=== PATIENT | female | born 1955 | race Caucasian/White ===

== ENCOUNTER 2020-07-04 10:06 | Day surgery (SDC) | payer MEDICARE, MEDICAID, SELFPAY ==
[2020-06-27 15:42] VITALS: BMI 30.5
--- NOTE | 2020-07-02 15:03 | HO.ANESPROP2 ---
Documented by User: Anabel Finley 07/03/20 12:19 HPI - Anesthesia Eval Consult details Narrative: 64yo F for Colonoscopy PMFSH Past Medical History Medical History (Updated 07/02/20 @ 15:05 by Anabel Finley) Anxiety and depression Bipolar disorder COPD (chronic obstructive pulmonary disease) Fibromyalgia Hip fracture, right Hx of allergic rhinitis Hx of gastritis Hypercholesterolemia Hypertension Migraines Obesity (BMI 30-39.9) Osteoporosis Pulmonary nodule Right humeral fracture Thyroid cyst Tobacco abuse Tubular adenoma of colon Type 2 diabetes mellitus with hyperglycemia Vitamin D deficiency Family History Family History (Updated 06/12/20 @ 13:29 by Tone Villanueva MD) Father Hypertension Cancer Mother Hypertension Maternal Aunt Stomach cancer Son Substance abuse Surgical History Surgical History H/O right knee surgery Herniated nucleus pulposus History of esophagogastroduodenoscopy (EGD) Hx of cholecystectomy Hx of colonoscopy S/P PAMELA-BSO Social History Social History Alcohol intake: current Smoking Status: Current every day smoker Packs Per Day: 0.5 Cigarettes Per Day: 10.0 Patient Given Instructions on How to Stop Smoking: Yes Date Education Initiated: 06/27/20 Use of substances other than those prescribed or required for medical reasons: No Advance Directives: No Advance Directives Information Provided: Yes Advance Directives on File: No Meds Allergies Allergy/AdvReac Type Severity Reaction Status Date / Time azithromycin Allergy Unknown unknown Verified 06/12/20 13:27 denosumab [Prolia] Allergy Unknown vomiting Verified 06/12/20 13:27 lamotrigine Allergy Unknown rash Verified 06/12/20 13:27 lisinopril Allergy Unknown nausea and Verified 06/12/20 13:27 vomiting naproxen [Aleve] Allergy Unknown dizziness Verified 06/12/20 13:27 Home Medications Medication Instructions Recorded Confirmed Type amlodipine 2.5 mg tablet 2.5 mg PO DAILY 06/12/20 07/04/20 History cetirizine 10 mg tablet 10 mg PO DAILY 06/12/20 06/27/20 History clonazepam 1 mg tablet 1 mg PO TID 06/12/20 07/04/20 History fluoxetine 20 mg capsule 20 mg PO BID 06/12/20 07/04/20 History furosemide 20 mg tablet 20 mg PO DAILY 06/12/20 06/27/20 History polyethylene glycol 3350 17 gram 17 g PO DAILY 06/12/20 06/27/20 History oral powder packet propranolol 80 mg capsule,24 80 mg PO DAILY 06/12/20 06/27/20 History hr,extended release ziprasidone HCl 40 mg capsule 40 mg PO BID 06/12/20 07/04/20 History Exam Exam Date and Time: July 02, 2020 1503 Height,Weight and Vital Signs: Height 5 ft 11 in Weight 99.337 kg Pertinent Lab Results Pertinent Lab Results: Laboratory Tests 02/23/20 02/23/20 06:26 06:26 WBC 7.0 Hgb 15.0 Hct 46.0 Plt Count 266 Sodium 140 Potassium 4.5 Chloride 104 BUN 14 Creatinine 0.89 Assessment and Plan Assessment Anesthesia Assessment: Chart Reviewed Documented by User: Cathy Anti 07/04/20 10:55 PMFSH Past Medical History Medical History (Updated 07/02/20 @ 15:05 by Anabel Finley) Anxiety and depression Bipolar disorder COPD (chronic obstructive pulmonary disease) Fibromyalgia Hip fracture, right Hx of allergic rhinitis Hx of gastritis Hypercholesterolemia Hypertension Migraines Obesity (BMI 30-39.9) Osteoporosis Pulmonary nodule Right humeral fracture Thyroid cyst Tobacco abuse Tubular adenoma of colon Type 2 diabetes mellitus with hyperglycemia Vitamin D deficiency Family History Family History (Updated 06/12/20 @ 13:29 by Tone Villanueva MD) Father Hypertension Cancer Mother Hypertension Maternal Aunt Stomach cancer Son Substance abuse Surgical History Surgical History H/O right knee surgery Herniated nucleus pulposus History of esophagogastroduodenoscopy (EGD) Hx of cholecystectomy Hx of colonoscopy S/P PAMELA-BSO Social History Social History Alcohol intake: current Smoking Status: Current every day smoker Packs Per Day: 0.5 Cigarettes Per Day: 10.0 Patient Given Instructions on How to Stop Smoking: Yes Date Education Initiated: 06/27/20 Use of substances other than those prescribed or required for medical reasons: No Advance Directives: No Advance Directives Information Provided: Yes Advance Directives on File: No Meds Allergies Allergy/AdvReac Type Severity Reaction Status Date / Time azithromycin Allergy Unknown unknown Verified 06/12/20 13:27 denosumab [Prolia] Allergy Unknown vomiting Verified 06/12/20 13:27 lamotrigine Allergy Unknown rash Verified 06/12/20 13:27 lisinopril Allergy Unknown nausea and Verified 06/12/20 13:27 vomiting naproxen [Aleve] Allergy Unknown dizziness Verified 06/12/20 13:27 Home Medications Medication Instructions Recorded Confirmed Type amlodipine 2.5 mg tablet 2.5 mg PO DAILY 06/12/20 07/04/20 History cetirizine 10 mg tablet 10 mg PO DAILY 06/12/20 06/27/20 History clonazepam 1 mg tablet 1 mg PO TID 06/12/20 07/04/20 History fluoxetine 20 mg capsule 20 mg PO BID 06/12/20 07/04/20 History furosemide 20 mg tablet 20 mg PO DAILY 06/12/20 06/27/20 History polyethylene glycol 3350 17 gram 17 g PO DAILY 06/12/20 06/27/20 History oral powder packet propranolol 80 mg capsule,24 80 mg PO DAILY 06/12/20 06/27/20 History hr,extended release ziprasidone HCl 40 mg capsule 40 mg PO BID 06/12/20 07/04/20 History Exam Airway Mallampati Class: II TM Dist: >3cm Neck ROM: Full Loose/Missing/Broken Teeth: No Heart: RRR Lungs: CTA Assessment and Plan Assessment Anesthesia Assessment: Anesthesia Plan Discussed and Chart Reviewed Final Anesthetic Review NPO: Yes ASA Class: III Final Preanesthetic Review: Meds/Allgs Chart Reviewed, Consent Obtained/Reviewed and Anes Risks/Benef Reviewed Patient Risk: Intermediate Procedure Risk: Low Anesthetic Plan Anesthetic Plan: MAC: Disposition: Standard PACU
--- NOTE | 2020-07-04 10:21 | MHC.SHP ---
Pre-Procedural Eval Section B Chief Complaint: SCREENING Details of Present Illness: Colon cancer screening; Hx tubular adenoma Present Medications: see Short Stay Collaborative assessment Medical History: Significant History (Hypertension, Bipolar Disorder, Gerd) History of Previous Operations: Relevant previous surgery/procedure and date(s) ([facility]: 2009;2014 both exams with polyps.) Allergies: Allergies Allergy/AdvReac Type Severity Reaction Status Date / Time azithromycin Allergy Unknown unknown Verified 06/12/20 13:27 denosumab [Prolia] Allergy Unknown vomiting Verified 06/12/20 13:27 lamotrigine Allergy Unknown rash Verified 06/12/20 13:27 lisinopril Allergy Unknown nausea and Verified 06/12/20 13:27 vomiting naproxen [Aleve] Allergy Unknown dizziness Verified 06/12/20 13:27 Review of Systems Sugical H&P ROS: Negative: Cardiovascular and Gastrointestinal and Yes, Specify: Constitution (Obesity), Respiratory (COPD; current smoker) and Endocrine (Diabetic) Exam Surgical H&P Exam: Normal: HEENT, Normal: Heart, Normal: Lungs and Normal: Extremities and Significant Findings: Abdomen (Central obesity) Plan Diagnosis/Plan: Unchanged Patient has been examined and remains a candidate for the planned procedure--yes
[2020-07-04 10:23] VITALS: BMI 30.5
[2020-07-04 10:29] VITALS: BP 139/81; PULSE 71; RESP 16; TEMP 35.8; O2SAT 94
--- NOTE | 2020-07-04 10:37 | PM.PROC ---
Brief Operative Note Date of procedure: 07/04/20 Pre-op diagnosis: Colon cancer screening, Hx of Tubular adenomas Anesthesia: MAC (CORY Langston) Surgeon: Michelle Dickey Disposition: PACU
[2020-07-04 10:43] LABS: Glucose, Whole Blood 133 mg/dL (60-115)
[2020-07-04 11:29] VITALS: BP 115/76; PULSE 76; RESP 16; TEMP 36.8; O2SAT 97
--- NOTE | 2020-07-04 11:32 | PM.PROC ---
Brief Operative Note Date of procedure: 07/04/20 Pre-op diagnosis: Hx of tubular adenomas, Screening Post-op diagnosis: other (Colon polyps) Procedure: Colonoscopy with excisional polypectomiesx2--Resolution clipping x1 Anesthesia: MAC (CORY Goldberg/MD Rogerio) Surgeon: Michelle Dickey Estimated blood loss (mL): 10 Pathology: other (Descending colon, transverse colon polyps) Condition: stable Disposition: PACU
[2020-07-04 11:43] VITALS: BP 140/89; PULSE 77; RESP 16; TEMP 36.6; O2SAT 99
--- NOTE | 2020-07-04 11:51 | PC.NURSE ---
iv removed. rito po contrast. dressing self in chair. ride called.
--- NOTE | 2020-07-04 12:04 | HO.POSTANES ---
Post Anesthesia Evaluation Post Anesthesia Evaluation Vital Signs: Vital Signs Temp Pulse Resp BP Pulse Ox 07/04/20 11:43 98 F 77 16 140/89 H 99 07/04/20 11:29 98.3 F 76 16 115/76 97 07/04/20 10:29 96.5 F L 71 16 139/81 94 Anesthesia: Monitored Mental Status: Awake Pain Control: Satisfactory Nausea/Vomiting: None Hydration: Adequate Anesthesia-Related Issues: No Anes. Related Issues
--- NOTE | 2020-07-06 20:10 | OP_ITS ---
SURGEON: Michelle Dickey MD PREOPERATIVE DIAGNOSIS: History of tubular adenomas. POSTOPERATIVE DIAGNOSIS: Colonic polyps. PROCEDURE PERFORMED: Colonoscopy with excisional polypectomy x2, resolution clipping x1. ESTIMATED BLOOD LOSS: Less than 10 mL. COMPLICATIONS: No complications. ANESTHESIA: Type of anesthesia, monitored. ASSISTANTS: No unit assistant. SPECIMENS: Removed, descending colon 60 cm polyp, distal transverse colon polyp. [employer]: Dr. Dickey. CONDITION: Postop, stable. FINDINGS: Digital rectal exam revealed no specific lesion. Video colonoscope was introduced without difficulty. It was navigated into the rectosigmoid, sigmoid. In this area, there was a suggestion on withdrawal of the scope of the rectosigmoid prolapse. Prep was excellent. Good mucosal detail was seen and anorectal verge was clear. PLAN AND CURRENT RECOMMENDATIONS: Repeat asymptomatic screening in this patient continues to be 5 years. GRAFT OR IMPLANTS: No grafts or implants, but there was 1 resolution clip placed. Michelle Dickey MD MEN/MODL / [id number] MTDFredis
== END 2020-07-04 12:11 | disposition home or self-care (01) ==
PROVIDERS: PCP Internal Medicine; Visit Provider Internal Medicine Gastroenterology
PROC: 0DJD8ZZ Inspection of Lower Intestinal Tract, Via Natural or Artificial Opening Endoscopic (ICD-10-PCS; CPT 45378; principal; 2020-07-04 11:30)
DX: Z12.11 Encounter for screening for malignant neoplasm of colon (principal); Z86.010 Personal history of colon polyps; D12.3 Benign neoplasm of transverse colon; D12.4 Benign neoplasm of descending colon; J44.9 Chronic obstructive pulmonary disease, unspecified; I10 Essential (primary) hypertension; E11.65 Type 2 diabetes mellitus with hyperglycemia; F32.9 Major depressive disorder, single episode, unspecified; Z90.49 Acquired absence of other specified parts of digestive tract; Z79.899 Other long term (current) drug therapy; Z88.1 Allergy status to other antibiotic agents; Z88.8 Allergy status to other drugs, medicaments and biological substances; F17.210 Nicotine dependence, cigarettes, uncomplicated
CPT/HCPCS: 45380; 82947; 88305

== ENCOUNTER → 2020-08-08 10:32 | Outpatient (BNVA) | payer MEDICARE, SELFPAY | PROVIDERS: PCP Internal Medicine; Visit Provider Physician Assistant | DX: Z13.89 Encounter for screening for other disorder (principal) | CPT/HCPCS: Q3014 ==

== ENCOUNTER 2020-12-03 06:39 | Outpatient (REF) | payer MEDICARE, MEDICAID, SELFPAY ==
[2020-12-03 07:27] LABS: Estimated Average Glucose 169 mg/dL; Hemoglobin A1c % 7.5 %
[2020-12-03 07:44] LABS: Alanine Aminotransferase 48 U/L (0-31); Albumin Level 4.5 g/dL (3.5-5.0); Alkaline Phosphatase 114 U/L (39-117); Anion Gap 14 (12-20); Aspartate Amino Transferase 30 U/L (5-31); Bilirubin Total 0.7 mg/dL (0.0-1.0); Blood Urea Nitrogen 17 mg/dL (9-16); Calcium 9.5 mg/dL (8.4-10.2); Carbon Dioxide 27 mmol/L (22-29); Chloride 104 mmol/L (96-108); Cholesterol 287 mg/dL; Estimated Glomerular Filt Rate 53; Glucose Random 193 mg/dL (60-115); HDL Cholesterol 29 mg/dL; LDL Cholesterol Calculated 187 mg/dl; Potassium 4.2 mmol/L (3.3-5.1); Sodium 141 mmol/L (135-145); Total Protein 6.9 g/dL (6.5-8.0); Triglycerides 357 mg/dL
== END 2020-12-03 06:40 | disposition home or self-care (01) ==
LOC: HO.LAB 06:39
PROVIDERS: PCP Internal Medicine; Visit Provider Internal Medicine
DX: E78.00 Pure hypercholesterolemia, unspecified (principal); E11.65 Type 2 diabetes mellitus with hyperglycemia
CPT/HCPCS: 36415; 80053; 80061; 83036

== ENCOUNTER 2021-01-06 11:22 | Outpatient (REF) | payer MEDICARE, MEDICAID, SELFPAY ==
--- NOTE | ~2021-01-06 | XR_ITS ---
EXAMINATION: XR ABDOMEN KUB CLINICAL INDICATION: K59.00 - Constipation, unspecified. COMPARISON: Radiographs abdomen 07/24/2014. TECHNIQUE: AP x2 views of the abdomen. FINDINGS: There is scattered gas in the bowel of normal caliber. There is scant stool in the rectosigmoid region. There is no excessive stool. No pneumatosis or abnormal collections of gas. Lung bases are clear. Surgical clips again noted right upper quadrant. There are degenerative changes lumbosacral spine. Orthopedic hardware is seen overlying right hip. XR/XR abdomen 1V IMPRESSION: 1. Scattered gas in bowel of normal caliber. 2. Scant stool in rectosigmoid. No excessive stool.
== END 2021-01-06 11:23 | disposition home or self-care (01) ==
LOC: HO.XRAY 11:22
PROVIDERS: PCP Internal Medicine; Visit Provider Internal Medicine
DX: K59.00 Constipation, unspecified (principal)
CPT/HCPCS: 74018

== ENCOUNTER 2021-04-07 12:52 | Outpatient (REF) | payer MEDICARE, MEDICAID, SELFPAY ==
--- NOTE | ~2021-04-07 | MM_ITS ---
EXAMINATION: MM SCREENING DIGITAL BREAST TOMOSYNTHESIS, BILATERAL CLINICAL INFORMATION: Screening. Asymptomatic. The lifetime risk of breast cancer based on the Tyrer-Cuzick Model is 3%. COMPARISON: Mammography: 04/10/2020, 04/01/2020, 03/27/2019, 03/15/2018, 06/07/2007 TECHNIQUE: Digital breast tomosynthesis is performed in both the craniocaudal and mediolateral oblique views along with computer-aided detection (CAD). Synthesized 2D images are generated from the tomosynthesis. Additional left CC view is provided. FINDINGS: There are scattered areas of fibroglandular density (ACR BI-RADS breast composition Category b). Breast tissue composition borders on heterogeneously dense. There is fine fibronodular parenchymal pattern similar to prior studies. No developing density or interval mass or architectural abnormality. No abnormal calcifications. The axilla and skin contours are unremarkable. MM/MM tomosynthesis screening BI IMPRESSION: No mammographic evidence of malignancy. ASSESSMENT: BI-RADS 1: Negative RECOMMENDATION: Routine annual mammography screening. This patient's information was entered into a reminder system with a target due date for their next mammogram.
== END 2021-04-07 12:53 | disposition home or self-care (01) ==
LOC: HO.MAMMO 12:52
PROVIDERS: PCP Internal Medicine; Visit Provider Internal Medicine
DX: Z12.31 Encounter for screening mammogram for malignant neoplasm of breast (principal)
CPT/HCPCS: 77063; 77067

== ENCOUNTER 2021-08-18 07:00 | Outpatient (REF) | payer MEDICARE, MEDICAID, SELFPAY ==
[2021-08-18 11:35] LABS: MANUAL DIFF FLAG NO
[2021-08-18 11:39] LABS: Basophils Percent Auto 0.6 % (0-2); Eosinophils Absolute Auto 0.2 X10*3/uL (0.0-0.4); Hematocrit 47.1 % (37.0-47.0); Hemoglobin 14.9 g/dl (12.0-16.0); Imm Gran Abs Auto 0.02 X10*3/uL (0.00-0.03); Imm Gran Pct Auto 0.3 % (0.0-0.4); Lymphocytes Absolute Auto 2.4 X10*3/uL (1.2-4.9); Lymphocytes Percent Auto 37.7 % (20-40); Mean Corpuscular HGB Conc 31.6 g/dl (31.0-35.0); Mean Corpuscular Hemoglobin 28.6 pg (27.0-33.0); Mean Corpuscular Volume 90.4 fL (80.0-98.0); Mean Platelet Volume 11.5 fL (9.4-12.3); Monocytes Absolute Auto 0.4 X10*3/uL (0.1-1.2); Monocytes Percent Auto 6.5 % (2-11); Neutrophils Absolute Auto 3.3 x10*3/uL (2.0-8.3); Neutrophils Percent Auto 51.9 % (45-73); Platelet Count 273 X10*3/uL (160-400); Red Blood Count 5.21 X10*6/uL (4.20-5.50); Red Cell Distribution Width 12.6 % (11.0-16.0); White Blood Count 6.3 X10*3/uL (4.8-10.8)
[2021-08-18 11:52] LABS: Alanine Aminotransferase 38 U/L (0-31); Albumin Level 4.3 g/dL (3.5-5.0); Alkaline Phosphatase 88 U/L (39-117); Anion Gap 11 (12-20); Aspartate Amino Transferase 22 U/L (5-31); Bilirubin Total 0.4 mg/dL (0.0-1.0); Blood Urea Nitrogen 14 mg/dL (9-16); Calcium 9.7 mg/dL (8.4-10.2); Carbon Dioxide 29 mmol/L (22-29); Chloride 105 mmol/L (96-108); Estimated Glomerular Filt Rate 59; Glucose Random 192 mg/dL (60-115); Iron 100 mcg/dL (30-160); Percent Iron Saturation 23 % (15-50); Potassium 4.6 mmol/L (3.3-5.1); Sodium 140 mmol/L (135-145); Total Iron Binding Capacity 432 mcg/dL (228-428); Total Protein 7.1 g/dL (6.5-8.0); Unsaturated Iron Binding 332 ug/dL
[2021-08-18 12:13] LABS: Free T4 (Free Thyroxine) 1.06 ng/dL (0.71-1.85); Thyroid Stimulating Hormone 0.66 uIU/mL (0.32-4.0)
[2021-08-18 12:34] LABS: Folate 8.1 ng/mL (> or = 4.0); Vitamin B12 532 pg/mL (200-900)
== END 2021-08-18 07:01 | disposition home or self-care (01) ==
LOC: HO.HMGCLDS 07:00
PROVIDERS: PCP Internal Medicine; Visit Provider Internal Medicine
DX: E11.65 Type 2 diabetes mellitus with hyperglycemia (principal)
CPT/HCPCS: 36415; 80053; 82306; 82607; 82746; 83540; 84439; 84443; 85025

== ENCOUNTER 2024-07-25 15:21 | Outpatient (AMB) | payer MEDICARE, MEDICAID, SELFPAY ==
[2024-07-25 15:26] VITALS: BP 130/78; PULSE 76; O2SAT 96; BMI 29.3
--- NOTE | 2024-07-25 15:26 | A.OFFPC_ITS ---
Vital Signs 07/25/24 15:26 Height 5 ft 11 in Weight 210 lb BMI 29.3 BP 130/78 Blood Pressure Location Lt brachial Position Sitting Pulse 76 Pulse Source Pulse Oximeter Pulse Oximetry (%) 96 Oxygen Delivery Method Room Air Intake Visit Reasons: f/u meds Allergies azithromycin Allergy (Unknown, Verified 07/25/24 15:26) unknown denosumab [Prolia] Allergy (Unknown, Verified 07/25/24 15:26) vomiting lamotrigine Allergy (Unknown, Verified 07/25/24 15:26) rash lisinopril Allergy (Unknown, Verified 07/25/24 15:26) nausea and vomiting naproxen [Aleve] Allergy (Unknown, Verified 07/25/24 15:26) dizziness Medication List - Last Reconciled 07/25/24 by Tone Villanueva MD albuterol sulfate 90 mcg/actuation (ProAir HFA) 2 puffs inhalation Q4-6H PRN amlodipine 2.5 mg PO DAILY atorvastatin 40 mg PO BEDTIME cetirizine (Zyrtec) 10 mg PO DAILY cholecalciferol (vitamin D3) 25 mcg PO DAILY clonazepam (Klonopin) 1 mg PO TID fenofibrate 160 mg PO DAILY 90 days fluoxetine 20 mg PO BID fluoxetine 10 mg PO DAILY fluticasone propion-salmeterol 250-50 mcg/dose (Advair Diskus) 1 inh inhalation BID furosemide 20 mg PO DAILY gabapentin 300 mg PO BID gabapentin 600 mg PO BEDTIME glipizide 5 mg PO DAILY propranolol ER 80 mg PO DAILY ziprasidone HCl 40 mg PO BID ziprasidone HCl 20 mg PO BID Tobacco use date assessed: 07/25/24 Fall risk assessment: No Falls in past year Last assessed Fall Risk: 07/25/24 Dental Screening Dental Screen Date: 07/25/24 Did you have a dental visit in the last 12 months?: Yes Did you have a dental problem in the last 6 months where you did not have access to dental care?: No Was dental information given to patient?: Patient has dentist HPI f/u meds HPI Details 68-year-old overweight female smoker wit h a history of osteoporosis bipolar disorder with hypertension hypercholesterolemia COPD diabetes mellitus coming in for follow-up. Last seen in 2020. Patient's colonoscopy is up-to-date 2019 mammogram is due bone density is due. Went on [facility] -. mom . changed [facility] Medical History Anxiety and depression Bilateral lower extremity pain Bipolar disorder COPD (chronic obstructive pulmonary disease) Fibromyalgia Hip fracture, right Hx of allergic rhinitis Hx of gastritis Hypercholesterolemia Hypertension Migraines Obesity (BMI 30-39.9) Osteoporosis Overweight (BMI 25.0-29.9) Pulmonary nodule Right humeral fracture Thyroid cyst Tobacco abuse Tubular adenoma of colon Type 2 diabetes mellitus with hyperglycemia Vitamin D deficiency Surgical History Deficient knowledge of leg surgery History of shoulder surgery History of hip surgery Hx of colonoscopy History of esophagogastroduodenoscopy (EGD) S/P PAMELA-BSO Hx of cholecystectomy H/O right knee surgery Herniated nucleus pulposus Family History (Updated 07/08/21 @ 14:17 by Tone Villanueva MD) Father Hypertension Cancer Lung cancer Mother Hypertension Maternal Aunt Stomach cancer Son Substance abuse Social History (Updated 07/08/21 @ 14:18 by Tone Villanueva MD) Housing: House Alcohol intake: former Patient Tobacco Use Status: Current everyday Tobacco user Tobacco use type: Cigarette Cigarettes Per Day: 10 e-Cigarette/Vaping Use: Never Used Second Hand Smoke Exposure: Yes Current occupational status: employed Cognitive needs: No Hearing needs: No Vision needs: Yes Questionnaire PHQ-9 Over the last 2 weeks, how often have you been bothered by any of the following problems? 1. Little interest or pleasure in doing things: not at all 2. Feeling down, depressed, or hopeless: not at all 3. Trouble falling or staying asleep, or sleeping too much: not at all 4. Feeling tired or having little energy: not at all 5. Poor appetite or overeating: not at all 6. Feeling bad about yourself - or that you are a failure or have let yourself or your family down: not at all 7. Trouble concentrating on things, such as reading the newspaper or watching television: not at all 8. Moving or speaking so slowly that other people could have noticed. Or the opposite - being so fidgety or restless that you have been moving around a lot more than usual: not at all 9. Thoughts that you would be better off or of hurting yourself in some way: not at all Total score: 0 Source: Developed by Drs. Tan Galan, Kizzy Colmenares, Kwadwo Lim and colleagues, with an educational ravindra from [employer]. Thrive Questionnaire Date Thrive assessed: 07/25/24 I am a: Patient What is your living situation today?: I have a steady place to live Within the past 12 months, did the food you bought not last and you didn't have the money to get more?: Never true Within the past 12 months, did you worry whether your food would run out before you got money to buy more?: Never true Do you have trouble paying for medicines?: No Do you have trouble getting transportation to medical appointments?: No Do you have trouble paying your heating and electricity bill?: No Do you have trouble taking care of your child, family member or friend?: No Do you have trouble with day-to-day activities such as bathing, preparing meals, shopping, managing finances, etc.?: No Are you currently unemployed and looking for a job?: No Are you interested in more education?: No Currently or been in a relationship where the following occur: No concerns reported THRIVE Score: 0 AUDIT C Alcohol Use Questionnaire (AUDIT-C) 1. How often do you have a drink containing alcohol?: Never 3. How often do you have six or more drinks on one occasion?: Never Total Score: 0 DINORAH-7 AMB Questionnaire DINORAH-7 Date DINORAH - 7 assessed: 07/25/24 Feeling nervous, anxious, or on edge: 1 = Several days Not being able to stop or control worryin = Not at all Worrying too much about different things: 1 = Several days Trouble relaxin = Not at all Being so restless that it is hard to sit still: 0 = Not at all Becoming easily annoyed or irritable: 0 = Not at all Feeling afraid as if something awful might happen: 0 = Not at all Total DINORAH-7 score (0-4 normal; 5-9 mild; 10-14 moderate; 15-21 severe): 2 Source: Developed by Kizzy Welch Kurt Kroenke and colleagues, with an educational ravindra from [employer]. Physical exam (Primary Care) Vital Signs: Last Vital Signs Pulse 76 07/25/24 15:26 BP 130/78 07/25/24 15:26 Pulse Ox 96 07/25/24 15:26 Oxygen Delivery Method Room Air 07/25/24 15:26 BMI result Body Mass Index 29.3 Tobacco/Smoking Status: Tobacco use Status Tobacco use date assessed 07/25/24 07/25/24 15:27 Patient Tobacco Use Status Current everyday Tobacco 07/25/24 15:27 Tobacco use type Cigarette 07/25/24 15:27 e-Cigarette/Vaping Use Never Used 07/25/24 15:27 PHQ-9: PHQ-9 Score PHQ-9: Total score 0 07/25/24 15:41 Thrive Assessment: Date of Thrive Assessment Date Thrive assessed 07/25/24 07/25/24 15:27 Currently or been in a relationship where the following occur: No concerns reported Const General: alert; No acute distress Eyes Conjunctivae: conjunctivae normal Resp Auscultation: clear to auscultation bilaterally Cardio Rate: regular rate Rhythm: regular rhythm GI Inspection: Yes normal to inspection Extrem General: Yes normal to inspection and No edema Results AMB Hemoglobin A1c AMB Hemoglobin A1c 6.5 % Last Edit by Katelynn Ospina CMA on 07/25/24 15 :58 Coding Level of Care Code Est Pt Level 4 (11880) Complex EM visit Add On G2211 Diagnoses Type 2 diabetes mellitus with hyperglycemia, without long-term current use of insulin E11.65 Diabetes mellitus [facility]p insulin use: without epic ambulatory specialists use Essential hypertension I10 Hypertension type: essential hypertension Hypercholesterolemia E78.00 Tobacco abuse Z72.0 Age-related osteoporosis without current pathological fracture M81.0 Osteoporosis type: age-related Presence of current pathological fracture: without current pathological fracture Breast cancer screening by mammogram Z12.31 Overweight (BMI 25.0-29.9) E66.3 Bipolar affective disorder, currently manic, moderate F31.12 Active/Remission status: currently active Current bipolar episode type: manic Current episode severity: moderate Assessment & Plan Assessment & Plan (1) Type 2 diabetes mellitus with hyperglycemia: Comment: Dr. Garcia Code(s): E11.65 - Type 2 diabetes mellitus with hyperglycemia Category: Medical Qualifiers: Diabetes mellitus mcfp insulin use: without mcfp use Qualified Code(s): E11.65 - Type 2 diabetes mellitus with hyperglycemia Plan: Decrease the amount of carbohydrate intake, pasta, bread, rice and potatoes are all sugar and that is aside from all the sweet stuff, remember that fruits are good but they are Sweet also. Hemoglobin A1c goal of less than 7.0 patient on glipizide 5 mg once a day (2) Hypertension: Code(s): I10 - Essential (primary) hypertension Category: Medical Qualifiers: Hypertension type: essential hypertension Qualified Code(s): I10 - Essential (primary) hypertension Plan: Continue with blood pressure medication. Decrease salt intake and exercise on propranolol 80 mg once a day and amlodipine 2.5 mg once a day. Patient had nausea and vomiting from lisinopril. (3) Hypercholesterolemia: Code(s): E78.00 - Pure hypercholesterolemia, unspecified Category: Medical Plan: Avoid fried foods, chicken skin, eggs, butter margarine, pastries and meat. Be it pork or beef they have a lot of cholesterol LDL goal of less than 100 and triglyceride of less than 150 on atorvastatin 40 mg once a day patient needs blood work and fenofibrate (4) Tobacco abuse: Comment: stopped 10/2020 still smoking 3/4 of pack since 13 years old - last CT chest 03/2024 Code(s): Z72.0 - Tobacco use Category: Medical Plan: Discussion regarding lung cancer screening program. patient is having CT scan (5) Osteoporosis: Comment: 05/2017, March 2020 Code(s): M81.0 - Age-related osteoporosis without current pathological fracture Category: Medical Qualifiers: Osteoporosis type: age-related Presence of current pathological fracture: without current pathological fracture Qualified Code(s): M81.0 - Age- related osteoporosis without current pathological fracture Plan: Reminded about bone density (6) Breast cancer screening by mammogram: Code(s): Z12.31 - Encounter for screening mammogram for malignant neoplasm of breast Category: Medical Plan: Reminded about mammogram (7) Overweight (BMI 25.0-29.9): Code(s): E66.3 - Overweight Category: Medical Plan: Diet and exercise (8) Bipolar disorder: Comment: Santi [place] Code(s): F31.9 - Bipolar disorder, unspecified Category: Medical Qualifiers: Active/Remission status: currently active Current bipolar episode type: manic Current episode severity: moderate Qualified Code(s): F31.12 - Bipolar disorder, current episode manic without psychotic features, moderate Plan: Continue with counseling and therapy. Orders: Orders AMB Hemoglobin A1c Today Z13.9 - Encounter for screening, unspecified Vitamin D 25-OH Total Today E11.65 - Type 2 diabetes mellitus with hyperglycemia MM tomosynthesis screening BI Today Z12.31 - Encounter for screening mammogram for malignant neoplasm of breast XR DEXA axial skeleton Today M81.0 - Age-related osteoporosis without current pathological fracture Complete Blood Count Auto Diff Today E11.65 - Type 2 diabetes mellitus with hyperglycemia Comprehensive Met. Panel Today E11.65 - Type 2 diabetes mellitus with hyperglycemia Free T4 (Free Thyroxine) Today E11.65 - Type 2 diabetes mellitus with hyperglycemia Thyroid Stimulating Hormone Today E11.65 - Type 2 diabetes mellitus with hyperglycemia Lipid Panel Today E11.65 - Type 2 diabetes mellitus with hyperglycemia, E78.00 - Pure hypercholesterolemia, unspecified Microalbumin, Random (w Creat) Today E11.65 - Type 2 diabetes mellitus with hyperglycemia Creatinine Urine Today E11.65 - Type 2 diabetes mellitus with hyperglycemia Vitamin B12 and Folate Today E11.65 - Type 2 diabetes mellitus with hyperglycemia Referrals Lung Cancer Screening Referral Z72.0 - Tobacco use Podiatry Referral E11.65 - Type 2 diabetes mellitus with hyperglycemia Medications: New gabapentin 300 mg PO BID 60 caps 3RF Z72.0 - Tobacco use cholecalciferol (vitamin D3) 25 mcg PO DAILY 90 caps 3RF Z72.0 - Tobacco use fluticasone propion-salmeterol 250-50 mcg/dose (Advair Diskus) 1 inh inhalation BID 60 ea 12RF Z72.0 - Tobacco use glipizide 5 mg PO DAILY 90 tabs 1RF E11.65 - Type 2 diabetes mellitus with hyperglycemia gabapentin 600 mg PO BEDTIME 30 tabs 3RF Z72.0 - Tobacco use furosemide 20 mg PO DAILY 30 tabs 1RF Z72.0 - Tobacco use Changed From atorvastatin 40 mg PO BEDTIME E78.00 - Pure hypercholesterolemia, unspecified To atorvastatin 10 mg PO BEDTIME 90 tabs 1RF E78.00 - Pure hypercholesterolemia, unspecified From albuterol sulfate 90 mcg/actuation (ProAir HFA) 2 puffs inhalation Q4-6H PRN 8.5 grams 0RF shortness of breath or wheezing J43.9 - Emphysema, unspecified To albuterol sulfate 90 mcg/actuation 2 puffs inhalation Q4-6H PRN 8.5 grams 0RF shortness of breath or wheezing J43.9 - Emphysema, unspecified Refilled propranolol ER 80 mg PO DAILY 90 caps 2RF Z72.0 - Tobacco use amlodipine 2.5 mg PO DAILY 90 tabs 3RF Z72.0 - Tobacco use fenofibrate 160 mg PO DAILY 90 days 90 tabs 2RF E78.00 - Pure hypercholesterolemia, unspecified
--- OUTSIDE RECORDS SUMMARY | 2024-08-01 15:11 | XMS_ITS | Continuity of Care Document ---
Author Organization [facility] Address [address] [address] Phone Care Team Providers Care Technology Program Manager Name Role Phone Samra Brock MD Unavailable Unavailable Allergies, Adverse Reactions, Alerts Substance Reaction Status Criticality NAPROXEN SODIUM Dizziness Active No Informati on lisinopril Active No Information lamotrigine Active No Information denosumab Active No Information azithromycin Active No Information Medications Medication Instructions Dosage Effective Dates (start - stop) Status Comments Senna Lax 8.6 mg tablet TAKE 2 TABLETS BY MOUTH EVERY DAY - Active furosemide 20 mg tablet TAKE 1 TABLET BY ORAL ROUTE EVERY DAY - Active amlodipine 2.5 mg tablet TAKE 1 TABLET BY ORAL ROUTE EVERY DAY - Active Aveeno Moisturizing 1 % topical cream apply to affected areas as needed. - Active Aveeno eczema therapy with hydrocolloidal oatmeal Flonase Allergy Relief 50 mcg/actuation nasal spray,suspension spray 1 - 2 spray by intranasal route every day in each nostril as needed 50-100 MCG - Active glipizide 5 mg tablet TAKE 1 TABLET BY ORAL ROUTE EVERY DAY BEFORE A MEAL - Active albuterol sulfate HFA 90 mcg/actuation aerosol inhaler INHALE 2 PUFF BY INHALATION ROUTE EVERY 4 - 6 HOURS NEEDED - Active propranolol ER 80 mg capsule,24 hr,extended release TAKE 1 CAPSULE BY ORAL ROUTE EVERY DAY - Active ATORVASTATIN 80MG TAKE 1 TABLET BY ORAL ROUTE EVERY DAY - Active gabapentin 600 mg tablet TAKE 1 TABLET BY ORAL ROUTE AT BEDTIME - Active gabapentin 300 mg capsule TAKE 1 CAPSULE BY ORAL ROUTE AT 8AM AND 1PM - Active Tylenol Extra Strength 500 mg tablet take 2 tablet by oral route every 8 hours - Active hydrocortisone 2.5 % lotion apply by topical route twice a day as a thin layer to the affected area(s) - Active ADVAIR DISKU AER 250/50 INHALE 1 PUFF BY MOUTH 2 TIMES EVERY DAY APPROXIMATELY 12 HOURS APART AT THE SAME TIMES EACH DAY - Active Pepto-Bismol 262 mg/15 mL oral suspension take 30ml by oral route every hour as needed do not exceed 8 doses in 24 hours - Active Heartburn Relief (famotidine) 10 mg tablet TAKE 1 TABLET BY ORAL ROUTE EVERY DAY NEEDED - Active CETIRIZINE 10MG TAKE 1 TABLET BY ORAL ROUTE EVERY DAY - Active fluoxetine 10 mg capsule TAKE 1 CAPSULE BY ORAL ROUTE EVERY DAY IN THE PM - Active VITAMIN D3 1000UNIT TAKE 1 TABLET BY MOUTH EVERY DAY - Active FENOFIBRATE 160MG TAKE 1 TABLET BY ORAL ROUTE EVERY NIGHT - Active Saline Mist 0.65 % nasal spray aerosol 1-2 sprays each nostril PRN dry sinuses - Active ziprasidone 20 mg capsule TAKE 1 CAPSULE DAILY IN THE MORNING AND 2 CAPSULES IN THE EVENING- RX BY PSYCH - Active FLUOXETINE 20MG TAKE 1 CAPSULE BY ORAL ROUTE EVERY DAY IN THE MORNING - Active clonazepam 1 mg tablet take 1 tablet by oral route 3 times every day 1 MG - Active Mass pat checked 03/08/23. Artificial Tears (polyvinyl alcohol) 1.4 % eye drops administer 1-2 drops to affected eyes every 3 hours as needed - Active SENNA 8.6MG TAKE 2 TABLETS BY MOUTH EVERY DAY - No Longer Active Procedures Procedure Date OFFICE/OUTPATIENT VISIT EST OFFICE/OUTPATIENT VISIT EST OFFICE/OUTPATIENT VISIT EST Guy-12-2024 OFFICE/OUTPATIENT VISIT EST OT EVAL LOW COMPLEX 30 MIN PER PM REEVAL EST PAT 65+ YR OFFICE/OUTPATIENT VISIT EST OFFICE/OUTPATIENT VISIT EST OFFICE/OUTPATIENT VISIT EST PT EVAL LOW COMPLEX 20 MIN OT EVAL LOW COMPLEX 30 MIN MED NUTRITION INDIV SUBSEQ PER PM REEVAL EST PAT 65+ YR OFFICE/OUTPATIENT VISIT EST MED NUTRITION INDIV SUBSEQ OFFICE/OUTPATIENT VISIT EST MEDICAL NUTRITION INDIV IN OFFICE/OUTPATIENT VISIT NEW PT EVAL LOW COMPLEX 20 MIN OT EVAL LOW COMPLEX 30 MIN Advance Directives Directive Yes / No Effective Date File Name No Information Encounters Encounter Description Practice Location Reason(s) For Visit Diagnoses Date Provider Providers Copied on Encounter [facility] [address] [facility] [address] [facility], [place], [place], [id number], tel:[phone] [place] No Information 4 Vinod Aqib. [address] [place], [id number], [place]. tel:[phone] [facility], [address] [facility] [facility], [place], [place], [id number], [place] tel:[phone] [place] No Information 4 Vinod Aqib. [address] [place], [id number], [place]. tel:[phone] [facility], [address], [place], [place], [id number], [place] tel:[phone] [place] No Information 4 Vinod Aqib. [address] [place], [id number], [place]. tel:[phone] [facility], [address], [place], [place], [id number], [place] tel:[phone] [place] No Information 4 Vinod Aqib. [address] [place], [place], [id number], [place]. tel:[phone] [facility], [address] [facility], [place], [place], [id number], [place] tel:[phone] [place] No Information 4 Vinod Aqib. [address] [place], [place], [id number], [place]. tel:[phone] [facility], [facility], [place], [place], [id number], [place] tel:[phone] [place] No Information 4 Omar Esthela. [address] [place], [place], [id number], [place]. tel:[phone] [facility], [address] [facility], [place], [place], [id number], [place] tel:[phone] [place] No Information 4 Omar Rushecca. [address] [place], [place], [id number], [place]. tel:[phone] OFFICE/OUTPA TIENT VISIT EST [facility], [address] [facility], [place], [place], [id number], [place] tel:[phone] [place] Semi-Annual (chief complaint) Schizophrenia , unspecified typeBipolar affective disorder, currently depressed, moderateGener alized anxiety disorderPTSD (post-traumat ic stress disorder)Hype rcholesterola emiaLong term (current) use of oral hypoglycemic drugsType 2 diabetes mellitus with stage 2 chronic kidney disease, without long-term current use of insulinChroni c kidney disease, stage 2 (mild)Diabeti c peripheral vascular diseaseAge-re lated osteoporosis without current pathological fractureClass 1 obesity due to excess calories with serious comorbidity and body mass index (BMI) of 30.0 to 30.9 in adultBody mass index [BMI] 30.0-30.9, adultVitamin D deficiencyAge -related cataract of both eyes, unspecified age-related cataract typeGastroeso phageal reflux disease without esophagitisHy pertensive renal disease, stage 1 through stage 4 or unspecified chronic kidney diseasePrimar y osteoarthriti s involving multiple jointsFibromy algiaChronic obstructive pulmonary disease, unspecified COPD typePulmonary nodulePsorias is 4 Omar Proctor. [address] [facility] [place], [id number], [place]. tel:[phone] [facility], [address], [place], [place], [id number], [place] tel:[phone] [place] No Information 4 Os Dawna. [address] [place], [id number], [place]. tel:[phone] [facility], [address], [place], [place], [id number], [place] tel:[phone] [place] No Information 4 Omar Proctor. [address] [place], [id number], [place]. tel:[phone] [facility], [address], [place], [place], [id number], [place] tel:[phone] [place] Psoriasis 4 Omar Proctor. [address] [place], [id number], [place]. tel:[phone] OFFICE/OUTPA TIENT VISIT EST [facility], [address] [facility] [address], [place], [place], [id number], [place] tel:[phone] [place] Acute Visit (chief complaint) Psoriasis 4 Omar Proctor. [address] [place], [id number], [place]. tel:[phone] [facility], [address], [place], [place], [id number], [place] tel:[phone] [place] No Information 0 4 Os Dawna. [address] [place], [place], [id number], [place]. tel:[phone] [facility], [address], [place], [place], [id number], [place] tel:[phone] [place] No Information 0 9 4 Pitsiladis . [address] [place], [place], [id number], [place]. tel:[phone] [facility], [address], [place], [place], [id number], [place] tel:[phone] [place] No Information 0 4 Os Dawna. [address] [place], [place], [id number], [place]. tel:[phone] [facility], [address] [facility] [facility], [place], [place], [id number], [place] tel:[phone] [place] No Information 2 4 Os Dawna. [address] [place], [place], [id number], [place]. tel:[phone] OFFICE/OUTPA TIENT VISIT EST [facility], [address], [place], [place], [id number], [place] tel:[phone] [place] Acute Visit (chief complaint) Psoriasis 2 4 Os Dawna. [address] [place], [place], [id number], [place]. tel:[phone] OFFICE/OUTPA TIENT VISIT EST [facility], [address], [place], [place], [id number], [place] tel:[phone] [place] Acute Visit (chief complaint) Fungal dermatitis 0 4 Omar Esthela. [address] [place], [place], [id number], [place]. tel:[phone] [facility], [address], [place], [place], [id number], [place] tel:[phone] [place] FibromyalgiaA ge-related osteoporosis without current pathological fractureUnspe cified osteoarthriti s, unspecified site May-3 0-202 4 Os Dawna. [address] [place], [id number], [place]. tel:[phone] [facility], [address] [facility] [address], [place], [place], [id number], [place] tel:[phone] [place] No Information 8 4 Omar Proctor. [address] [facility] [place], [id number], [place]. tel:[phone] [facility], [address], [place], [place], [id number], [place] tel:[phone] [place] No Information 6 4 Os Dawna. [address], [place], [place], [id number], [place]. tel:[phone] [facility], [address] [facility] [facility], [place], [place], [id number], [place] tel:[phone] [place] Age-related osteoporosis without current pathological fracture 4 Os Dawna. [address] [place], [place], [id number], [place]. tel:[phone] [facility], [address], [place], [place], [id number], [place] tel:[phone] [place] No Information 3 4 Os Dawna. [address] [place], [place], [id number], [place]. tel:[phone] [facility], [address], [place], [place], [id number], [place] tel:[phone] [place] No Information 3 0-202 4 Os Dawna. [address], [place], [place], [id number], [place]. tel:[phone] [facility], [address] [facility] [facility], [place], [place], [id number], [place] tel:[phone] [place] No Information 4 Os Dawna. [address] [place], [place], [id number], [place]. tel:[phone] [facility], [address] [facility] [address] [facility], [place], [place], [id number], [place] tel:[phone] [place] No Information 4 Os Dawna. [address] [place], [place], [id number], [place]. tel:[phone] [facility], [address] [facility], [place], [place], [id number], [place] tel:[phone] [place] No Information 4 Os Dawna. [address] [place], [place], [id number], [place]. tel:[phone] [facility], [address] [facility], [place], [place], [id number], [place] tel:[phone] [place] No Information 2 4 Os Dawna. [address] [place], [place], [id number], [place]. tel:[phone] [facility], [address] [facility] [facility], [place], [place], [id number], [place] tel:[phone] [place] Encounter for rehabilitatio n evaluationHem iplegia and hemiparesis following unspecified cerebrovascul ar disease affecting left dominant sidePrimary generalized (osteo)arthri tis b-0 4 Torres Madison. [address] [place], [place], [id number], [place]. tel:[phone] [facility], [address] [facility] [address] [facility], [place], [place], [address], [place] tel:[phone] [place] Encounter for rehabilitatio n evaluation 4 Gopi Campos. [address], [place], [place], [id number], [place]. tel:[phone] PER PM REEVAL EST PAT 65+ YR [facility], [address] [facility] [address], [place], [place], [id number], [place] tel:[phone] [place] Semi-Annual (chief complaint) Encounter for general adult medical examination without abnormal findingsSchiz ophrenia, unspecified typeBipolar affective disorder, remission status unspecifiedGe neralized anxiety disorderPTSD (post-traumat ic stress disorder)Hype rcholesterola emiaLong term (current) use of oral hypoglycemic drugsType 2 diabetes mellitus with diabetic chronic kidney disease, unspecified CKD stage, unspecified whether terminal superintendent insulin useOsteoporos is, unspecified osteoporosis type, unspecified pathological fracture presenceGastr oesophageal reflux disease without esophagitisSt age 2 chronic kidney diseaseHypert ensive renal disease, stage 1 through stage 4 or unspecified chronic kidney diseaseChroni c obstructive pulmonary disease, unspecified COPD typePulmonary noduleTobacco useObstructiv e sleep apneaType 2 diabetes mellitus with peripheral vascular disease 4 Os Dawna. [address], [place], [place], [id number], [place]. tel:[phone] [facility], [address] [facility], [place], [place], [id number], [place] tel:[phone] [place] Medication management 3 Omar Proctor. [address], [place], [place], [id number], [place]. tel:[phone] OFFICE/OUTPA TIENT VISIT EST [facility], [address] [address], [place], [place], [id number], [place] tel:[phone] [place] Follow-up (chief complaint) Pulmonary nodule 3 Omar Proctor. [address], [place], [place], [id number], [place]. tel:[phone] [facility], [facility], [place], [place], [id number], [place] tel:[phone] [place] No Information 3 Omar Proctor. [address] [place], [id number], [place]. tel:[phone] [facility], [address] [facility], [place], [place], [id number], [place] tel:[phone] [place] No Information 3 Os Dawna. [address] [place], [place], [id number], [place]. tel:[phone] OFFICE/OUTPA TIENT VISIT EST [facility], [address] [address], [place], [place], [id number], [place] tel:[phone] [place] OV (chief complaint) Pulmonary nodule 3 Omar Proctor. [address] [place], [id number], [place]. tel:[phone] [facility], [facility], [place], [place], [id number], [place] tel:[phone] [place] No Information 3 Omar Proctor. [address], [place], [place], [id number], [place]. tel:[phone] OFFICE/OUTPA TIENT VISIT EST [facility], [facility], [place], [place], [id number], [place] tel:[phone] [place] Semi-Annual (chief complaint) Schizophrenia , unspecified typeBipolar disorder in partial remission, most recent episode unspecified typeGeneraliz ed anxiety disorderPTSD (post-traumat ic stress disorder)Toba principal accounts clerk useObstructiv e sleep apneaChronic obstructive pulmonary disease, unspecified COPD typePulmonary noduleOsteopo rosis, unspecified osteoporosis type, unspecified pathological fracture presenceGastr oesophageal reflux disease without esophagitisHy percholestero laemiaLong term (current) use of oral hypoglycemic drugsType 2 diabetes mellitus with stage 2 chronic kidney disease, with long-term current use of insulinChroni c kidney disease, stage 2 (mild)terminal operations supervisor (current) use of insulinHypert ensive renal disease, stage 1 through stage 4 or unspecified chronic kidney disease 3 Os Dawna. [address] [place], [place], [id number], [place]. tel:[phone] [facility], [address], [place], [place], [id number], [place] tel:[phone] [facility] 3 Os Dawna. [address] [place], [place], [id number], [place]. tel:[phone] [facility], [address] [facility], [place], [place], [id number], [place] tel:[phone] [facility] 3 Os Dawna. [address] [place], [place], [id number], [place]. tel:[phone] [facility], [address] [facility] [address], [place], [place], [id number], [place] tel:[phone] [place] Encounter for rehabilitatio n evaluation 3 Isa Urias. [address], [place], [id number]. tel:[phone] [facility], [address] [facility], [place], [place], [id number], [place] tel:[phone] [place] Encounter for rehabilitatio n evaluationOth er chronic painAlteratio n in performance of activities of daily living 3 Marco A Delcid. [address] [place], [place], [id number]. tel:[phone] [facility], [address], [place], [place], [id number], [place] tel:[phone] [place] Osteoarthriti s, unspecified osteoarthriti s type, unspecified site 3 Os Dawna. [address], [id number], [place]. tel:[phone] [facility], [address] [address], [place], [place], [id number], [place] tel:[phone] [place] Encounter for nutritional assessmentDia denise gomez, encounter forClass 1 obesity with serious comorbidity and body mass index (BMI) of 32.0 to 32.9 in adult, unspecified obesity typeBody mass index [BMI] 32.0-32.9, adult 3 Normile Jaclyn. [address] [facility] [place], [id number], [place]. tel:[phone] PER PM REEVAL EST PAT 65+ YR [facility], [address] [address], [place], [place], [id number], [place] tel:[phone] [place] HUSSEIN (chief complaint) Schizophrenia , unspecified typeBipolar affective disorder, remission status unspecifiedGe neralized anxiety disorderPTSDH ypercholester olaemiaType 2 diabetes mellitus with diabetic chronic kidney disease, unspecified CKD stage, unspecified whether longterm insulin useOsteoporos is, unspecified osteoporosis type, unspecified pathological fracture presenceChron ic kidney disease, stage 2 (mild)Hyperte nsive chronic kidney disease with stage 1 through stage 4 chronic kidney disease, or unspecified chronic kidney diseaseCOPDPu lmonary noduleTobacco useFibromyalg iaGastroesoph ageal reflux disease without esophagitis 3 Os Dawna. [address] [facility] [place], [id number], [place]. tel:[phone] [facility], [address] [address], [place], [place], [id number], [place] tel:[phone] [place] History of fracture 2 Os Dawna. [address] [place], [place], [id number], [place]. tel:[phone] [facility], [address] [address], [place], [place], [id number], [place] tel:[phone] [place] Papular eczema 2 Os Dawna. [address] [place], [place], [id number], [place]. tel:[phone] [facility], [address] [address], [place], [place], [address], [place] tel:[phone] [place] No Information 2 Os Dawna. [address] [place], [place], [id number], [place]. tel:[phone] [facility], [address] [address], [place], [place], [id number], [place] tel:[phone] [place] Obstructive sleep apnea Apr- 2 Os Dawna. [address] [place], [place], [id number], [place]. tel:[phone] [facility], [address] [address], [place], [place], [id number], [place] tel:[phone] [place] No Information 2 Os Dawna. [address] [place], [place], [id number], [place]. tel:[phone] OFFICE/OUTPA TIENT VISIT EST [facility], [address] [address], [place], [place], [id number], [place] tel:[phone] [place] Semiannual (chief complaint) Hypertension, unspecified typeHyperchol esterolaemiaC hronic kidney disease due to diabetes mellitusSchiz ophrenia, unspecified typeBipolar affective disorder, remission status unspecifiedGe neralized anxiety disorderPTSDO steoporosis, unspecified osteoporosis type, unspecified pathological fracture presenceCOPDP ulmonary nodulePapular eczemaHealthc are maintenanceTo bacco useChronic kidney disease, stage 3a 2 Os Dawna. [address] [place], [place], [id number], [place]. tel:[phone] [facility], [address] [address], [place], [place], [id number], [place] tel:[phone] [place] Encounter for nutritional assessmentDia denise education, encounter forOther obesity Feb- 2 Normile Jaclyn. [address], [place], [place], [id number], [place]. tel:[phone] OFFICE/OUTPA TIENT VISIT [facility], [address], [place], [place], [id number], [place] tel:[phone] [place] OV (chief complaint) Type 2 diabetesGener alized anxiety disorderIntra ctable headache, unspecified chronicity pattern, unspecified headache typeNausea 2 Os Dawna. [address] [place], [place], [id number], [place]. tel:[phone] [facility], [address] [facility] [address] [facility], [place], [place], [id number], [place] tel:[phone] [place] Pulmonary nodule 2 Os Dawna. [address], [place], [place], [id number], [place]. tel:[phone] [facility], [facility], [place], [place], [id number], [place] tel:[phone] [place] No Information Oct- 2 Os Dawna. [address] [place], [place], [id number], [place]. tel:[phone] [facility], [facility], [place], [place], [id number], [place] tel:[phone] [place] Encounter for nutritional assessment 2 Normile Jaclyn. [address] [place], [place], [id number], [place]. tel:[phone] OFFICE/OUTPA TIENT VISIT NEW [facility], [address], [place], [place], [id number], [place] tel:[phone] [place] PEE (chief complaint) Hypertension, unspecified typeHyperchol esterolaemiaC ataract of both eyes, unspecified cataract typeBipolar affective disorder, remission status unspecifiedGe neralized anxiety disorderTAKOMA REG[facility]ITAL istory of fractureOsteo porosis, unspecified osteoporosis type, unspecified pathological fracture presenceCOPDP ulmonary [facility] are maintenance 2 Os Dawna. [address] [facility] [place], [id number], [place]. tel:[phone] [facility], [address], [id number], [place] tel:[phone] [place] Muscle weakness (generalized) Encounter for rehabilitatio n evaluation 2 Isa Urias. [address] [place], [address]. tel:[phone] [facility], [address] [address], [place], [place], [address], [place] tel:[phone] [place] Encounter for rehabilitatio n evaluationAlt eration in performance of activities of daily livingOther chronic pain 2 Marco A Santiago Beth Delcid. 101 [facility] [place], [place], [id number]. tel:[phone] [facility], [address] [address], [place], [place], [id number], [place] tel:[phone] [place] No Information 2 Juan Ramon Leyva. [address] [place], [place], [id number], [place]. tel:[phone] [facility], [address] [address], [place], [place], [id number], [place] tel:[phone] [place] Intake (chief complaint) No Information 2 Steph Martinez. [address] [place], [place], [id number], [place]. tel:[phone] Family History Family Member Type Diagnosis Age At Onset No Information Immunizations Vaccine Date Status Comments Prevnar refused Note: pneumo va ccine refused ; Source: New Immunization Record Prevnar refused Note: patient r efused all pneumo vaccines ; Source: New Immunization Record Prevnar refused Source: New Imm unization Record Fluzone High-Dose refused Source: New Immunization Record Prevnar 13 refused Source: New Imm unization Record Fluzone Quad refused Note: Refused during T[facility] 10/08/21 ; Source: New Immunization Record COVID-19 (Moderna) administered Source: O ther Provider COVID-19 (Moderna) administered Source: O ther Provider Tdap administered Source: Other R egistry Payers Payer name Insurance type Covered republican ID Robbie harden(s) [employer] 16 [id number] [employer] 16 [id number] [place] 16 [id number] [employer] 16 [id number] [employer] 16 [id number] [employer] 16 [id number] [employer] 16 [id number] Social History Type Description Quantity Date Captured Comments Sex Female Smoking Status No Information Chief Complaint And Reason For Visit No Information Reason For Referral Reason For Referral No Information Plan Of Treatment Date Type Action Status Referral Ordered: Referrals: Fsr. Evaluate and treat Appointment date/timeframe: 02/07/2024 ordered Referral Ordered: Referrals: Orthopedic Surgery. Evaluate and treat ordered Referral Ordered: Ophthalmology (related to Encounter for general adult medical examination without abnormal findings) ordered Referral Ordered: Referrals: Dentistry. Evaluate and treat ordered Referral Ordered: Referrals: Ophthalmology. Evaluate and treat ordered Referral Ordered: Referrals: Rheumatology. Evaluate and treat ordered Referral Ordered: Referrals: [facility]- Dental Location: [facility]. Evaluate and treat ordered Referral Ordered: Referrals: Obstetrics. Location: [facility]. Evaluate and treat ordered Referral Ordered: Referrals: Pain Medicine. Evaluate and treat Appointment date/timeframe: 09/21/2022 ordered Referral Ordered: Referrals: Orthopedic Surgery Appointment date/timeframe: 09/03/2022 ordered Referral Ordered: Referrals: Dermatology Appointment date/timeframe: 03/08/2023 ordered Referral Ordered: Referrals: Sleep Study Appointment date/timeframe: 03/29/2023 ordered Referral Ordered: CT CHEST W/O DYE Appointment date/timeframe: 12/03/2021 ordered Referral Ordered: Referrals: Ophthalmology Appointment date/timeframe: 01/14/2023 ordered Referral Ordered: BONE SCAN MULTIPLE AREAS Appointment date/timeframe: 01/26/2022 ordered Referral Ordered: Referrals: Psychiatry Appointment date/timeframe: 10/23/2021 ordered Referral Ordered: Referrals: Dentistry Appointment date/timeframe: 11/04/2022 ordered Referral Ordered: CT CHEST W/O & W/DYE Appointment date/timeframe: 12/03/2021 ordered Future Order: Radiology Order Ma mmogram (Diagnostic); Bilateral, incl computer-aided detection when performed (11510), Ordered on: Ordered History Of Present Illness Encounter Date Complaint History Of Prese nt Illness Semi-Annual Patient is a 68 year old female who has been enrolled since 09/2021 and is being seen today for her semiannual exam. She lives in the community and comes to [facility] for routine visits. She is very well known to me. There have been no hospitalizations, SNF admission and/or ER visits in the last six months.-Mental Health: Mother recently , she is very tearful in clinic today as they have been going through her apartment. Diagnoses Reviewed.-Falls: noneConsults:-Dental: 12/2022, needs follow up-Vision: 12/2022, needs follow up-Psychiatrist: Trying to get into [facility]-Therapist: Krzysztof at monthly-Ortho: 12/2023- closed fracture of neck of right femur in 2017, routine healing, worsening pain. Referred to spine/pain. - Physiatry 02/2024 - L3-4, L 4-5, L5-S1,facet arthropathy. (+) spondylosis with Radiculopathy. Is going to trial medial branch blocks, possible neurofrequency ablation in the future. Screenings: Continuing to screen-Mammogram: 09/30/22- yearly, no mammographic evidence of malignancy.-Colonoscopy: every 5 years, last done in 2020 (due 2025)-Bone dentisty: 01/2022- The patient has osteoporosis as determined by WHO criteria. -Pulmonary nodule: 11/2021- 4mm pulm nodule (no previous studies to compare) will f/u w/ repeat CT in 1 year (order in place)4 Ms:Mentation: Able to communicate needs. Asking appropriate questions. Understood most of her healthcare comorbidities. -Orientation: A&Ox4-MOCA: 09/2023- , likely her depression affects this score.Medications:-Medications reviewed.Mobility:-Ambulates: Independent-Falls: none reported in the last 6 monthsWMM:-Advance Directives reviewed: Full code, MOLST 09/2021-HCP: Not invoked- Debbizoraida (sister) and Tesfaye (ex-boyfriend)(+) ROS: depression r/t grief, plaquing of hands, SOB intermittent, smokerEXAM: well developed female, NAD. RRR. LCTA. Psoriasis plaquing to hands bilaterally. Tearful due to recent grief. Plan: Labs today. As Makayla is very well known to me, we only had a brief visit as she was clearly overwhelmed with grief and moving her mother's things this afternoon. We will obtain labs and see her for a follow up visit in a couple of weeks to go into more detail. Her plan of care has not changed, she is still quite young and doing well medically. Acute Visit PPT seen today f or ongoing skin concerns. She presented a couple of months ago with red erythematous rash to feet bilaterally and hands. At the time it appeared to have been fungal in nature. She has been intermittently using 1% hydrocortisone cream with good effect.(+) ROS: rash to BL hands, feetEXAM: AAOX4. NAD. circumscribed round dry/scaling cracking skin to left hand, fingers, various places on feetPLAN: findings consistent with psoriasis. Recommending colloidal oatmeal lotions and will order this. She reports it doesn't really bother her, but can send to dermatology for further suggestions. We discussed this at length, she is going to trial lotion for now. She wants a pill but unfortunately this is not a treatment we can offer at this time. Acute Visit Comments: Jet rees is a 68 year old female being seen for a follow up on shanna hands and left foot rash.She reports this has lasted for over a month now. Was evaluated by provider last week where they had believed it was fungal. Ppt was prescribed nystatin cream to areas and reassess this week. No improvement. She reports continued pruritus. Today:-Red scaly plaques- 3 on left hand, 1 on right hand, 2 on left foot-Appears to be psoriasis today.Plan:-Starting hydrocortisone cream 2% BID to hands and feetPpt agreeable to this plan Acute Visit PPT seen today f or new onset skin rash. She noticed a small rash on the plantar surface of her great toe and began applying an exfoliating cream she obtained from her boyfriend. Since then the rash has spread to both hands, palms, and forearms. She endorses picking/peeling these sites and concerned as they continue to spread.(+) ROS: new onset rash, scabs, open areas/sores to handsEXAM: athlete's foot/fungal infection to left great toe, now spread to bilateral hands/arms. plan: 2% topical antifungal cream for one week and follow up with PCP. May need oral fluconazole. Advised to avoid self medicating as this seems to have spread the fungal infection. Semi-Annual Comments: Angelina mckay is a 67 year old female who has been enrolled since 09/2021 and is being seen today for her semiannual exam. Patient had been seen in clinic.There have been no hospitalizations, SNF admission and/or ER visits in the last six months.Diagnoses Reviewed.Consults:-Dental: last seen 10/14/21; canceled last [facility] appt; dental appt ordered-Vision: 12/25/22- no changes; optho appt scheduled in 02/2024-Psychiatrist: Santi Monitel-Therapist: no longer seeing therapist- does not want to see anyone-Ortho: 09/03/22- recommended following up with [facility] about medications and increase gabapentin (which had been done); no f/u at this timeScreenings: Continuing to screen-Mammogram: 09/30/22- yearly, no mammographic evidence of malignancy; order in place.-Colonoscopy: every 5 years, last done in 2020 (due 2025)-Bone dentisty: 01/2022- The patient has osteoporosis as determined by WHO criteria. -Pulmonary nodule: 11/2021- 4mm pulm nodule (no previous studies to compare) will f/u w/ repeat CT that was completed 04/2023 showing unchanged LLL nodule and new cavitary nodule in right lung apex and multiple unchanged nodules. No f/u if low risk, if high risk can do f/u CT in 1 year. 4 Ms:Mentation: Able to communicate needs. Asking appropriate questions. Understood most of her healthcare comorbidities. -Orientation: A&Ox4-MOCA: 09/2023- Medications:-Medications reviewed.Mobility:-Ambulates: Independent-Falls: none reported in the last yearWMM:-Advance Directives reviewed: Full code-HCP: Not invoked- Nilam (sister) and Tesfaye (ex-boyfriend)-What matters most to you?/ What makes you feel most alive and happy? Staying healthy-Who matters most to you? my mom, Otto (son), Nilam-What is your goal for care? (Increase in independence, reducing medications, being comfortable, having extensive workups, more mental health support, ect.) to be healthy -What is your biggest worry/fear? no fears-Where do you see yourself in the next 1-2 years? where I am Follow-up PPT seen today f or follow up CT scan. PMH COPD with lung nodules being followed with routine imaging. Last done 03/2023 with new nodules. Repeat 05/19/23 with no acute findings. CT CHEST 04/2023 IMPRESSION: Unchanged appearance of the left lower lobe index 0.3 cm nodule, comparing to November 2021 study. There is a new cavitary 0.3 cm nodule within the right lung apex, and multiple unchanged sub-4 mm nodules similar to immediate prior March 2023 study, however new since 2021. Further follow-up as per Fleischner Society guidelines. If low risk for malignancy, no routine follow-up. If high risk, optional CT at 12 months. If unchanged, no further follow-up needed per Guidelines for Management of Incidental Pulmonary Nodules Detected on CT Images: From the Fleischner Society 2017.Discussed findings with ppt and she is agreeable to repeat imaging in six months. order placed in March.(+) ROS lung nodules, COPD, hypotensionEXAM: NAD. mildly hypotensive, [id number]: repeat CT scan, encouraged fluids (she only drank coffee this am). OV PPT seen today t o discuss findings of CT chest scan from 04/08/23.CT findings 03/2023Stable 4 mm nodule in LLL, approx. 7 new pulmonary nodules. Please consider follow up on CT in one year. We discussed these findings at length. PPT continues to smoke and has no interest in quitting at this time. We did agree that we should repeat the scan in six months instead of waiting 12 months to be pro active. PPT appeared pleased with results and has no new questions or complaints at this time. ROS (+): COPD, smoker, lung nodules on examEXAM: NAD. AAOX4. Pleasant demeanor. Plan: CT chest in six months, ordered Semi-Annual Comments: Angelina mckay is a 67 year old female who has been enrolled since 09/2021 and is being seen today for her semiannual exam. Patient had been seen in clinic.There have been no hospitalizations, SNF admission and/or ER visits in the last six months.CC:-Diffuse pain: especially at night and when waking up hips, legs, and feet. During the day not bad. Gabapentin had been helping.-Anxiety: high lately d/t mom being in and out of hospital and rehab but seeing Krzysztof (therpist) has been helping. Working on getting into [facility] (psychiatrist). Diagnoses Reviewed.Consults:-Dental: last seen in September- had cap; 05/05/23 [facility] appt-Vision: 12/25/22-Psychiatrist: Trying to get into [facility]-Therapist: Krzysztof at monthly-Pain management: 09/21/22- did not feel a visit was appropriate -Ortho: 09/03/22- recommended following up with [facility] about medications and increase gabapentin (which had been done)Screenings: Continuing to screen-Mammogram: 09/30/22- yearly, no mammographic evidence of malignancy.-Colonoscopy: every 5 years, last done in 2020 (due 2025)-Bone dentisty: 01/2022- The patient has osteoporosis as determined by WHO criteria. -Pulmonary nodule: 11/2021- 4mm pulm nodule (no previous studies to compare) will f/u w/ repeat CT in 1 year (order in place)4 Ms:Mentation: Able to communicate needs. Asking appropriate questions. Understood most of her healthcare comorbidities. -Orientation: A&Ox4-MOCA: 09/2022- Medications:-Medications reviewed.Mobility:-Ambulates: Independent-Falls: none reported in the last 6 monthsWMM:-Advance Directives reviewed: Full code-HCP: Not invoked- Idris (sister) and Tesfaye (ex-boyfriend)-What matters most to you?/ What makes you feel most alive and happy? Staying healthy-Who matters most to you? my mom, Otto (son), Nilam-What is your goal for care? (Increase in independence, reducing medications, being comfortable, having extensive workups, more mental health support, ect.) to be healthy -What is your biggest worry/fear? no fears-Where do you see yourself in the next 1-2 years? where I am HUSSEIN Patient is a 66 year old female who has been enrolled since 09/2021 and is being seen today for her semiannual exam. . Patient had been seen in clinic.There have been no hospitalizations, SNF admission and/or ER visits in the last six months.CC:-Diffuse pain all over my body described as sharp and then achy ; pain has been present forever but worse since COVID; some + relief w/ tylenol; occurs throughout the day but most noticeable in the morning (prior to taking tylneol; ppt discussed she was told she had fibromyaligia in the past; had discussed ppt is not getting out often and stays home isolating- may be worse w/ lack of exercise-Anxiety: therapist and psychiatrist recently left in July. Ppts anxiety has been poor lately. She is scheduled to be seen tomorrow. All medications are prescribed by psychiatrist. Diagnoses Reviewed.Consults:-Dental: last seen in September- had cap-Psychiatrist: Tena for psych medications every 2 months-Vision: referral in place; next December unless ppt can be seen by optho in clinic soonerScreenings: Continuing to screen-Mammogram: yearly, last done in March (due 03/2022)-order in place-Colonoscopy: every 5 years, last done in 2020 (due 2025)-Bone dentisty: 01/2022- The patient has osteoporosis as determined by WHO criteria. -Pulmonary nodule: 11/2021- 4mm pulm nodule (no previous studies to compare) will f/u w/ repeat CT in 1 year (order in place)4 Ms:Mentation: Able to communicate needs. Asking appropriate questions. Understood most of her healthcare comorbidities. -Orientation: A&Ox4-MOCA: 09/2021- Medications:-Medications reviewed.-Changes: NoMobility:-Ambulates: Independent-Falls: none reported in the last 6 monthsWMM:-Advance Directives reviewed: Full code-HCP: Not invoked- Debbizoraida (sister) and Tesfaye (boyfriend)-What matters most to you?/ What makes you feel most alive and happy? Staying healthy-Who matters most to you? my mom, Otto (son), Tesfaye Barbara-What is your goal for care? (Increase in independence, reducing medications, being comfortable, having extensive workups, more mental health support, ect.) to be healthy -What is your biggest worry/fear? no fears-Where do you see yourself in the next 1-2 years? where I am Semiannual Comments: Angelina mckay is a 65 year old female who has been enrolled since 09/2021 and is being seen today for her semiannual exam. . Patient had been seen in clinic.There have been no hospitalizations, SNF admission and/or ER visits in the last six months.CC: no complaints at this time. Reports chronic right hip pain when ambulating. Does not take anything for relief. Does not want it worked up at this time. Diagnoses Reviewed.Consults:-Dental: last seen in September- had cap-Psychiatrist: Tena for psych medications every 2 months-Vision: referral in place; next December unless ppt can be seen by optho in clinic soonerScreenings: Continuing to screen-Mammogram: yearly, last done in March (due 03/2022)-order in place-Colonoscopy: every 5 years, last done in 2020 (due 2025)-Bone dentisty: 01/2022-"The patient has osteoporosis as determined by WHO criteria. -Pulmonary nodule: 11/2021- 4mm pulm nodule (no previous studies to compare) will f/u w/ repeat CT in 1 year (order in place)4 Ms:Mentation: Able to communicate needs. Asking appropriate questions. Understood most of her healthcare comorbidities. -Orientation: A&Ox4-MOCA: 09/2021- Medications:-Medications reviewed.-Changes: Yes; adding cerave cream to shanna LEMobility:-Ambulates: Independent-Falls: none reported in the last 6 monthsWMM:-Advance Directives reviewed: Full code-HCP: Not invoked- Idris (sister) and Tesfaye (boyfriend)-What matters most to you?/ What makes you feel most alive and happy? Staying healthy-Who matters most to you? my mom, Otto (son), Barbara Carlin-What is your goal for care? (Increase in independence, reducing medications, being comfortable, having extensive workups, more mental health support, ect.) to be healthy -What is your biggest worry/fear? no fears-Where do you see yourself in the next 1-2 years? where I am OV Comments: Jet rees is a 66 year old female who is being seen today as a RTBS.Nausea/dry heaving: over the past couple months. Pt had recently started metformin on 10/22/21. This is likely the cause of her symptoms. Discussed d/c'ing metformin and starting glipizide 2.5mg daily which she was open to. Had also reported having reflux symptoms (long-standing hx of reflux on no current medications) pt was open to starting pepcid bid PRN.Headaches: for the past couple of months. Headaches are described as in the back of her head where they wake her. This is intermittent. May be r/t metformin. Sleep study in the past was negative per pt. Will continue to monitor as she is being transitioned off metformin and these symptoms started around when her nausea/dry heaving first occurred. Tremors: for about an hour occasionally 2x/month getting better (recent increase of ziprasidone) will continue to monitor, may recommend having psychiatrist decrease ziprasidone if no improvement or worsening tremors. Pt reports this may also be r/t nerves which is also likely. Plan: -D/c metformin-Start glipizide 2.5mg daily (may increase)-Check A1C in 1 month-Start pepcid bid PRN Comments: Angelina mckay is a 65 year old female who is being seen today for her post-enrollment exam. Patient had been seen in clinic.There have been no hospitalizations, SNF admission and/or ER visits in the last six months.Diagnoses Reviewed.Consults:-Dental: referral in place-Vision: referral in place-Pysch: referral in placeScreenings: Continuing to screen-Mammogram: yearly, last done in March (due 03/2022)-Colonoscopy: every 5 years, last done in 2020 (due 2025)-Bone dentisty: a long time ago ; order in place-Pulmonary nodule: per pt had found [address] 2 years ago; order in place4 Ms:Mentation: Able to communicate needs. Asking appropriate questions. Understood most of her healthcare comorbidities. -Orientation: A&Ox4-MOCA: Medications:-Medications reviewed.-Changes: NoMobility:-Ambulates: Independent-Falls: none reported in the last 6 monthsWMM:-Advance Directives reviewed: -HCP: Not invoked- Debbies (sister) and Tesfaye (boyfriend)-What matters most to you?/ What makes you feel most alive and happy? Security, when I feel safe-Who matters most to you? my mom, Otto (son), Tesfaye-What is your goal for care? (Increase in independence, reducing medications, being comfortable, having extensive workups, more mental health support, ect.) to be healthy -What is your biggest worry/fear?going crazy, I worry about my health-Where do you see yourself in the next 1-2 years? where I am, I am on medication which is what I have to do. I do worry about my finances. PEE Intake Makayla is seen today in the office for an intake visit she is accompanied by her significant other Tesfaye. Tesfaye is her primary caregiver and manages all of her care from medications to laundry, cooking and assistance with bathing. She has a history of falls and had a significant fall in 2017 when she fractured her left hip, arm and states she has also shattered her kneecap in a fall. She states she has not had any falls since that time. She currently lives in an apartment with Tesfaye. He has worked out of the home and works in construction. He tells us that he can leave and miss work as needed to care for her and that his job is flexible.She tells us that her main concerns are with her moods and stuff and that she is managed with medications and they keep her leveled off . She is seeing a prescriber Tena Reyna APRN in [place] and has followed with her for years. She has a long history of being on medications but denies any psych admits/hospitalizations.She drives a car still but reports that she does not drive that much or that far.She smokes stating around 1/2ppd but could smoke more at times of stress.She drinks about 3 cups of coffee a day. She rarely drinks alcohol.reports her weight is stable.No concerns with ambulation and denies assistive devicesPrevious PCP Dr Wayne PoDentist: she has an appointment on Wednesday and is having a cap placed. She has not routinely followed with the dentist but reports caps in the front due to falls. States she is supposed to use a partial but couldn't as it causes her problems with equilibrium.Hearing: no concernsVision: : reports that she has cataracts and at her last eye appointment 4 months ago she was told she would wait a year for surgeryColonoscopy: she has had polyps in the past and gets a colonoscopy every 5 years. Last on was last 2020Mammogram: up to date from last 2020 and states she gets them yearlyPharmacy: reports that she uses [facility] for mail order [facility]: she states the clonazepam comes from [facility]. She is considering changing to [facility] once she enrolls. Functional Status Date Functional Assessmen t No Information Instructions Date Instruction Additional Infor vanda Chest CT 4RUL n odule resolved likely infectious/inflammatoryFew scattered pulmonary nodules meauring up to 3mm in LLL are unchangedAnnual imaging Related to Pulmonary nodule colloidal oatmeal lotion PRN Rel ated to Psoriasis Pt is a smoker sin e I was 13 years old I have been smoking 1ppd . She smokes marijuana 1-2x/day .Never used oxygen.Continue proair as neededRecently added advair w/ + effect. No dyspnea noted. LSCTA, no dyspnea nor cough Related to Chronic obstructive pulmonary disease, unspecified COPD type No concerns of this today. Following with physiatry/pain management. Related to Fibromyalgia BPs have been stable -Continue amlodipine and propanololbaseline GFR 60s-Avoid nephrotoxic medications Related to Hypertensive renal disease, stage 1 through stage 4 or unspecified chronic kidney disease requests referral to pain managementrecently saw physiatry Related to Primary osteoarthritis involving multiple joints cont supplementslabs today Relat ed to Vitamin D deficiency History of cataracts in shanna eyes r/t ageHad been referred to one of our contracted ophthalmologists for maintenance. Had been seen by optho 12/25/22 who stated she can make an appt for surgery if she would like to proceed. Ppt has not reported wanting having surgical interventions done at this time. Related to Age-related cataract of both eyes, unspecified age-related cataract type Has had history of r eflux over the past several months. ppt reports it has improved and occasionally takes pepcid w/ + effect. Pepto prn. Related to Gastroesophageal reflux disease without esophagitis 01/2022 Dexa: Impress ion: The patient has osteoporosis as determined by WHO criteria.cont supplements as neededchecking vit d routinely Related to Age-related osteoporosis without current pathological fracture BMI 30RD consultingd iabetic, encourage improved nutrition Related to Class 1 obesity due to excess calories with serious comorbidity and body mass index (BMI) of 30.0 to 30.9 in adult BMI 30RD consultingd monisha, encourage improved nutrition Related to Body mass index [BMI] 30.0-30.9, adult Labs todaycont glipi zidebaseline GFR 60savoid nephrotoxins, encourage BS control Related to Type 2 diabetes mellitus with stage 2 chronic kidney disease, without long-term current use of insulin Labs todaycont glipi zidebaseline GFR 60savoid nephrotoxins, encourage BS control Related to Chronic kidney disease, stage 2 (mild) R/t hx of diabetes, tobacco use, and sedentary lifestyleBil LE shiny, dry, hairlessDecreased pedal pulses upon exam-Continue to monitor Related to Diabetic peripheral vascular disease Continues A1C elevat edrepeat labs todaycont glipizide Related to [facility] (current) use of oral hypoglycemic drugs Lipid panel orderedc ont statin, fenofibrate Related to Hypercholesterolaemia Identifies good supp ort system including friends and family. Had reported in the past many things in her life had been traumatic, she referenced her son who is a heroin addict as the primary traumatic event. Reports hx of panic attacks and anxiety.Has been seeing Santi Montiel for psychiatry. Currently- PCP is prescribing and sending medications. -Continue psych medications prescribed by psychiatrist: clonazepam, fluoxetine, and propranolol Related to PTSD (post-traumatic stress disorder) Follows Santi valdivia for psychiatry. Not currently on antipsychotics. Monitor as she has recent episode of severe grief.Currently on SSRI, does have some depression right now. Feels she is handling this and sees CBT. Related to Bipolar affective disorder, currently depressed, moderate Does identify good s upport system.Started seeing Santi Montiel for psychiatry. Currently- PCP is prescribing and sending medications. -Continue current med regimen- Related to Generalized anxiety disorder Follows Santi valdivia for psychiatry. Not currently on antipsychotics. Monitor as she has recent episode of severe grief. Related to Schizophrenia, unspecified type colloidal oatmeal lotion PRN Rel ated to Psoriasis Treated previously b y PCP with hydrocortisone cream 2% BID to hands and feet with improvement.Recs to continue this and colloidal oatmeal lotion. If no improvement or becomes bothersome recommend derm referral. Related to Psoriasis Follow up on shanna landrum ds and left foot rash.She reports this has lasted for over a month now. Was evaluated by provider last week where they had believed it was fungal. Ppt was prescribed nystatin cream to areas and reassess this week. No improvement. She reports continued pruritus. Today:-Red scaly plaques- 3 on left hand, 1 on right hand, 2 on left foot-Appears to be psoriasis today.Plan:-Starting hydrocortisone cream 2% BID to hands and feetPpt agreeable to this plan Related to Psoriasis 2% antifungal cream BIDfollow up with PCP Related to Fungal dermatitis Occasional headaches in the AMHx of COPDNo longer wants to do a sleep study Related to Obstructive sleep apnea CT 03/2023: stable 4m m nodule in LLL. Approximately 7 new pulm nodules. Consider f/u CT in 1 year.Order [address] in place Related to Pulmonary nodule Pt is a smoker sinc e I was 13 years old I have been smoking 1ppd . She smokes marijuana 1-2x/day. Related to Tobacco use Pt is a smoker sinc e I was 13 years old I have been smoking 1ppd . She smokes marijuana 1-2x/day .Never used oxygen.Continue proair as neededRecently added advair w/ + effect. No dyspnea noted. LSCTA, no dyspnea nor cough Related to Chronic obstructive pulmonary disease, unspecified COPD type 04/2023 GFR 62-Avoid nephrotoxic medications Related to Stage 2 chronic kidney disease BPs have been stable -Continue amlodipine and propanolol04/2023 GFR 62-Avoid nephrotoxic medications Related to Hypertensive renal disease, stage 1 through stage 4 or unspecified chronic kidney disease Has had history of r eflux over the past several months. ppt reports it has improved and occasionally takes pepcid w/ + effect. Related to Gastroesophageal reflux disease without esophagitis 03/2023: A1C- 7Increa sed glipizidePt had recently started metformin on 10/22/21 though developed N/V. D/c'd metformin and started glipizide. Pt reports no GI symptoms and has been tolerating med change well.Normal monofiliment exam. 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 Related to Osteoporosis, unspecified osteoporosis type, unspecified pathological fracture presence 03/2023: A1C- 7-Curre ntly on glipizide 2.5mg- increasing to 5mg daily Related to [facility] (current) use of oral hypoglycemic drugs 03/2023Lipid ratio- 6 TC 185; TG 229Ordered lipid panel for semiContinue lipitor (80mg) fenofibrate Related to Hypercholesterolaemia Does identify good s [facility] system.No longer seeing therapist. Does not feel she needs one right now. Has occasional anxiety about health. Started seeing Santi Montiel for psychiatry. Currently- PCP is prescribing and sending medications. -Continue current med regimen- follow up w/ new psychiatrist may need medication adjustment Related to Generalized anxiety disorder No longer seeing May[facility] ro[facility] (therapist) [facility]- no longer wanting to see therapist. Started seeing Santi Montiel for psychiatry. Currently- PCP is prescribing and sending medications. Denies any depression; feels anxious-Continue current med regimen Related to Bipolar affective disorder, remission status unspecified Pt reports she had n ever been diagnosed though she reported I was told when I got out of the hospital a long time ago I had that I don't know why, nobody had ever told me that I had that . Pt did report some delusions in the past. No current delusions. No longer seeing Krzysztof (therapist) [facility]. Started seeing Santi Montiel for psychiatry. -Continue psych medications prescribed Related to Schizophrenia, unspecified type R/t hx of diabetes, tobacco use, and sedentary lifestyleBil LE shiny, dry, hairlessDecreased pedal pulses upon exam-Continue to monitor Related to Type 2 diabetes mellitus with peripheral vascular disease Continues to smoke 1 ppd and smokes marijuana 1-2x/day. 04/2023 IMPRESSION: Unchanged appearance of the left lower lobe index 0.3 cm nodule, comparing to November 2021 study. There is a new cavitary 0.3 cm nodule within the right lung apex, and multiple unchanged sub-4 mm nodules similar to immediate prior March 2023 study, however new since 2021. Further follow-up as per Fleischner Society guidelines. If low risk for malignancy, no routine follow-up. If high risk, optional CT at 12 months. If unchanged, no further follow-up needed per Guidelines for Management of Incidental Pulmonary Nodules Detected on CT Images: From the Fleischner Society 2017.CT findings 03/2023Stable 4 mm nodule in LLL, approx. 7 new pulmonary nodules. Please consider follow up on CT in one year. CT 11/2021: Nonspecific 4 mm left lower lobe lung nodule. If low risk for malignancy, no routine follow-up. If high risk, optional CT at 12 months. If unchanged, no further follow-up needed.Will obtain a f/u CT (order in place) Related to Pulmonary nodule Continues to smoke 1 ppd and smokes marijuana 1-2x/day. CT findings 03/2023Stable 4 mm nodule in LLL, approx. 7 new pulmonary nodules. Please consider follow up on CT in one year. CT 11/2021: Nonspecific 4 mm left lower lobe lung nodule. If low risk for malignancy, no routine follow-up. If high risk, optional CT at 12 months. If unchanged, no further follow-up needed.Will obtain a f/u CT (order in place) Related to Pulmonary nodule 08/2022Lipid ratio- 7 .3TC 211; TG 319Ordered lipid panel for semiIncreased lipitor to 40mgContinue fenofibrate Related to Hypercholesterolaemia Has had history of r eflux over the past several months. ppt reports it has improved and occasionally takes pepcid w/ + effect. Related to Gastroesophageal reflux disease without esophagitis Continues to smoke 1 ppd and smokes marijuana 1-2x/day. CT 11/2021: Nonspecific 4 mm left lower lobe lung nodule. If low risk for malignancy, no routine follow-up. If high risk, optional CT at 12 months. If unchanged, no further follow-up needed.Will obtain a f/u CT (order in place) Related to Pulmonary nodule 01/2022 Dexa: Impress ion: The patient has osteoporosis as determined by WHO criteria. Related to Osteoporosis, unspecified osteoporosis type, unspecified pathological fracture presence Pt is a smoker sinc e I was 13 years old I have been smoking 1ppd . She smokes marijuana 1-2x/day .Never used oxygen.Continue proair as neededRecently added advair w/ + effect. No dyspnea noted. LSCTA, no dyspnea nor cough Related to Chronic obstructive pulmonary disease, unspecified COPD type Pt is a smoker sinc e I was 13 years old I have been smoking 1ppd . She smokes marijuana 1-2x/day. Related to Tobacco use Headaches in the [facility] x of COPDNo longer wants to do a sleep study Related to Obstructive sleep apnea Identifies good supp ort system including friends and family. Had reported in the past many things in her life had been traumatic, she referenced her son who is a heroin addict as the primary traumatic event. Reports hx of panic attacks and anxiety.-Continue psych medications prescribed by psychiatrist: clonazepam, fluoxetine, and propranolol Related to PTSD (post-traumatic stress disorder) Ppt reports anxiety has been worse today that is triggered by her mother going in and out of hospital/rehab. Does identify good support system.Pt reports seeing Krzyszto[facility] (therapist) [facility]. She is working on getting into [facility] for a psychiatrist. Currently- PCP is prescribing and sending medications. -Continue current med regimen- follow up w/ new psychiatrist may need medication adjustment Related to Generalized anxiety disorder Pt reports seeing Reinier livingstonf (therapist) at [facility] monthly. She is working on getting into [facility] for a psychiatrist. Currently- PCP is prescribing and sending medications. Denies any depression; feels anxious-Continue current med regimen Related to Bipolar disorder in partial remission, most recent episode unspecified type Pt reports she had n ever been diagnosed though she reported I was told when I got out of the hospital a long time ago I had that I don't know why, nobody had ever told me that I had that . Pt did report some delusions in the past. No current delusions. Pt reports seeing Krzysztof (therapist) at monthly. She is working on getting into [facility] for a psychiatrist. Currently- PCP is prescribing and sending medications. -Continue psych medications prescribed Related to Schizophrenia, unspecified type BPs have been stable -Continue amlodipine and propanolol08/2022 GFR 60-Avoid nephrotoxic medications Related to Hypertensive renal disease, stage 1 through stage 4 or unspecified chronic kidney disease Pt had recently star cory metformin on 10/22/21 though developed N/V. D/c'd metformin and started glipizide. Pt reports no GI symptoms and has been tolerating med change well.08/2022 A1C 6.7-Recheck A1C for semi todayNormal monofiliment exam. Seen by optho 12/2022. 08/2022 GFR 60-Avoid nephrotoxic medications Related to Type 2 diabetes mellitus with stage 2 chronic kidney disease, with long-term current use of insulin Pt had recently star cory metformin on 10/22/21 though developed N/V. D/c'd metformin and started glipizide. Pt reports no GI symptoms and has been tolerating med change well.08/2022 A1C 6.7-Recheck A1C for semi todayNormal monofiliment exam. Seen by optho 12/2022. 08/2022 GFR 60-Avoid nephrotoxic medications Related to Chronic kidney disease, stage 2 (mild) Pt had recently star cory metformin on 10/22/21 though developed N/V. D/c'd metformin and started glipizide. Pt reports no GI symptoms and has been tolerating med change well.08/2022 A1C 6.7-Recheck A1C for semi todayNormal monofiliment exam. Seen by optho 12/2022. 08/2022 GFR 60-Avoid nephrotoxic medications Related to [facility] (current) use of insulin 08/2022: A1C- 6.7Continue glipizi de Related to [facility] (current) use of oral hypoglycemic drugs Rhem consult Related to Fibro myalgia dental [facility] Related to Healt hcare maintenance requests referral to pain manage ment Related to Osteoarthritis, unspecified osteoarthritis type, unspecified site Has had history of r eflux over the past several months. ppt reports it has improved and occasionally takes pepcid w/ + effect. Related to Gastroesophageal reflux disease without esophagitis Per ppt was diagnose d in the past. Ppt describes diffuse body pain (from sharp to aches) throughout body. Has been occurring for several years and worse since covid. Ppt has been self isolating d/t anxiety as of recent. Less activity then previously which could be contributing. Has been taking tyelnol w/ some + effect Related to Fibromyalgia Pt is a smoker [employer] I was 13 years old I have been smoking 1ppd . She smokes marijuana 1-2x/day. Educated on trying other alternatives such as marijuana gummies if she plans on smoking. Related to Tobacco use Continues to smoke 1 ppd and smokes marijuana 1-2x/day. CT 11/2021: Nonspecific 4 mm left lower lobe lung nodule. If low risk for malignancy, no routine follow-up. If high risk, optional CT at 12 months. If unchanged, no further follow-up needed.Will obtain a f/u CT in 12 months (order in place) Related to Pulmonary nodule Pt is a smoker [employer] I was 13 years old I have been smoking 1ppd . She smokes marijuana 1-2x/day . Educated on avoiding smoking if possible.. Never used oxygen.Continue proair as neededRecently added advair w/ + effect. No dyspnea noted. LSCTA, no dyspnea nor cough Related to COPD BPs have been stable -Continue amlodipine and propanolol02/2022: GFR 64-Avoid nephrotoxic medications Related to Hypertensive chronic kidney disease with stage 1 through stage 4 chronic kidney disease, or unspecified chronic kidney disease 02/2022: GFR 64Avoid nephrotoxic medications Related to Chronic kidney disease, stage 2 (mild) 01/2022 Dexa: Impress ion: The patient has osteoporosis as determined by WHO criteria. Related to Osteoporosis, unspecified osteoporosis type, unspecified pathological fracture presence Pt had recently star coyr metformin on 10/22/21 though developed N/V. D/c'd metformin and started glipizide 2.5mg daily on 12/2021. Pt reports no GI symptoms and has been tolerating med change well. She did not tolerate glipizide being increased in the past (5mg).Last A1C 02/2022 7%-Recheck A1C for semi todayNormal monofiliment exam. 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 Had reported in the past many things in her life had been traumatic, she referenced her son who is a heroin addict as the primary traumatic event. Reports hx of panic attacks and anxiety.-Continue psych medications prescribed by psychiatrist: clonazepam, fluoxetine, and propranolol Related to PTSD Pt feels that her an xiety has been doing worse. R/t diffuse muscle pain; ppt reports panic attacks that come on for no reason Tremors are present per ppt (not visible upon exam); she describes them as internal where she feels from time to time that correlates w/ anxiety. -Continue current med regimen- follow up w/ new psychiatrist may need medication adjustment Related to Generalized anxiety disorder Psychiatrist Yadira dejesus every 2 months- retired; being followed by new psychiatrist next appt 09/01/22Denies any depression; feels anxious-Continue current med regimen Related to Bipolar affective disorder, remission status unspecified No psychiatric notes in place. Pt reports she had never been diagnosed though she reported I was told when I got out of the hospital a long time ago I had that I don't know why, nobody had ever told me that I had that . Pt did report some delusions in the past. No current delusions. Pt reports seeing Tena Reyna APRN (psychiatrist) who manages her medications-retired in July; following up w/ new psychiatrist. She follows up every 2 months. -Continue psych medications prescribed by psychiatrist: clonazepam, fluoxetine, propranolol, and ziprasidoneZiprasidone can be used for bipolar or schizophrenia Related to Schizophrenia, unspecified type 02/19/2017 hospital r ecords: pt sustained a mechanical fall and was noted to have right fem fracture and right humerus, neck fx s/p fall. Denies head trauma/hitting head; Underwent surgery on February 17 2017 for the fractures.Hx of osteoprosisPt reports multiple fractures over her lifetime including: ankle, wrist, right knee, and right hip. Related to History of fracture Bumps on legs for o brown a year has been getting progressively worse per pt. Occasionally itches, no pain.No erythema or edema. Raised <1cm scattered throughout shanna legs into feet. Plan: Will try cerave cream. May consider a topical steroid if no effect. If that does not work, will consider a referral to derm. Related to Papular eczema Headaches in the [facility] x of COPDWould like a sleep study Related to Obstructive sleep apnea 11/2021: GFR 53Avoid nephrotoxic medications Related to Chronic kidney disease, stage 3a Pt is a smoker [facility] e I was 13 years old I have been smoking 1ppd . She smokes marijuana 1-2x/day. Educated on trying other alternatives such as marijuana gummies if she plans on smoking. Related to Tobacco use Mammogram referral in place Rela cory to Healthcare maintenance Bumps on legs for o brown a year has been getting progressively worse per pt. Occasionally itches, no pain.No erythema or edema. Raised <1cm scattered throughout shanna legs into feet. Plan: Will try cerave cream. May consider a topical steroid if no effect. If that does not work, will consider a referral to derm. Related to Papular eczema Continues to smoke 1 ppd and smokes marijuana 1-2x/day. CT 11/2021: Nonspecific 4 mm left lower lobe lung nodule. If low risk for malignancy, no routine follow-up. If high risk, optional CT at 12 months. If unchanged, no further follow-up needed.Will obtain a f/u CT in 12 months (order in place) Related to Pulmonary nodule Pt is a smoker [facility] e I was 13 years old I have been smoking 1ppd . She smokes marijuana 1-2x/day . Educated on trying other alternatives such as marijuana gummies if she plans on smoking. Never used oxygen.Continue proair as neededRecently added advair w/ + effect. No dyspnea noted. LSCTA, LLL wheeze which was cleared w/ cough. Related to COPD 01/2022 Dexa: Impress ion: The patient has osteoporosis as determined by WHO criteria. Related to Osteoporosis, unspecified osteoporosis type, unspecified pathological fracture presence Identifies good supp ort system including boyfriend (Tesfaye), friends and family. Had reported in the past many things in her life had been traumatic, she referenced her son who is a heroin addict as the primary traumatic event. Reports hx of panic attacks and anxiety.-Continue psych medications prescribed by psychiatrist: clonazepam, fluoxetine, and propranolol Related to PTSD Pt feels that her an xiety is well controlled.Tremors are better; she describes them as internal where she feels from time to time that correlates w/ anxiety. -Continue current med regimen. Related to Generalized anxiety disorder Psychiatrist Yadira dejesus every 2 monthsNo therapist at this time. Not feeling depressed or anxious currently.-Continue current med regimen Related to Bipolar affective disorder, remission status unspecified No psychiatric notes in place. Pt reports she had never been diagnosed though she reported I was told when I got out of the hospital a long time ago I had that I don't know why, nobody had ever told me that I had that . Pt did report some delusions in the past. No current delusions. Pt reports seeing Tena Reyna APRN (psychiatrist) who manages her medications. She follows up every 2 months. -Continue psych medications prescribed by psychiatrist: clonazepam, fluoxetine, propranolol, and ziprasidoneZiprasidone can be used for bipolar or schizophreniaPt feels that her current med regimen has been effective. Related to Schizophrenia, unspecified type Pt had recently star cory metformin on 10/22/21 though developed N/V. D/c'd metformin and started glipizide 2.5mg daily on 12/2021. Pt reports no GI symptoms and has been tolerating med change well. -Recheck A1C for semi todayNormal monofiliment exam. Will be seen by optho when they start coming to clinic, pt has an appt for 12/2022 (soonest appt) though is on a cancellation list. Related to Chronic kidney disease due to diabetes mellitus Lipid ratio- 6.9Curr ently taking lipitor and fenofibrate.-Increased lipitor from 10mg to 20mgRechecking lipid panel today Related to Hypercholesterolaemia BPs have been stable -Continue amlodipine and propanolol Related to Hypertension, unspecified type Nausea/dry heaving: over the past couple months. Pt had recently started metformin on 10/22/21. This is likely the cause of her symptoms. Discussed d/c'ing metformin and starting glipizide 2.5mg daily which she was open to. Had also reported having reflux symptoms (long-standing hx of reflux on no current medications) pt was open to starting pepcid bid PRN.Plan: -D/c metformin-Start glipizide 2.5mg daily (may increase)-Check A1C in 1 month-Start pepcid bid PRN Related to Nausea Tremors: for about a n hour occasionally 2x/month getting better (recent increase of ziprasidone) will continue to monitor, may recommend having psychiatrist decrease ziprasidone if no improvement or worsening tremors. Pt reports this may also be r/t nerves which is also likely. Related to Generalized anxiety disorder Headaches for the pa st couple of months. Headaches are described as in the back of her head where they wake her. This is intermittent. May be r/t metformin. Sleep study in the past was negative per pt. Will continue to monitor as she is being transitioned off metformin and these symptoms started around when her nausea/dry heaving first occurred. Plan: -D/c metformin-Start glipizide 2.5mg daily (december increase)-Check A1C in 1 month-Start pepcid bid PRN Related to Intractable headache, unspecified chronicity pattern, unspecified headache type Nausea/dry heaving: over the past couple months. Pt had recently started metformin on 10/22/21. This is likely the cause of her symptoms. Discussed d/c'ing metformin and starting glipizide 2.5mg daily which she was open to. Had also reported having reflux symptoms (long-standing hx of reflux on no current medications) pt was open to starting pepcid bid PRN.-D/c metformin-Start glipizide 2.5mg daily (december increase)-Check A1C in 1 month-Start pepcid bid PRN Related to Type [address] for f/u Related to Pulm onary nodule Referrals in place f or: vision, psych and dentist Related to Healthcare maintenance Per preenrollment re cords. Pt reports being on prolia injections in the past. She reports having bone density scans though the last one was a long time ago . Hx of multiple fractures. Plan: Order in place for bone density. Vit D level ordered; may consider vit D/calcium combo Related to Osteoporosis, unspecified osteoporosis type, unspecified pathological fracture presence 02/19/2017 hospital r ecords: pt sustained a mechanical fall and was noted to have right fem fracture and right humerus, neck fx s/p fall. Denies head trauma/hitting head; Underwent surgery on February 17 2017 for the fractures.Hx of osteoprosisPt reports multiple fractures over her lifetime including: ankle, wrist, right knee, and right hip. Related to History of fracture Pt reports seeing Skip Reyna APRN (psychiatrist) who manages her medications. She follows up every 2 months (next appt October 23 2021). Identifies good support system including boyfriend (Tesfaye), friends and family. Reports of panic attacks and anxiety for most of her life. -Continue psych medications prescribed by psychiatrist: clonazepam, fluoxetine, and propranolol Related to Generalized anxiety disorder Per preenrollment re cords. Pt is a smoker since I was 13 years old I have been smoking 1ppd . She smokes marijuana a couple times a week . Educated on trying other alternatives such as marijuana gummies if she plans on smoking. Never used oxygen.Continue proair as needed Related to COPD Per patient, she rep orts a pulmonary nodule that had been discovered on an x-ray . No records. She requested to have this looked into.Plan: order chest CT Related to Pulmonary nodule Identifies good supp ort system including boyfriend (Tesfaye), friends and family. She reports many things in her life had been traumatic, she referenced her son who is a heroin addict as the primary traumatic event. Reports of panic attacks and anxiety.-Continue psych medications prescribed by psychiatrist: clonazepam, fluoxetine, and propranolol Related to PTSD Per preenrollment re cords. History of cataracts in [place] eyes r[facility] [place] to one of our contracted ophthalmologists for maintenance. Plan: optho referral in place Related to Cataract of both eyes, unspecified cataract type Per preenrollment re cords. No psychiatric notes in place. Pt reports being diagnosed and started on medication in her 30s.Behaviors included: restlessness, insomnia, and rapid thoughtsPt reports seeing Tena Reyna APRN (psychiatrist) who manages her medications. She follows up every 2 months (next appt October 23 2021). PHQ(: 8 (mild depression)Identifies good support system including boyfriend (Tesfaye), friends and family. She reports many things in her life had been traumatic, she referenced her son who is a heroin addict as the primary traumatic event. Reports of panic attacks and anxiety.-Continue psych medications prescribed by psychiatrist: clonazepam, fluoxetine, propranolol, and ziprasidone Related to Bipolar affective disorder, remission status unspecified Lipid panel orderedC urrently taking lipitor and fenofibrate. Related to Hypercholesterolaemia BP 118/62Currently t aking amlodipine and propanolol Related to Hypertension, unspecified type Assessments Type Assessment Date No Information Goals Health Concern Goal Type Priority Status Date Gege is at risk for respiratory complications related to COPD diagnosis and current smoker. Gege will not be hospitalized due to complications of COPD through next review. Patient Goal New Gege is at risk for complications related to Bipolar, PTSD, and Anxiety. Gege will remain living safely in the community through next review. Patient Goal Continued Gege is at risk for complications related to diabetes. Gege will not experience any medical complications or hospitalizations, related to diabetes and A1C will remain stable, as determined by the provider, for 6 months. Patient Goal Continued Patient Care Teams Name Effective Dates (start - stop) Status Members No Information
== END 2024-07-25 16:05 | disposition home or self-care (01) ==
PROVIDERS: PCP Internal Medicine; Visit Provider Internal Medicine
DX: E11.65 Type 2 diabetes mellitus with hyperglycemia (principal); F31.12 Bipolar disorder, current episode manic without psychotic features, moderate; I10 Essential (primary) hypertension; E78.00 Pure hypercholesterolemia, unspecified; Z72.0 Tobacco use; M81.0 Age-related osteoporosis without current pathological fracture; Z12.31 Encounter for screening mammogram for malignant neoplasm of breast; E66.3 Overweight

== ENCOUNTER → 2024-07-25 15:21 | Outpatient (BNVA) | payer MEDICARE, MEDICAID, SELFPAY | PROVIDERS: PCP Internal Medicine; Visit Provider Internal Medicine | DX: E11.65 Type 2 diabetes mellitus with hyperglycemia (principal); I10 Essential (primary) hypertension; E78.00 Pure hypercholesterolemia, unspecified; M81.0 Age-related osteoporosis without current pathological fracture; E66.3 Overweight; F31.12 Bipolar disorder, current episode manic without psychotic features, moderate; Z72.0 Tobacco use | CPT/HCPCS: 83036; 96127; 99212 ==

== ENCOUNTER 2024-10-20 10:12 | Outpatient (REF) | payer MEDICARE, SELFPAY ==
--- NOTE | ~2024-10-20 | MM_ITS ---
EXAMINATION: MM SCREENING DIGITAL BREAST TOMOSYNTHESIS, BILATERAL CLINICAL INFORMATION: Screening. Asymptomatic. COMPARISON: Mammography: Comparison is made with available priors TECHNIQUE: Digital breast mammography with tomosynthesis is performed in both the craniocaudal and mediolateral oblique views along with computer-aided detection (CAD). FINDINGS: The breasts are heterogeneously dense, which may obscure small masses (ACR BI-RADS breast composition Category c). There are no significant masses, abnormal calcifications, or other abnormalities. MM/MM tomosynthesis screening BI IMPRESSION: No mammographic evidence of malignancy. ASSESSMENT: BI-RADS BI-RADS 1 - Negative RECOMMENDATION: Routine annual mammography screening. 1 year F/U This examination should not preclude the clinical evaluation of a suspicious palpable abnormality. This patient's information was entered into a reminder system with a target due date for their next mammogram. Electronically signed by: Domonique Wilburn DO 10/23/2024 05:07 PM [facility]
--- NOTE | ~2024-10-20 | MM_ITS ---
EXAMINATION: DXA BONE DENSITY AXIAL HISTORY: Estrogen deficiency TECHNIQUE: The [employer] Dual energy absorptiometry (DEXA) of the lumbar spine, total left hip, and femoral neck was performed. COMPARISON: Comparison is made with the prior examination dated 04/01/2020. FINDINGS: The bone mineral density of the lumbar spine is 0.747 with a T-score of -3.5, and a Z-score of -2.9. This represents a BMD change of 3.5% compared to the prior exam. This is not statistically significant. The bone mineral density of the left total hip is 0.714 with a T-score of -2.3, and a Z-score of -1.7. This represents BMD change of -3.9% compared to the prior exam. This is not statistically significant. The bone mineral density of the left femoral neck is 0.673 with a T-score of -2.6, and a Z-score of -1.7. This represents BMD change of -6.9% compared to the prior exam. MM/XR DEXA axial skeleton IMPRESSION: Based on bone mineral density, and according to World Health Organization (WHO) criteria, the diagnosis is consistent with osteoporosis. All bone density values are in grams per centimeter squared (g/cm2). Statistically, 68% of repeat scans fall within 1 SD (+/- 0.010 g/cm2 for AP spine L1-L4) and 1 SD (+/- 0.012 g/cm2 for femur total) FRAX is a trademark of the [employer]'s [place] [facility] Metabolic Bone Disease, a World Health Organization (WHO) Collaborating Center. Electronically signed by: Tan Vallejo MD 10/23/2024 07:02 AM [facility]
--- OUTSIDE RECORDS SUMMARY | 2024-10-20 11:24 | XMS_ITS | Continuity of Care Document ---
Author Organization [facility] Address [address] [address] Phone Care Team Providers Care Head Of Research & Insights Name Role Phone Vinod BUENO, Aqib Unavailable Unavailable Allergies, Adverse Reactions, Alerts Substance Reaction Status Criticality NAPROXEN SODIUM Dizziness Active No Informati on lisinopril Active No Information lamotrigine Active No Information denosumab Active No Information azithromycin Active No Information Medications Medication Instructions Dosage Effective Dates (start - stop) Status Comments gabapentin 300 mg capsule TAKE 1 CAPSULE BY ORAL ROUTE AT 8AM AND 1PM - Active GLIPIZIDE 5MG TAKE 1 TABLET BY ORAL ROUTE EVERY DAY BEFORE A MEAL - Active Senna Lax 8.6 mg tablet TAKE 2 [...] nostril as needed 50-100 MCG - Active albuterol sulfate HFA 90 mcg/actuation [...] BY ORAL ROUTE AT BEDTIME - Active Tylenol Extra Strength 500 mg [...] every 3 hours as needed - Active Advance Directives Directive Yes / No Effective Date File Name No Information Encounters Encounter Description Practice Location Reason(s) For Visit Diagnoses Date Provider [facility], [address] [address], [place], [place], [id number], [place] tel:[phone] [place] No Information Feb-1 4-202 5 Vinod Aqib. [address] [place], [place], [id number], [place]. tel:[phone] [facility], [address], [place], [place], [id number], [place] tel:[phone] [place] No Information 5 Vinod Aqib. [address] [place], [place], [id number], [place]. tel:[phone] [facility], [address], [place], [place], [id number], [place] tel:[phone] [place] No Information 4 Vinod Aqib. [address] [place], [id number], [place]. tel:[phone] [facility], [address], [place], [place], [id number], [place] tel:[phone] [place] No Information 4 Vinod Aqib. [address] [place], [place], [id number], [place]. tel:[phone] [facility], [address], [place], [place], [id number], [place] tel:[phone] [place] No Information 4 Vinod Aqib. [address] [place], [place], [id number], [place]. tel:[phone] [facility], [address], [place], [place], [id number], [place] tel:[phone] [place] No Information 202 4 Vinod Aqib. [address] [place], [place], [id number], [place]. tel:[phone] [facility], [address], [place], [place], [id number], [place] tel:[phone] [place] No Information Aug 4 Omar Rushecca. [address] [place], [place], [id number], [place]. tel:[phone] [facility], [address] [facility], [place], [place], [id number], [place] tel:[phone] [place] No Information 4 Omaranthony Rushecca. [address] [place], [place], [id number], [place]. tel:[phone] [facility], [address] [facility], [place], [place], [id number], [place] tel:[phone] [place] Semi-Annual (chief complaint) Schizophrenia, unspecified typeBipolar affective disorder, currently depressed, moderateGeneralized anxiety disorderPTSD (post-traumatic stress disorder)Hypercholester olaemiaLong term (current) use of oral hypoglycemic drugsType 2 diabetes mellitus with stage 2 chronic kidney disease, without long-term current use of insulinChronic kidney disease, stage 2 (mild)Diabetic peripheral vascular diseaseAge-related osteoporosis without current pathological fractureClass 1 obesity due to excess calories with serious comorbidity and body mass index (BMI) of 30.0 to 30.9 in adultBody mass index [BMI] 30.0-30.9, adultVitamin D deficiencyAge-related cataract of both eyes, unspecified age-related cataract typeGastroesophageal reflux disease without esophagitisHypertensive renal disease, stage 1 through stage 4 or unspecified chronic kidney diseasePrimary osteoarthritis involving multiple jointsFibromyalgiaChron ic obstructive pulmonary disease, unspecified COPD typePulmonary nodulePsoriasis 4 Omar Esthela. [address] [place], [place], [id number], [place]. tel:[phone] [facility], [address] [facility] [address] [place] [id number], [place] tel:[phone] [place] No Information 4 Os Dawna. [address] [place], [place], [id number], [place]. tel:[phone] [facility], [address], [place], [place], [id number], [place] tel:[phone] [place] No Information 4 Omar Esthela. [address] [place], [place], [id number], [place]. tel:[phone] [facility], [address], [place], [place], [id number], [place] tel:[phone] [place] Psoriasis 4 Omar Esthela. [address] [place], [place], [id number], [place]. tel:[phone] [facility], [address], [place], [place], [id number], [place] tel:[phone] [place] Acute Visit (chief complaint) Psoriasis 4 Omaranthony Lingca. [address] [place], [place], [id number], [place]. tel:[phone] [facility], [address], [place], [place], [id number], [place] tel:[phone] [place] No Information 4 Pitsiladis . [address] [place], [place], [id number], [place]. tel:[phone] [facility], [address] [facility], [place], [place], [id number], [place] tel:[phone] [place] No Information 0 4 Os Dawna. [address] [place], [place], [id number], [place]. tel:[phone] [facility], [address], [place], [place], [id number], [place] tel:[phone] [place] No Information 4 Os Dawna. [address] [place], [place], [id number], [place]. tel:[phone] [facility], [address], [place], [place], [id number], [place] tel:[phone] [place] Acute Visit (chief complaint) Psoriasis 4 Os Dawna. [address] [place], [place], [id number], [place]. tel:[phone] [facility], [address] [facility], [place], [place], [id number], [place] tel:[phone] [place] Acute Visit (chief complaint) Fungal dermatitis Jan- 4 Omar Esthela. [address] [place], [place], [id number], [place]. tel:[phone] [facility], [address] [facility], [place], [place], [id number], [place] tel:[phone] [place] FibromyalgiaAge-rela cory osteoporosis without current pathological fractureUnspecified osteoarthritis, unspecified site 4 Os Dawna. [address] [place], [place], [id number], [place]. tel:[phone] [facility], [address] [address], [place], [place], [id number], [place] tel:[phone] [place] No Information 4 Omar Esthela. [address] [place], [place], [id number], [place]. tel:[phone] [facility], [address] [address], [place], [place], [id number], [place] tel:[phone] [place] No Information 4 Os Dawna. [address] [place], [place], [id number], [place]. tel:[phone] [facility], [address] [facility], [place], [place], [id number], [place] tel:[phone] [place] Age-related osteoporosis without current pathological fracture 4 Os Dawna. [address] [place], [place], [id number], [place]. tel:[phone] [facility], [address], [place], [place], [id number], [place] tel:[phone] [place] [address] No Information 4 Os Dawna. [address] [place], [place], [id number], [place]. tel:[phone] [facility], [address], [place], [place], [id number], [place] tel:[phone] [phone] No Information Nov-3 0 4 Os Dawna. [address] [place], [place], [id number], [place]. tel:[phone] [facility], [address], [place], [place], [id number], [place] tel:[phone] [place] [address] No Information 4 Os Dawna. [address] [place], [place], [id number], [place]. tel:[phone] [facility], [address], [place], [place], [id number], [place] tel:[phone] [place] [address] No Information 4 Os Dawna. [address] [place], [place], [id number], [place]. tel:[phone] [facility], [address], [place], [place], [id number], [place] tel:[phone] [place] [address] No Information 2 4 Os Dawna. [address] [place], [place], [id number], [place]. tel:[phone] [facility], [address], [place], [place], [id number], [place] tel:[phone] [place] No Information 4 Os Dawna. [address] [place], [place], [id number], [place]. tel:[phone] [facility], [address], [place], [place], [id number], [place] tel:[phone] [place] Encounter for rehabilitation evaluationHemiplegia and hemiparesis following unspecified cerebrovascular disease affecting left dominant sidePrimary generalized (osteo)arthritis 0 4 Brian Wallace. [address], [place], [id number], [place]. tel:[phone] [facility], [address] [address], [place], [place], [address], [place] tel:[phone] [place] Encounter for rehabilitation evaluation 4 Gopicarolyn Campos. [address], [place], [id number], [place]. tel:[phone] [facility], [address] [address], [place], [place], [id number], [place] tel:[phone] [place] Semi-Annual (chief complaint) Encounter for general adult medical examination without abnormal findingsSchizophrenia, unspecified typeBipolar affective disorder, remission status unspecifiedGeneralized anxiety disorderPTSD (post-traumatic stress disorder)Hypercholester olaemiaLong term (current) use of oral hypoglycemic drugsType 2 diabetes mellitus with diabetic chronic kidney disease, unspecified CKD stage, unspecified whether fpc insulin useOsteoporosis, unspecified osteoporosis type, unspecified pathological fracture presenceGastroesophagea l reflux disease without esophagitisStage 2 chronic kidney diseaseHypertensive renal disease, stage 1 through stage 4 or unspecified chronic kidney diseaseChronic obstructive pulmonary disease, unspecified COPD typePulmonary noduleTobacco useObstructive sleep apneaType 2 diabetes mellitus with peripheral vascular disease 4 Os Dawna. [address], [place], [id number], [place]. tel:[phone] [facility], [address] [address], [place], [place], [id number], [place] tel:[phone] [place] Medication management Nov-2 3 Omar Proctor. [address], [place], [id number], [place]. tel:[phone] [facility], [address], [place], [place], [id number], [place] tel:[phone] [place] Follow-up (chief complaint) Pulmonary nodule 3 Omar Esthela. [address] [place], [place], [id number], [place]. tel:[phone] [facility], [address], [place], [place], [id number], [place] tel:[phone] [place] No Information 3 Omar Esthela. [address] [place], [place], [id number], [place]. tel:[phone] [facility], [address], [place], [place], [id number], [place] tel:[phone] [place] No Information 3 Os Dawna. [address], [place], [place], [id number], [place]. tel:[phone] [facility], [address] [facility], [place], [place], [id number], [place] tel:[phone] [place] OV (chief complaint) Pulmonary nodule 3 Omar Esthela. [address] [place], [place], [id number], [place]. tel:[phone] [facility], [address], [place], [place], [id number], [place] tel:[phone] [place] No Information 3 Omar Esthela. [address] [place], [place], [id number], [place]. tel:[phone] [facility], [address], [place], [place], [id number], [place] tel:[phone] [place] Semi-Annual (chief complaint) Schizophrenia, unspecified typeBipolar disorder in partial remission, most recent episode unspecified typeGeneralized anxiety disorderPTSD (post-traumatic stress disorder)Tobacco useObstructive sleep apneaChronic obstructive pulmonary disease, unspecified COPD typePulmonary noduleOsteoporosis, unspecified osteoporosis type, unspecified pathological fracture presenceGastroesophagea l reflux disease without esophagitisHypercholest erolaemiaLong term (current) use of oral hypoglycemic drugsType 2 diabetes mellitus with stage 2 chronic kidney disease, with long-term current use of insulinChronic kidney disease, stage 2 (mild)skilled nursing (current) use of insulinHypertensive renal disease, stage 1 through stage 4 or unspecified chronic kidney disease 3 Os Dawna. [address] [facility] [address], [place], [place], [id number], [place]. tel:[phone] [facility], [address] [facility], [place], [place], [id number], [place] tel:[phone] [facility] 3 Os Dawna. [address], [place], [id number], [place]. tel:[phone] [facility], [address] [facility] [address] [facility], [place], [place], [id number], [place] tel:[phone] [facility] 3 Os Dawna. [address], [place], [place], [id number], [place]. tel:[phone] [facility], [address] [facility] [address] [facility], [place], [place], [id number], [place] tel:[phone] [place] Encounter for rehabilitation evaluation 3 Isa Urias. [address] [facility], [place], [address]. tel:[phone] [facility], [address] [facility] [address] [facility], [place], [place], [id number], [place] tel:[phone] [place] Encounter for rehabilitation evaluationOther chronic painAlteration in performance of activities of daily living 3 Marco A Delcid. [address] [facility] [place], [place], [id number]. tel:[phone] [facility], [address] [facility] [address] [facility], [place], [place], [id number], [place] tel:[phone] [place] Osteoarthritis, unspecified osteoarthritis type, unspecified site 3 Os Dawna. [address] [facility] [place], [id number], [place]. tel:[phone] [facility], [address] [facility], [place], [place], [id number], [place] tel:[phone] [place] Encounter for nutritional assessmentDiabetes education, encounter forClass 1 obesity with serious comorbidity and body mass index (BMI) of 32.0 to 32.9 in adult, unspecified obesity typeBody mass index [BMI] 32.0-32.9, adult 3 Normile Jaclyn. [address] [facility] [place], [id number], [place]. tel:[phone] [facility], [address] [facility], [place], [place], [id number], [place] tel:[phone] [place] HUSSEIN (chief complaint) Schizophrenia, unspecified typeBipolar affective disorder, remission status unspecifiedGeneralized anxiety disorderPTSDHypercholes terolaemiaType 2 diabetes mellitus with diabetic chronic kidney disease, unspecified CKD stage, unspecified whether exterminator helper insulin useOsteoporosis, unspecified osteoporosis type, unspecified pathological fracture presenceChronic kidney disease, stage 2 (mild)Hypertensive chronic kidney disease with stage 1 through stage 4 chronic kidney disease, or unspecified chronic kidney diseaseCOPDPulmonary noduleTobacco useFibromyalgiaGastroes ophageal reflux disease without esophagitis 3 Os Dawna. [address] [place], [place], [id number], [place]. tel:[phone] [facility], [address] [facility], [place], [place], [id number], [place] tel:[phone] [place] History of fracture 2 Os Dawna. [address], [place], [id number], [place]. tel:[phone] [facility], [address] [facility] [address] [facility], [place], [place], [id number], [place] tel:[phone] [place] Papular eczema 2 Os Dawna. [address] [facility] [address] [place], [id number], [place]. tel:[phone] [facility], [address] [facility], [place], [place], [id number], [place] tel:[phone] [place] No Information 2 Os Dawna. [address] [facility] [address] [place], [id number], [place]. tel:[phone] [facility], [address] [facility], [place], [place], [id number], [place] tel:[phone] [place] Obstructive sleep apnea 2 Os Dawna. [address], [place], [place], [id number], [place]. tel:[phone] [facility], [address] [facility], [place], [place], [id number], [place] tel:[phone] [place] No Information 2 Os Dawna. [address], [place], [id number], [place]. tel:[phone] [facility], [address] [facility], [place], [place], [id number], [place] tel:[phone] [place] Semiannual (chief complaint) Hypertension, unspecified typeHypercholesterolaem iaChronic kidney disease due to diabetes mellitusSchizophrenia, unspecified typeBipolar affective disorder, remission status unspecifiedGeneralized anxiety disorderPTSDOsteoporosi s, unspecified osteoporosis type, unspecified pathological fracture presenceCOPDPulmonary nodulePapular eczemaHealthcare maintenanceTobacco useChronic kidney disease, stage 3a 2 Os Dawna. [address] [place], [place], [address], [place]. tel:[phone] [facility], [address], [place], [place], [id number], [place] tel:[phone] [place] Encounter for nutritional assessmentDiabetes education, encounter forOther obesity Feb- 2 Normile Jaclyn. [address] [place], [place], [id number], [place]. tel:[phone] [facility], [address], [place], [place], [id number], [place] tel:[phone] [place] OV (chief complaint) Type 2 diabetesGeneralized anxiety disorderIntractable headache, unspecified chronicity pattern, unspecified headache typeNausea 2 Os Dawna. [address], [place], [place], [id number], [place]. tel:[phone] [facility], [address] [facility], [place], [place], [id number], [place] tel:[phone] [place] Pulmonary nodule 2 Os Dawna. [address] [place], [place], [id number], [place]. tel:[phone] [facility], [address] [facility], [place], [place], [id number], [place] tel:[phone] [place] No Information 2 Os Dawna. [address] [place], [place], [id number], [place]. tel:[phone] [facility], [address], [place], [place], [id number], [place] tel:[phone] [place] Encounter for nutritional assessment 2 Normile Jaclyn. [address] [place], [place], [id number], [place]. tel:[phone] [facility], [address] [facility], [place], [place], [id number], [place] tel:[phone] [place] PEE (chief complaint) Hypertension, unspecified typeHypercholesterolaem iaCataract of both eyes, unspecified cataract typeBipolar affective disorder, remission status unspecifiedGeneralized anxiety disorderPTSDHistory of fractureOsteoporosis, unspecified osteoporosis type, unspecified pathological fracture presenceCOPDPulmonary noduleHealthcare maintenance 2 Os Dawna. [address] [place], [place], [id number], [place]. tel:[phone] [facility], [address] [facility] [address] [place] [address], [id number], [place] tel:[phone] [place] Muscle weakness (generalized)Encounter for rehabilitation evaluation 2 Isa Urias. [address] [place], [address]. tel:[phone] [facility], [address] [facility], [place], [place], [id number], [place] tel:[phone] [place] Encounter for rehabilitation evaluationAlteration in performance of activities of daily livingOther chronic pain 2 Marco A Encisoah Beth. [address] [place], [place], [id number]. tel:[phone] [facility], [address] [facility] [address] [place] [address], [id number], [place] tel:[phone] [place] No Information 2 Juan Ramon Gordon. [address] [place], [place], [id number], [place]. tel:[phone] [facility], [address] [facility] [address] [place] [address], [id number], [place] tel:[phone] [place] Intake (chief complaint) No Information 2 Steph Martinez. [address] [place], [place], [id number], [place]. tel:[phone] Family History Family Member Type Diagnosis Age [...] egistry Payers Payer name Insurance type Covered alliance party ID Authoriza lázarosae(s) [employer] 16 [id number] [facility] 16 [id number] [facility] 16 [id number] [employer] 16 [id number] [employer] 16 [id number] [facility] 16 [id number] [employer] 16 [id number] Social History Type Description Quantity Date Captured Comments Sex Female Smoking Status No Information Chief Complaint And Reason For Visit No Information Plan Of Treatment Date Type Action Status Referral Ordered: Referrals: Senior Business Consultant. Evaluate and treat Appointment date/timeframe: 02/07/2024 ordered Referral Ordered: Referrals: Orthopedic Surgery. Evaluate and treat ordered Referral Ordered: Ophthalmology (related to Encounter for general adult medical examination without abnormal findings) ordered Referral Ordered: Referrals: Dentistry. Evaluate and treat ordered Referral Ordered: Referrals: Ophthalmology. Evaluate and treat ordered Referral Ordered: Referrals: Rheumatology. Evaluate and treat ordered Referral Ordered: Referrals: [facility]- Dental Location: [facility]. Evaluate and treat ordered Referral Ordered: Referrals: Obstetrics. Location: [facility]. Evaluate and treat ordered Referral Ordered: [...] (Diagnostic); Bilateral, incl computer-aided detection when performed (68890), Ordered on: Ordered History Of Present Illness [...] needs follow up-Psychiatrist: Trying to get into [facility]-Therapist: Krzysztof at [facility]-Ortho: 12/2023- closed fracture of neck of [...] reviewed: Full code, MOLST 09/2021-HCP: Not invoked- Idris (sister) and Tesfaye (ex-boyfriend)(+) ROS: depression r/t [...] treatment we can offer at this time. Comments: Jet rees is a 68 year [...] feetPpt agreeable to this plan Acute Visit Acute Visit PPT seen today f or [...] seems to have spread the fungal infection. Comments: Angelina mckay is a 67 year [...] changes; optho appt scheduled in 02/2024-Psychiatrist: Santi Montiel-Therapist: no longer seeing therapist- does not want [...] the next 1-2 years? where I am Semi-Annual Follow-up PPT seen today f or follow [...] lung nodules, COPD, hypotensionEXAM: NAD. mildly hypotensive, [id number]: repeat CT scan, encouraged fluids (she only [...] has been helping. Working on getting into [facility] (psychiatrist). Diagnoses Reviewed.Consults:-Dental: last seen in September- had cap; 05/05/[address] [facility] appt-Vision: 12/25/22-Psychiatrist: Trying to get into [facility]-Therapist: Krzysztof at monthly-Pain management: 09/21/22- did [...] monthsWMM:-Advance Directives reviewed: Full code-HCP: Not invoked- Debbies (sister) and Tesfaye (boyfriend)-What [...] the next 1-2 years? where I am Comments: Angelina mckay is a 65 year [...] 1-2 years? where I am Semiannual Comments: Jet rees is a 66 year [...] A1C in 1 month-Start pepcid bid PRN OV Comments: Angelina mckay is a 65 year [...] seeing a prescriber Tena Reyna APRN in [place] and has followed with her for years. [...] for mail order and [facility] locally on [address]: she states the clonazepam comes from [employer]. She is considering changing to [facility] once she enrolls. Instructions Date Instruction Additional Infor eranion Chest CT 4RUL n odule resolved likely infectious/inflammatoryFew scattered pulmonary nodules meauring up to 3mm in LLL are unchangedAnnual imaging Related to Pulmonary nodule colloidal oatmeal lotion PRN Rel ated to Psoriasis No concerns of this today. Following with physiatry/pain management. Related to Fibromyalgia Pt is a smoker sin e I was 13 years old I have been smoking 1ppd . She smokes marijuana 1-2x/day .Never used oxygen.Continue proair as neededRecently added advair w/ + effect. No dyspnea noted. LSCTA, no dyspnea nor cough Related to Chronic obstructive pulmonary disease, unspecified COPD type BPs have been stable -Continue amlodipine [...] elevat edrepeat labs todaycont glipizide Related to terminal carman (current) use of oral hypoglycemic drugs Identifies good supp ort system including friends [...] propranolol Related to PTSD (post-traumatic stress disorder) Lipid panel orderedc ont statin, fenofibrate Related to Hypercholesterolaemia Follows [facility] for psychiatry. Not currently [...] kidney disease, unspecified CKD stage, unspecified whether exterminator helper insulin use 01/2022 Dexa: Impress ion: The patient has osteoporosis as determined by WHO criteria. Related to Osteoporosis, unspecified osteoporosis type, unspecified pathological fracture presence 03/2023: A1C- 7-Curre ntly on glipizide 2.5mg- increasing to 5mg daily Related to terminal carman (current) use of oral hypoglycemic drugs 03/2023Lipid ratio- 6 TC 185; TG 229Ordered lipid panel for semiContinue lipitor (80mg) fenofibrate Related to Hypercholesterolaemia Does identify good s upport system.No longer seeing therapist. Does not feel [...] unspecified osteoporosis type, unspecified pathological fracture presence Continues to smoke 1 ppd and smokes [...] monthly. She is working on getting into [facility] for a psychiatrist. Currently- PCP is prescribing and sending medications. -Continue current med regimen- follow up w/ new psychiatrist may need medication adjustment Related to Generalized anxiety disorder Pt reports seeing [facility] (therapist[facility]. She is working on getting into [facility] for a psychiatrist. Currently- PCP is [...] monthly. She is working on getting into [facility] for a psychiatrist. Currently- PCP is [...] 08/2022 GFR 60-Avoid nephrotoxic medications Related to terminal carman (current) use of insulin 08/2022: A1C- 6.7Continue glipizi de Related to terminal carman (current) use of oral hypoglycemic drugs Rhem [...] Related to Fibromyalgia Pt is a smoker Contix I was 13 years old I have [...] to Pulmonary nodule Pt is a

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
== END 2024-10-20 10:13 | disposition home or self-care (01) ==
LOC: HO.MAMMO 10:12
PROVIDERS: PCP Internal Medicine; Visit Provider Internal Medicine
DX: Z12.31 Encounter for screening mammogram for malignant neoplasm of breast (principal); M81.0 Age-related osteoporosis without current pathological fracture
CPT/HCPCS: 77063; 77067; 77080

== ENCOUNTER → 2024-10-20 11:00 | Outpatient (BNV) | payer MEDICARE, SELFPAY | PROVIDERS: PCP Internal Medicine; Visit Provider Radiology Diagnostic Radiology | DX: E28.39 Other primary ovarian failure (principal); Z12.31 Encounter for screening mammogram for malignant neoplasm of breast | CPT/HCPCS: 77063; 77067; 77080 ==

== ENCOUNTER 2024-10-27 09:24 | Outpatient (AMB) | payer MEDICARE, MEDICAID, SELFPAY ==
--- NOTE | 2024-10-27 07:53 | A.OFFVIS_ITS ---
Intake Visit Reasons: Current Smoker Allergies azithromycin Allergy (Unknown, Verified 07/25/24 15:26) unknown denosumab [Prolia] Allergy (Unknown, Verified 07/25/24 15:26) vomiting lamotrigine Allergy (Unknown, Verified 07/25/24 15:26) rash lisinopril Allergy (Unknown, Verified 07/25/24 15:26) nausea and vomiting naproxen [Aleve] Allergy (Unknown, Verified 07/25/24 15:26) dizziness HPI HPI Current Smoker: Details: Initial visit for this 68yo smoker with a 35+PYH. Patient started smoking at age 15 for 53 years at 1/2-1ppd. . Reports marijuana use. Denies second hand smoke exposure. Denies exposure to chemicals or substances like asbestos. . Denies family history of lung cancer. Father age 68 -esophageal cancer. Denies personal history of cancers. Reports chest CT last year and was told she had nodules Advised annual follow up based on that. . Denies recent travel outside the [place]. Denies recent respiratory illness or recent hospitalization for respiratory issues. . Denies fever, chills, new/worsening cough, hemoptysis, hoarseness or dysphagia. Denies significant chest pain, significant dyspnea or unintentional weight loss. Patient Lung Cancer Screening Questionnaire reviewed with patient by provider. . Shared Decision Making Completed. Patient meets criteria. Discussed in detail with patient, the risk vs benefit of LDCT screening. Patient consents to proceed with scan. Discussed smoking cessation. [facility] Medical History (Updated 10/27/24 @ 09:49 by Izabela Quinteros PA-C) Nicotine dependence, cigarettes, uncomplicated Bilateral lower extremity pain Hx of gastritis Hx of allergic rhinitis Migraines Tubular adenoma of colon Pulmonary nodule Osteoporosis Right humeral fracture Hip fracture, right Bipolar disorder Fibromyalgia Thyroid cyst Vitamin D deficiency Obesity (BMI 30-39.9) Hypercholesterolemia Hypertension COPD (chronic obstructive pulmonary disease) Anxiety and depression Type 2 diabetes mellitus with hyperglycemia Surgical History (Updated 09/04/24 @ 15:45 by Izabela Quinteros PA-C) History of cholecystectomy History of total abdominal hysterectomy and bilateral salpingo-oophorectomy History of colonoscopy Deficient knowledge of leg surgery History of shoulder surgery History of hip surgery History of esophagogastroduodenoscopy (EGD) H/O right knee surgery Herniated nucleus pulposus Family History (Updated 10/27/24 @ 09:53 by Izabela Quinteros PA-C) Father Hypertension Cancer Esophageal cancer Mother Hypertension Maternal Aunt Stomach cancer Son Substance abuse Social History (Updated 10/27/24 @ 09:49 by Izabela Quinteros PA-C) Housing: House Alcohol intake: former Patient Tobacco Use Status: Current everyday Tobacco user Tobacco use type: Cigarette Cigarettes Per Day: 10 Years Smoked: (onset 15yo, 1/2-1ppd x 53yrs, 35+PYH) e-Cigarette/Vaping Use: Never Used Second Hand Smoke Exposure: Yes Current occupational status: employed Cognitive needs: No Hearing needs: No Vision needs: Yes Assessment & Plan Assessment & Plan (1) Nicotine dependence, cigarettes, uncomplicated: Comment: (onset 15yo, 1/2-1ppd x 53yrs, 35+PYH) Code(s): F17.210 - Nicotine dependence, cigarettes, uncomplicated Category: Medical Plan: - SDM visit completed today in office. - Patient meets criteria for LDCT for lung cancer screening purposes and is asymptomatic. - Smoking cessation counseling offered. Patients can always call [phone]. - Will arrange for a LDCT scan of the chest for screening purposes at [facility]. - Risks, benefits, and alternatives were discussed in detail and the patient agrees to proceed. - Risks discussed include but are not limited to: radiation exposure, anxiety during testing and while awaiting results, false negatives, false positives and possibility of additional intervention such as further imaging or surgical procedures for benign disease. - Benefits are obviously detection of lung cancer at an early stage which can lead to improved outcomes. - Discussed the importance of screening program compliance with adherence to yearly LDCT scan as scheduled - or sooner interval scans for personalized screening regimen. - Discussed follow up plan. Our office will send a letter discussing results and if needed set up phone call and office visit based on CT findings. - Patient educated on results categorization and the management decisions for suspicious findings potentially found on the screening LDCT scan. Any patient with a Lung RADS score of 3 or 4 will be reviewed by a multidisciplinary team at [facility] to form a plan of action in regards to scan findings. - If further work up is warranted for a suspicious lung finding this will be followed by the Lung Cancer Screening program in conjunction with the Thoracic Surgery Department at [facility]. - A copy of the office note and LDCT will be sent to the patient's PCP - as well as documentation on any associated further plans of care. - Incidental findings on LDCT are the PCP's responsibility. These findings are indicated with an S finding on the LDCT Assessment. A note discussing the findings will be sent to the PCP who is then responsible for further management. - All questions answered.? Coding Level of Care Code Lung Cancer Screening G0296 Diagnoses Nicotine dependence, cigarettes, uncomplicated F17.210
--- OUTSIDE RECORDS SUMMARY | 2024-10-27 10:10 | XMS_ITS | Continuity of Care Document ---
Author Organization [facility] Address [address] [address] Phone Care Team Providers Care Video And Sound Recorder Name Role Phone Vinod BUENO, Aqib Unavailable [...] Location Reason(s) For Visit Diagnoses Date Provider [facility], [address] [address], [place], [place], [id number], [place] tel:[phone] [place] No Information Feb-1 4-202 5 Vinod Aqib. [address] [place], [place], [id number], [place]. tel:[phone] [facility], [address], [place], [place], [id number], [place] tel:[phone] [place] No Information 5 Vinod Aqib. [address] [place], [place], [id number], [place]. tel:[phone] [facility], [address], [place], [place], [id number], [place] tel:[phone] [place] No Information 4 Vinod Aqib. [address] [place], [id number], [place]. tel:[phone] [facility], [address], [place], [place], [id number], [place] tel:[phone] [place] No Information 4 Vinod Aqib. [address] [place], [place], [id number], [place]. tel:[phone] [facility], [address], [place], [place], [id number], [place] tel:[phone] [place] No Information 4 Vinod Aqib. [address] [place], [place], [id number], [place]. tel:[phone] [facility], [address], [place], [place], [id number], [place] tel:[phone] [place] No Information 202 4 Vinod Aqib. [address] [place], [place], [id number], [place]. tel:[phone] [facility], [address], [place], [place], [id number], [place] tel:[phone] [place] No Information Aug 4 Omar Rushecca. [address] [place], [place], [id number], [place]. tel:[phone] [facility], [address] [facility], [place], [place], [id number], [place] tel:[phone] [place] No Information 4 Omaranthony Rushecca. [address] [place], [place], [id number], [place]. tel:[phone] [facility], [address] [facility], [place], [place], [id number], [place] tel:[phone] [place] Semi-Annual (chief complaint) Schizophrenia, unspecified typeBipolar affective [...] nodulePsoriasis 4 Omar Esthela. [address] [place], [place], [id number], [place]. tel:[phone] [facility], [address] [place] [address], [id number], [place] tel:[phone] [place] No Information 4 Os Dawna. [address] [place], [place], [id number], [place]. tel:[phone] [facility], [address], [place], [place], [id number], [place] tel:[phone] [place] No Information 4 Omar Esthela. [address] [place], [place], [id number], [place]. tel:[phone] [facility], [address], [place], [place], [id number], [place] tel:[phone] [place] Psoriasis 4 Omar Esthela. [address] [place], [place], [id number], [place]. tel:[phone] [facility], [address], [place], [place], [id number], [place] tel:[phone] [place] Acute Visit (chief complaint) Psoriasis 4 Omaranthony Lingca. [address] [place], [place], [id number], [place]. tel:[phone] [facility], [address], [place], [place], [id number], [place] tel:[phone] [place] No Information 4 Pitsiladis . [address] [place], [place], [id number], [place]. tel:[phone] [facility], [address] [facility], [place], [place], [id number], [place] tel:[phone] [place] No Information 0 4 Os Dawna. [address] [place], [place], [id number], [place]. tel:[phone] [facility], [address], [place], [place], [id number], [place] tel:[phone] [place] No Information 4 Os Dawna. [address] [place], [place], [id number], [place]. tel:[phone] [facility], [address], [place], [place], [id number], [place] tel:[phone] [place] Acute Visit (chief complaint) Psoriasis 4 Os Dawna. [address] [place], [place], [id number], [place]. tel:[phone] [facility], [address] [facility], [place], [place], [id number], [place] tel:[phone] [place] Acute Visit (chief complaint) Fungal dermatitis Jan- 4 Omar Esthela. [address] [place], [place], [id number], [place]. tel:[phone] [facility], [address] [facility], [place], [place], [id number], [place] tel:[phone] [place] FibromyalgiaAge-rela cory osteoporosis without current pathological fractureUnspecified osteoarthritis, unspecified site 4 Os Dawna. [address] [place], [place], [id number], [place]. tel:[phone] [facility], [address] [address], [place], [place], [id number], [place] tel:[phone] [place] No Information 4 Omar Esthela. [address] [place], [place], [id number], [place]. tel:[phone] [facility], [address] [address], [place], [place], [id number], [place] tel:[phone] [place] No Information 4 Os Dawna. [address] [place], [place], [id number], [place]. tel:[phone] [facility], [address] [facility], [place], [place], [id number], [place] tel:[phone] [place] Age-related osteoporosis without current pathological fracture 4 Os Dawna. [address] [place], [place], [id number], [place]. tel:[phone] [facility], [address], [place], [place], [id number], [place] tel:[phone] [place] [address] No Information 4 Os Dawna. [address] [place], [place], [id number], [place]. tel:[phone] [facility], [address], [place], [place], [id number], [place] tel:[phone] No Information Nov-3 0 4 Os Dawna. [address] [place], [place], [id number], [place]. tel:[phone] [facility], [address], [place], [place], [id number], [place] tel:[phone] [place] [address] No Information 4 Os Dawna. [address] [place], [place], [id number], [place]. tel:[phone] [facility], [address], [place], [place], [id number], [place] tel:[phone] [place] [address] No Information 4 Os Dawna. [address] [place], [place], [id number], [place]. tel:[phone] [facility], [address], [place], [place], [id number], [place] tel:[phone] [place] [address] No Information 2 4 Os Dawna. [address] [place], [place], [id number], [place]. tel:[phone] [facility], [address], [place], [place], [id number], [place] tel:[phone] [place] No Information 4 Os Dawna. [address] [place], [place], [id number], [place]. tel:[phone] [facility], [address], [place], [place], [id number], [place] tel:[phone] [place] Encounter for rehabilitation evaluationHemiplegia and hemiparesis following unspecified cerebrovascular disease affecting left dominant sidePrimary generalized (osteo)arthritis 0 4 Brian Wallace. [address], [place], [id number], [place]. tel:[phone] [facility], [address] [address], [place], [place], [id number], [place] tel:[phone] [place] Encounter for rehabilitation evaluation 4 Gopicarolyn Campos. [address], [place], [id number], [place]. tel:[phone] [facility], [address] [address], [place], [place], [id number], [place] tel:[phone] [place] Semi-Annual (chief complaint) Encounter for general adult medical examination without abnormal findingsSchizophrenia, unspecified typeBipolar affective disorder, remission status unspecifiedGeneralized anxiety disorderPTSD (post-traumatic stress disorder)Hypercholester olaemiaLong term (current) use of oral hypoglycemic drugsType 2 diabetes mellitus with diabetic chronic kidney disease, unspecified CKD stage, unspecified whether long term care social worker insulin useOsteoporosis, unspecified osteoporosis type, unspecified pathological fracture presenceGastroesophagea l reflux disease without esophagitisStage 2 chronic kidney diseaseHypertensive renal disease, stage 1 through stage 4 or unspecified chronic kidney diseaseChronic obstructive pulmonary disease, unspecified COPD typePulmonary noduleTobacco useObstructive sleep apneaType 2 diabetes mellitus with peripheral vascular disease 4 Os Dawna. [address], [place], [id number], [place]. tel:[phone] [facility], [address] [address], [place], [place], [id number], [place] tel:[phone] [place] Medication management Nov-2 3 Omar Proctor. [address], [place], [id number], [place]. tel:[phone] [facility], [address], [place], [place], [id number], [place] tel:[phone] [place] Follow-up (chief complaint) Pulmonary nodule 3 Omar Esthela. [address] [place], [place], [id number], [place]. tel:[phone] [facility], [address], [place], [place], [id number], [place] tel:[phone] [place] No Information 3 Omar Esthela. [address] [place], [place], [id number], [place]. tel:[phone] [facility], [address], [place], [place], [id number], [place] tel:[phone] [place] No Information 3 Os Dawna. [address], [place], [place], [id number], [place]. tel:[phone] [facility], [address] [facility], [place], [place], [id number], [place] tel:[phone] [place] OV (chief complaint) Pulmonary nodule 3 Omar Esthela. [address] [place], [place], [id number], [place]. tel:[phone] [facility], [address], [place], [place], [id number], [place] tel:[phone] [place] No Information 3 Omar Esthela. [address] [place], [place], [id number], [place]. tel:[phone] [facility], [address], [place], [place], [id number], [place] tel:[phone] [place] Semi-Annual (chief complaint) Schizophrenia, unspecified typeBipolar disorder [...] use of insulinChronic kidney disease, stage 2 (mild)correction (current) use of insulinHypertensive renal disease, stage 1 through stage 4 or unspecified chronic kidney disease [address], [place], [place], [id number], [place]. tel:[phone] [facility], [address] [facility], [place], [place], [id number], [place] tel:[phone] [facility] 3 Os Dawna. [address], [place], [id number], [place]. tel:[phone] [facility], [address] [facility], [place], [place], [id number], [place] tel:[phone] [facility] 3 Os Dawna. [address], [place], [place], [id number], [place]. tel:[phone] [facility], [address] [facility], [place], [place], [id number], [place] tel:[phone] [place] Encounter for rehabilitation evaluation 3 Isa Urias. [address] [facility], [place], [address]. tel:[phone] [facility], [address] [facility], [place], [place], [id number], [place] tel:[phone] [place] Encounter for rehabilitation evaluationOther chronic painAlteration in performance of activities of daily living 3 Marco A Delcid. [address] [place], [place], [id number]. tel:[phone] [facility], [address] [facility], [place], [place], [id number], [place] tel:[phone] [place] Osteoarthritis, unspecified osteoarthritis type, unspecified site [address] [facility] [place], [id number], [place]. tel:[phone] [facility], [address] [facility], [place], [place], [id number], [place] tel:[phone] [place] Encounter for nutritional assessmentDiabetes education, encounter forClass 1 obesity with serious comorbidity and body mass index (BMI) of 32.0 to 32.9 in adult, unspecified obesity typeBody mass index [BMI] 32.0-32.9, adult [address] [place], [id number], [place]. tel:[phone] [facility], [address] [facility], [place], [place], [id number], [place] tel:[phone] [place] HUSSEIN (chief complaint) Schizophrenia, unspecified typeBipolar affective disorder, remission status unspecifiedGeneralized anxiety disorderPTSDHypercholes terolaemiaType 2 diabetes mellitus with diabetic chronic kidney disease, unspecified CKD stage, unspecified whether long term care social worker insulin useOsteoporosis, unspecified osteoporosis type, unspecified pathological fracture presenceChronic kidney disease, stage 2 (mild)Hypertensive chronic kidney disease with stage 1 through stage 4 chronic kidney disease, or unspecified chronic kidney diseaseCOPDPulmonary noduleTobacco useFibromyalgiaGastroes ophageal reflux disease without esophagitis 3 Os Dawna. [address] [place], [place], [id number], [place]. tel:[phone] [facility], [address] [facility], [place], [place], [id number], [place] tel:[phone] [place] History of fracture 2 Os Dawna. [address] [place], [place], [id number], [place]. tel:[phone] [facility], [address] [facility], [place], [place], [id number], [place] tel:[phone] [place] Papular eczema [address] [place], [id number], [place]. tel:[phone] [facility], [address] [facility], [place], [place], [id number], [place] tel:[phone] [place] No Information [address] [place], [id number], [place]. tel:[phone] [facility], [address] [facility], [place], [place], [id number], [place] tel:[phone] [place] Obstructive sleep apnea 2 Os Dawna. [address], [place], [place], [id number], [place]. tel:[phone] [facility], [address] [facility], [place], [place], [id number], [place] tel:[phone] [place] No Information 2 Os Dawna. [address] [place], [place], [id number], [place]. tel:[phone] [facility], [address] [facility], [place], [place], [id number], [place] tel:[phone] [place] Semiannual (chief complaint) Hypertension, unspecified typeHypercholesterolaem iaChronic kidney disease due to diabetes mellitusSchizophrenia, unspecified typeBipolar affective disorder, remission status unspecifiedGeneralized anxiety disorderPTSDOsteoporosi s, unspecified osteoporosis type, unspecified pathological fracture presenceCOPDPulmonary nodulePapular eczemaHealthcare maintenanceTobacco useChronic kidney disease, stage 3a 2 Os Dawna. [address] [place], [place], [id number], [place]. tel:[phone] [facility], [address], [place], [place], [id number], [place] tel:[phone] [place] Encounter for nutritional assessmentDiabetes education, encounter forOther obesity Feb- 2 Normile Jaclyn. [address] [place], [place], [id number], [place]. tel:[phone] [facility], [address], [place], [place], [id number], [place] tel:[phone] [place] OV (chief complaint) Type 2 diabetesGeneralized anxiety disorderIntractable headache, unspecified chronicity pattern, unspecified headache typeNausea 2 Os Dawna. [address], [place], [place], [id number], [place]. tel:[phone] [facility], [address] [facility], [place], [place], [id number], [place] tel:[phone] [place] Pulmonary nodule 2 Os Dawna. [address] [place], [place], [id number], [place]. tel:[phone] [facility], [address] [facility], [place], [place], [id number], [place] tel:[phone] [place] No Information 2 Os Dawna. [address] [place], [place], [id number], [place]. tel:[phone] [facility], [address], [place], [place], [id number], [place] tel:[phone] [place] Encounter for nutritional assessment 2 Normile Jaclyn. [address] [place], [place], [id number], [place]. tel:[phone] [facility], [address] [facility], [place], [place], [id number], [place] tel:[phone] [place] PEE (chief complaint) Hypertension, unspecified typeHypercholesterolaem iaCataract of both eyes, unspecified cataract typeBipolar affective disorder, remission status unspecifiedGeneralized anxiety disorderPTSDHistory of fractureOsteoporosis, unspecified osteoporosis type, unspecified pathological fracture presenceCOPDPulmonary noduleHealthcare maintenance 2 Os Dawna. [address] [place], [place], [id number], [place]. tel:[phone] [facility], [address] [place] [address], [id number], [place] tel:[phone] [place] Muscle weakness (generalized)Encounter for rehabilitation evaluation 2 Isa Urias. [address] [place], [address]. tel:[phone] [facility], [address] [facility], [place], [place], [id number], [place] tel:[phone] [place] Encounter for rehabilitation evaluationAlteration in performance of activities of daily livingOther chronic pain 2 Marco A Encisoah Beth. [address] [place], [place], [id number]. tel:[phone] [facility], [address] [facility] [address] [place] [address], [id number], [place] tel:[phone] [place] No Information 2 Juan Ramon Gordon. [address] [place], [place], [id number], [place]. tel:[phone] [facility], [address] [facility] [address] [place] [address], [id number], [place] tel:[phone] [place] Intake (chief complaint) No Information 2 Steph Martinez. [address] [place], [place], [id number], [place]. tel:[phone] Family History Family Member Type Diagnosis Age [...] egistry Payers Payer name Insurance type Covered democrat ID Authoriza lázarosae(s) [employer] 16 [id number] [employer] 16 [id number] [employer] 16 [id number] [employer] 16 [id number] [facility] 16 [id number] [facility] 16 [id number] [employer] 16 [id number] Social History Type Description Quantity Date Captured Comments Sex Female Smoking Status No Information Chief Complaint And Reason For Visit No Information Plan Of Treatment Date Type Action Status Referral Ordered: Referrals: Marketing And Promotions Manager. Evaluate and treat Appointment date/timeframe: 02/07/2024 ordered Referral Ordered: Referrals: Orthopedic Surgery. Evaluate and treat ordered Referral Ordered: Ophthalmology (related to Encounter for general adult medical examination without abnormal findings) ordered Referral Ordered: Referrals: Dentistry. Evaluate and treat ordered Referral Ordered: Referrals: Ophthalmology. Evaluate and treat ordered Referral Ordered: Referrals: Rheumatology. Evaluate and treat ordered Referral Ordered: Referrals: Obstetrics. Location: [facility]. Evaluate and treat ordered Referral Ordered: Referrals: [facility]- Dental Location: [facility]. Evaluate and treat ordered Referral Ordered: Referrals: Pain Medicine. Evaluate and treat Appointment date/timeframe: 09/21/2022 ordered Referral Ordered: Referrals: Orthopedic Surgery Appointment date/timeframe: 09/03/2022 ordered Referral Ordered: Referrals: Dermatology Appointment date/timeframe: 03/08/2023 ordered Referral Ordered: Referrals: Sleep Study Appointment date/timeframe: 03/29/2023 ordered Referral Ordered: CT CHEST W/O DYE Appointment date/timeframe: 12/03/2021 ordered Referral Ordered: CT CHEST W/O & W/DYE Appointment date/timeframe: 12/03/2021 ordered Referral Ordered: BONE SCAN MULTIPLE AREAS Appointment date/timeframe: 01/26/2022 ordered Referral Ordered: Referrals: Psychiatry Appointment date/timeframe: 10/23/2021 ordered Referral Ordered: Referrals: Ophthalmology Appointment date/timeframe: 01/14/2023 ordered Referral Ordered: Referrals: Dentistry Appointment date/timeframe: 11/04/2022 ordered Future Order: Radiology Order Ma mmogram (Diagnostic); Bilateral, incl computer-aided detection when performed (43723), Ordered on: Ordered History Of Present Illness [...] needs follow up-Psychiatrist: Trying to get into [facility]-Therapist: [facility]tof [facility]-Ortho: 12/2023- closed [...] lung nodules, COPD, hypotensionEXAM: NAD. mildly hypotensive, [id number]: repeat CT scan, encouraged fluids (she only [...] Plan: CT chest in six months, ordered Comments: Angelina mckay is a 67 year [...] has been helping. Working on getting into [facility] (psychiatrist). Diagnoses Reviewed.Consults:-Dental: last seen in September- had cap; 05/05/23 [facility] appt-Vision: 12/25/22-Psychiatrist: Trying to get into [facility]-Therapist: Krzysztof at monthly-Pain management: 09/21/22- did [...] next 1-2 years? where I am Semi-Annual HUSSEIN Patient is a 66 year old [...] next 1-2 years? where I am Semiannual OV Comments: Jet rees is a 66 [...] A1C in 1 month-Start pepcid bid PRN PEE Comments: Angelina mckay is a 65 year [...] do. I do worry about my finances. Intake Makayla is seen today in the [...] seeing a prescriber Tena Reyna APRN in [place] and has followed with her for years. [...] for mail order and [facility] locally on [address]: she states the clonazepam comes from [facility]. She is considering changing to [facility] once she enrolls. Instructions Date Instruction [...] elevat edrepeat labs todaycont glipizide Related to rn long term care (current) use of oral hypoglycemic drugs Identifies [...] kidney disease, unspecified CKD stage, unspecified whether nursing home insulin use 01/2022 Dexa: Impress ion: The patient has osteoporosis as determined by WHO criteria. Related to Osteoporosis, unspecified osteoporosis type, unspecified pathological fracture presence 03/2023: A1C- 7-Curre ntly on glipizide 2.5mg- increasing to 5mg daily Related to correction (current) use of oral hypoglycemic drugs 03/2023Lipid [...] monthly. She is working on getting into [facility] for a psychiatrist. Currently- PCP is prescribing and sending medications. -Continue current med regimen- follow up w/ new psychiatrist may need medication adjustment Related to Generalized anxiety disorder Pt reports seeing Cl [facility] (therapist[facility]. She is working on getting into [facility] for a psychiatrist. Currently- PCP is [...] monthly. She is working on getting into [facility] for a psychiatrist. Currently- PCP is [...] 08/2022 GFR 60-Avoid nephrotoxic medications Related to correction (current) use of insulin 08/2022: A1C- 6.7Continue glipizi de Related to correction (current) use of oral hypoglycemic drugs Rhem [...] Related to Fibromyalgia Pt is a smoker [employer] I was 13 years old I have been smoking 1ppd . She smokes marijuana 1-2x/day . Educated on avoiding smoking if possible.. Never used oxygen.Continue proair as neededRecently added advair w/ + effect. No dyspnea noted. LSCTA, no dyspnea nor cough Related to COPD Continues to smoke 1 ppd and smokes marijuana 1-2x/day. CT 11/2021: Nonspecific 4 mm left lower lobe lung nodule. If low risk for malignancy, no routine follow-up. If high risk, optional CT at 12 months. If unchanged, no further follow-up needed.Will obtain a f/u CT in 12 months (order in place) Related to Pulmonary nodule Pt is a smoker [employer] I was 13 years old I have been smoking 1ppd . She smokes marijuana 1-2x/day. Educated on trying other alternatives such as marijuana gummies if she plans on smoking. Related to Tobacco use BPs have been stable -Continue amlodipine and [...] kidney disease, unspecified CKD stage, unspecified whether nursing home insulin use 01/2022 Dexa: Impress ion: The patient has osteoporosis as determined by WHO criteria. Related to Osteoporosis, unspecified osteoporosis type, unspecified pathological fracture presence 02/2022: GFR 64Avoid nephrotoxic medications Related to Chronic kidney disease, stage 2 (mild) Pt feels that her an xiety has [...] medication adjustment Related to Generalized anxiety disorder Identifies good supp ort system including boyfriend (Tesfaye), friends and family. Had reported in the past many things in her life had been traumatic, she referenced her son who is a heroin addict as the primary traumatic event. Reports hx of panic attacks and anxiety.-Continue psych medications prescribed by psychiatrist: clonazepam, fluoxetine, and propranolol Related to PTSD 02/25/2022:Lipid ratio - 6.6Increased lipitor from 20mg to 40mg dailyContinue fenofibrate Related to Hypercholesterolaemia Psychiatrist Yadira dejesus every 2 months- retired; [...] Related to Chronic kidney disease, stage 3a Continues to smoke 1 ppd and smokes [...] referral to derm. Related to Papular eczema Mammogram referral in place Rela cory to Healthcare maintenance Pt is a smoker sinc e I was 13 years old I have been smoking 1ppd . She smokes marijuana 1-2x/day. Educated on trying other alternatives such as marijuana gummies if she plans on smoking. Related to Tobacco use Pt is a [...] [facility] [place] [...]
--- OUTSIDE RECORDS SUMMARY | 2024-10-27 10:10 | XMS_ITS | Clinical Summary ---
Author Organization [address] [facility] Address [address] [place] [address] Phone Care Team Providers Care Goat Driver Name Role Phone Tone Villanueva MD Primary Care Provider [phone] Allergies Active Allergy Reactions Criticality Noted Date [...] pt, no h/o depression; sees psychiatry in [place] Elevated ferritin 03/22/2013 Overview (09/07/2024): 400-500 apparently [...] 9:15 AM EDT Consult Orthopedic Surgery - [place] [address] [id number] Nasim Miller, EDITH [address] [address] Health Maintenance Due Date Last Done Comments [...] Insurance MEDICARE [place]ICAID - [place] Care Teams Goat Driver Relationship Specialty Start Date End Date Tone Villanueva MD [address] [place] [address] [address] [facility] [place] [address] PCP - General Internal Medicine 06/30/12
== END 2024-10-27 10:00 | disposition home or self-care (01) ==
PROVIDERS: PCP Internal Medicine; Visit Provider Physician Assistant Medical
DX: F17.210 Nicotine dependence, cigarettes, uncomplicated (principal)
CPT/HCPCS: G0296

== ENCOUNTER 2024-10-27 10:01 | Outpatient (REF) | payer MEDICARE, SELFPAY ==
--- NOTE | ~2024-10-27 | CT_ITS ---
CLINICAL HISTORY: F17.210 - Nicotine dependence, cigarettes, uncomplicated CT lung cancer screening (LDCT) Comparison: CT/ME/SR - CHEST WITH IV CONTRAST 30225 - 04/10/19 15:48 EDT Technique: Axial CT images of the chest using low-dose technique. Referring provider counseled the patient on shared decision-making for LDCT screening. Additional counseling was provided on smoking cessation. Effective radiation dose total: DLP 53.1 mGycm, CTDIvol 1.5 mGy. Findings: The prior CT report is not available for review. Lung: Mild centrilobular emphysema. No pulmonary nodule. Coronary artery calcifications: Moderate Limited upper abdomen: Hepatic steatosis Other: None Impression: LungRADS 1: Negative exam. Continue annual screening with low dose Chest CT in 12 months. ##L1# Category 1: Normal; continue annual screening Category 2: Benign appearance or behavior, continue annual screening Category 3: Probably benign, [address] recommended Category 4A: Suspicious, [address] recommended; may consider PET/CT Category 4B: Suspicious, Additional diagnostics and/or tissue sampling recommended Category 4X: Suspicious, Additional diagnostics and/or tissue sampling recommended Category 0: Recalls (incomplete screen due to Incomplete coverage, Noise, Respiratory motion, Expiration, Obscured by acute abnormality) This document has been electronically signed by: Noble Vega MD on 10/30/2024 13:01:50
--- OUTSIDE RECORDS SUMMARY | 2024-10-27 11:12 | XMS_ITS | Clinical Summary ---
Author Organization 175 [facility] Address [address] [place] [address] Phone Care Team Providers Care African History Professor Name Role Phone Tone Villanueva MD Primary Care Provider [phone] Allergies Active Allergy Reactions Criticality Noted Date [...] pt, no h/o depression; sees psychiatry in [place] Elevated ferritin 03/22/2013 Overview (09/07/2024): 400-500 apparently [...] 9:15 AM EDT Consult Orthopedic Surgery - [place] [address] [phone] Nasim Miller, EDITH [address] [address] Health Maintenance Due Date Last Done Comments [...] Insurance MEDICARE [place] - [place] Care Teams African History Professor Relationship Specialty Start Date End Date Tone Villanueva MD [address] [place] [address] [address] [facility] [place] [address] PCP - General Internal Medicine 06/30/12
--- OUTSIDE RECORDS SUMMARY | 2024-10-27 11:12 | XMS_ITS | Continuity of Care Document ---
Author Organization [facility] Address [address] [address] Phone Care Team Providers Care Medical Case Worker Name Role Phone Vinod BUENO, Aqib Unavailable [...] Location Reason(s) For Visit Diagnoses Date Provider [facility], [address] [address], [place], [place], [id number], [place] tel:[phone] [place] No Information Feb-1 4-202 5 Vinod Aqib. [address] [place], [place], [id number], [place]. tel:[phone] [facility], [address], [place], [place], [id number], [place] tel:[phone] [place] No Information 5 Vinod Aqib. [address] [place], [place], [id number], [place]. tel:[phone] [facility], [address], [place], [place], [id number], [place] tel:[phone] [place] No Information 4 Vinod Aqib. [address] [place], [id number], [place]. tel:[phone] [facility], [address], [place], [place], [id number], [place] tel:[phone] [place] No Information 4 Vinod Aqib. [address] [place], [place], [id number], [place]. tel:[phone] [facility], [address], [place], [place], [id number], [place] tel:[phone] [place] No Information 4 Vinod Aqib. [address] [place], [place], [id number], [place]. tel:[phone] [facility], [address], [place], [place], [id number], [place] tel:[phone] [place] No Information 202 4 Vinod Aqib. [address] [place], [place], [id number], [place]. tel:[phone] [facility], [address], [place], [place], [id number], [place] tel:[phone] [place] No Information Aug 4 Omar Rushecca. [address] [place], [place], [id number], [place]. tel:[phone] [facility], [address] [facility] [address] [facility], [place], [place], [id number], [place] tel:[phone] [place] No Information 4 Omaranthony Rushecca. [address] [place], [place], [id number], [place]. tel:[phone] [facility], [address] [facility] [address] [facility], [place], [place], [id number], [place] tel:[phone] [place] Semi-Annual (chief complaint) Schizophrenia, unspecified typeBipolar affective [...] nodulePsoriasis 4 Omar Esthela. [address] [place], [place], [id number], [place]. tel:[phone] [facility], [address] [address] [place] [address], [id number], [place] tel:[phone] [place] No Information 4 Os Dawna. [address] [place], [place], [id number], [place]. tel:[phone] [facility], [address], [place], [place], [id number], [place] tel:[phone] [place] No Information 4 Omar Esthela. [address] [place], [place], [id number], [place]. tel:[phone] [facility], [address], [place], [place], [id number], [place] tel:[phone] [place] Psoriasis 4 Omar Esthela. [address] [place], [place], [id number], [place]. tel:[phone] [facility], [address] [facility] [address], [place], [place], [id number], [place] tel:[phone] [place] Acute Visit (chief complaint) Psoriasis 4 Omaranthony Lingca. [address] [place], [place], [id number], [place]. tel:[phone] [facility], [address] [facility] [address], [place], [place], [id number], [place] tel:[phone] [place] No Information 4 Pitsiladis . [address] [place], [place], [id number], [place]. tel:[phone] [facility], [address] [facility] [address] [facility], [place], [place], [id number], [place] tel:[phone] [place] No Information 0 4 Os Dawna. [address] [place], [place], [id number], [place]. tel:[phone] [facility], [address] [facility] [address], [place], [place], [id number], [place] tel:[phone] [place] No Information 4 Os Dawna. [address] [place], [place], [id number], [place]. tel:[phone] [facility], [address], [place], [place], [id number], [place] tel:[phone] [place] Acute Visit (chief complaint) Psoriasis 4 Os Dawna. [address] [place], [place], [id number], [place]. tel:[phone] [facility], [facility], [place], [place], [id number], [place] tel:[phone] [place] Acute Visit (chief complaint) Fungal dermatitis Jan- 4 Omar Esthela. [address] [place], [place], [id number], [place]. tel:[phone] [facility], [facility], [place], [place], [id number], [place] tel:[phone] [place] FibromyalgiaAge-rela cory osteoporosis without current pathological fractureUnspecified osteoarthritis, unspecified site 4 Os Dawna. [address] [place], [place], [id number], [place]. tel:[phone] [facility], [address] [address], [place], [place], [id number], [place] tel:[phone] [place] No Information 4 Omar Esthela. [address] [place], [place], [id number], [place]. tel:[phone] [facility], [address] [address], [place], [place], [id number], [place] tel:[phone] [place] No Information 4 Os Dawna. [address] [place], [place], [id number], [place]. tel:[phone] [facility], [facility], [place], [place], [id number], [place] tel:[phone] [place] Age-related osteoporosis without current pathological fracture 4 Os Dawna. [address] [place], [place], [id number], [place]. tel:[phone] [facility], [address], [place], [place], [id number], [place] tel:[phone] [place] [address] No Information 4 Os Dawna. [address] [place], [place], [id number], [place]. tel:[phone] [facility], [address], [place], [place], [id number], [place] tel:[phone] [phone] [phone] No Information Nov-3 0 4 Os Dawna. [address] [place], [place], [id number], [place]. tel:[phone] [facility], [address], [place], [place], [id number], [place] tel:[phone] [place] [address] No Information 4 Os Dawna. [address] [place], [place], [id number], [place]. tel:[phone] [facility], [address], [place], [place], [id number], [place] tel:[phone] [place] [address] No Information 4 Os Dawna. [address] [place], [place], [id number], [place]. tel:[phone] [facility], [address], [place], [place], [id number], [place] tel:[phone] [place] [address] No Information 2 4 Os Dawna. [address] [place], [place], [id number], [place]. tel:[phone] [facility], [address], [place], [place], [id number], [place] tel:[phone] [place] No Information 4 Os Dawna. [address] [place], [place], [id number], [place]. tel:[phone] [facility], [address], [place], [place], [id number], [place] tel:[phone] [place] Encounter for rehabilitation evaluationHemiplegia and hemiparesis following unspecified cerebrovascular disease affecting left dominant sidePrimary generalized (osteo)arthritis 0 4 Brian Wallace. [address] [place], [place], [id number], [place]. tel:[phone] [facility], [address] [address], [place], [place], [id number], [place] tel:[phone] [place] Encounter for rehabilitation evaluation 4 Gopicarolyn Campos. [address] [place], [place], [id number], [place]. tel:[phone] [facility], [address] [address], [place], [place], [id number], [place] tel:[phone] [place] Semi-Annual (chief complaint) Encounter for general adult medical examination without abnormal findingsSchizophrenia, unspecified typeBipolar affective disorder, remission status unspecifiedGeneralized anxiety disorderPTSD (post-traumatic stress disorder)Hypercholester olaemiaLong term (current) use of oral hypoglycemic drugsType 2 diabetes mellitus with diabetic chronic kidney disease, unspecified CKD stage, unspecified whether sock turner insulin useOsteoporosis, unspecified osteoporosis type, unspecified pathological fracture presenceGastroesophagea l reflux disease without esophagitisStage 2 chronic kidney diseaseHypertensive renal disease, stage 1 through stage 4 or unspecified chronic kidney diseaseChronic obstructive pulmonary disease, unspecified COPD typePulmonary noduleTobacco useObstructive sleep apneaType 2 diabetes mellitus with peripheral vascular disease 4 Os Dawna. [address] [place], [place], [id number], [place]. tel:[phone] [facility], [address] [address], [place], [place], [id number], [place] tel:[phone] [place] Medication management Nov-2 3 Omar Proctor. [address] [place], [place], [id number], [place]. tel:[phone] [facility], [address], [place], [place], [id number], [place] tel:[phone] [place] Follow-up (chief complaint) Pulmonary nodule 3 Omar Esthela. [address] [place], [place], [id number], [place]. tel:[phone] [facility], [address], [place], [place], [id number], [place] tel:[phone] [place] No Information 3 Omar Esthela. [address] [place], [place], [id number], [place]. tel:[phone] [facility], [address] [facility], [place], [place], [id number], [place] tel:[phone] [place] No Information 3 Os Dawna. [address], [place], [place], [id number], [place]. tel:[phone] [facility], [address] [facility] [facility], [place], [place], [id number], [place] tel:[phone] [place] OV (chief complaint) Pulmonary nodule 3 Omar Esthela. [address] [place], [place], [id number], [place]. tel:[phone] [facility], [address], [place], [place], [id number], [place] tel:[phone] [place] No Information 3 Omar Esthela. [address] [place], [place], [id number], [place]. tel:[phone] [facility], [address], [place], [place], [id number], [place] tel:[phone] [place] Semi-Annual (chief complaint) Schizophrenia, unspecified typeBipolar disorder [...] chronic kidney disease 3 Os Dawna. [address] [facility] [address], [place], [place], [id number], [place]. tel:[phone] [facility], [address] [facility] [address] [address] [facility], [place], [place], [id number], [place] tel:[phone] [facility] 3 Os Dawna. [address] [place], [place], [id number], [place]. tel:[phone] [facility], [address] [facility] [address] [facility], [place], [place], [id number], [place] tel:[phone] [facility] 3 Os Dawna. [address], [place], [place], [id number], [place]. tel:[phone] [facility], [address] [address] [facility], [place], [place], [id number], [place] tel:[phone] [place] Encounter for rehabilitation evaluation 3 Isa Urias. [address] [facility], [place], [address]. tel:[phone] [facility], [address] [facility] [address] [address] [address] [facility], [place], [place], [id number], [place] tel:[phone] [place] Encounter for rehabilitation evaluationOther chronic painAlteration in performance of activities of daily living 3 Marco A Delcid. [address] [facility] [place], [place], [id number]. tel:[phone] [facility], [address] [facility] [address] [facility], [place], [place], [id number], [place] tel:[phone] [place] Osteoarthritis, unspecified osteoarthritis type, unspecified site 3 Os Dawna. [address] [facility] [address] [place], [id number], [place]. tel:[phone] [facility], [facility], [place], [place], [id number], [place] tel:[phone] [place] Encounter for nutritional assessmentDiabetes education, encounter forClass 1 obesity with serious comorbidity and body mass index (BMI) of 32.0 to 32.9 in adult, unspecified obesity typeBody mass index [BMI] 32.0-32.9, adult 3 Normile Jaclyn. [address] [facility] [address] [place], [id number], [place]. tel:[phone] [facility], [address] [facility], [place], [place], [id number], [place] tel:[phone] [place] HUSSEIN (chief complaint) Schizophrenia, unspecified typeBipolar affective disorder, remission status unspecifiedGeneralized anxiety disorderPTSDHypercholes terolaemiaType 2 diabetes mellitus with diabetic chronic kidney disease, unspecified CKD stage, unspecified whether sock turner insulin useOsteoporosis, unspecified osteoporosis type, unspecified pathological fracture presenceChronic kidney disease, stage 2 (mild)Hypertensive chronic kidney disease with stage 1 through stage 4 chronic kidney disease, or unspecified chronic kidney diseaseCOPDPulmonary noduleTobacco useFibromyalgiaGastroes ophageal reflux disease without esophagitis 3 Os Dawna. [address] [place], [place], [id number], [place]. tel:[phone] [facility], [facility], [place], [place], [id number], [place] tel:[phone] [place] History of fracture 2 Os Dawna. [address] [place], [place], [id number], [place]. tel:[phone] [facility], [address] [address] [facility], [place], [place], [id number], [place] tel:[phone] [place] Papular eczema 2 Os Dawna. [address] [facility] [place], [address], [place]. tel:[phone] [facility], [facility], [place], [place], [id number], [place] tel:[phone] [place] No Information 2 Os Dawna. [address] [facility] [place], [id number], [place]. tel:[phone] [facility], [address] [facility], [place], [place], [id number], [place] tel:[phone] [place] Obstructive sleep apnea 2 Os Dawna. [address], [place], [place], [id number], [place]. tel:[phone] [facility], [facility], [place], [place], [id number], [place] tel:[phone] [place] No Information 2 Os Dawna. [address] [place], [place], [id number], [place]. tel:[phone] [facility], [address] [facility], [place], [place], [id number], [place] tel:[phone] [place] Semiannual (chief complaint) Hypertension, unspecified typeHypercholesterolaem iaChronic kidney disease due to diabetes mellitusSchizophrenia, unspecified typeBipolar affective disorder, remission status unspecifiedGeneralized anxiety disorderPTSDOsteoporosi s, unspecified osteoporosis type, unspecified pathological fracture presenceCOPDPulmonary nodulePapular eczemaHealthcare maintenanceTobacco useChronic kidney disease, stage 3a 2 Os Dawna. [address] [place], [place], [id number], [place]. tel:[phone] [facility], [address], [place], [place], [id number], [place] tel:[phone] [place] Encounter for nutritional assessmentDiabetes education, encounter forOther obesity Feb- 2 Normile Jaclyn. [address] [place], [place], [id number], [place]. tel:[phone] [facility], [address], [place], [place], [id number], [place] tel:[phone] [place] OV (chief complaint) Type 2 diabetesGeneralized anxiety disorderIntractable headache, unspecified chronicity pattern, unspecified headache typeNausea 2 Os Dawna. [address], [place], [place], [id number], [place]. tel:[phone] [facility], [address] [facility] [facility], [place], [place], [id number], [place] tel:[phone] [place] Pulmonary nodule 2 Os Dawna. [address] [place], [place], [address], [place]. tel:[phone] [facility], [address] [facility] [address] [facility], [place], [place], [id number], [place] tel:[phone] [place] No Information 2 Os Dawna. [address] [place], [place], [id number], [place]. tel:[phone] [facility], [address] [facility], [place], [place], [id number], [place] tel:[phone] [place] Encounter for nutritional assessment 2 Normile Jaclyn. [address] [place], [place], [id number], [place]. tel:[phone] [facility], [address] [facility] [address] [facility], [place], [place], [id number], [place] tel:[phone] [place] PEE (chief complaint) Hypertension, unspecified typeHypercholesterolaem iaCataract of both eyes, unspecified cataract typeBipolar affective disorder, remission status unspecifiedGeneralized anxiety disorderPTSDHistory of fractureOsteoporosis, unspecified osteoporosis type, unspecified pathological fracture presenceCOPDPulmonary noduleHealthcare maintenance 2 Os Dawna. [address] [place], [place], [id number], [place]. tel:[phone] [facility], [address] [address] [address] [place] [address], [id number], [place] tel:[phone] [place] Muscle weakness (generalized)Encounter for rehabilitation evaluation 2 Isa Urias. [address] [place], [address]. tel:[phone] [facility], [facility], [place], [place], [id number], [place] tel:[phone] [place] Encounter for rehabilitation evaluationAlteration in performance of activities of daily livingOther chronic pain 2 Marco A Encisoah Beth. [address] [place], [place], [id number]. tel:[phone] [facility], [address] [facility] [address] [place] [address], [id number], [place] tel:[phone] [place] No Information 2 Juan Ramon Gordon. [address] [place], [place], [id number], [place]. tel:[phone] [facility], [address] [facility] [address] [place] [address], [id number], [place] tel:[phone] [place] Intake (chief complaint) No Information 2 Steph Martinez. [address] [place], [place], [id number], [place]. tel:[phone] Family History Family Member Type Diagnosis Age [...] egistry Payers Payer name Insurance type Covered constitution party ID Authoriza lázarosae(s) [employer] 16 [id number] [employer] 16 [id number] [employer] 16 [id number] [employer] 16 [id number] [facility] 16 [id number] [facility] 16 [id number] [employer] 16 [id number] Social History Type Description Quantity Date Captured Comments Sex Female Smoking Status No Information Chief Complaint And Reason For Visit No Information Plan Of Treatment Date Type Action Status Referral Ordered: Referrals: Research Agricultural Engineer. Evaluate and treat Appointment date/timeframe: 02/07/2024 ordered Referral Ordered: Referrals: Orthopedic Surgery. Evaluate and treat ordered Referral Ordered: Ophthalmology (related to Encounter for general adult medical examination without abnormal findings) ordered Referral Ordered: Referrals: Dentistry. Evaluate and treat ordered Referral Ordered: Referrals: Ophthalmology. Evaluate and treat ordered Referral Ordered: Referrals: Rheumatology. Evaluate and treat ordered Referral Ordered: Referrals: [place]st[place]s. [place] [facility]uate and treat ordered Referral Ordered: Referrals: [facility] [facility] Evaluate and treat ordered Referral Ordered: Referrals: [...] (Diagnostic); Bilateral, incl computer-aided detection when performed (56601), Ordered on: Ordered History Of Present Illness [...] needs follow up-Psychiatrist: Trying to get into [facility]-Therapist: [facility]tof [facility]-Ortho: 12/2023- closed [...] lung nodules, COPD, hypotensionEXAM: NAD. mildly hypotensive, [id number]: repeat CT scan, encouraged fluids (she only [...] has been helping. Working on getting into [facility] (psychiatrist). Diagnoses Reviewed.Consults:-Dental: last seen in September- had cap; 05/05/23 [facility] [place]-Vision: 12/25/22-Psychiatrist: Trying to get into [facility]-Therapist: Krzysztof at monthly-Pain management: 09/21/22- did [...] seeing a prescriber Tena Reyna APRN in [place] and has followed with her for years. [...] for mail order and [facility] locally on [address]: she states the clonazepam comes from [facility]. She is considering changing to [facility] once she enrolls. 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 Related to Osteoporosis, unspecified osteoporosis type, unspecified pathological fracture presence 03/2023: A1C- 7-Curre ntly on glipizide 2.5mg- increasing to 5mg daily Related to skilled nursing (current) use of oral hypoglycemic drugs 03/2023Lipid [...] monthly. She is working on getting into [facility] for a psychiatrist. Currently- PCP is prescribing and sending medications. -Continue current med regimen- follow up w/ new psychiatrist may need medication adjustment Related to Generalized anxiety disorder Pt reports seeing Cl [facility]araf (therapist) [facility]. She is working on getting into [facility] for a psychiatrist. Currently- PCP is [...] monthly. She is working on getting into [facility] for a psychiatrist. Currently- PCP is [...] 08/2022 GFR 60-Avoid nephrotoxic medications Related to skilled nursing (current) use of insulin 08/2022: A1C- 6.7Continue glipizi de Related to skilled nursing (current) use of oral hypoglycemic drugs Rhem [...] Related to Fibromyalgia Pt is a smoker itzat I was 13 years old I have [...] to Pulmonary nodule Pt is a smoker [employer] e I was 13 years old I [...] kidney disease, unspecified CKD stage, unspecified whether senior care insulin use 01/2022 Dexa: Impress ion: The [...] [facility] [place] [...]
== END 2024-10-27 10:02 | disposition home or self-care (01) ==
LOC: HO.CT 10:01
PROVIDERS: PCP Internal Medicine; Visit Provider Physician Assistant Medical
DX: Z12.2 Encounter for screening for malignant neoplasm of respiratory organs (principal); F17.210 Nicotine dependence, cigarettes, uncomplicated
CPT/HCPCS: 71271; G0296

== ENCOUNTER → 2024-10-27 10:07 | Outpatient (BNV) | payer MEDICARE, SELFPAY | PROVIDERS: PCP Internal Medicine; Visit Provider Nuclear Medicine | DX: F17.210 Nicotine dependence, cigarettes, uncomplicated (principal) | CPT/HCPCS: 71271 ==

== ENCOUNTER 2024-11-01 08:28 | Outpatient (REF) | payer MEDICARE, MEDICAID, SELFPAY ==
[2024-11-01 12:11] LABS: Influenza A PCR NEGATIVE (Negative); Influenza B PCR NEGATIVE (Negative); Resp Syncy Virus RNA Qual PCR NEGATIVE (Negative); SARS COV2 PCR INHOUSE NEGATIVE (Negative)
== END 2024-11-01 08:29 | disposition home or self-care (01) ==
LOC: HO.LAB 08:28
PROVIDERS: Physician Assistant; PCP Internal Medicine
DX: B34.9 Viral infection, unspecified (principal); R09.89 Other specified symptoms and signs involving the circulatory and respiratory systems
CPT/HCPCS: 0241U; 99212

== ENCOUNTER 2024-11-01 08:28 | Outpatient (AMB) | payer MEDICARE, MEDICAID, SELFPAY ==
--- NOTE | 2024-11-01 08:54 | AM.OFFWIN_ITS ---
Intake Vital Signs 11/01/24 08:54 11/01/24 08:57 Height 5 ft 11 in Weight 211 lb BP 120/70 Blood Pressure Location Rt brachial Position Sitting Temp 99.2 F Temp Source Oral Intake Visit Reasons: EP Congestion, body aches, ear pain Intake Note: Patient here for congestion, body aches, left ear pain and headaches that started yesterday. Patient Tobacco Use Status: Current everyday Tobacco user Allergies azithromycin Allergy (Unknown, Verified 11/01/24 08:54) unknown denosumab [Prolia] Allergy (Unknown, Verified 11/01/24 08:54) vomiting lamotrigine Allergy (Unknown, Verified 11/01/24 08:54) rash lisinopril Allergy (Unknown, Verified 11/01/24 08:54) nausea and vomiting naproxen [Aleve] Allergy (Unknown, Verified 11/01/24 08:54) dizziness Do you need a note to return to daycare/school/sports/work: No HPI HPI Comments History of Present Illness Details History - The patient is a 68-year-old female pr esenting with influenza-like symptoms x1d. - Symptoms reported include weakness and fatigue beginning the previous day, with associated chills. - Although no fever was confirmed, the p atient indicated feeling very cold. - A deep cough was noted, initially pres ent but lessened by the day of the visit. Denies sob or wheezing. - The patient has used aspirin, Theraflu , and Flonase for symptomatic relief, experiencing some improvement. - due to patient's nail [place], we could not get a oxygen saturation or heart rate. However, auscultation reveals a normal rate and rhythm and she is well- perfused. Physical Exam General: Cooperative, healthy appearing, comfortable and no acute distress Orientation/consciousness: Patient oriented x3 Limitations: No limitations Head: Normal to inspection Ears: Hearing grossly normal bilaterally, external ears normal and TM's normal bilaterally, scant fluid bilat Nose: Normal external nose present, Normal nares present and No nasal discharge present Face and sinus: Normal facial exam and Yes sinuses slightly ttp maxillary Mouth: Normal oral and palatal mucosa present and moist mucous membranes Throat: Yes tonsils normal, Yes uvula midline. Posterior oropharynx erythema Eyes: Appearance normal, both eyes and all related structures, but patient reports eye pain Neck: Normal visual inspection Respiratory: Clear to auscultation bilaterally. Normal respiratory effort, able to speak in complete sentences, Actively coughing, no respiratory distress, not tachypneic, no tripod positioning and no use of accessory muscles Cardiovascular: Regular rate and rhythm. Normal S1 and S2 Skin: No rashes or lesions noted, but patient feels clammy Neuro: Patient oriented x3 Extremities: Normal to inspection and Yes no clubbing, cyanosis or edema PFSH Medical History (Updated 11/01/24 @ 09:16 by Anna Grijalva PA-C) Nicotine dependence, cigarettes, uncomplicated Bilateral lower extremity pain Hx of gastritis Hx of allergic rhinitis Migraines Tubular adenoma of colon Pulmonary nodule Osteoporosis Right humeral fracture Hip fracture, right Bipolar disorder Fibromyalgia Thyroid cyst Vitamin D deficiency Obesity (BMI 30-39.9) Hypercholesterolemia Hypertension COPD (chronic obstructive pulmonary disease) Anxiety and depression Type 2 diabetes mellitus with hyperglycemia Surgical History (Updated 09/04/24 @ 15:45 by Izabela Quinteros PA-C) History of cholecystectomy History of total abdominal hysterectomy and bilateral salpingo-oophorectomy History of colonoscopy Deficient knowledge of leg surgery History of shoulder surgery History of hip surgery History of esophagogastroduodenoscopy (EGD) H/O right knee surgery Herniated nucleus pulposus Family History (Updated 10/27/24 @ 09:53 by Izabela Quinteros PA-C) Father Hypertension Cancer Esophageal cancer Mother Hypertension Maternal Aunt Stomach cancer Son Substance abuse Social History (Updated 10/27/24 @ 09:49 by Izabela Quinteros PA-C) Housing: House Alcohol intake: former Patient Tobacco Use Status: Current everyday Tobacco user Tobacco use type: Cigarette Cigarettes Per Day: 10 Years Smoked: (onset 15yo, 1/2-1ppd x 53yrs, 35+PYH) e-Cigarette/Vaping Use: Never Used Second Hand Smoke Exposure: Yes Current occupational status: employed Cognitive needs: No Hearing needs: No Vision needs: Yes Review of Systems Const All systems reviewed & are unremarkable except as noted in HPI and below Physical Exam Vital Signs: Last Vital Signs Temp 99.2 F 11/01/24 08:57 BP 120/70 11/01/24 08:57 Assessment & Plan Assessment & Plan (1) Acute viral syndrome: Code(s): B34.9 - Viral infection, unspecified Plan: VSS, pt well appearing and PE unremarkable. Influenza is likely, and testing for influenza, COVID-19, and RSV has been ordered to confirm the diagnosis. Supportive care including advil, Theraflu, and Flonase is recommended. The patient was informed about Tamiflu and its side effects, and advised to consider usage if the flu test is positive, depending on her comfort with the associated risks. The patient should maintain hydration and rest, and seek further care if symptoms worsen or if significant shortness of breath occurs. Follow-up for test results will be conducted later today to plan further management. Patient was informed and verbally consented to the use of an ambient scribe for clinic note documentation during this visit Orders: Orders SARS-CoV2/FLU/RSV Today R09.89 - Other specified symptoms and signs involving the circulatory and respiratory systems Coding Level of Care Code Est Pt Level 3 (16554) Diagnoses Acute viral syndrome B34.9
[2024-11-01 08:57] VITALS: BP 120/70; TEMP 37.3
== END 2024-11-01 09:44 | disposition home or self-care (01) ==
PROVIDERS: PCP Internal Medicine; Visit Provider Physician Assistant
DX: B34.9 Viral infection, unspecified (principal)

== ENCOUNTER 2024-11-20 07:44 | Outpatient (REF) | payer MEDICARE, SELFPAY ==
[2024-11-20 07:57] LABS: MANUAL DIFF FLAG NO
[2024-11-20 08:06] LABS: Basophils Percent Auto 0.4 % (0-2); Eosinophils Absolute Auto 0.1 X10*3/uL (0.0-0.4); Eosinophils Percent Auto 1.3 % (0-4); Hematocrit 41.9 % (37.0-47.0); Hemoglobin 13.3 g/dl (12.0-16.0); Imm Gran Abs Auto 0.03 X10*3/uL (0.00-0.03); Imm Gran Pct Auto 0.3 % (0.0-0.4); Lymphocytes Absolute Auto 2.2 X10*3/uL (1.2-4.9); Lymphocytes Percent Auto 23.4 % (20-40); Mean Corpuscular HGB Conc 31.7 g/dl (31.0-35.0); Mean Corpuscular Hemoglobin 28.3 pg (27.0-33.0); Mean Corpuscular Volume 89.1 fL (80.0-98.0); Monocytes Absolute Auto 0.5 X10*3/uL (0.1-1.2); Monocytes Percent Auto 5.6 % (2-11); Neutrophils Absolute Auto 6.6 x10*3/uL (2.0-8.3); Platelet Count 404 X10*3/uL (160-400); White Blood Count 9.5 X10*3/uL (4.8-10.8)
[2024-11-20 08:52] LABS: Alanine Aminotransferase 6 U/L (0-31); Albumin Level 3.5 g/dL (3.5-5.0); Alkaline Phosphatase 75 U/L (39-117); Anion Gap 13 (12-20); Aspartate Amino Transferase 14 U/L (5-31); Bilirubin Total 0.5 mg/dL (0.0-1.0); Blood Urea Nitrogen 9 mg/dL (9-16); Calcium 9.1 mg/dL (8.4-10.2); Carbon Dioxide 26 mmol/L (22-29); Chloride 106 mmol/L (96-108); Cholesterol 120 mg/dL (<200); Estimated Glomerular Filt Rate > 60; Glucose Random 129 mg/dL (60-115); HDL Cholesterol 16 mg/dL (>40); LDL Cholesterol Calculated 58 mg/dL (<100); Potassium 3.8 mmol/L (3.3-5.1); Sodium 141 mmol/L (135-145); Total Protein 6.8 g/dL (6.5-8.0); Triglycerides 231 mg/dL (<150)
[2024-11-20 09:14] LABS: Free T4 (Free Thyroxine) 1.23 ng/dL (0.71-1.85); Thyroid Stimulating Hormone 0.66 uIU/mL (0.32-4.0); Vitamin D 25-OH Total 43.9 ng/mL (>30)
[2024-11-20 09:18] LABS: Folate 7.6 ng/mL (> or = 4.0); Vitamin B12 625 pg/mL (200-900)
== END 2024-11-20 07:45 | disposition home or self-care (01) ==
LOC: HO.LAB 07:44
PROVIDERS: PCP Internal Medicine; Visit Provider Internal Medicine
DX: E11.65 Type 2 diabetes mellitus with hyperglycemia (principal); E78.00 Pure hypercholesterolemia, unspecified
CPT/HCPCS: 36415; 80053; 80061; 82306; 82607; 82746; 84439; 84443; 85025

== ENCOUNTER 2024-11-21 15:13 | Outpatient (AMB) | payer MEDICARE, MEDICAID, SELFPAY ==
[2024-11-21 15:18] VITALS: BP 146/70; PULSE 72; RESP 24; TEMP 37.1; O2SAT 90; BMI 28.9
--- NOTE | 2024-11-21 15:18 | A.OFFPC_ITS ---
Vital Signs 11/21/24 15:18 Height 5 ft 11 in Weight 207 lb BMI 28.9 BP 146/70 H Blood Pressure Location Lt brachial Position Sitting Respiration 24 H Pulse 72 Pulse Source Pulse Oximeter Temp 98.8 F Temp Source Oral Pulse Oximetry (%) 90 L Oxygen Delivery Method Room Air Intake Visit Reasons: Flu Preparer Making Department Required: No Accompanied by: Self / Same As Patient Allergies azithromycin Allergy (Unknown, Verified 11/21/24 23:26) unknown denosumab [Prolia] Allergy (Unknown, Verified 11/21/24 23:26) vomiting lamotrigine Allergy (Unknown, Verified 11/21/24 23:26) rash lisinopril Allergy (Unknown, Verified 11/21/24 23:26) nausea and vomiting naproxen [Aleve] Allergy (Unknown, Verified 11/21/24 23:26) dizziness Medication List - Last Reconciled 11/21/24 by MANUEL Orellana albuterol sulfate 90 mcg/actuation 2 puffs inhalation Q4-6H PRN amlodipine 2.5 mg PO DAILY amoxicillin-pot clavulanate 875-125 mg 1 tab PO BID 10 days atorvastatin 80 mg PO DAILY atorvastatin 10 mg PO BEDTIME cetirizine (Zyrtec) 10 mg PO DAILY cholecalciferol (vitamin D3) 25 mcg PO DAILY clonazepam (Klonopin) 1 mg PO TID dextromethorphan-guaifenesin 60-1,200 mg ER (Mucinex DM) 1 tab PO Q12H fenofibrate 160 mg PO DAILY 90 days fluoxetine 20 mg PO BID fluoxetine 10 mg PO DAILY fluticasone propionate 50 mcg/actuation sprays intranasal furosemide 20 mg PO DAILY gabapentin 300 mg PO BID gabapentin 600 mg PO BEDTIME glipizide 5 mg PO DAILY prednisone 20 mg PO DAILY 3 days propranolol ER 80 mg PO DAILY trazodone 25 mg PO BEDTIME ziprasidone HCl 40 mg PO BID ziprasidone HCl 20 mg PO BID Tobacco use date assessed: 11/21/24 Fall risk assessment: No Falls in past year Last assessed Fall Risk: 11/21/24 Dental Screening Dental Screen Date: 11/21/24 Did you have a dental visit in the last 12 months?: No Did you have a dental problem in the last 6 months where you did not have access to dental care?: No HPI Flu HPI Details Patient is a 68-year-old female with significant past medical history of COPD, obesity, osteoporosis, bipolar disorder, type 2 diabetes The patient reports that she had the flu 3 weeks ago and stopped smoking 3 weeks ago She reports that she has been having cough since and she is wondering if this is because she stopped smoking Patient reports coughing up constant white creamy appearing phlegm. She reports nasal congestion with different colors sometimes green, yellow, white She reports that she coughs until she vomits at times. Patient denies fever, chills or body aches. She denies other GI symptoms but endorse heartburn intermittently. She denies shortness or breath, chest pain, heart palpitation and dizziness Reports that she had the flu 3 weeks ago. Reports that she quick smoking 3 weeks ago and wants to know if this is the reason She is getting constant phlegm white creamy appearing. nasal congestion, with different colors, it is never the same. Reports that the coughing is making her vomit. Once in awhile she gets heart burn but it is not and everyday occurrence. Reports that she breath sounds are tight chest. tubrinates erythematous and boggy. Constantly coughing. sob, denies chest pain, no heart palpitation or dizziness breath sounds are tight. Reports that she really has not been eating anything just drinking tea and sugar [facility] Medical History (Updated 11/21/24 @ 16:07 by MANUEL Orellana) Nicotine dependence, cigarettes, uncomplicated Bilateral lower extremity pain Hx of gastritis Hx of allergic rhinitis Migraines Tubular adenoma of colon Pulmonary nodule Osteoporosis Right humeral fracture Hip fracture, right Bipolar disorder Fibromyalgia Thyroid cyst Vitamin D deficiency Obesity (BMI 30-39.9) Hypercholesterolemia Hypertension COPD (chronic obstructive pulmonary disease) Anxiety and depression Type 2 diabetes mellitus with hyperglycemia Surgical History History of cholecystectomy History of total abdominal hysterectomy and bilateral salpingo-oophorectomy History of colonoscopy Deficient knowledge of leg surgery History of shoulder surgery History of hip surgery History of esophagogastroduodenoscopy (EGD) H/O right knee surgery Herniated nucleus pulposus Family History Father Hypertension Cancer Esophageal cancer Mother Hypertension Maternal Aunt Stomach cancer Son Substance abuse Social History Housing: House Alcohol intake: former Patient Tobacco Use Status: Former Tobacco user Tobacco use type: Cigarette Years Smoked: (onset 15yo, 1/2-1ppd x 53yrs, 35+PYH); Quit- 10/2024 e-Cigarette/Vaping Use: Never Used Second Hand Smoke Exposure: Yes Current occupational status: employed Cognitive needs: No Hearing needs: No Vision needs: Yes Questionnaire Thrive Questionnaire Date Thrive assessed: 11/21/24 I am a: Patient What is your living situation today?: I have a steady place to live Within the past 12 months, did the food you bought not last and you didn't have the money to get more?: Never true Within the past 12 months, did you worry whether your food would run out before you got money to buy more?: Never true Do you have trouble paying for medicines?: No Do you have trouble getting transportation to medical appointments?: No Do you have trouble paying your heating and electricity bill?: No Do you have trouble taking care of your child, family member or friend?: No Do you have trouble with day-to-day activities such as bathing, preparing meals, shopping, managing finances, etc.?: No Are you currently unemployed and looking for a job?: No Are you interested in more education?: No Please select the resources that you would like help with: None Currently or been in a relationship where the following occur: No concerns reported THRIVE Score: 0 AUDIT C Alcohol Use Questionnaire (AUDIT-C) 1. How often do you have a drink containing alcohol?: 2-3 times a week 2. How many drinks containing alcohol do you have on a typical day when you are drinking?: 1 or 2 3. How often do you have six or more drinks on one occasion?: Never Total Score: 3 Review of Systems Const Reports weakness ENT Denies dizziness, Reports nasal congestion, Reports nasal discharge and Denies s ore throat Card Denies chest pain, Denies syncope, Denies leg edema and Denies lightheadedness Resp Reports cough, Denies hemoptysis and Reports wheezing GI Denies abdominal pain, Denies melena, Denies constipation, Reports heartburn, Denies diarrhea and Denies vomiting Denies dysuria, Denies urinary hesitancy and Denies urinary urgency Musc Denies abnormal gait Skin/Breast Denies change in pigmentation Neuro Denies abnormal gait, Denies dizziness, Denies syncope, Denies tremor(s) and Reports weakness Psych Denies anxiety and Denies depression Endo Denies cold intolerance and Denies heat intolerance Grayson/Lymph Denies easy bruising Aller/Immun Reports wheezing Physical exam (Primary Care) Vital Signs: Last Vital Signs Temp 98.8 F 11/21/24 15:18 Pulse 72 11/21/24 15:18 Resp 24 H 11/21/24 15:18 BP 146/70 H 11/21/24 15:18 Pulse Ox 90 L 11/21/24 15:18 Oxygen Delivery Method Room Air 11/21/24 15:18 BMI result Body Mass Index 28.9 Tobacco/Smoking Status: Tobacco use Status Tobacco use date assessed 11/21/24 11/21/24 15:37 Patient Tobacco Use Status Former Tobacco user 11/21/24 15:37 Tobacco use type Cigarette 11/21/24 15:37 e-Cigarette/Vaping Use Never Used 11/21/24 15:37 Thrive Assessment: Date of Thrive Assessment Date Thrive assessed 11/21/24 11/21/24 15:37 Currently or been in a relationship where the following occur: No concerns reported Const General: healthy appearing, no acute distress, alert and awake Nutritional Appearance: well nourished Orientation/consciousness: oriented to person, oriented to place and oriented to time HENID Ears: TM's normal bilaterally General nose exam: Abnormal mucous membranes and turbinates present boggy and erythematous bilateral and Nasal discharge present purulent on the left Face and sinus: Yes sinus tenderness Mouth: Normal oral and palatal mucosa present Throat: Yes posterior oropharynx normal Eyes Conjunctivae: conjunctivae normal Sclerae: sclerae normal Pupils: Equal, round and reactive pupils present Neck Neck: Yes no lymphadenopathy and Yes no JVD Thyroid: Thyroid normal Carotids: no bruits Resp Effort & Inspection: normal respiratory effort and not tachypneic Auscultation: no crackles, no rales, no rhonchi and wheezes Cardio Rate: regular rate Rhythm: regular rhythm Heart sounds: no murmurs and normal S1 and S2 GI Palpation (GI): Soft to palpation, nontender, no hepatomegaly and no splenomegaly Auscultation: normal bowel sounds Skin General skin exam: no rashes or lesions noted and dry skin Neuro General: oriented to person, oriented to place and oriented to time Cranial nerves: Yes Equal, round and reactive pupils present Gait exam (Neuro): Normal gait present Motor exam (neuro): no tremor noted Extrem Right upper extremity: full ROM Left upper extremity: full ROM Right lower extremity: full ROM; no edema Left lower extremity: full ROM; no edema Psych Mental Status: mental status grossly normal Speech and movement: Normal speech and movement present Affect: normal affect Attitude: cooperative Thought process: Normal thought process present Results AMB Hemoglobin A1c AMB Hemoglobin A1c 7.4 % Last Edit by María Elena Patton CMA on 11/21/24 16:11 Results Reviewed Results Reviewed: Laboratory Last Values Hgb A1c (Clinic) 7.4 % (4.0-6.0) H 11/21/24 16:04 Coding Diagnoses Rhinosinusitis J32.9 Nicotine dependence, cigarettes, uncomplicated F17.210 Osteoarthritis M19.90 Bipolar affective disorder, currently manic, moderate F31.12 Active/Remission status: currently active Current bipolar episode type: manic Current episode severity: moderate Vitamin D deficiency E55.9 Obesity (BMI 30-39.9) E66.9 Hypercholesterolemia E78.00 Essential hypertension I10 Hypertension type: essential hypertension Pulmonary emphysema, unspecified emphysema type J43.9 COPD type: emphysema Emphysema type: unspecified Anxiety and depression F41.9; F32.9 Type 2 diabetes mellitus with hyperglycemia, without long-term current use of insulin E11.65 Diabetes mellitus local [employer] insulin use: without [facility] use Assessment & Plan Assessment & Plan (1) Rhinosinusitis: Code(s): J32.9 - Chronic sinusitis, unspecified Category: Medical Plan: Augmentin 875-125 mg 1 tab b.i.d. times 10 days and prednisone 20 mg daily x2 days ordered (2) Nicotine dependence, cigarettes, uncomplicated: Comment: (onset 15yo, 1/2-1ppd x 53yrs, 35+PYH) Code(s): F17.210 - Nicotine dependence, cigarettes, uncomplicated Category: Medical Plan: Patient reports that she quit smoking 3 weeks ago after getting sick and she is wondering if this is what increasing her cough. Informed patient that her persistent cough is probably due to her chronic lung conditions which makes it harder for her to get over respiratory illnesses (3) Osteoarthritis: Code(s): M19.90 - Unspecified osteoarthritis, unspecified site Category: Medical (4) Bipolar disorder: Comment: Santi boston Code(s): F31.9 - Bipolar disorder, unspecified Category: Medical Qualifiers: Active/Remission status: currently active Current bipolar episode type: manic Current episode severity: moderate Qualified Code(s): F31.12 - Bipolar disorder, current episode manic without psychotic features, moderate (5) Vitamin D deficiency: Code(s): E55.9 - Vitamin D deficiency, unspecified Category: Medical (6) Obesity (BMI 30-39.9): Code(s): E66.9 - Obesity, unspecified Category: Medical (7) Hypercholesterolemia: Code(s): E78.00 - Pure hypercholesterolemia, unspecified Category: Medical (8) Hypertension: Code(s): I10 - Essential (primary) hypertension Category: Medical Qualifiers: Hypertension type: essential hypertension Qualified Code(s): I10 - Essential (primary) hypertension (9) COPD (chronic obstructive pulmonary disease): Code(s): J44.9 - Chronic obstructive pulmonary disease, unspecified Category: Medical Qualifiers: COPD type: emphysema Emphysema type: unspecified Qualified Code(s): J43.9 - Emphysema, unspecified (10) Anxiety and depression: Code(s): F41.9 - Anxiety disorder, unspecified; F32.9 - Major depressive disorder, single episode, unspecified Category: Medical (11) Type 2 diabetes mellitus with hyperglycemia: Comment: Dr. Garcia Code(s): E11.65 - Type 2 diabetes mellitus with hyperglycemia Category: Medical Qualifiers: Diabetes mellitus [facility] insulin use: without [facility] use Qualified Code(s): E11.65 - Type 2 diabetes mellitus with hyperglycemia Orders: Orders Complete Blood Count Auto Diff 4 Months E11.65 - Type 2 diabetes mellitus with hyperglycemia, E55.9 - Vitamin D deficiency, unspecified, E66.9 - Obesity, unspecified, E78.00 - Pure hypercholesterolemia, unspecified, F17.210 - Nicotine dependence, cigarettes, uncomplicated, F31.12 - Bipolar disorder, current episode manic without psychotic features, moderate, F32.9 - Major depressive disorder, single episode, unspecified, F41.9 - Anxiety disorder, unspecified, I10 - Essential (primary) hypertension, J43.9 - Emphysema, unspecified, K59.00 - Constipation, unspecified, M19.90 - Unspecified osteoarthritis, unspecified site, M81.0 - Age-related osteoporosis without current pathological fracture Comprehensive [place]. Panel Fast 4 Months E11.65 - Type 2 diabetes mellitus with hyperglycemia, E55.9 - Vitamin D deficiency, unspecified, E66.9 - Obesity, unspecified, E78.00 - Pure hypercholesterolemia, unspecified, F17.210 - Nicotine dependence, cigarettes, uncomplicated, F31.12 - Bipolar disorder, current episode manic without psychotic features, moderate, F32.9 - Major depressive disorder, single episode, unspecified, F41.9 - Anxiety disorder, unspecified, I10 - Essential (primary) hypertension, J43.9 - Emphysema, unspecified, K59.00 - Constipation, unspecified, M19.90 - Unspecified osteoarthritis, unspecified site, M81.0 - Age-related osteoporosis without current pathological fracture Lipid Panel 4 Months E11.65 - Type 2 diabetes mellitus with hyperglycemia, E55.9 - Vitamin D deficiency, unspecified, E66.9 - Obesity, unspecified, E78.00 - Pure hypercholesterolemia, unspecified, F17.210 - Nicotine dependence, cigarettes, uncomplicated, F31.12 - Bipolar disorder, current episode manic without psychotic features, moderate, F32.9 - Major depressive disorder, single episode, unspecified, F41.9 - Anxiety disorder, unspecified, I10 - Essential (primary) hypertension, J43.9 - Emphysema, unspecified, K59.00 - Constipation, unspecified, M19.90 - Unspecified osteoarthritis, unspecified site, M81.0 - Age- related osteoporosis without current pathological fracture UA CC w/rflx Micro + Cult 4 Months E11.65 - Type 2 diabetes mellitus with hyperglycemia, E55.9 - Vitamin D deficiency, unspecified, E66.9 - Obesity, unspecified, E78.00 - Pure hypercholesterolemia, unspecified, F17.210 - Nicotine dependence, cigarettes, uncomplicated, F31.12 - Bipolar disorder, current episode manic without psychotic features, moderate, F32.9 - Major depressive disorder, single episode, unspecified, F41.9 - Anxiety disorder, unspecified, I10 - Essential (primary) hypertension, J43.9 - Emphysema, unspecified, K59.00 - Constipation, unspecified, M19.90 - Unspecified osteoarthritis, unspecified site, M81.0 - Age-related osteoporosis without current pathological fracture Hemoglobin A1c 4 Months E11.65 - Type 2 diabetes mellitus with hyperglycemia, E55.9 - Vitamin D deficiency, unspecified, E66.9 - Obesity, unspecified, E78.00 - Pure hypercholesterolemia, unspecified, F17.210 - Nicotine dependence, cigarettes, uncomplicated, F31.12 - Bipolar disorder, current episode manic without psychotic features, moderate, F32.9 - Major depressive disorder, single episode, unspecified, F41.9 - Anxiety disorder, unspecified, I10 - Essential (primary) hypertension, J43.9 - Emphysema, unspecified, K59.00 - Constipation, unspecified, M19.90 - Unspecified osteoarthritis, unspecified site, M81.0 - Age- related osteoporosis without current pathological fracture Glucose Fasting 4 Months E11.65 - Type 2 diabetes mellitus with hyperglycemia, E55.9 - Vitamin D deficiency, unspecified, E66.9 - Obesity, unspecified, E78.00 - Pure hypercholesterolemia, unspecified, F17.210 - Nicotine dependence, cigarettes, uncomplicated, F31.12 - Bipolar disorder, current episode manic without psychotic features, moderate, F32.9 - Major depressive disorder, single episode, unspecified, F41.9 - Anxiety disorder, unspecified, I10 - Essential (primary) hypertension, J43.9 - Emphysema, unspecified, K59.00 - Constipation, unspecified, M19.90 - Unspecified osteoarthritis, unspecified site, M81.0 - Age- related osteoporosis without current pathological fracture AMB Hemoglobin A1c 11/21/24 E11.65 - Type 2 diabetes mellitus with hyperglycemia TSH reflex Free T4 4 Months E11.65 - Type 2 diabetes mellitus with hyperglycemia, E55.9 - Vitamin D deficiency, unspecified, E66.9 - Obesity, unspecified, E78.00 - Pure hypercholesterolemia, unspecified, F17.210 - Nicotine dependence, cigarettes, uncomplicated, F31.12 - Bipolar disorder, current episode manic without psychotic features, moderate, F32.9 - Major depressive disorder, single episode, unspecified, F41.9 - Anxiety disorder, unspecified, I10 - Essential (primary) hypertension, J43.9 - Emphysema, unspecified, K59.00 - Constipation, unspecified, M19.90 - Unspecified osteoarthritis, unspecified site, M81.0 - Age-related osteoporosis without current pathological fracture Vitamin D 25-OH Total 4 Months E11.65 - Type 2 diabetes mellitus with hyperglycemia, E55.9 - Vitamin D deficiency, unspecified, E66.9 - Obesity, unspecified, E78.00 - Pure hypercholesterolemia, unspecified, F17.210 - Nicotine dependence, cigarettes, uncomplicated, F31.12 - Bipolar disorder, current episode manic without psychotic features, moderate, F32.9 - Major depressive disorder, single episode, unspecified, F41.9 - Anxiety disorder, unspecified, I10 - Essential (primary) hypertension, J43.9 - Emphysema, unspecified, K59.00 - Constipation, unspecified, M19.90 - Unspecified osteoarthritis, unspecified site, M81.0 - Age-related osteoporosis without current pathological fracture Medications: New prednisone 20 mg PO DAILY 3 days 3 tabs 0RF J32.9 - Chronic sinusitis, unspecified, R07.89 - Other chest pain atorvastatin 80 mg PO DAILY 30 days 30 tabs 3RF amoxicillin-pot clavulanate 875-125 mg 1 tab PO BID 10 days 20 tabs 0RF J32.9 - Chronic sinusitis, unspecified prednisone 20 mg PO DAILY 3 days 3 tabs 0RF J32.9 - Chronic sinusitis, unspe cified, R07.89 - Other chest pain cetirizine (Zyrtec) 10 mg PO DAILY 30 tabs 3RF Refilled amlodipine 2.5 mg PO DAILY 90 tabs 3RF Z72.0 - Tobacco use cholecalciferol (vitamin D3) 25 mcg PO DAILY 90 caps 3RF Z72.0 - Tobacco use
--- OUTSIDE RECORDS SUMMARY | 2024-11-21 18:04 | XMS_ITS | Continuity of Care Document ---
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 [address] [place], [place], [id number], [place]. tel:[phone] Formerly [facility], [facility], [address], [place], [place], [id number], [place] tel:[phone] [place] No Information 5 Vinod Aqib. [address] [place], [place], [id number], [place]. tel:[phone] Formerly [facility], [address], [place], [place], [id number], [place] tel:[phone] [place] No Information 5 Vinod Aqib. [address] [place], [place], [id number], [place]. tel:[phone] Formerly [facility], [address], [place], [place], [id number], [place] tel:[phone] [place] No Information 4 Vinod Aqib. [address] [place], [place], [id number], [place]. tel:[phone] Formerly [facility], [address], [place], [place], [id number], [place] tel:[phone] [place] No Information 4 Vinod Aqib. [address] [place], [place], [id number], [place]. tel:[phone] Formerly [facility], [address], [place], [place], [id number], [place] tel:[phone] [place] No Information 4 Vinod Aqib. [address] [place], [place], [id number], [place]. tel:[phone] Formerly [facility], [address], [place], [place], [id number], [place] tel:[phone] [place] No Information Oct-2 4-202 4 Vinod Aqib. [address] [place], [place], [id number], [place]. tel:[phone] Formerly [facility], 1 [facility], [place], [place], [id number], tel:[phone] [place] No Information 4 Omar Proctor. [address] [place], [place], [id number], [place]. tel:[phone] Formerly [facility], 1 [facility], [place], [place], [id number], [place] tel:[phone] [place] No Information 4 Omar rPoctor. [address], [place], [id number], [place]. tel:[phone] Formerly [facility], [address], [id number], tel:[phone] [place] Semi-Annual (chief complaint) Schizophrenia, unspecified typeBipolar affective [...] disease, unspecified COPD typePulmonary nodulePsoriasis 4 Omar Proctor. [address] [place], [place], [id number], [place]. tel:[phone] Formerly [facility], [address], [place], [place], [id number], [place] tel:[phone] [place] No Information 4 Os Dawna. [address] [place], [place], [id number], [place]. tel:[phone] Formerly [facility], [address], [place], [place], [id number], [place] tel:[phone] [place] No Information 4 Omar Esthela. [address] [place], [place], [id number], [place]. tel:[phone] Formerly [facility], [address], [place], [place], [id number], [place] tel:[phone] [place] Psoriasis 4 Omar Lingca. [address] [place], [place], [id number], [place]. tel:[phone] Formerly [facility], [address], [place], [place], [id number], [place] tel:[phone] [place] Acute Visit (chief complaint) Psoriasis 4 Omar Esthela. [address] [place], [place], [id number], [place]. tel:[phone] Formerly [facility], [address] [facility] [address], [place], [place], [id number], [place] tel:[phone] [place] No Information 4 Pitsiladis . [address] [place], [place], [id number], [place]. tel:[phone] Formerly [facility], [address], [place], [place], [id number], [place] tel:[phone] [place] No Information 4 Os Dawna. [address] [place], [place], [id number], [place]. tel:[phone] Formerly [facility], [address], [place], [place], [id number], [place] tel:[phone] [place] No Information 4 Os Dawna. [address] [place], [place], [id number], [place]. tel:[phone] Formerly [facility], 1 [facility], [place], [place], [id number], [place] tel:[phone] [place] Acute Visit (chief complaint) Psoriasis 4 Os Dawna. [address] [place], [place], [id number], [place]. tel:[phone] Formerly [facility], 1 [facility], [place], [place], [id number], [place] tel:[phone] [place] Acute Visit (chief complaint) Fungal dermatitis Guy- 4 Omar Esthela. [address] [place], [place], [id number], [place]. tel:[phone] Formerly [facility], 1 [facility], [place], [place], [id number], [place] tel:[phone] [place] FibromyalgiaAge-rela cory osteoporosis without current pathological fractureUnspecified osteoarthritis, unspecified site 4 Os Dawna. [address] [place], [place], [id number], [place]. tel:[phone] Formerly [facility], 1 [facility], [place], [place], [id number], [place] tel:[phone] [place] No Information 4 Omar Lingca. [address] [place], [place], [id number], [place]. tel:[phone] Formerly [facility], 1 [facility], [place], [place], [id number], [place] tel:[phone] [place] No Information 4 Os Dawna. [address] [place], [place], [id number], [place]. tel:[phone] Formerly [facility], [address], [place], [place], [id number], [place] tel:[phone] [place] Age-related osteoporosis without current pathological fracture 4 Os Dawna. [address] [place], [place], [id number], [place]. tel:[phone] Formerly [facility], [address], [place], [place], [id number], [place] tel:[phone] [phone] [address] No Information 4 Os Dawna. [address] [place], [place], [id number], [place]. tel:[phone] Formerly [facility], [address], [place], [place], [id number], [place] tel:[phone] [place] [address] No Information 3 0 4 Os Dawna. [address] [place], [place], [id number], [place]. tel:[phone] Formerly [facility], [address] [facility], [place], [place], [id number], [place] tel:[phone] [place] [address] No Information 4 Os Dawna. [address] [place], [place], [id number], [place]. tel:[phone] Formerly [facility], [address] [facility], [place], [id number], [place] tel:[phone] [place] [address] No Information 4 Os Dawna. [address] [place], [place], [id number], [place]. tel:[phone] Formerly [facility], [address], [place], [place], [id number], [place] tel:[phone] [place] No Information 4 Os Dawna. [address] [place], [place], [id number], [place]. tel:[phone] Formerly [facility], [address] [facility], [place], [place], [id number], [place] tel:[phone] [place] No Information Oct- 4 Os Dawna. [address] [place], [place], [id number], [place]. tel:[phone] Formerly [facility], 1 [facility], [place], [id number], [place] tel:[phone] [place] Encounter for rehabilitation evaluationHemiplegia and hemiparesis following unspecified cerebrovascular disease affecting left dominant sidePrimary generalized (osteo)arthritis 0 4 Brian Wallace. [address] [place], [place], [id number], [place]. tel:[phone] Formerly [facility], 1 [facility], [place], [place], [address], [place] tel:[phone] [place] Encounter for rehabilitation evaluation 0 4 Gopi Campos. [address] [place], [place], [id number], [place]. tel:[phone] Formerly [facility], 1 [facility], [place], [place], [id number], [place] tel:[phone] [place] Semi-Annual (chief complaint) Encounter for general adult medical examination without abnormal findingsSchizophrenia, unspecified typeBipolar affective disorder, remission status unspecifiedGeneralized anxiety disorderPTSD (post-traumatic stress disorder)Hypercholester olaemiaLong term (current) use of oral hypoglycemic drugsType 2 diabetes mellitus with diabetic chronic kidney disease, unspecified CKD stage, unspecified whether half-way insulin useOsteoporosis, unspecified osteoporosis type, unspecified pathological fracture presenceGastroesophagea l reflux disease without esophagitisStage 2 chronic kidney diseaseHypertensive renal disease, stage 1 through stage 4 or unspecified chronic kidney diseaseChronic obstructive pulmonary disease, unspecified COPD typePulmonary noduleTobacco useObstructive sleep apneaType 2 diabetes mellitus with peripheral vascular disease 0 4 Os Dawna. [address] [place], [place], [id number], [place]. tel:[phone] Formerly [facility], [address], [place], [place], [address], [place] tel:[phone] [place] Medication management 3 Omar Esthela. [address] [place], [place], [id number], [place]. tel:[phone] Formerly [facility], [address], [place], [place], [id number], [place] tel:[phone] [place] Follow-up (chief complaint) Pulmonary nodule 3 Omar Esthela. [address] [place], [place], [id number], [place]. tel:[phone] Formerly [facility], [address], [place], [place], [address], [place] tel:[phone] [place] No Information 3 Omar Esthela. [address] [place], [place], [id number], [place]. tel:[phone] Formerly [facility], [address] [facility], [place], [place], [id number], [place] tel:[phone] [place] No Information 3 Os Dawna. [address] [place], [place], [id number], [place]. tel:[phone] Formerly [facility], [address], [place], [place], [address], [place] tel:[phone] [place] OV (chief complaint) Pulmonary nodule 3 Oamr Esthela. [address] [place], [place], [address], [place]. tel:[phone] Formerly [facility], [address], [place], [place], [id number], [place] tel:[phone] [place] No Information 3 Omar Esthela. [address] [place], [place], [id number], [place]. tel:[phone] Formerly [facility], 1 [facility], [place], [place], [address], [place] tel:[phone] [place] Semi-Annual (chief complaint) Schizophrenia, unspecified typeBipolar disorder [...] use of insulinChronic kidney disease, stage 2 (mild)terminal clerk (current) use of insulinHypertensive renal disease, stage 1 through stage 4 or unspecified chronic kidney disease 3 Os Dawna. [address], [place], [id number], [place]. tel:[phone] Formerly [facility], [address] [address], [place], [place], [id number], [place] tel:[phone] [facility] 3 Os Dawna. [address] [place], [place], [id number], [place]. tel:[phone] Formerly [facility], [address] [address], [place], [place], [id number], [place] tel:[phone] [facility] 3 Os Dawna. [address] [place], [place], [id number], [place]. tel:[phone] Formerly [facility], [address] [address], [place], [place], [address], [place] tel:[phone] [place] Encounter for rehabilitation evaluation 3 Isa Adonay. [address], [place], [address]. tel:[phone] Formerly [facility], [facility], [place], [place], [id number], [place] tel:[phone] [place] Encounter for rehabilitation evaluationOther chronic painAlteration in performance of activities of daily living 3 Marco A Delcid. 101 [facility] [address] [place], [place], [id number]. tel:[phone] Formerly [facility], [facility], [place], [place], [id number], [place] tel:[phone] [place] Osteoarthritis, unspecified osteoarthritis type, unspecified site 3 Os Dawna. [address], [place], [id number], [place]. tel:[phone] Formerly [facility], 1 [facility], [place], [place], [address], [place] tel:[phone] [place] Encounter for nutritional assessmentDiabetes education, encounter forClass 1 obesity with serious comorbidity and body mass index (BMI) of 32.0 to 32.9 in adult, unspecified obesity typeBody mass index [BMI] 32.0-32.9, adult 3 Anton Anaya. [address], [place], [address], [place]. tel:[phone] Formerly [facility], 1 [facility] [address] [place] [address], [id number], [place] tel:[phone] [place] HUSSEIN (chief complaint) Schizophrenia, unspecified typeBipolar affective disorder, remission status unspecifiedGeneralized anxiety disorderPTSDHypercholes terolaemiaType 2 diabetes mellitus with diabetic chronic kidney disease, unspecified CKD stage, unspecified whether parts counterman insulin useOsteoporosis, unspecified osteoporosis type, unspecified pathological fracture presenceChronic kidney disease, stage 2 (mild)Hypertensive chronic kidney disease with stage 1 through stage 4 chronic kidney disease, or unspecified chronic kidney diseaseCOPDPulmonary noduleTobacco useFibromyalgiaGastroes ophageal reflux disease without esophagitis 3 Os Dawna. [address] [place], [place], [address], [place]. tel:[phone] Formerly [facility], [facility], [place], [place], [address], [place] tel:[phone] [place] History of fracture 2 Os Dawna. [address] [place], [place], [id number], [place]. tel:[phone] Formerly [facility], [facility], [place], [place], [address], [place] tel:[phone] [place] Papular eczema 2 Os Dawna. [address] [place], [place], [address], [place]. tel:[phone] Formerly [facility], 1 [facility], [place], [place], [id number], [place] tel:[phone] [place] No Information Apr-2 2 Os Dawna. [address] [place], [place], [address], [place]. tel:[phone] Formerly [facility], 1 [facility], [place], [place], [address], [place] tel:[phone] [place] Obstructive sleep apnea Sep-2 2 Os Dawna. [address] [place], [place], [id number], [place]. tel:[phone] Formerly [facility], 1 [facility], [place], [place], [address], [place] tel:[phone] [place] No Information Feb-2 2 Os Dawna. [address] [place], [place], [id number], [place]. tel:[phone] Formerly [facility], [address] [facility] [facility] [address] [facility], [place], [place], [address], [place] tel:[phone] [place] Semiannual (chief complaint) Hypertension, unspecified typeHypercholesterolaem iaChronic kidney disease due to diabetes mellitusSchizophrenia, unspecified typeBipolar affective disorder, remission status unspecifiedGeneralized anxiety disorderPTSDOsteoporosi s, unspecified osteoporosis type, unspecified pathological fracture presenceCOPDPulmonary nodulePapular eczemaHealthcare maintenanceTobacco useChronic kidney disease, stage 3a 2 Os Dawna. 101 [facility] [address], [place], [place], [id number], [place]. tel:[phone] Formerly [facility], [address] [facility] [facility] [address] [facility], [place], [place], [id number], [place] tel:[phone] [place] Encounter for nutritional assessmentDiabetes education, encounter forOther obesity 2 Normile Jaclyn. 101 [facility] [address] [place], [id number], [place]. tel:[phone] Formerly [facility], 1 [facility], [place], [place], [id number], [place] tel:[phone] [place] OV (chief complaint) Type 2 diabetesGeneralized anxiety disorderIntractable headache, unspecified chronicity pattern, unspecified headache typeNausea 2 Os Dawna. 101 [facility] [address] [place], [address], [place]. tel:[phone] Formerly [facility], 1 [facility], [place], [place], [id number], [place] tel:[phone] [place] Pulmonary nodule 2 Os Dawna. [address] [place], [place], [address], [place]. tel:[phone] Formerly [facility], 1 [facility], [place], [place], [address], [place] tel:[phone] [place] No Information 2 Os Dawna. 101 [facility] [address] [place], [id number], [place]. tel:[phone] Formerly [facility], 1 [facility], [place], [address], [place] tel:[phone] [place] Encounter for nutritional assessment Sep-2 2 Normile Jaclyn. [address] [place], [place], [id number], [place]. tel:[phone] Formerly [facility], [facility], [place], [place], [id number], [place] tel:[phone] [place] PEE (chief complaint) Hypertension, unspecified typeHypercholesterolaem iaCataract of both eyes, unspecified cataract typeBipolar affective disorder, remission status unspecifiedGeneralized anxiety disorderPTSDHistory of fractureOsteoporosis, unspecified osteoporosis type, unspecified pathological fracture presenceCOPDPulmonary noduleHealthcare maintenance 2 Os Dawna. [address] [place], [place], [id number], [place]. tel:[phone] Formerly [facility], 1 [facility], [place], [address], [place] tel:[phone] [place] Muscle weakness (generalized)Encounter for rehabilitation evaluation b-0 2 Isa Adonay. [address] [place], [address]. tel:[phone] Formerly [facility], 1 [facility], [place], [address], [place] tel:[phone] [place] Encounter for rehabilitation evaluationAlteration in performance of activities of daily livingOther chronic pain b0 2 Marco A Delcid. 101 [facility], [place], [place], [address]. tel:[phone] Formerly [facility], 1 [facility], [place], [id number], [place] tel:[phone] [place] No Information b0 2 Juan Ramon Leyva. [address] [place], [place], [id number], [place]. tel:[phone] Formerly [facility], 1 [facility], [place], [address], [place] tel:[phone] [place] Intake (chief complaint) No Information Steph Martinez. [address], [place], [place], [id number], . tel:[phone] Family History Family Member Type Diagnosis Age At Onset No Information Immunizations Vaccine Date Status Comments Prevnar refused Note: pneumo va ccine refused ; Source: New Immunization Record Prevnar refused Note: patient r efused all pneumo vaccines ; Source: New Immunization Record Prevnar refused Source: New Imm unization Record Fluzone High-Dose refused Source: New Immunization Record Prevnar refused Source: New Imm unization Record Fluzone Quad refused Note: Refused during [facility] 10/08/21 ; Source: New Immunization Record COVID-19 (Moderna) administered Source: O ther Provider COVID-19 (Moderna) administered Source: O ther Provider Tdap administered Source: Other R egistry Payers Payer name Insurance type Covered libertarian ID Authoriza dereck(s) [facility] 16 [id number] [facility] 16 [id number] [facility] 16 [id number] [facility] 16 [id number] [facility] 16 [id number] [facility] 16 [id number] [facility] 16 [id number] Social History Type Description Quantity Date Captured Comments Sex Female Smoking Status No Information Chief Complaint And Reason For Visit No Information Plan Of Treatment Date Type Action Status Referral Ordered: Referrals: Drug Abuse Worker. Evaluate and treat Appointment date/timeframe: 02/07/2024 ordered Referral Ordered: Referrals: Orthopedic Surgery. Evaluate and treat ordered Referral Ordered: Referrals: Dentistry. Evaluate and treat ordered Referral Ordered: Referrals: Ophthalmology. Evaluate and treat ordered Referral Ordered: Referrals: Rheumatology. Evaluate and treat ordered Referral Ordered: Referrals: [place]stetrics. [place] [facility]uate and treat ordered Referral Ordered: Referrals: [facility] [place] [facility] Evaluate and treat ordered Referral Ordered: Referrals: [...] Appointment date/timeframe: 01/26/2022 ordered Referral Ordered: Referrals: Ophthalmology Appointment date/timeframe: 01/14/2023 ordered Referral Ordered: Referrals: Psychiatry Appointment date/timeframe: 10/23/2021 ordered Referral Ordered: Referrals: Dentistry Appointment date/timeframe: 11/04/2022 ordered Future Order: Radiology Order Ma mmogram (Diagnostic); Bilateral, incl computer-aided detection when performed (10070), Ordered on: Ordered History Of Present Illness [...] needs follow up-Psychiatrist: Trying to get into [facility]-Therapist: [facility]tof at [facility]-Ortho: 12/2023- closed [...] last 6 monthsWMM:-Advance Directives reviewed: Full code, MOL 09/2021-HCP: Not invoked- Idris (sister) and Tesfaye [...] lung nodules, COPD, hypotensionEXAM: NAD. mildly hypotensive, [id number]: repeat CT scan, encouraged fluids (she only [...] has been helping. Working on getting into [facility] (psychiatrist). Diagnoses Reviewed.Consults:-Dental: last seen in September- had cap; 05[place]05[place] [facility] [place]Vision: 12/25/22-Psychiatrist: Trying to get into [facility]-Therapist: Krzysztof at [facility]-Pain management: 09/21/22- did not feel a [...] seeing a prescriber Tena Reyna APRN in [place] and has followed with her for years. [...] last 2020Mammogram: up to date from last year 2020 and states she gets them yearlyPharmacy: reports that she uses [facility] for mail order and [facility] locally on [facility]: she states the clonazepam comes from [facility]. She is considering changing to [facility] once she enrolls. Instructions Date Instruction Additional Infor mation Chest CT 4RUL n odule resolved likely infectious/inflammatoryFew scattered pulmonary nodules meauring up to 3mm in LLL are unchangedAnnual imaging Related to Pulmonary nodule colloidal oatmeal lotion PRN Rel ated to Psoriasis No concerns of this today. Following with physiatry/pain management. 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 She is working on getting into [facility] for a psychiatrist. Currently- PCP is prescribing and sending medications. -Continue current med regimen- follow up w/ new psychiatrist may need medication adjustment Related to Generalized anxiety disorder Pt reports seeing Reinier ewing (therapist) [facility]. She is working on getting into [facility] for a psychiatrist. Currently- PCP is [...] delusions. Pt reports seeing Krzysztof (therapist) at [facility]. She is working on getting into [facility] for a psychiatrist. Currently- PCP is [...] 08/2022 GFR 60-Avoid nephrotoxic medications Related to FDC (current) use of insulin 08/2022: A1C- 6.7Continue glipizi de Related to FDC (current) use of oral hypoglycemic drugs Rhem [...] Related to Fibromyalgia Pt is a smoker [employer] e I was 13 years old I [...] kidney disease, unspecified CKD stage, unspecified whether half-way insulin use 01/2022 Dexa: Impress ion: The [...] 40mg dailyContinue fenofibrate Related to Hypercholesterolaemia Psychiatrist Geraldi ne every 2 months- retired; being followed by [...] Related to Chronic kidney disease, stage 3a Bumps on legs for o brown a [...] (order in place) Related to Pulmonary nodule Mammogram referral in place Rela cory to [...] [facility] [place] be referred to one of [...]
== END 2024-11-21 16:23 | disposition home or self-care (01) ==
LOC: HO.HMCH 15:14
PROVIDERS: PCP Internal Medicine
DX: E11.65 Type 2 diabetes mellitus with hyperglycemia (principal)

== ENCOUNTER → 2024-11-21 15:13 | Outpatient (BNVA) | payer MEDICARE, MEDICAID, SELFPAY | PROVIDERS: PCP Internal Medicine | DX: J32.9 Chronic sinusitis, unspecified (principal); E55.9 Vitamin D deficiency, unspecified; E66.9 Obesity, unspecified; E78.00 Pure hypercholesterolemia, unspecified; I10 Essential (primary) hypertension; J43.9 Emphysema, unspecified; F41.9 Anxiety disorder, unspecified; F32.9 Major depressive disorder, single episode, unspecified; E11.65 Type 2 diabetes mellitus with hyperglycemia; F17.210 Nicotine dependence, cigarettes, uncomplicated; Z71.6 Tobacco abuse counseling | CPT/HCPCS: 83036; 99212 ==

== ENCOUNTER 2024-12-12 11:14 | Outpatient (AMB) | payer MEDICARE, MEDICAID, SELFPAY ==
--- NOTE | 2024-12-12 11:45 | A.OFFVIS_ITS ---
Vital Signs 12/12/24 11:46 Height 5 ft 11 in Weight 207 lb BMI 28.9 Intake Visit Reasons: [employer]/[facility] for pain in the leg Intake Note: [employer], [facility] referral for PAD for bilateral LE heaviness, states hx of LE pain. Right LE worse than Left LE, started 2 months ago, general pain started 7 yrs ago. Flaker Tender Required: No Accompanied by: Sister Allergies azithromycin Allergy (Unknown, Verified 12/12/24 11:51) unknown denosumab [Prolia] Allergy (Unknown, Verified 12/12/24 11:51) vomiting lamotrigine Allergy (Unknown, Verified 12/12/24 11:51) rash lisinopril Allergy (Unknown, Verified 12/12/24 11:51) nausea and vomiting naproxen [Aleve] Allergy (Unknown, Verified 12/12/24 11:51) dizziness HPI HPI SAL[employer]PORT [employer]ICE/[facility] for pain in the leg: Details: Makayla, a very pleasant 69 yo female patient, is presenting today with her sister on referral from [facility] for concerns of findings on LORIN testing and ongoing bilateral leg pain. The pt states this all started >7y ago with lower back pain radiating to bilateral hips and down her legs. She initially was seen by [facility] 7y ago and they recommended burning of the nerves of her spine to help with the issue (she is not quite sure what the procedure is called) but she decided against the procedure. She states the pain went away on its own and she has not had any concerns/pain until 2m ago. She states 2m ago the pain came back, but not as bad, and mostly in her lower legs. She states she went back to [facility], whom ordered LORIN testing and sent her to us due to the results, right 0.86 and left 0.81. She denies any injuries/wounds to her legs, back, or hips. She was a 1ppd smoker for 53y and quit 2m ago. She is a diabetic and her most recent A1C is 7.4%, on 11/21/24.She states she gets pain when she walks, and the pain goes away after she stops/sits for a bit. She states she does get tired and crampy legs as well. She states her feet feel cold, mostly at night, which gets better when she wraps them in blankets. There is a family hx of VV. The pt denies any hx of blood clots or clotting disorders. [facility] Medical History Nicotine dependence, cigarettes, uncomplicated Bilateral lower extremity pain Hx of gastritis Hx of allergic rhinitis Migraines Tubular adenoma of colon Pulmonary nodule Osteoporosis Right humeral fracture Hip fracture, right Bipolar disorder Fibromyalgia Thyroid cyst Vitamin D deficiency Obesity (BMI 30-39.9) Hypercholesterolemia Hypertension COPD (chronic obstructive pulmonary disease) Anxiety and depression Type 2 diabetes mellitus with hyperglycemia Surgical History History of cholecystectomy History of total abdominal hysterectomy and bilateral salpingo-oophorectomy History of colonoscopy Deficient knowledge of leg surgery History of shoulder surgery History of hip surgery History of esophagogastroduodenoscopy (EGD) H/O right knee surgery Herniated nucleus pulposus Family History Father Hypertension Cancer Esophageal cancer Mother Hypertension Maternal Aunt Stomach cancer Son Substance abuse Social History Housing: House Alcohol intake: former Patient Tobacco Use Status: Former Tobacco user Tobacco use type: Cigarette Years Smoked: (onset 15yo, 1/2-1ppd x 53yrs, 35+PYH); Quit- 10/2024 e-Cigarette/Vaping Use: Never Used Second Hand Smoke Exposure: Yes Current occupational status: employed Cognitive needs: No Hearing needs: No Vision needs: Yes Review of Systems Const Reports as per HPI and Denies weakness ENT Reports Normal hearing present and Denies dizziness Card Reports as per HPI, Denies chest pain, Denies chest pain at rest, Denies chest pain with activity, Denies dyspnea and Denies dyspnea on exertion Resp Reports as per HPI, Denies cough, Denies dyspnea and Denies dyspnea on exertion GI Reports as per HPI, Denies abdominal pain, Denies nausea and Denies vomiting Musc Denies numbness Skin/Breast Reports as per HPI, Denies erythema and Denies wounds Neuro Reports Normal hearing present, Denies dizziness, Denies numbness, Denies Sensory deficit (Neuro) and Denies weakness Psych Reports no additional complaints Endo Reports no additional complaints Physical Exam Vital Signs: BMI result Body Mass Index 28.9 Const General: healthy appearing and no acute distress Orientation/consciousness: patient oriented x3 HEENT Head: Yes normal to inspection Ears: hearing grossly normal bilaterally Mouth: Normal oral and palatal mucosa present Resp Effort & Inspection: normal respiratory effort and able to speak in complete sentences Auscultation: clear to auscultation bilaterally Cardio Jugular venous distension: no JVD Rate: regular rate Rhythm: regular rhythm Heart sounds: S1 normal heart sound present and S2 normal heart sound present Bruits: no abdominal aortic bruits, no carotid bruits, no femoral bruits and no renal bruits Peripheral pulses: Peripheral pulses 2+ throughout GI Inspection: Yes normal to inspection Palpation (GI): No Abdominal aortic bruit present Skin General skin exam: no rashes or lesions noted Wounds: no wounds Hair: normal Neuro General: patient oriented x3 Cranial nerves: Yes Normal hearing present Cognition (Neuro): normal cognition Gait exam (Neuro): Normal gait present Motor exam (neuro): 5/5 motor strength present throughout Sensory Exam: No Sensory deficit (Neuro) Extrem Other: Bilateral lower extremities: Warm to the touch. No injuries, wounds, varicosities, or tortuosities noted. Faint but palpable DP pulses. Feet warm to the touch. General: Yes normal to inspection, Yes full ROM, Yes capillary refill normal and Yes normal gait Assessment & Plan Assessment & Plan (1) Peripheral artery disease: Code(s): I73.9 - Peripheral vascular disease, unspecified Category: Medical Plan: Makayla is presenting today on a referral from [facility] for concerns of PAD, due to findings on LORIN testing that was ordered. The pt states she has had off and on back, hip, and leg pain for over 7y; she states the pain went away and came back 2m ago. She returned to [facility] for futher evaluation. They ordered LORIN testing, which revealed right at 0.86 and left at 0.81; she states she got the testing done at [address] but did not have an US done. [facility] sent her here, stating her symptoms are Vascular related. We have ordered an arterial duplex US. We discussed the importance of continuing with smoking cessation as well as diabetes/blood sugar control. We discussed the importance of physical activity and well balanced, healthy meals. We will have her follow up with us after the US has been performed. Thank you for allowing us to participate in the patient's care. If there are questions or concerns, please do not hesitate to reach out to us. Orders: Orders US arterial duplex LE BI 1 Week I73.9 - Peripheral vascular disease, unspecified Coding Level of Care Code New Pt Level 4 (78071) Diagnoses Peripheral artery disease I73.9
[2024-12-12 11:46] VITALS: BMI 28.9
--- OUTSIDE RECORDS SUMMARY | 2024-12-12 13:29 | XMS_ITS | Continuity of Care Document ---
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 [address], [place], [place], [id number], [place]. tel:[phone] [facility], [address], [place], [place], [id number], [place] tel:[phone] [place] No Information 5 Vinod Aqib. [address] [place], [place], [id number], [place]. tel:[phone] [facility], [address], [place], [place], [id number], [place] tel:[phone] [place] No Information 5 Vinod Aqib. [address] [place], [place], [id number], [place]. tel:[phone] [facility], [address], [place], [place], [id number], [place] tel:[phone] [place] No Information 4 Vinod Aqib. [address] [place], [place], [id number], [place]. tel:[phone] [facility], [address], [place], [place], [id number], [place] tel:[phone] [place] No Information 4 Vinod Aqib. [address] [place], [place], [id number], [place]. tel:[phone] [facility], [address], [place], [place], [id number], [place] tel:[phone] [place] No Information 4 Vinod Aqib. [address] [place], [place], [id number], [place]. tel:[phone] [facility], [address], [place], [place], [id number], [place] tel:[phone] [place] No Information 4 Vinod Aqib. [address] [place], [place], [id number], [place]. tel:[phone] [facility], [address] [address], [place], [place], [id number], tel:[phone] [place] No Information 4 Omar Proctor. [address] [place], [place], [id number], [place]. tel:[phone] [facility], [address] [address], [place], [place], [id number], [place] tel:[phone] [place] No Information 4 Omar Proctor. [address] [facility] [facility], [place], [place], [id number], [place]. tel:[phone] [facility], [address] [address], [place], [place], [id number], [place] tel:[phone] [place] Semi-Annual (chief complaint) Schizophrenia, unspecified typeBipolar affective disorder, currently depressed, moderateGeneralized anxiety disorderPTSD (post-traumatic stress disorder)Hypercholeste rolaemiaLong term (current) use of oral hypoglycemic drugsType [...] unspecified age-related cataract typeGastroesophageal reflux disease without esophagitisHypertensiv e renal disease, stage 1 through stage 4 or unspecified chronic kidney diseasePrimary osteoarthritis involving multiple jointsFibromyalgiaChro bonnie obstructive pulmonary disease, unspecified COPD typePulmonary nodulePsoriasis 4 Omar Proctor. [address] [place], [place], [id number], [place]. tel:[phone] [facility], [address], [place], [place], [id number], [place] tel:[phone] [place] No Information 4 Os Dawna. [address] [place], [place], [id number], [place]. tel:[phone] [facility], [address], [place], [place], [id number], [place] tel:[phone] [place] No Information 4 Omar Esthela. [address] [place], [place], [id number], [place]. tel:[phone] [facility], [address], [place], [place], [id number], [place] tel:[phone] [place] Psoriasis 4 Omar Esthela. [address], [place], [place], [id number], [place]. tel:[phone] [facility], [address], [place], [place], [id number], [place] tel:[phone] [place] Acute Visit (chief complaint) Psoriasis 4 Omar Esthela. [address] [place], [place], [id number], [place]. tel:[phone] [facility], [address] [facility], [place], [place], [id number], [place] tel:[phone] [place] No Information 4 Pitsiladis . [address] [place], [place], [id number], [place]. tel:[phone] [facility], [address], [place], [place], [id number], [place] tel:[phone] [place] No Information 0 4 Os Dawna. [address] [place], [place], [id number], [place]. tel:[phone] [facility], [address], [place], [place], [id number], [place] tel:[phone] [place] No Information 4 Os Dawna. [address] [place], [place], [id number], [place]. tel:[phone] [facility], [address], [place], [place], [address], [place] tel:[phone] [place] Acute Visit (chief complaint) Psoriasis 4 Os Dawna. [address] [place], [place], [id number], [place]. tel:[phone] [facility], [address], [place], [place], [id number], [place] tel:[phone] [place] Acute Visit (chief complaint) Fungal dermatitis 4 Omar Proctor. [address], [place], [place], [id number], [place]. tel:[phone] [facility], [address] [facility], [place], [place], [id number], [place] tel:[phone] [place] FibromyalgiaAge-rela te d osteoporosis without current pathological fractureUnspecified osteoarthritis, unspecified site 0 4 Os Dawna. [address] [place], [place], [id number], [place]. tel:[phone] [facility], [address] [facility], [place], [place], [id number], [place] tel:[phone] [place] No Information 4 Omar Proctor. [address] [place], [place], [id number], [place]. tel:[phone] [facility], [address], [place], [place], [address], [place] tel:[phone] [place] No Information 4 Os Dawna. [address] [place], [place], [id number], [place]. tel:[phone] [facility], [address], [place], [place], [id number], [place] tel:[phone] [place] Age-related osteoporosis without current pathological fracture 202 4 Os Dawna. [address] [place], [place], [id number], [place]. tel:[phone] [facility], [address], [place], [place], [id number], [place] tel:[phone] [place] No Information 3 4 Os Dawna. [address] [place], [place], [id number], [place]. tel:[phone] [facility], [address] [facility], [place], [place], [id number], [place] tel:[phone] [place] No Information Apr-3 0-202 4 Os Dawna. [address] [place], [place], [id number], [place]. tel:[phone] [facility], [address] [facility], [place], [place], [address], [place] tel:[phone] [place] No Information 2 4 Os Dawna. [address] [place], [place], [id number], [place]. tel:[phone] [facility], [address] [facility], [place], [place], [id number], [place] tel:[phone] [place] No Information 4 Os Dawna. [address] [place], [place], [id number], [place]. tel:[phone] [facility], [address], [place], [place], [address], [place] tel:[phone] [place] No Information Oct-2 4 Os Dawna. [address], [id number], [place]. tel:[phone] [facility], [address] [address], [place], [place], [id number], [place] tel:[phone] [place] No Information Oct- 4 Os Dawna. [address], [place], [id number], [place]. tel:[phone] [facility], [address] [address], [place], [place], [id number], [place] tel:[phone] [place] Encounter for rehabilitation evaluationHemiplegia and hemiparesis following unspecified cerebrovascular disease affecting left dominant sidePrimary generalized (osteo)arthritis 0 4 Torres Madison. [address] [facility] [place], [id number], [place]. tel:[phone] [facility], [address] [address], [place], [place], [id number], [place] tel:[phone] [place] Encounter for rehabilitation evaluation 0 4 Gopi Encisoah. [address] [place], [place], [id number], [place]. tel:[phone] [facility], [address] [address], [place], [place], [id number], [place] tel:[phone] [place] Semi-Annual (chief complaint) Encounter for general adult medical examination without abnormal findingsSchizophrenia, unspecified typeBipolar affective disorder, remission status unspecifiedGeneralized anxiety disorderPTSD (post-traumatic stress disorder)Hypercholeste rolaemiaLong term (current) use of oral hypoglycemic drugsType 2 diabetes mellitus with diabetic chronic kidney disease, unspecified CKD stage, unspecified whether parts counterman insulin useOsteoporosis, unspecified osteoporosis type, unspecified pathological fracture presenceGastroesophage al reflux disease without esophagitisStage 2 chronic kidney diseaseHypertensive renal disease, stage 1 through stage 4 or unspecified chronic kidney diseaseChronic obstructive pulmonary disease, unspecified COPD typePulmonary noduleTobacco useObstructive sleep apneaType 2 diabetes mellitus with peripheral vascular disease 4 Os Dawna. [address] [place], [place], [id number], [place]. tel:[phone] [facility], [address] [facility], [place], [place], [id number], [place] tel:[phone] [place] Medication management 3 Omar Esthela. [address] [place], [place], [id number], [place]. tel:[phone] [facility], [address], [place], [place], [address], [place] tel:[phone] [place] Follow-up (chief complaint) Pulmonary nodule 3 Omar Esthela. [address] [place], [place], [id number], [place]. tel:[phone] [facility], [address], [place], [place], [address], [place] tel:[phone] [place] No Information 3 Omar Esthela. [address] [place], [place], [id number], [place]. tel:[phone] [facility], [address] [facility], [place], [place], [id number], [place] tel:[phone] [place] No Information 3 Os Dawna. [address] [place], [place], [id number], [place]. tel:[phone] [facility], [address], [place], [place], [address], [place] tel:[phone] [place] OV (chief complaint) Pulmonary nodule 3 Omar Esthela. [address] [place], [place], [id number], [place]. tel:[phone] [facility], [address], [place], [place], [id number], [place] tel:[phone] [place] No Information 3 Omar Proctor. [address] [place], [place], [id number], [place]. tel:[phone] [facility], [address] [facility], [place], [place], [address], [place] tel:[phone] [place] Semi-Annual (chief complaint) Schizophrenia, unspecified typeBipolar disorder in partial remission, most recent episode unspecified typeGeneralized anxiety disorderPTSD (post-traumatic stress disorder)Tobacco useObstructive sleep apneaChronic obstructive pulmonary disease, unspecified COPD typePulmonary noduleOsteoporosis, unspecified osteoporosis type, unspecified pathological fracture presenceGastroesophage al reflux disease without esophagitisHypercholes terolaemiaLong term (current) use of oral hypoglycemic drugsType 2 diabetes mellitus with stage 2 chronic kidney disease, with long-term current use of insulinChronic kidney disease, stage 2 (mild)USP (current) use of insulinHypertensive renal disease, stage 1 through stage 4 or unspecified chronic kidney disease 3 Os Dawna. [address] [place], [place], [id number], [place]. tel:[phone] [facility], [address] [address], [place], [place], [id number], [place] tel:[phone] [facility] 3 Os Dawna. [address] [place], [place], [id number], [place]. tel:[phone] [facility], [address] [facility], [place], [place], [id number], [place] tel:[phone] [facility] 3 Os Dawna. [address] [place], [place], [address], [place]. tel:[phone] [facility], [address] [facility], [place], [place], [address], [place] tel:[phone] [place] Encounter for rehabilitation evaluation 3 Isa Urias. [address], [place], [address]. tel:[phone] [facility], [address] [facility], [place], [place], [id number], [place] tel:[phone] [place] Encounter for rehabilitation evaluationOther chronic painAlteration in performance of activities of daily living 3 Marco A Delcid. [address] [place], [place], [id number]. tel:[phone] [facility], [address] [facility], [place], [place], [id number], [place] tel:[phone] [place] Osteoarthritis, unspecified osteoarthritis type, unspecified site 3 Os Dawna. [address], [place], [place], [id number], [place]. tel:[phone] [facility], [address] [facility], [place], [place], [address], [place] tel:[phone] [place] Encounter for nutritional assessmentDiabetes education, encounter forClass 1 obesity with serious comorbidity and body mass index (BMI) of 32.0 to 32.9 in adult, unspecified obesity typeBody mass index [BMI] 32.0-32.9, adult 3 Anton Jaclyn. [address], [place], [place], [id number], [place]. tel:[phone] [facility], [address] [facility], [place], [place], [id number], [place] tel:[phone] [place] HUSSEIN (chief complaint) Schizophrenia, unspecified typeBipolar affective disorder, remission status unspecifiedGeneralized anxiety disorderPTSDHyperchole sterolaemiaType 2 diabetes mellitus with diabetic chronic kidney disease, unspecified CKD stage, unspecified whether parts counterman insulin useOsteoporosis, unspecified osteoporosis type, unspecified pathological fracture presenceChronic kidney disease, stage 2 (mild)Hypertensive chronic kidney disease with stage 1 through stage 4 chronic kidney disease, or unspecified chronic kidney diseaseCOPDPulmonary noduleTobacco useFibromyalgiaGastroe sophageal reflux disease without esophagitis 3 Os Dawna. [address] [place], [place], [id number], [place]. tel:[phone] [facility], [address] [facility], [place], [place], [id number], [place] tel:[phone] [place] History of fracture 2 Os Dawna. [address] [place], [place], [id number], [place]. tel:[phone] [facility], [address] [facility], [place], [place], [address], [place] tel:[phone] [place] Papular eczema 2 Os Dawna. [address] [place], [place], [id number], [place]. tel:[phone] [facility], [address] [facility], [place], [place], [address], [place] tel:[phone] [place] No Information Apr-2 2 Os Dawna. [address] [place], [place], [address], [place]. tel:[phone] [facility], [address] [facility], [place], [place], [address], [place] tel:[phone] [place] Obstructive sleep apnea Sep-2 2 Os Dawna. [address] [place], [place], [id number], [place]. tel:[phone] [facility], [address] [facility], [place], [place], [id number], [place] tel:[phone] [place] No Information Feb-2 2 Os Dawna. [address] [place], [place], [id number], [place]. tel:[phone] [facility], [address] [facility], [place], [place], [address], [place] tel:[phone] [place] Semiannual (chief complaint) Hypertension, unspecified typeHypercholesterolae miaChronic kidney disease due to diabetes mellitusSchizophrenia, unspecified typeBipolar affective disorder, remission status unspecifiedGeneralized anxiety disorderPTSDOsteoporos is, unspecified osteoporosis type, unspecified pathological fracture presenceCOPDPulmonary nodulePapular eczemaHealthcare maintenanceTobacco useChronic kidney disease, stage 3a 2 Os Dawna. [address] [facility] [address], [place], [place], [id number], [place]. tel:[phone] [facility], [address] [address], [place], [place], [address], [place] tel:[phone] [place] Encounter for nutritional assessmentDiabetes education, encounter forOther obesity 2 Normile Jaclyn. [address] [facility] [place], [address], [place]. tel:[phone] [facility], [address] [facility] [facility], [place], [place], [address], [place] tel:[phone] [place] OV (chief complaint) Type 2 diabetesGeneralized anxiety disorderIntractable headache, unspecified chronicity pattern, unspecified headache typeNausea 2 Os Dawna. [address] [facility] [place], [id number], [place]. tel:[phone] [facility], [address] [facility], [place], [place], [id number], [place] tel:[phone] [place] Pulmonary nodule 2 Os Dawna. [address] [facility] [place], [id number], [place]. tel:[phone] [facility], [address] [facility], [place], [place], [id number], [place] tel:[phone] [place] No Information 2 Os Dawna. [address] [facility] [place], [id number], [place]. tel:[phone] [facility], [address] [facility], [place], [place], [address], [place] tel:[phone] [place] Encounter for nutritional assessment Sep-2 2 Normile Jaclyn. [address] [facility], [place], [place], [address], [place]. tel:[phone] [facility], [address] [facility], [place], [place], [address], [place] tel:[phone] [place] PEE (chief complaint) Hypertension, unspecified typeHypercholesterolae miaCataract of both eyes, unspecified cataract typeBipolar affective disorder, remission status unspecifiedGeneralized anxiety disorderPTSDHistory of fractureOsteoporosis, unspecified osteoporosis type, unspecified pathological fracture presenceCOPDPulmonary noduleHealthcare maintenance 2 Os Dawna. [address] [facility] [place], [id number], [place]. tel:[phone] [facility], [address] [facility], [place], [place], [address], [place] tel:[phone] [place] Muscle weakness (generalized)Encounter for rehabilitation evaluation 0 2 Isa Urias. [address] [facility], [place], [address]. tel:[phone] [facility], [address] [address], [place], [place], [id number], [place] tel:[phone] [place] Encounter for rehabilitation evaluationAlteration in performance of activities of daily livingOther chronic pain b0 2 Marco A Delcid. [address] [facility] [place], [place], [id number]. tel:[phone] [facility], [address] [facility], [place], [place], [address], [place] tel:[phone] [place] No Information b-0 2 No Information [facility], [address] [facility] [address], [place], [place], [address], [place] tel:[phone] [place] Intake (chief complaint) No Information 2 Steph Martinez. [address], [place], [place], [address], [place]. tel:[phone] Family History Family Member Type Diagnosis Age [...] egistry Payers Payer name Insurance type Covered green party ID Authoriza tion(s) [facility] 16 [id number] [facility] 16 [id number] [facility] 16 [id number] [facility] 16 [id number] [facility] 16 [id number] [facility] 16 [id number] [facility] 16 [id number] Social History Type Description Quantity Date Captured Comments Sex Female Smoking Status No Information Chief Complaint And Reason For Visit No Information Plan Of Treatment Date Type Action Status Referral Ordered: Referrals: Liquor Store Manager. Evaluate and treat Appointment date/timeframe: 02/07/2024 ordered Referral Ordered: Referrals: Orthopedic Surgery. Evaluate and treat ordered Referral Ordered: Referrals: Dentistry. Evaluate and treat ordered Referral Ordered: Referrals: Ophthalmology. Evaluate and treat ordered Referral Ordered: Referrals: Rheumatology. Evaluate and treat ordered Referral Ordered: Referrals: [facility]- [facility] Location: [facility]. Evaluate and treat ordered Referral Ordered: Referrals: Obstetrics. Location: [facility]. Evaluate and treat [...] (Diagnostic); Bilateral, incl computer-aided detection when performed (00191), Ordered on: Ordered History Of Present Illness [...] needs follow up-Psychiatrist: Trying to get into [facility]-Therapist: Krzysztof at [facility]-Ortho: 12/2023- closed fracture of [...] reviewed: Full code, MOLST 09/2021-HCP: Not invoked- Debbies (sister) and Tesfaye (ex-boyfriend)(+) ROS: depression r/t [...] lung nodules, COPD, hypotensionEXAM: NAD. mildly hypotensive, [id number]: repeat CT scan, encouraged fluids (she only [...] has been helping. Working on getting into [facility] (psychiatrist). Diagnoses Reviewed.Consults:-Dental: last seen in September- had cap; 05/05/23 [facility] appt-Vision: 12/25/22-Psychiatrist: Trying to get into [facility]-Therapist: Krz[facility]ztof at [facility]-Pain management: 09/21/22- did [...] 6 monthsWMM:-Advance Directives reviewed: -HCP: Not invoked- Idris (sister) and Tesfaye (boyfriend)-What [...] seeing a prescriber Tena Reyna APRN in [place] and has followed with her for years. [...] uses [facility] for mail order and [facility] locally on [employer]: she states the clonazepam comes from [facility]. She is considering changing to [facility] once she enrolls. Instructions Date Instruction Additional Infor mation Chest CT 4RUL n odule resolved likely infectious/inflammatoryFew scattered pulmonary nodules meauring up to 3mm in LLL are unchangedAnnual imaging Related to Pulmonary nodule colloidal oatmeal lotion PRN Rel ated to Psoriasis Pt is a smoker sinc e I was 13 years old I have been smoking 1ppd . She smokes marijuana 1-2x/day .Never used oxygen.Continue proair as neededRecently added advair w/ + effect. No dyspnea noted. LSCTA, no dyspnea nor cough Related to Chronic obstructive pulmonary disease, unspecified COPD type No concerns of this today. Following with physiatry/pain management. Related to Fibromyalgia requests referral to pain managementrecently saw physiatry Related to Primary osteoarthritis involving multiple joints BPs have been stable -Continue amlodipine and propanololbaseline GFR 60s-Avoid nephrotoxic medications Related to Hypertensive renal disease, stage 1 through stage 4 or unspecified chronic kidney disease cont supplementslabs today Relat ed to Vitamin [...] monitor Related to Diabetic peripheral vascular disease Labs todaycont glipi zidebaseline GFR 60savoid nephrotoxins, encourage BS control Related to Type 2 diabetes mellitus with stage 2 chronic kidney disease, without long-term current use of insulin Continues A1C elevat edrepeat labs todaycont glipizide Related to manager intermediate (current) use of oral hypoglycemic drugs Identifies [...] kidney disease, unspecified CKD stage, unspecified whether detention insulin use 01/2022 Dexa: Impress ion: The patient has osteoporosis as determined by WHO criteria. Related to Osteoporosis, unspecified osteoporosis type, unspecified pathological fracture presence 03/2023: A1C- 7-Curre ntly on glipizide 2.5mg- increasing to 5mg daily Related to manager intermediate (current) use of oral hypoglycemic drugs 03/2023Lipid [...] support system.Pt reports seeing Krzysztof (therapist) at monthly. She is working on getting into [facility] for a psychiatrist. Currently- PCP is prescribing and sending medications. -Continue current med regimen- follow up w/ new psychiatrist may need medication adjustment Related to Generalized anxiety disorder Pt reports seeing Reinier ewing (therapist) at [facility]. She is working on getting into [facility] for a psychiatrist. Currently- PCP is prescribing [...] monthly. She is working on getting into [facility] for a psychiatrist. Currently- PCP is prescribing [...] 08/2022 GFR 60-Avoid nephrotoxic medications Related to USP (current) use of insulin 08/2022: A1C- 6.7Continue glipizi de Related to USP (current) use of oral hypoglycemic drugs Rhem [...] Related to Fibromyalgia Pt is a smoker [employer] e I was 13 years old [...] pathological fracture presence Pt had recently star cory metformin on [...] stage, unspecified whether parts counterman insulin use 02/25/2022:Lipid ratio - 6.6Increased lipitor from 20mg to 40mg dailyContinue fenofibrate Related to Hypercholesterolaemia Pt feels that her an xiety has [...] clonazepam, fluoxetine, and propranolol Related to PTSD Psychiatrist Yadira dejesus every 2 months- retired; [...] plans on smoking. Related to Tobacco use Bumps on legs for o brown a [...] to Pulmonary nodule Pt is a smoker [facility] I was 13 years old [...] occurred. Plan: -D/c metformin-Start glipizide 2.5mg daily (may [...] Related to PTSD Per preenrollment re cords. Pt reports being [...] order chest CT Related to Pulmonary nodule 02/19/2017 hospital r ecords: pt sustained a mechanical fall and was noted to have right fem fracture and right humerus, neck fx s/p fall. Denies head trauma/hitting head; Underwent surgery on February 17 2017 for the fractures.Hx of osteoprosisPt reports multiple fractures over her lifetime including: ankle, wrist, right knee, and right hip. Related to History of fracture Per preenrollment re cords. History of cataracts in [place] eyes r/[facility] [place] be referred to one of [...]
== END 2024-12-12 12:41 | disposition home or self-care (01) ==
LOC: HO.HVS 11:14
PROVIDERS: PCP Internal Medicine; Visit Provider Physician Assistant Surgical
DX: I73.9 Peripheral vascular disease, unspecified (principal)
CPT/HCPCS: 99204

== ENCOUNTER → 2024-12-12 11:14 | Outpatient (BNVA) | payer MEDICARE, MEDICAID, SELFPAY | PROVIDERS: PCP Internal Medicine; Visit Provider Physician Assistant Surgical | DX: I73.9 Peripheral vascular disease, unspecified (principal); Z87.891 Personal history of nicotine dependence | CPT/HCPCS: 99202 ==

== ENCOUNTER 2025-01-25 10:33 | Outpatient (REF) | payer MEDICARE, MEDICAID, SELFPAY ==
--- NOTE | ~2025-01-25 | US_ITS ---
EXAMINATION: Noninvasive assessment of the bilateral lower extremities with ARTERIAL DUPLEX, ANKLE BRACHIAL INDICES (ABIs), and PULSE VOLUME RECORDINGS (PVRs). CLINICAL INFORMATION: Peripheral vascular disease, unspecified. TECHNIQUE: Duplex Doppler techniques with waveform analysis and measurement of velocities in the bilateral common femoral, profunda femoris, superficial femoral, popliteal and tibial arteries were performed. Additionally, ankle pulse volume recordings, ankle pressure measurements and ankle brachial indices were obtained of the lower extremity arterial system bilaterally. The study was performed only at rest. COMPARISON: None FINDINGS: DIRECT DUPLEX DOPPLER FINDINGS: RIGHT LEG: Common femoral artery: 96 cm/s, phasicity: Triphasic Profunda femoris artery: 50 cm/s, phasicity: Triphasic. Superficial femoral artery (proximal): 69 cm/s, phasicity: Triphasic. Superficial femoral artery (mid): 79 cm/s, phasicity: Triphasic. Superficial femoral artery (distal): 124 cm/s, phasicity: Triphasic. Popliteal artery: 72 cm/s, phasicity: Triphasic. Posterior tibial artery: 43 cm/s, phasicity: Biphasic. Peroneal artery: 22 cm/s, phasicity: Biphasic. Anterior tibial artery: 55 cm/s, phasicity: Monophasic. Dorsalis pedis artery: 25 cm/s, phasicity:Monophasic. LEFT LEG: Common femoral artery: 61 cm/s, phasicity: Monophasic. Profunda femoris artery: 24 cm/s, phasicity: Monophasic. Superficial femoral artery (proximal): 44 cm/s, phasicity: Monophasic. Superficial femoral artery (mid): 49 cm/s, phasicity: Monophasic. Superficial femoral artery (distal): 36 cm/s, phasicity: Monophasic Popliteal artery: 51 cm/s, phasicity: Monophasic. Posterior tibial artery: 25 cm/s, phasicity: Monophasic. Peroneal artery: 10 cm/s, phasicity: Monophasic. Anterior tibial artery: 19 cm/s, phasicity: Monophasic. Dorsalis pedis artery: 11 cm/s, phasicity: Monophasic. BRACHIAL PRESSURES: Right: 110 Left: 93 ANKLE PRESSURES: Right: PT 109, DP 105 Left: PT 90, DP a 4 ANKLE-BRACHIAL INDEX: Right: 0.99 Left: 0.82 ANKLE PVR WAVEFORMS: Right: Abnormal Left: Abnormal US/US arterial duplex BI w/ LORIN IMPRESSION: Right leg: Severe inflow disease in the anterior tibialis and dorsalis pedis arteries. Left leg: Severe inflow disease throughout the interrogated arteries of the left lower extremity. LORIN Reference: - >1.4 = calcified vessels - 0.9 - 1.4 = normal - no significant arterial disease - 0.7 - 0.89 = mild peripheral arterial disease - 0.51 - 0.69 = moderate peripheral arterial disease - d 0.50 = severe peripheral arterial disease - < .30 = critical arterial disease Electronically signed by: Aaron Cardona MD 01/31/2025 01:38 PM EDT
--- OUTSIDE RECORDS SUMMARY | 2025-01-25 12:24 | XMS_ITS | Continuity of Care Document ---
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 [address] [place], [place], [id number], [place]. tel:[phone] Formerly [facility], [address], [place], [place], [id number], [place] tel:[phone] [place] No Information - 5 Vinod Aqib. [address] [place], [place], [id number], [place]. tel:[phone] Formerly [facility], [address], [place], [place], [id number], [place] tel:[phone] [place] No Information 5 Vinod Aqib. [address] [place], [id number], [place]. tel:[phone] Formerly [facility], [address], [place], [place], [id number], [place] tel:[phone] [place] No Information 4 Vinod Aqib. [address] [place], [place], [id number], [place]. tel:[phone] Formerly [facility], [address], [place], [place], [id number], [place] tel:[phone] [place] No Information 4 Vinod Aqib. [address] [place], [place], [id number], [place]. tel:[phone] Formerly [facility], [address], [place], [place], [id number], [place] tel:[phone] [place] No Information 4 Vinod Aqib. [address] [place], [id number], [place]. tel:[phone] Formerly [facility], [address], [place], [place], [id number], [place] tel:[phone] [place] No Information Oct-2 4-202 4 Vinod Aqib. [address] [place], [place], [id number], [place]. tel:[phone] Formerly [facility], [facility], [place], [place], [id number], tel:[phone] [place] No Information 4 Omar Proctor. [address] [place], [place], [id number], [place]. tel:[phone] Formerly [facility], [facility], [place], [place], [id number], [place] tel:[phone] [place] No Information 4 Omar Proctor. [address] [place], [id number], [place]. tel:[phone] Formerly [facility], [address], [id number], tel:[phone] [place] Semi-Annual (chief complaint) Schizophrenia, unspecified typeBipolar affective [...] nodulePsoriasis 4 Omar Proctor. [address] [place], [place], [id number], [place]. tel:[phone] Formerly [facility], [address], [place], [place], [id number], [place] tel:[phone] [place] No Information 4 Os Dawna. [address] [place], [place], [id number], [place]. tel:[phone] Formerly [facility], [address], [place], [place], [id number], [place] tel:[phone] [place] No Information 4 Omar Esthela. [address] [place], [place], [id number], [place]. tel:[phone] Formerly [facility], [address], [place], [place], [id number], [place] tel:[phone] [place] Psoriasis 4 Omar Lingca. [address] [place], [place], [id number], [place]. tel:[phone] Formerly [facility], [address], [place], [place], [id number], [place] tel:[phone] [place] Acute Visit (chief complaint) Psoriasis 4 Omar Esthela. [address] [place], [place], [id number], [place]. tel:[phone] Formerly [facility], [address] [facility], [place], [place], [id number], [place] tel:[phone] [place] No Information 4 Pitsiladis . [address] [place], [place], [id number], [place]. tel:[phone] Formerly [facility], [address] [facility], [place], [place], [id number], [place] tel:[phone] [place] No Information 4 Os Dawna. [address] [place], [place], [id number], [place]. tel:[phone] Formerly [facility], [address], [place], [place], [id number], [place] tel:[phone] [place] No Information 4 Os Dawna. [address] [place], [place], [id number], [place]. tel:[phone] Formerly [facility], [facility], [place], [place], [id number], [place] tel:[phone] [place] Acute Visit (chief complaint) Psoriasis 4 Os Dawna. [address] [place], [place], [id number], [place]. tel:[phone] Formerly [facility], [facility], [place], [place], [id number], [place] tel:[phone] [place] Acute Visit (chief complaint) Fungal dermatitis Guy- 4 Omar Esthela. [address] [place], [place], [id number], [place]. tel:[phone] Formerly [facility], [facility], [place], [place], [id number], [place] tel:[phone] [place] FibromyalgiaAge-rela cory osteoporosis without current pathological fractureUnspecified osteoarthritis, unspecified site 4 Os Dawna. [address] [place], [place], [id number], [place]. tel:[phone] Formerly [facility], [facility], [place], [place], [id number], [place] tel:[phone] [place] No Information 4 Omar Lingca. [address] [place], [place], [id number], [place]. tel:[phone] Formerly [facility], [facility], [place], [place], [id number], [place] tel:[phone] [place] No Information 4 Os Dawna. [address] [place], [place], [id number], [place]. tel:[phone] Formerly [facility], [address], [place], [place], [id number], [place] tel:[phone] [place] Age-related osteoporosis without current pathological fracture 4 Os Dawna. [address] [place], [place], [id number], [place]. tel:[phone] Formerly [facility], [address] [facility] [address], [place], [id number], [place] tel:[phone] [address] No Information 4 Os Dawna. [address] [place], [place], [id number], [place]. tel:[phone] Formerly [facility], [address] [facility], [place], [place], [id number], [place] tel:[phone] [place] [phone] No Information 3 0 4 Os Dawna. [address] [place], [place], [id number], [place]. tel:[phone] Formerly [facility], [address] [facility], [place], [place], [id number], [place] tel:[phone] [place] [address] No Information 4 Os Dawna. [address] [place], [place], [id number], [place]. tel:[phone] Formerly [facility], [address] [facility], [place], [place], [id number], [place] tel:[phone] [phone] [address] No Information 4 Os Dawna. [address] [place], [place], [id number], [place]. tel:[phone] Formerly [facility], [address] [facility], [place], [place], [id number], [place] tel:[phone] [place] No Information 4 Os Dawna. [address] [place], [place], [id number], [place]. tel:[phone] Formerly [facility], [address] [facility], [place], [place], [id number], [place] tel:[phone] [place] No Information Oct- 4 Os Dawna. [address] [place], [place], [id number], [place]. tel:[phone] Formerly [facility], [facility], [place], [place], [id number], [place] tel:[phone] [place] Encounter for rehabilitation evaluationHemiplegia and hemiparesis following unspecified cerebrovascular disease affecting left dominant sidePrimary generalized (osteo)arthritis 0 4 Brian Wallace. [address] [place], [place], [id number], [place]. tel:[phone] Formerly [facility], [facility], [place], [place], [id number], [place] tel:[phone] [place] Encounter for rehabilitation evaluation 0 4 Gopi Campos. [address] [place], [place], [id number], [place]. tel:[phone] Formerly [facility], [facility], [place], [place], [id number], [place] tel:[phone] [place] Semi-Annual (chief complaint) Encounter for general adult medical examination without abnormal findingsSchizophrenia, unspecified typeBipolar affective disorder, remission status unspecifiedGeneralized anxiety disorderPTSD (post-traumatic stress disorder)Hypercholester olaemiaLong term (current) use of oral hypoglycemic drugsType 2 diabetes mellitus with diabetic chronic kidney disease, unspecified CKD stage, unspecified whether exterminator termite insulin useOsteoporosis, unspecified osteoporosis type, unspecified pathological fracture presenceGastroesophagea l reflux disease without esophagitisStage 2 chronic kidney diseaseHypertensive renal disease, stage 1 through stage 4 or unspecified chronic kidney diseaseChronic obstructive pulmonary disease, unspecified COPD typePulmonary noduleTobacco useObstructive sleep apneaType 2 diabetes mellitus with peripheral vascular disease 0 4 Os Dawna. [address] [place], [place], [id number], [place]. tel:[phone] Formerly [facility], [address], [place], [place], [id number], [place] tel:[phone] [place] Medication management 3 Omar Esthela. [address] [place], [place], [id number], [place]. tel:[phone] Formerly [facility], [address], [place], [place], [id number], [place] tel:[phone] [place] Follow-up (chief complaint) Pulmonary nodule 3 Omar Esthela. [address] [place], [place], [id number], [place]. tel:[phone] Formerly [facility], [address], [place], [place], [id number], [place] tel:[phone] [place] No Information 3 Omar Esthela. [address] [place], [place], [id number], [place]. tel:[phone] Formerly [facility], [address] [facility], [place], [place], [id number], [place] tel:[phone] [place] No Information 3 Os Dawna. [address] [place], [place], [id number], [place]. tel:[phone] Formerly [facility], [address], [place], [place], [id number], [place] tel:[phone] [place] OV (chief complaint) Pulmonary nodule 3 Omar Esthela. [address] [place], [place], [id number], [place]. tel:[phone] Formerly [facility], [address], [place], [place], [id number], [place] tel:[phone] [place] No Information 3 Omar Esthela. [address] [place], [place], [id number], [place]. tel:[phone] Formerly [facility], [facility], [place], [place], [id number], [place] tel:[phone] [place] Semi-Annual (chief complaint) Schizophrenia, unspecified typeBipolar disorder [...] use of insulinChronic kidney disease, stage 2 (mild)MCC (current) use of insulinHypertensive renal disease, stage 1 through stage 4 or unspecified chronic kidney disease 3 Os Dawna. [address] [place], [id number], [place]. tel:[phone] Formerly [facility], [address] [address], [place], [place], [id number], [place] tel:[phone] [facility] 3 Os Dawna. [address] [place], [place], [id number], [place]. tel:[phone] Formerly [facility], [address] [address], [place], [place], [id number], [place] tel:[phone] [facility] 3 Os Dawna. [address] [place], [place], [id number], [place]. tel:[phone] Formerly [facility], [address] [address], [place], [place], [id number], [place] tel:[phone] [place] Encounter for rehabilitation evaluation 3 Isa Adonay. [address], [place], [address]. tel:[phone] Formerly [facility], [address] [facility] [address], [place], [place], [id number], [place] tel:[phone] [place] Encounter for rehabilitation evaluationOther chronic painAlteration in performance of activities of daily living 3 Marco A Delcid. [address] [facility] [address] [place], [place], [id number]. tel:[phone] Formerly [facility], [address] [facility] [address] [facility], [place], [place], [id number], [place] tel:[phone] [place] Osteoarthritis, unspecified osteoarthritis type, unspecified site 3 Os Dawna. [address] [place], [place], [id number], [place]. tel:[phone] Formerly [facility], [facility], [place], [place], [id number], [place] tel:[phone] [place] Encounter for nutritional assessmentDiabetes education, encounter forClass 1 obesity with serious comorbidity and body mass index (BMI) of 32.0 to 32.9 in adult, unspecified obesity typeBody mass index [BMI] 32.0-32.9, adult 3 Anton Anaya. [address] [place], [place], [id number], [place]. tel:[phone] [facility], [address] [facility] [address] [place] [address], [id number], [place] tel:[phone] [place] HUSSEIN (chief complaint) Schizophrenia, unspecified typeBipolar affective disorder, remission status unspecifiedGeneralized anxiety disorderPTSDHypercholes terolaemiaType 2 diabetes mellitus with diabetic chronic kidney disease, unspecified CKD stage, unspecified whether exterminator termite insulin useOsteoporosis, unspecified osteoporosis type, unspecified pathological fracture presenceChronic kidney disease, stage 2 (mild)Hypertensive chronic kidney disease with stage 1 through stage 4 chronic kidney disease, or unspecified chronic kidney diseaseCOPDPulmonary noduleTobacco useFibromyalgiaGastroes ophageal reflux disease without esophagitis 3 Os Dawna. [address] [place], [place], [id number], [place]. tel:[phone] Formerly [facility], [address] [facility] [address] [facility], [place], [place], [id number], [place] tel:[phone] [place] History of fracture 2 Os Dawna. [address] [place], [place], [address], [place]. tel:[phone] [facility]ly [facility], [address] [facility] [address], [place], [place], [id number], [place] tel:[phone] [place] Papular eczema 2 Os Dawna. [address] [place], [place], [id number], [place]. tel:[phone] Formerly [facility], [address] [facility] [address] [facility], [place], [id number], [place] tel:[phone] [place] No Information Apr-2 2 Os Dawna. [address] [place], [place], [id number], [place]. tel:[phone] Formerly [facility], [address] [facility] [address] [facility], [place], [place], [id number], [place] tel:[phone] [place] Obstructive sleep apnea Sep-2 2 Os Dawna. [address] [place], [place], [id number], [place]. tel:[phone] Formerly [facility], [address] [facility] [address] [facility], [place], [place], [id number], [place] tel:[phone] [place] No Information Feb-2 2 Os Dawna. [address] [place], [place], [id number], [place]. tel:[phone] Formerly [facility], [address] [facility] [address], [place], [place], [id number], [place] tel:[phone] [place] Semiannual (chief complaint) Hypertension, unspecified typeHypercholesterolaem iaChronic kidney disease due to diabetes mellitusSchizophrenia, unspecified typeBipolar affective disorder, remission status unspecifiedGeneralized anxiety disorderPTSDOsteoporosi s, unspecified osteoporosis type, unspecified pathological fracture presenceCOPDPulmonary nodulePapular eczemaHealthcare maintenanceTobacco useChronic kidney disease, stage 3a 2 Os Dawna. [address] [facility] [address], [place], [place], [id number], [place]. tel:[phone] [facility]ly [facility], [address] [facility], [place], [place], [address], [place] tel:[phone] [place] Encounter for nutritional assessmentDiabetes education, encounter forOther obesity 2 Normile Jaclyn. [address] [facility] [place], [id number], [place]. tel:[phone] Formerly [facility], [address] [facility] [address] [facility], [place], [place], [id number], [place] tel:[phone] [place] OV (chief complaint) Type 2 diabetesGeneralized anxiety disorderIntractable headache, unspecified chronicity pattern, unspecified headache typeNausea 2 Os Dawna. [address] [facility] [place], [id number], [place]. tel:[phone] Formerly [facility], [address] [facility] [address] [facility], [place], [place], [id number], [place] tel:[phone] [place] Pulmonary nodule 2 Os Dawna. [address] [place], [place], [id number], [place]. tel:[phone] Formerly [facility], [address] [facility] [address] [facility], [place], [place], [id number], [place] tel:[phone] [place] No Information 2 Os Dawna. [address] [facility] [place], [id number], [place]. tel:[phone] Formerly [facility], [facility], [place], [place], [id number], [place] tel:[phone] [place] Encounter for nutritional assessment Sep-2 2 Normile Jaclyn. [address] [place], [place], [id number], [place]. tel:[phone] Formerly [facility], [address] [facility] [address] [facility], [place], [place], [id number], [place] tel:[phone] [place] PEE (chief complaint) Hypertension, unspecified typeHypercholesterolaem iaCataract of both eyes, unspecified cataract typeBipolar affective disorder, remission status unspecifiedGeneralized anxiety disorderPTSDHistory of fractureOsteoporosis, unspecified osteoporosis type, unspecified pathological fracture presenceCOPDPulmonary noduleHealthcare maintenance 2 Os Dawna. [address] [place], [place], [id number], [place]. tel:[phone] Formerly [facility], [facility], [place], [place], [id number], [place] tel:[phone] [place] Muscle weakness (generalized)Encounter for rehabilitation evaluation b-0 2 Isa Adonay. [address] [place], [address]. tel:[phone] Formerly [facility], [facility], [place], [place], [id number], [place] tel:[phone] [place] Encounter for rehabilitation evaluationAlteration in performance of activities of daily livingOther chronic pain b0 2 Marco A Delcid. 101 [facility], [place], [place], [id number]. tel:[phone] [facility]ly [facility], [facility], [place], [address], [place] tel:[phone] [place] No Information b0 2 Juan Ramon Leyva. [address] [place], [place], [id number], [place]. tel:[phone] [facility]ly [facility], [facility], [place], [place], [id number], [place] tel:[phone] [place] Intake (chief complaint) No Information Steph Martinez. [address], [place], [place], [address], . tel:[phone] Family History Family Member Type Diagnosis Age [...] type Covered alliance party ID Authoriza dereck(s) [facility] 16 [id number] [facility] 16 [id number] [facility] 16 [id number] [facility] 16 [id number] [facility] 16 [id number] [facility] 16 [id number] [facility] 16 [id number] Social History Type Description Quantity Date Captured Comments Sex Female Smoking Status No Information Chief Complaint And Reason For Visit No Information Plan Of Treatment Date Type Action Status Referral Ordered: Referrals: Form Drafter. Evaluate and treat Appointment date/timeframe: 02/07/2024 ordered Referral Ordered: Referrals: Orthopedic Surgery. Evaluate and treat ordered Referral Ordered: Referrals: Dentistry. Evaluate and treat ordered Referral Ordered: Referrals: Ophthalmology. Evaluate and treat ordered Referral Ordered: Referrals: Rheumatology. Evaluate and treat ordered Referral Ordered: Referrals: [facility]- Dental Location: [facility]. Evaluate and treat ordered Referral Ordered: Referrals: Obstetrics. Location: [facility]. Evaluate and treat ordered Referral Ordered: Referrals: [...] (Diagnostic); Bilateral, incl computer-aided detection when performed (05947), Ordered on: Ordered History Of Present Illness [...] needs follow up-Psychiatrist: Trying to get into [facility]-Therapist: [facility]tof [facility]-Ortho: 12/2023- closed [...] lung nodules, COPD, hypotensionEXAM: NAD. mildly hypotensive, [id number]: repeat CT scan, encouraged fluids (she only [...] has been helping. Working on getting into [facility] (psychiatrist). Diagnoses Reviewed.Consults:-Dental: last seen in September- had cap; 05/05/23 [facility] appt-Vision: 12/25/22-Psychiatrist: Trying to get into [facility]-Therapist: [facility]ztof [facility] monthly-Pain management: 09/21/22- [...] seeing a prescriber Tena Reyna APRN in [place] and has followed with her for years. [...] for mail order and [facility] locally on [address]: she states the clonazepam comes from [employer]. She is considering changing to [facility] once she enrolls. 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 She is working on getting into [facility] for a psychiatrist. Currently- PCP is prescribing and sending medications. -Continue current med regimen- follow up w/ new psychiatrist may need medication adjustment Related to Generalized anxiety disorder Pt reports seeing Reinier ewing (therapist) [facility]. She is working on getting into [facility] for a psychiatrist. Currently- PCP is [...] monthly. She is working on getting into [facility] for a psychiatrist. Currently- PCP is [...] 08/2022 GFR 60-Avoid nephrotoxic medications Related to MCC (current) use of insulin 08/2022: A1C- 6.7Continue glipizi de Related to MCC (current) use of oral hypoglycemic drugs Rhem [...] disease, unspecified CKD stage, unspecified whether exterminator termite insulin use 02/25/2022:Lipid ratio - 6.6Increased lipitor [...] fluoxetine, and propranolol Related to PTSD Psychiatrist Geraldi ne every 2 months- retired; [...] Pulmonary nodule Per preenrollment re cords. Pt is a [...] right hip. Related to History of fracture Identifies good supp ort system including boyfriend (Tesfaye), friends and family. She reports many things in her life had been traumatic, she referenced her son who is a heroin addict as the primary traumatic event. Reports of panic attacks and anxiety.-Continue psych medications prescribed by psychiatrist: clonazepam, fluoxetine, and propranolol Related to PTSD Pt reports seeing Skip Reyna APRN (psychiatrist) who manages her medications. She follows up every 2 months (next appt October 23 2021). Identifies good support system including boyfriend (Tesfaye), friends and family. Reports of panic attacks and anxiety for most of her life. -Continue psych medications prescribed by psychiatrist: clonazepam, fluoxetine, and propranolol Related to Generalized anxiety disorder Per preenrollment re cords. History of cataracts in shanna eyes r/t [facility] [place] referred to one of [...]
== END 2025-01-25 10:34 | disposition home or self-care (01) ==
LOC: HO.US 10:33
PROVIDERS: PCP Internal Medicine; Visit Provider Physician Assistant Surgical
DX: I73.9 Peripheral vascular disease, unspecified (principal)
CPT/HCPCS: 93922; 93925

== ENCOUNTER → 2025-01-25 10:35 | Outpatient (BNV) | payer MEDICARE, MEDICAID, SELFPAY | PROVIDERS: PCP Internal Medicine; Visit Provider Radiology Diagnostic Radiology | DX: I73.9 Peripheral vascular disease, unspecified (principal) | CPT/HCPCS: 93922; 93925 ==

== ENCOUNTER 2025-02-07 08:22 | Outpatient (REF) | payer MEDICARE, MEDICAID, SELFPAY ==
[2025-02-07 09:55] LABS: MANUAL DIFF FLAG NO
[2025-02-07 10:46] LABS: Basophils Absolute Auto 0.1 X10*3/uL (0.0-0.2); Basophils Percent Auto 0.8 % (0-2); Eosinophils Absolute Auto 0.2 X10*3/uL (0.0-0.4); Eosinophils Percent Auto 2.5 % (0-4); Hematocrit 47.1 % (37.0-47.0); Hemoglobin 15.3 g/dl (12.0-16.0); Imm Gran Abs Auto 0.02 X10*3/uL (0.00-0.03); Imm Gran Pct Auto 0.3 % (0.0-0.4); Lymphocytes Absolute Auto 2.2 X10*3/uL (1.2-4.9); Lymphocytes Percent Auto 34.3 % (20-40); Mean Corpuscular HGB Conc 32.5 g/dl (31.0-35.0); Mean Corpuscular Hemoglobin 28.6 pg (27.0-33.0); Mean Platelet Volume 10.8 fL (9.4-12.3); Monocytes Absolute Auto 0.4 X10*3/uL (0.1-1.2); Neutrophils Absolute Auto 3.7 x10*3/uL (2.0-8.3); Neutrophils Percent Auto 56.1 % (45-73); Platelet Count 239 X10*3/uL (160-400); Red Blood Count 5.35 X10*6/uL (4.20-5.50); Red Cell Distribution Width 14.1 % (11.0-16.0); White Blood Count 6.5 X10*3/uL (4.8-10.8)
[2025-02-07 11:25] LABS: Iron 103 mcg/dL (30-160); Magnesium 1.7 mg/dL (1.6-2.6); Percent Iron Saturation 26 % (15-50); Total Iron Binding Capacity 390 mcg/dL (228-428); Unsaturated Iron Binding 287 ug/dL
== END 2025-02-07 08:23 | disposition home or self-care (01) ==
LOC: HO.LAB 08:22
PROVIDERS: Absent Provider Internal Medicine; PCP Internal Medicine
DX: L65.9 Nonscarring hair loss, unspecified (principal); R19.5 Other fecal abnormalities; R15.9 Full incontinence of feces; Z00.00 Encounter for general adult medical examination without abnormal findings
CPT/HCPCS: 36415; 83540; 83735; 84443; 85025; 96127; 99212

== ENCOUNTER 2025-02-07 08:22 | Outpatient (AMB) | payer MEDICARE, MEDICAID, SELFPAY ==
--- OUTSIDE RECORDS SUMMARY | 2025-01-22 05:20 | XMS_ITS | Continuity of Care Document ---
Author Organization [facility] Address [address] [address] Phone Care Team Providers Care Pipe Stress Engineer Name Role Phone Vinod BUENO, Aqib Unavailable [...] For Visit Diagnoses Date Provider [facility], [address] [address], [place], [place], [id number], [place] tel:[phone] [place] No Information Guy-0 2-202 5 Vinod Aqib. [address] [place], [place], [id number], [place]. tel:[phone] [facility], [address], [place], [place], [id number], [place] tel:[phone] [place] No Information - 5 Vinod Aqib. [address] [place], [place], [id number], [place]. tel:[phone] [facility], [address], [place], [place], [address], [place] tel:[phone] [place] No Information 5 Vinod Aqib. [address] [place], [id number], [place]. tel:[phone] [facility], [address], [place], [place], [address], [place] tel:[phone] [place] No Information 4 Vinod Aqib. [address] [place], [place], [id number], [place]. tel:[phone] [facility], [address], [place], [place], [id number], [place] tel:[phone] [place] No Information 4 Vinod Aqib. [address] [place], [place], [id number], [place]. tel:[phone] [facility], [address], [place], [place], [id number], [place] tel:[phone] [place] No Information 4 Vinod Aqib. [address] [place], [id number], [place]. tel:[phone] [facility], [address], [place], [place], [address], [place] tel:[phone] [place] No Information Oct-2 4-202 4 Vinod Aqib. [address] [place], [place], [id number], [place]. tel:[phone] [facility], 1 [facility], [place], [place], [id number], tel:[phone] [place] No Information 4 Omar Proctor. [address] [place], [place], [address], [place]. tel:[phone] [facility], 1 [facility], [place], [place], [id number], [place] tel:[phone] [place] No Information 4 Omar Proctor. [address] [place], [place], [id number], [place]. tel:[phone] [facility], [address], [id number], tel:[phone] [place] Semi-Annual (chief complaint) Schizophrenia, unspecified typeBipolar affective [...] nodulePsoriasis 4 Omar Proctor. [address] [place], [place], [id number], [place]. tel:[phone] [facility], [address], [place], [place], [id number], [place] tel:[phone] [place] No Information 4 Os Dawna. [address] [place], [place], [address], [place]. tel:[phone] [facility], [address], [place], [place], [id number], [place] tel:[phone] [place] No Information 4 Omar Esthela. [address] [place], [place], [address], [place]. tel:[phone] [facility], [address], [place], [place], [address], [place] tel:[phone] [place] Psoriasis 4 Omar Lingca. [address] [place], [place], [address], [place]. tel:[phone] [facility], [address], [place], [place], [address], [place] tel:[phone] [place] Acute Visit (chief complaint) Psoriasis 4 Omar Esthela. [address] [place], [place], [id number], [place]. tel:[phone] [facility], [address] [facility], [place], [place], [id number], [place] tel:[phone] [place] No Information 4 Pitsiladis . [address] [place], [place], [id number], [place]. tel:[phone] [facility], [address] [facility] [address] [address], [place], [place], [id number], [place] tel:[phone] [place] No Information 4 Os Dawna. [address] [place], [place], [id number], [place]. tel:[phone] [facility], [address], [place], [place], [id number], [place] tel:[phone] [place] No Information 4 Os Dawna. [address] [place], [place], [address], [place]. tel:[phone] [facility], 1 [facility], [place], [place], [address], [place] tel:[phone] [place] Acute Visit (chief complaint) Psoriasis 4 Os Dawna. [address] [place], [place], [address], [place]. tel:[phone] [facility], 1 [facility], [place], [place], [id number], [place] tel:[phone] [place] Acute Visit (chief complaint) Fungal dermatitis Guy- 4 Omar Esthela. [address] [place], [place], [address], [place]. tel:[phone] [facility], 1 [facility], [place], [place], [address], [place] tel:[phone] [place] FibromyalgiaAge-rela cory osteoporosis without current pathological fractureUnspecified osteoarthritis, unspecified site 4 Os Dawna. [address] [place], [place], [address], [place]. tel:[phone] [facility], 1 [facility], [place], [place], [address], [place] tel:[phone] [place] No Information 4 Omar Lingca. [address] [place], [place], [address], [place]. tel:[phone] [facility], 1 [facility], [place], [place], [address], [place] tel:[phone] [place] No Information 4 Os Dawna. [address] [place], [place], [id number], [place]. tel:[phone] [facility], [address], [place], [place], [id number], [place] tel:[phone] [place] Age-related osteoporosis without current pathological fracture 4 Os Dawna. [address] [place], [place], [address], [place]. tel:[phone] [facility], [address] [facility] [address], [place], [place], [address], [place] tel:[phone] No Information 4 Os Dawna. [address] [place], [place], [id number], [place]. tel:[phone] [facility], [address] [facility] [address], [place], [place], [address], [place] tel:[phone] [place] [phone] No Information 3 0 4 Os Dawna. [address] [place], [place], [id number], [place]. tel:[phone] [facility], [address] [facility], [place], [place], [address], [place] tel:[phone] [place] [phone] No Information 4 Os Dawna. [address] [place], [place], [id number], [place]. tel:[phone] [facility], [address] [facility] [address] [facility], [place], [place], [address], [place] tel:[phone] [place] [phone] No Information 4 Os Dawna. [address] [place], [place], [id number], [place]. tel:[phone] [facility], [address] [facility] [address], [place], [place], [address], [place] tel:[phone] [place] No Information 4 Os Dawna. [address] [place], [place], [address], [place]. tel:[phone] [facility], [address] [facility], [place], [place], [id number], [place] tel:[phone] [place] No Information Oct- 4 Os Dawna. [address] [place], [place], [address], [place]. tel:[phone] [facility], 1 [facility], [place], [place], [id number], [place] tel:[phone] [place] Encounter for rehabilitation evaluationHemiplegia and hemiparesis following unspecified cerebrovascular disease affecting left dominant sidePrimary generalized (osteo)arthritis 0 4 Brian Wallace. [address] [place], [place], [id number], [place]. tel:[phone] [facility], 1 [facility], [place], [place], [id number], [place] tel:[phone] [place] Encounter for rehabilitation evaluation 0 4 Gopi Campos. [address] [place], [place], [id number], [place]. tel:[phone] [facility], 1 [facility], [place], [place], [address], [place] tel:[phone] [place] Semi-Annual (chief complaint) Encounter for general adult [...] 0 4 Os Dawna. [address] [place], [place], [address], [place]. tel:[phone] [facility], [address], [place], [place], [id number], [place] tel:[phone] [place] Medication management 3 Omar Esthela. [address] [place], [place], [address], [place]. tel:[phone] [facility], [address], [place], [place], [address], [place] tel:[phone] [place] Follow-up (chief complaint) Pulmonary nodule 3 Omar Esthela. [address] [place], [place], [address], [place]. tel:[phone] [facility], [address], [place], [place], [address], [place] tel:[phone] [place] No Information 3 Omar Esthela. [address] [place], [place], [address], [place]. tel:[phone] [facility], [address] [facility], [place], [place], [address], [place] tel:[phone] [place] No Information 3 Os Dawna. [address] [place], [place], [address], [place]. tel:[phone] [facility], [address], [place], [place], [address], [place] tel:[phone] [place] OV (chief complaint) Pulmonary nodule 3 Omar Esthela. [address] [place], [place], [address], [place]. tel:[phone] [facility], [address], [place], [place], [address], [place] tel:[phone] [place] No Information 3 Omar Esthela. [address] [place], [place], [address], [place]. tel:[phone] [facility], 1 [facility], [place], [place], [address], [place] tel:[phone] [place] Semi-Annual (chief complaint) Schizophrenia, unspecified typeBipolar disorder [...] use of insulinChronic kidney disease, stage 2 (mild)longterm (current) use of insulinHypertensive renal disease, stage 1 through stage 4 or unspecified chronic kidney disease 3 Os Dawna. [address], [place], [address], [place]. tel:[phone] [facility], [address] [address], [place], [place], [address], [place] tel:[phone] [facility] 3 Os Dawna. [address] [place], [place], [address], [place]. tel:[phone] [facility], [address] [address], [place], [place], [address], [place] tel:[phone] [facility] 3 Os Dawna. [address] [place], [place], [address], [place]. tel:[phone] [facility], [address] [address], [place], [place], [address], [place] tel:[phone] [place] Encounter for rehabilitation evaluation 3 Isa Adonay. [address], [place], [address]. tel:[phone] [facility], [address] [facility] [address], [place], [place], [address], [place] tel:[phone] [place] Encounter for rehabilitation evaluationOther chronic painAlteration in performance of activities of daily living 3 Marco A Delcid. [address] [facility] [address] [place], [place], [id number]. tel:[phone] [facility], [address] [facility] [address], [place], [place], [address], [place] tel:[phone] [place] Osteoarthritis, unspecified osteoarthritis type, unspecified site 3 Os Dawna. [address], [place], [address], [place]. tel:[phone] [facility], 1 [facility], [place], [place], [address], [place] tel:[phone] [place] Encounter for nutritional assessmentDiabetes education, encounter forClass 1 obesity with serious comorbidity and body mass index (BMI) of 32.0 to 32.9 in adult, unspecified obesity typeBody mass index [BMI] 32.0-32.9, adult 3 Anton Anaya. [address], [place], [address], [place]. tel:[phone] [facility], 1 [facility] [address] [place] [address], [id number], [place] tel:[phone] [place] HUSSEIN (chief complaint) Schizophrenia, unspecified typeBipolar affective [...] esophagitis 3 Os Dawna. [address] [place], [place], [address], [place]. tel:[phone] [facility], [address] [facility] [facility], [place], [place], [address], [place] tel:[phone] [place] History of fracture 2 Os Dawna. [address] [place], [place], [address], [place]. tel:[phone] [facility], [address] [facility], [place], [place], [address], [place] tel:[phone] [place] Papular eczema 2 Os Dawna. [address] [place], [place], [address], [place]. tel:[phone] [facility], [address] [facility] [facility], [place], [place], [address], [place] tel:[phone] [place] No Information Apr-2 2 Os Dawna. [address] [place], [place], [address], [place]. tel:[phone] [facility], [address] [facility] [address] [facility], [place], [place], [address], [place] tel:[phone] [place] Obstructive sleep apnea Sep-2 2 Os Dawna. [address] [place], [place], [address], [place]. tel:[phone] [facility], [address] [facility] [address] [facility], [place], [place], [address], [place] tel:[phone] [place] No Information Feb-2 2 Os Dawna. [address] [place], [place], [address], [place]. tel:[phone] [facility], [address] [facility], [place], [place], [address], [place] tel:[phone] [place] Semiannual (chief complaint) Hypertension, unspecified typeHypercholesterolaem iaChronic kidney disease due to diabetes mellitusSchizophrenia, unspecified typeBipolar affective disorder, remission status unspecifiedGeneralized anxiety disorderPTSDOsteoporosi s, unspecified osteoporosis type, unspecified pathological fracture presenceCOPDPulmonary nodulePapular eczemaHealthcare maintenanceTobacco useChronic kidney disease, stage 3a 2 Os Dawna. [address] [facility] [address], [place], [place], [address], [place]. tel:[phone] [facility], [address] [facility], [place], [place], [address], [place] tel:[phone] [place] Encounter for nutritional assessmentDiabetes education, encounter forOther obesity 2 Normile Jaclyn. [address] [facility] [place], [place], [address], [place]. tel:[phone] [facility], [address] [facility], [place], [place], [address], [place] tel:[phone] [place] OV (chief complaint) Type 2 diabetesGeneralized anxiety disorderIntractable headache, unspecified chronicity pattern, unspecified headache typeNausea 2 Os Dawna. [address] [facility] [place], [address], [place]. tel:[phone] [facility], [address] [facility] [facility], [place], [place], [address], [place] tel:[phone] [place] Pulmonary nodule 2 Os Dawna. [address] [place], [place], [address], [place]. tel:[phone] [facility], [address] [facility] [address], [place], [place], [address], [place] tel:[phone] [place] No Information 2 Os Dawna. [address] [facility] [place], [place], [address], [place]. tel:[phone] [facility], 1 [facility], [place], [place], [address], [place] tel:[phone] [place] Encounter for nutritional assessment Sep-2 2 Normile Jaclyn. [address] [place], [place], [address], [place]. tel:[phone] [facility], [address] [facility] [address] [facility], [place], [place], [address], [place] tel:[phone] [place] PEE (chief complaint) Hypertension, unspecified typeHypercholesterolaem iaCataract of both eyes, unspecified cataract typeBipolar affective disorder, remission status unspecifiedGeneralized anxiety disorderPTSDHistory of fractureOsteoporosis, unspecified osteoporosis type, unspecified pathological fracture presenceCOPDPulmonary noduleHealthcare maintenance 2 Os Dawna. [address] [place], [place], [address], [place]. tel:[phone] [facility], 1 [facility], [place], [place], [address], [place] tel:[phone] [place] Muscle weakness (generalized)Encounter for rehabilitation evaluation b-0 2 Isa Adonay. [address] [place], [address]. tel:[phone] [facility], [facility], [place], [place], [address], [place] tel:[phone] [place] Encounter for rehabilitation evaluationAlteration in performance of activities of daily livingOther chronic pain b0 2 Marco A Delcid. 101 [facility], [place], [place], [address]. tel:[phone] [facility], 1 [facility], [place], [place], [address], [place] tel:[phone] [place] No Information b0 2 Juan Ramon Leyva. [address] [place], [place], [address], [place]. tel:[phone] [facility], [facility], [place], [place], [address], [place] tel:[phone] [place] Intake (chief complaint) No Information Steph Martinez. [address], [place], [place], [address], . tel:[phone] Family History Family Member Type Diagnosis Age [...] Insurance type Covered libertarian ID Authoriza dereck(s) [facility] 16 [id number] [facility] 16 [id number] [facility] 16 [id number] [facility] 16 [id number] [facility] 16 [id number] [facility] 16 [id number] [facility] 16 [id number] Social History Type Description Quantity Date Captured Comments Sex Female Smoking Status No Information Chief Complaint And Reason For Visit No Information Plan Of Treatment Date Type Action Status Referral Ordered: Referrals: Therapeutic Riding Instructor. Evaluate and treat Appointment date/timeframe: 02/07/2024 ordered Referral Ordered: Referrals: Orthopedic Surgery. Evaluate and treat ordered Referral Ordered: Referrals: Dentistry. Evaluate and treat ordered Referral Ordered: Referrals: Ophthalmology. Evaluate and treat ordered Referral Ordered: Referrals: Rheumatology. Evaluate and treat ordered Referral Ordered: Referrals: Obstetrics. Location: [facility]. Evaluate and treat ordered Referral Ordered: Referrals: [facility]- Dental Location: [facility]. Evaluate and treat ordered [...] Dentistry Appointment date/timeframe: 11/04/2022 ordered Referral Ordered: Referrals: Psychiatry Appointment date/timeframe: 10/23/2021 ordered Future Order: Radiology Order Ma mmogram (Diagnostic); Bilateral, incl computer-aided detection when performed (93891), Ordered on: Ordered History Of Present Illness [...] needs follow up-Psychiatrist: Trying to get into [facility]-Therapist: [facility]-Ortho: 12/2023- closed [...] lung nodules, COPD, hypotensionEXAM: NAD. mildly hypotensive, TAQG1lrew: repeat CT scan, encouraged fluids (she only [...] has been helping. Working on getting into [facility] (psychiatrist). Diagnoses Reviewed.Consults:-Dental: last seen in September- had cap; 05/05/23 [facility] appt-Vision: 12/25/22-Psychiatrist: Trying to get into [facility]-Therapist: [facility]-Pain management: 09/21/22- [...] seeing a prescriber Tena Reyna APRN in [place] and has followed with her for years. [...] for mail order and [facility] locally on [address]: she states the clonazepam comes from [facility]. She is considering changing to [facility] once she enrolls. Instructions Date Instruction Additional Infor mation colloidal oatmeal lotion PRN Rel ated to Psoriasis Chest CT 4RUL n odule resolved likely infectious/inflammatoryFew scattered pulmonary nodules meauring up to 3mm in LLL are unchangedAnnual imaging Related to Pulmonary nodule No concerns of this today. 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 Related to Osteoporosis, unspecified osteoporosis type, unspecified pathological fracture presence 03/2023: A1C- 7-Curre ntly on glipizide 2.5mg- increasing to 5mg daily Related to longterm (current) use of oral hypoglycemic drugs 03/2023Lipid [...] monthly. She is working on getting into [facility] for a psychiatrist. Currently- PCP is prescribing and sending medications. -Continue current med regimen- follow up w/ new psychiatrist may need medication adjustment Related to Generalized anxiety disorder Pt reports seeing Reinier ewing (therapist) [facility]. She is working on getting into [facility] for a psychiatrist. Currently- PCP is [...] monthly. She is working on getting into [facility] for a psychiatrist. Currently- PCP is [...] 08/2022 GFR 60-Avoid nephrotoxic medications Related to longterm (current) use of insulin Pt had recently star cory metformin on 10/22/21 though developed N/V. D/c'd metformin and started glipizide. Pt reports no GI symptoms and has been tolerating med change well.08/2022 A1C 6.7-Recheck A1C for semi todayNormal monofiliment exam. Seen by optho 12/2022. 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 Pt reports being [...] [facility] [place] referred [place] one of [...]
--- NOTE | 2025-02-07 08:30 | MHC.PC.OV ---
Vital Signs 02/07/25 08:32 Height 5 ft 11 in Weight 210 lb 4 oz BMI 29.3 BP 140/80 H Blood Pressure Location Lt brachial Position Sitting Pulse 85 Pulse Source Pulse Oximeter Temp 97.5 F Temp Source Temporal Artery Scan Pulse Oximetry (%) 98 Oxygen Delivery Method Room Air Intake Visit Reasons: Hair loss Intake Note: Patient is here to follow up on Hair loss. Hospital Plan Administrator: Not Required per policy Accompanied by: Self / Same As Patient Allergies azithromycin Allergy (Unknown, Verified 02/07/25 08:51) unknown denosumab (Prolia) Allergy (Unknown, Verified 02/07/25 08:51) vomiting lamotrigine Allergy (Unknown, Verified 02/07/25 08:51) rash lisinopril Allergy (Unknown, Verified 02/07/25 08:51) nausea and vomiting naproxen (Aleve) Allergy (Unknown, Verified 02/07/25 08:51) dizziness Medication List - Last Reconciled 02/07/25 by Jeanette Hopper PA-C albuterol sulfate 90 mcg/actuation 2 puffs inhalation Q4-6H PRN amlodipine 2.5 mg PO DAILY atorvastatin 80 mg PO DAILY 30 days cetirizine (Zyrtec) 10 mg PO DAILY cholecalciferol (vitamin D3) 25 mcg PO DAILY clonazepam (Klonopin) 1 mg PO TID fenofibrate 160 mg PO DAILY 90 days fluoxetine 20 mg PO BID fluoxetine 10 mg PO DAILY fluticasone propionate 50 mcg/actuation sprays intranasal furosemide 20 mg PO DAILY gabapentin 300 mg PO BID gabapentin 600 mg PO BEDTIME glipizide 5 mg PO DAILY propranolol ER 80 mg PO DAILY trazodone 25 mg PO BEDTIME ziprasidone HCl 40 mg PO BID ziprasidone HCl 20 mg PO BID Tobacco use date assessed: 02/07/25 Fall risk assessment: No Falls in past year Last assessed Fall Risk: 02/07/25 Dental Screening Dental Screen Date: 11/21/24 HPI Hair loss HPI Details 69-year-old female with past medical history of anxiety, depression, diabetes mellitus, hypertension, COPD, hypercholesterolemia, osteoporosis last seen by nurse practitioner 11/2024 coming in for acute problem. Presenting with hair loss and bowel incontinence. 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 Bowel incontinence began a couple of months ago, characterized by involuntary fluid leakage, which has improved recently. The patient reports diarrhea and thin stools occurring once or twice a week. Preventative care includes a due colonoscopy, as the patient had cancerous polyps in the past. [facility] Medical History Nicotine dependence, cigarettes, uncomplicated Bilateral lower extremity pain Hx of gastritis Hx of allergic rhinitis Migraines Tubular adenoma of colon Pulmonary nodule Osteoporosis Right humeral fracture Hip fracture, right Bipolar disorder Fibromyalgia Thyroid cyst Vitamin D deficiency Obesity (BMI 30-39.9) Hypercholesterolemia Hypertension COPD (chronic obstructive pulmonary disease) Anxiety and depression Type 2 diabetes mellitus with hyperglycemia Surgical History History of cholecystectomy History of total abdominal hysterectomy and bilateral salpingo-oophorectomy History of colonoscopy Deficient knowledge of leg surgery History of shoulder surgery History of hip surgery History of esophagogastroduodenoscopy (EGD) H/O right knee surgery Herniated nucleus pulposus Family History Father Hypertension Cancer Esophageal cancer Mother Hypertension Maternal Aunt Stomach cancer Son Substance abuse Social History Housing: House Alcohol intake: current Alcohol intake frequency: a few times a month Patient Tobacco Use Status: Current everyday Tobacco user Tobacco use type: Cigarette Cigarette Packs Per Day: 0.5 Cigarettes Per Day: 10 Years Smoked: (onset 15yo, 1/2-1ppd x 53yrs, 35+PYH); Quit- 10/2024 e-Cigarette/Vaping Use: Never Used Second Hand Smoke Exposure: Yes service: No Current occupational status: employed Cognitive needs: No Hearing needs: No Vision needs: Yes Questionnaire PHQ-9 Over the last 2 weeks, how often have you been bothered by any of the following problems? 1. Little interest or pleasure in doing things: nearly every day 2. Feeling down, depressed, or hopeless: nearly every day 3. Trouble falling or staying asleep, or sleeping too much: not at all 4. Feeling tired or having little energy: not at all 5. Poor appetite or overeating: not at all 6. Feeling bad about yourself - or that you are a failure or have let yourself or your family down: not at all 7. Trouble concentrating on things, such as reading the newspaper or watching television: not at all 8. Moving or speaking so slowly that other people could have noticed. Or the opposite - being so fidgety or restless that you have been moving around a lot more than usual: not at all 9. Thoughts that you would be better off or of hurting yourself in some way: not at all Total score: 6 Depression Screening Interpretation: Positive Depression Screening Done: Yes Source: Developed by Drs. Tan Galan, Kizzy Colmenares, Kwadwo Lim and colleagues, with an educational ravindra from [employer]. Thrive Questionnaire Date Thrive assessed: 11/21/24 I am a: Patient What is your living situation today?: I have a steady place to live Within the past 12 months, did the food you bought not last and you didn't have the money to get more?: Never true Within the past 12 months, did you worry whether your food would run out before you got money to buy more?: Never true Do you have trouble paying for medicines?: No Do you have trouble getting transportation to medical appointments?: No Do you have trouble paying your heating and electricity bill?: No Do you have trouble taking care of your child, family member or friend?: No Do you have trouble with day-to-day activities such as bathing, preparing meals, shopping, managing finances, etc.?: No Are you currently unemployed and looking for a job?: No Are you interested in more education?: No Please select the resources that you would like help with: None Currently or been in a relationship where the following occur: No concerns reported THRIVE Score: 0 AUDIT C Alcohol Use Questionnaire (AUDIT-C) 1. How often do you have a drink containing alcohol?: 2-3 times a week 2. How many drinks containing alcohol do you have on a typical day when you are drinking?: 1 or 2 3. How often do you have six or more drinks on one occasion?: Never Total Score: 3 DINORAH-7 AMB Questionnaire DINORAH-7 Date DINORAH - 7 assessed: 02/07/25 Feeling nervous, anxious, or on edge: 3 = Nearly every day Not being able to stop or control worryin = Nearly every day Worrying too much about different things: 3 = Nearly every day Trouble relaxin = Nearly every day Being so restless that it is hard to sit still: 0 = Not at all Becoming easily annoyed or irritable: 0 = Not at all Feeling afraid as if something awful might happen: 0 = Not at all Total DINORAH-7 score (0-4 normal; 5-9 mild; 10-14 moderate; 15-21 severe): 12 Source: Developed by Drs. Tan Galan, Kizzy Colmenares, Kwadwo Lim and colleagues, with an educational ravindra from [employer]. Review of Systems Const Denies body aches, Denies chills, Denies fever(s), Denies headache(s) and Denies poor appetite Eyes Reports no additional complaints ENT Denies dizziness and Denies headache(s) Card Denies chest pain, Denies lightheadedness and Denies dyspnea Resp Denies dyspnea GI Denies abdominal pain, Reports change in bowel habits, Denies constipation, Reports fecal incontinence, Denies diarrhea, Denies nausea and Denies vomiting Reports no additional complaints Musc Reports no additional complaints and Denies abnormal gait Skin/Breast Reports system reviewed and no additional complaints, except as documented Neuro Denies abnormal gait, Denies dizziness and Denies headache(s) Psych Reports no additional complaints Physical exam (Primary Care) Vital Signs: Last Vital Signs Temp 97.5 F 02/07/25 08:32 Pulse 85 02/07/25 08:32 BP 140/80 H 02/07/25 08:32 Pulse Ox 98 02/07/25 08:32 Oxygen Delivery Method Room Air 02/07/25 08:32 BMI result Body Mass Index 29.3 Tobacco/Smoking Status: Tobacco use Status Tobacco use date assessed 02/07/25 02/07/25 08:41 Patient Tobacco Use Status Current everyday Tobacco 02/07/25 08:41 Tobacco use type Cigarette 02/07/25 08:41 e-Cigarette/Vaping Use Never Used 02/07/25 08:41 PHQ-9: PHQ-9 Score PHQ-9: Total score 6 02/07/25 08:41 Depression Screening Interpretation: Positive Thrive Assessment: Date of Thrive Assessment Date Thrive assessed 11/21/24 02/07/25 08:41 Currently or been in a relationship where the following occur: No concerns reported Const General: cooperative, healthy appearing, comfortable and no acute distress Orientation/consciousness: patient oriented x3 HENMT Head: Yes normocephalic Ears: hearing grossly normal bilaterally General nose exam: Normal external nose present Eyes General: appearance normal, both eyes and all related structures Conjunctivae: conjunctivae normal Neck Neck: Yes full ROM and Yes no lymphadenopathy Resp Effort & Inspection: normal respiratory effort Auscultation: clear to auscultation bilaterally, no crackles, no rales, no rhonchi and no wheezes Cardio Rate: regular rate Rhythm: regular rhythm Skin General skin exam: no rashes or lesions noted Neuro General: patient oriented x3 Gait exam (Neuro): Normal gait present Extrem General: Yes normal to inspection, Yes full ROM and No edema Psych Affect: normal affect Attitude: cooperative Insight: Good insight present (Psych) Judgement: Good judgement present (Psych) Coding Level of Care Code Est Pt Level 3 (68520) Diagnoses Hair loss L65.9 Change in stool caliber R19.5 Bowel incontinence R15.9 Assessment & Plan Assessment & Plan (1) Hair loss: Code(s): L65.9 - Nonscarring hair loss, unspecified Category: Medical Plan: Plan to order for blood work for further evaluation. I did discuss with the patient due to her increased stress levels this may contribute to hair thinning. Advised topical minoxidil to be used at least 2-3 times per week and referral was placed to Dermatology for further evaluation. (2) Change in stool caliber: Code(s): R19.5 - Other fecal abnormalities Category: Medical Plan: Patient reporting change in stool caliber having thin stools at least 1-2 times per week. He is also reporting occasional stool leakage requiring the use of pads. She does not report feeling the sensation of having to use the bathroom but could feel on the stool was passed. She notes this has improved however she does still have the change in stool caliber. Her last colonoscopy was 2019 and she was due to repeat in 5 years. Referral was placed to GI today (3) Bowel incontinence: Code(s): R15.9 - Full incontinence of feces Category: Medical Plan: See above plan. Plan The plan includes ordering repeat thyroid function tests and vitamin levels to investigate the cause of hair loss and dry skin. Minoxidil, a topical treatment, has been prescribed for hair loss, and a referral to dermatology has been made in case the condition persists. The patient is advised to monitor her hydration levels as a potential factor for dry skin. For bowel incontinence and changes in stool consistency, a referral to a advanced practice nurse is planned, and a colonoscopy is recommended due to the patient's history of pre-cancerous polyps. The patient is advised to keep track of her symptoms and report any changes. The patient is currently under the care of a vascular specialist for leg pain, and follow-up with this specialist is ongoing. This note was constructed using voice recognition software. While every effort has been made to ensure accuracy and government affairs director, still areas may have been included sometimes these areas may affect the content or meeting of the given symptoms. Total time spent caring for the patient today was 20 minutes. This includes time spent before the visit reviewing the chart, time spent during the visit, and time spent after the visit and documentation. Patient was informed and verbally consented to the use of an ambient scribe for clinic note documentation during this visit. Orders: Orders IRON PROFILE Today L65.9 - Nonscarring hair loss, unspecified TSH reflex Free T4 Today L65.9 - Nonscarring hair loss, unspecified, Z00.00 - Encounter for general adult medical examination without abnormal findings Magnesium Today L65.9 - Nonscarring hair loss, unspecified Complete Blood Count Auto Diff Today L65.9 - Nonscarring hair loss, unspecified, Z00.00 - Encounter for general adult medical examination without abnormal findings Referrals Dermatology Referral L65.9 - Nonscarring hair loss, unspecified Gastroenterology Referral R15.9 - Full incontinence of feces, R19.5 - Other fecal abnormalities Medications: New fluticasone propion-salmeterol 100-50 mcg/dose (Advair Diskus) 1 inh inhalation BID 60 ea 0RF minoxidil 5% (Daylogic Minoxidil) 1 ea topical DAILY 60 grams 0RF Refilled albuterol sulfate 90 mcg/actuation 2 puffs inhalation Q4-6H PRN 8.5 grams 4RF shortness of breath or wheezing J43.9 - Emphysema, unspecified
[2025-02-07 08:32] VITALS: BP 140/80; PULSE 85; TEMP 36.4; O2SAT 98; BMI 29.3
== END 2025-02-07 09:20 | disposition home or self-care (01) ==
LOC: HO.HMCH 08:23
PROVIDERS: PCP Internal Medicine
DX: L65.9 Nonscarring hair loss, unspecified (principal); R19.5 Other fecal abnormalities; R15.9 Full incontinence of feces

== ENCOUNTER 2025-02-13 09:08 | Outpatient (AMB) | payer MEDICARE, MEDICAID, SELFPAY ==
--- OUTSIDE RECORDS SUMMARY | 2025-01-22 05:20 | XMS_ITS | Continuity of Care Document ---
Author Organization [facility] Address [address] [address] Phone Care Team Providers Care Director Talent Acquisition Name Role Phone Vinod BUENO, Aqib Unavailable [...] Location Reason(s) For Visit Diagnoses Date Provider [facility], [address] [address], [place], [place], [id number], [place] tel:[phone] [place] No Information Guy-0 2-202 5 Vinod Aqib. [address] [place], [place], [id number], [place]. tel:[phone] [facility], [address], [place], [place], [id number], [place] tel:[phone] [place] No Information - 5 Vinod Aqib. [address] [place], [place], [id number], [place]. tel:[phone] [facility], [address], [place], [place], [id number], [place] tel:[phone] [place] No Information 5 Vinod Aqib. [address] [place], [id number], [place]. tel:[phone] [facility], [address], [place], [place], [id number], [place] tel:[phone] [place] No Information 4 Vinod Aqib. [address] [place], [place], [id number], [place]. tel:[phone] [facility], [address], [place], [place], [id number], [place] tel:[phone] [place] No Information 4 Vinod Aqib. [address] [place], [place], [id number], [place]. tel:[phone] [facility], [address], [place], [place], [id number], [place] tel:[phone] [place] No Information 4 Vinod Aqib. [address] [place], [id number], [place]. tel:[phone] [facility], [address], [place], [place], [id number], [place] tel:[phone] [place] No Information Oct-2 4-202 4 Vinod Aqib. [address] [place], [place], [id number], [place]. tel:[phone] [facility], [facility] [place] [place], [place], [place], [id number], tel:[phone] [place] No Information 4 mOar Proctor. [address] [place], [place], [id number], [place]. tel:[phone] [facility], [address] [facility] [place] [place], [place], [place], [id number], [place] tel:[phone] [place] No Information 4 Omar Proctor. [address] [place], [place], [id number], [place]. tel:[phone] [facility], [address], [id number], tel:[phone] [place] Semi-Annual (chief complaint) Schizophrenia, unspecified typeBipolar affective [...] nodulePsoriasis 4 Omar Proctor. [address] [place], [place], [id number], [place]. tel:[phone] [facility], [address], [place], [place], [id number], [place] tel:[phone] [place] No Information 4 Os Dawna. [address] [place], [place], [id number], [place]. tel:[phone] [facility], [address], [place], [place], [id number], [place] tel:[phone] [place] No Information 4 Omar Esthela. [address] [place], [place], [id number], [place]. tel:[phone] [facility], [address], [place], [place], [id number], [place] tel:[phone] [place] Psoriasis 4 Omar Lingca. [address] [place], [place], [id number], [place]. tel:[phone] [facility], [address], [place], [place], [id number], [place] tel:[phone] [place] Acute Visit (chief complaint) Psoriasis 4 Omar Esthela. [address] [place], [place], [id number], [place]. tel:[phone] [facility], [address] [facility] [place] [facility] [place], [place], [place], [id number], [place] tel:[phone] [place] No Information 4 Pitsiladis . [address] [place], [place], [id number], [place]. tel:[phone] [facility], [address] [facility], [place], [place], [id number], [place] tel:[phone] [place] No Information 4 Os Dawna. [address] [place], [place], [id number], [place]. tel:[phone] [facility], [address], [place], [place], [id number], [place] tel:[phone] [place] No Information 4 Os Dawna. [address] [place], [place], [id number], [place]. tel:[phone] [facility], [facility] [place] [facility] [place], [place], [place], [id number], [place] tel:[phone] [place] Acute Visit (chief complaint) Psoriasis 4 Os Dawna. [address] [place], [place], [id number], [place]. tel:[phone] [facility], [address] [facility] [place] [facility] [place], [place], [id number], [place] tel:[phone] [place] Acute Visit (chief complaint) Fungal dermatitis Guy- 4 Omar Esthela. [address] [place], [place], [id number], [place]. tel:[phone] [facility], [address] [facility] [place] [facility] [place], [place], [place], [id number], [place] tel:[phone] [place] FibromyalgiaAge-rela cory osteoporosis without current pathological fractureUnspecified osteoarthritis, unspecified site 4 Os Dawna. [address] [place], [place], [id number], [place]. tel:[phone] [facility], [address] [facility] [place] [facility] [place], [place], [id number], [place] tel:[phone] [place] No Information 4 Omar Lingca. [address] [place], [place], [id number], [place]. tel:[phone] [facility], [address] [facility] [place] [facility] [place], [place], [place], [id number], [place] tel:[phone] [place] No Information 4 Os Dawna. [address] [place], [place], [id number], [place]. tel:[phone] [facility], [address], [place], [place], [id number], [place] tel:[phone] [place] Age-related osteoporosis without current pathological fracture 4 Os Dawna. [address] [place], [place], [id number], [place]. tel:[phone] [facility], [address] [facility] [address], [place], [place], [id number], [place] tel:[phone] [address] No Information 4 Os Dawna. [address] [place], [place], [id number], [place]. tel:[phone] [facility], [address] [facility], [place], [place], [id number], [place] tel:[phone] [place] [address] No Information 3 0 4 Os Dawna. [address] [place], [place], [id number], [place]. tel:[phone] [facility], [address] [facility] [place] [facility] [place], [place], [place], [id number], [place] tel:[phone] [place] [address] No Information 4 Os Dawna. [address] [place], [place], [id number], [place]. tel:[phone] [facility], [address] [facility] [facility] [place] [facility] [place], [place], [id number], [place] tel:[phone] [place] [address] No Information 4 Os Dawna. [address] [place], [place], [id number], [place]. tel:[phone] [facility], [address] [facility], [place], [place], [id number], [place] tel:[phone] [place] No Information 4 Os Dawna. [address] [place], [place], [id number], [place]. tel:[phone] [facility], [address] [facility] [place] [facility] [place], [place], [id number], [place] tel:[phone] [place] No Information Oct- 4 Os Dawna. [address] [place], [place], [id number], [place]. tel:[phone] [facility], [address] [facility] [place] [facility] [place], [place], [place], [id number], [place] tel:[phone] [place] Encounter for rehabilitation evaluationHemiplegia and hemiparesis following unspecified cerebrovascular disease affecting left dominant sidePrimary generalized (osteo)arthritis 0 4 Brian Wallace. [address] [place], [place], [id number], [place]. tel:[phone] [facility], [address] [facility] [place] [facility] [place], [place], [place], [id number], [place] tel:[phone] [place] Encounter for rehabilitation evaluation 0 4 Gopi Campos. [address] [place], [place], [id number], [place]. tel:[phone] [facility], [address] [facility] [place] [facility] [place], [place], [place], [id number], [place] tel:[phone] [place] Semi-Annual (chief complaint) Encounter for general adult medical examination without abnormal findingsSchizophrenia, unspecified typeBipolar affective disorder, remission status unspecifiedGeneralized anxiety disorderPTSD (post-traumatic stress disorder)Hypercholester olaemiaLong term (current) use of oral hypoglycemic drugsType 2 diabetes mellitus with diabetic chronic kidney disease, unspecified CKD stage, unspecified whether tank terminal gauger insulin useOsteoporosis, unspecified osteoporosis type, unspecified pathological fracture presenceGastroesophagea l reflux disease without esophagitisStage 2 chronic kidney diseaseHypertensive renal disease, stage 1 through stage 4 or unspecified chronic kidney diseaseChronic obstructive pulmonary disease, unspecified COPD typePulmonary noduleTobacco useObstructive sleep apneaType 2 diabetes mellitus with peripheral vascular disease 0 4 Os Dawna. [address] [place], [place], [id number], [place]. tel:[phone] [facility], [address], [place], [place], [id number], [place] tel:[phone] [place] Medication management 3 Omar Esthela. [address] [place], [place], [id number], [place]. tel:[phone] [facility], [address], [place], [place], [id number], [place] tel:[phone] [place] Follow-up (chief complaint) Pulmonary nodule 3 Omar Esthela. [address] [place], [place], [id number], [place]. tel:[phone] [facility], [address], [place], [place], [id number], [place] tel:[phone] [place] No Information 3 Omar Esthela. [address] [place], [place], [id number], [place]. tel:[phone] [facility], [address] [facility] [facility] [place] [facility] [place], [place], [id number], [place] tel:[phone] [place] No Information 3 Os Dawna. [address] [place], [place], [id number], [place]. tel:[phone] [facility], [address], [place], [place], [id number], [place] tel:[phone] [place] OV (chief complaint) Pulmonary nodule 3 Omar Esthela. [address] [place], [place], [id number], [place]. tel:[phone] [facility], [address], [place], [place], [id number], [place] tel:[phone] [place] No Information 3 Omar Esthela. [address] [place], [place], [id number], [place]. tel:[phone] [facility], [address] [facility] [place] [facility] [place], [place], [id number], [place] tel:[phone] [place] Semi-Annual (chief complaint) Schizophrenia, unspecified typeBipolar disorder [...] use of insulinChronic kidney disease, stage 2 (mild)assisted (current) use of insulinHypertensive renal disease, stage 1 through stage 4 or unspecified chronic kidney disease 3 Os Dawna. [address] [place], [place], [id number], [place]. tel:[phone] [facility], [address] [address], [place], [place], [id number], [place] tel:[phone] [facility] 3 Os Dawna. [address] [place], [place], [id number], [place]. tel:[phone] [facility], [address] [address], [place], [place], [id number], [place] tel:[phone] [facility] 3 Os Dawna. [address] [place], [place], [id number], [place]. tel:[phone] [facility], [address] [address], [place], [place], [id number], [place] tel:[phone] [place] Encounter for rehabilitation evaluation 3 Isa Adonay. [address], [place], [address]. tel:[phone] [facility], [address] [facility] [address] [place] [facility] [place], [place], [place], [id number], [place] tel:[phone] [place] Encounter for rehabilitation evaluationOther chronic painAlteration in performance of activities of daily living 3 Marco A Delcid. [address] [facility] [address] [place], [place], [id number]. tel:[phone] [facility], [address] [facility] [address] [facility] [place] [place], [place], [place], [id number], [place] tel:[phone] [place] Osteoarthritis, unspecified osteoarthritis type, unspecified site 3 Os Dawna. [address], [place], [id number], [place]. tel:[phone] [facility], [address] [facility] [place] [facility] [place], [place], [address], [place] tel:[phone] [place] Encounter for nutritional assessmentDiabetes education, encounter forClass 1 obesity with serious comorbidity and body mass index (BMI) of 32.0 to 32.9 in adult, unspecified obesity typeBody mass index [BMI] 32.0-32.9, adult 3 Anton Anaya. [address] [place], [place], [id number], [place]. tel:[phone] [facility], [address] [facility] [address] [place] [address], [id number], [place] tel:[phone] [place] HUSSEIN (chief complaint) Schizophrenia, unspecified typeBipolar affective disorder, remission status unspecifiedGeneralized anxiety disorderPTSDHypercholes terolaemiaType 2 diabetes mellitus with diabetic chronic kidney disease, unspecified CKD stage, unspecified whether tank terminal gauger insulin useOsteoporosis, unspecified osteoporosis type, unspecified pathological fracture presenceChronic kidney disease, stage 2 (mild)Hypertensive chronic kidney disease with stage 1 through stage 4 chronic kidney disease, or unspecified chronic kidney diseaseCOPDPulmonary noduleTobacco useFibromyalgiaGastroes ophageal reflux disease without esophagitis 3 Os Dawna. [address] [place], [place], [id number], [place]. tel:[phone] [facility], [address] [facility] [address] [facility] [place] [place], [place], [place], [id number], [place] tel:[phone] [place] History of fracture 2 Os Dawna. [address] [place], [place], [id number], [place]. tel:[phone] [facility], [address] [facility] [address] [place] [facility] [place], [place], [place], [address], [place] tel:[phone] [place] Papular eczema 2 Os Dawna. [address] [place], [place], [id number], [place]. tel:[phone] [facility], [address] [facility] [address] [facility] [place] [place], [place], [address], [place] tel:[phone] [place] No Information Apr-2 2 Os Dawna. [address] [place], [place], [id number], [place]. tel:[phone] [facility], [address] [facility] [address] [facility] [place] [place], [place], [place], [id number], [place] tel:[phone] [place] Obstructive sleep apnea Sep-2 2 Os Dawna. [address] [place], [place], [address], [place]. tel:[phone] [facility], [address] [facility] [address] [facility] [place] [place], [place], [place], [id number], [place] tel:[phone] [place] No Information Feb-2 2 Os Dawna. [address] [place], [place], [id number], [place]. tel:[phone] [facility], [address] [facility] [address] [place] [facility] [place], [place], [place], [id number], [place] tel:[phone] [place] Semiannual (chief complaint) Hypertension, unspecified typeHypercholesterolaem iaChronic kidney disease due to diabetes mellitusSchizophrenia, unspecified typeBipolar affective disorder, remission status unspecifiedGeneralized anxiety disorderPTSDOsteoporosi s, unspecified osteoporosis type, unspecified pathological fracture presenceCOPDPulmonary nodulePapular eczemaHealthcare maintenanceTobacco useChronic kidney disease, stage 3a 2 Os Dawna. [address] [facility] [address], [place], [place], [id number], [place]. tel:[phone] [facility], [address] [facility] [address] [place] [facility] [place], [place], [place], [id number], [place] tel:[phone] [place] Encounter for nutritional assessmentDiabetes education, encounter forOther obesity 2 Normile Jaclyn. [address] [facility] [place], [id number], [place]. tel:[phone] [facility], [address] [facility] [address] [facility] [place] [facility] [place], [place], [place], [id number], [place] tel:[phone] [place] OV (chief complaint) Type 2 diabetesGeneralized anxiety disorderIntractable headache, unspecified chronicity pattern, unspecified headache typeNausea 2 Os Dawna. [address] [facility] [place], [id number], [place]. tel:[phone] [facility], [address] [facility] [address] [facility] [place] [facility] [place], [place], [place], [id number], [place] tel:[phone] [place] Pulmonary nodule 2 Os Dawna. [address] [place], [place], [id number], [place]. tel:[phone] [facility], [address] [facility] [address] [facility] [place] [place], [place], [place], [address], [place] tel:[phone] [place] No Information 2 Os Dawna. [address] [facility] [place], [id number], [place]. tel:[phone] [facility], [address] [facility] [place] [facility] [place], [place], [place], [id number], [place] tel:[phone] [place] Encounter for nutritional assessment Sep-2 2 Normile Jaclyn. [address] [place], [place], [id number], [place]. tel:[phone] [facility], [address] [facility] [address] [facility] [place] [facility] [place], [place], [place], [address], [place] tel:[phone] [place] PEE (chief complaint) Hypertension, unspecified typeHypercholesterolaem iaCataract of both eyes, unspecified cataract typeBipolar affective disorder, remission status unspecifiedGeneralized anxiety disorderPTSDHistory of fractureOsteoporosis, unspecified osteoporosis type, unspecified pathological fracture presenceCOPDPulmonary noduleHealthcare maintenance 2 Os Dawna. [address] [place], [place], [id number], [place]. tel:[phone] [facility], [address] [facility] [place] [facility] [place], [place], [place], [id number], [place] tel:[phone] [place] Muscle weakness (generalized)Encounter for rehabilitation evaluation b-0 2 Isa Adonay. [address] [place], [address]. tel:[phone] [facility], [address] [facility] [place] [facility] [place], [place], [id number], [place] tel:[phone] [place] Encounter for rehabilitation evaluationAlteration in performance of activities of daily livingOther chronic pain b0 2 Marco A Delcid. 101 [facility], [place], [place], [address]. tel:[phone] [facility], [address] [facility] [place] [facility] [place], [place], [place], [id number], [place] tel:[phone] [place] No Information b0 2 Juan Ramon Leyva. [address] [place], [place], [id number], [place]. tel:[phone] [facility], [address] [facility] [place] [facility] [place], [place], [id number], [place] tel:[phone] [place] Intake (chief complaint) No Information Steph Martinez. [address], [place], [place], [id number], . tel:[phone] Family History Family Member Type Diagnosis Age [...] Insurance type Covered alliance party ID Authoriza dereck(s) [facility] 16 [id number] [facility] 16 [id number] [facility] 16 [id number] [facility] 16 [id number] [facility] 16 [id number] [facility] 16 [id number] [facility] 16 [id number] Social History Type Description Quantity Date Captured Comments Sex Female Smoking Status No Information Chief Complaint And Reason For Visit No Information Plan Of Treatment Date Type Action Status Referral Ordered: Referrals: Transfer Professor. Evaluate and treat Appointment date/timeframe: 02/07/2024 ordered Referral Ordered: Referrals: Orthopedic Surgery. Evaluate and treat ordered Referral Ordered: Referrals: Dentistry. Evaluate and treat ordered Referral Ordered: Referrals: Ophthalmology. Evaluate and treat ordered Referral Ordered: Referrals: Rheumatology. Evaluate and treat ordered Referral Ordered: Referrals: [facility]- [facility] Location: [facility] [place]. Evaluate and treat ordered Referral Ordered: Referrals: Obstetrics. Location: [facility] [place]. Evaluate and treat ordered Referral Ordered: Referrals: [...] (Diagnostic); Bilateral, incl computer-aided detection when performed (99978), Ordered on: Ordered History Of Present Illness [...] needs follow up-Psychiatrist: Trying to get into [facility]-Therapist: [facility]tof [facility]-Ortho: 12/2023- closed [...] lung nodules, COPD, hypotensionEXAM: NAD. mildly hypotensive, [id number]: repeat CT scan, encouraged fluids (she only [...] has been helping. Working on getting into [facility] (psychiatrist). Diagnoses Reviewed.Consults:-Dental: last seen in September- had cap; 05/05/23 [facility] appt-Vision: 12/25/22-Psychiatrist: Trying to get into [facility]-Therapist: Krzysztof delarosa [facility] monthly-Pain management: 09/21/22- did not feel [...] Full code-HCP: Not invoked- Debbies (sister) and Tesfaey (boyfriend)-What matters most to you?/ What makes [...] monthsWMM:-Advance Directives reviewed: Full code-HCP: Not invoked- Debnancy (sister) and Tesfaye (boyfriend)-What matters most to [...] seeing a prescriber Tena Reyna APRN in [place] and has followed with her for years. [...] for mail order and [facility] locally on [address]: she states the clonazepam comes from [employer]. She is considering changing to [facility] once she enrolls. Instructions Date Instruction [...] Related to Primary osteoarthritis involving multiple joints History of cataracts in shanna eyes r/t [...] Related to Gastroesophageal reflux disease without esophagitis cont supplementslabs today Relat ed to Vitamin D deficiency 01/2022 Dexa: Impress ion: The patient has [...] disease, without long-term current use of insulin R/t hx of diabetes, tobacco use, and sedentary lifestyleBil LE shiny, dry, hairlessDecreased pedal pulses upon exam-Continue to monitor Related to Diabetic peripheral vascular disease Labs todaycont glipi zidebaseline GFR 60savoid nephrotoxins, encourage BS control Related to Chronic kidney disease, stage 2 (mild) Continues A1C elevat edrepeat labs todaycont glipizide 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 She smokes marijuana 1-2x/day. Related to Tobacco use CT 03/2023: stable 4m m nodule in [facility]. Approximately 7 new pulm nodules. Consider f/u CT in 1 year.[address] is in place Related to Pulmonary nodule Pt is a smoker Momo e I was 13 years old I [...] type, unspecified pathological fracture presence 03/2023: A1C- 7Increa sed glipizidePt had recently started metformin on 10/22/21 though developed N/V. D/c'd metformin and started glipizide. Pt reports no GI symptoms and has been tolerating med change well.Normal monofiliment exam. Seen by optho 12/2022- seeing in 02/2024.03/2023 GFR 62-Avoid nephrotoxic medications Related to Type 2 diabetes mellitus with diabetic chronic kidney disease, unspecified CKD stage, unspecified whether jail insulin use 03/2023: A1C- 7-Curre ntly on glipizide 2.5mg- increasing to 5mg daily Related to assisted (current) use of oral hypoglycemic drugs 03/2023Lipid [...] Chronic obstructive pulmonary disease, unspecified COPD type Headaches in the [facility] x of COPDNo longer wants to do a sleep study Related to Obstructive sleep apnea Pt is a smoker sinc e I was 13 years old I have been smoking 1ppd . She smokes marijuana 1-2x/day. Related to Tobacco use Identifies good supp ort system including friends [...] monthly. She is working on getting into [facility] for a psychiatrist. Currently- PCP is prescribing and sending medications. -Continue current med regimen- follow up w/ new psychiatrist may need medication adjustment Related to Generalized anxiety disorder Pt reports seeing Reinier ewing (therapist) [facility]. She is working on getting into [facility] for a psychiatrist. Currently- PCP is [...] monthly. She is working on getting into [facility] for a psychiatrist. Currently- PCP is [...] GFR 60-Avoid nephrotoxic medications Related to terminal superintendent (current) use of insulin 08/2022: A1C- 6.7Continue glipizi de Related to terminal superintendent (current) use of oral hypoglycemic drugs Rhem [...] kidney disease, or unspecified chronic kidney disease 01/2022 Dexa: Impress ion: The patient has [...] kidney disease, unspecified CKD stage, unspecified whether jail insulin use 02/2022: GFR 64Avoid nephrotoxic medications Related to Chronic kidney disease, stage 2 (mild) Identifies good supp ort system including boyfriend [...] medication adjustment Related to Generalized anxiety disorder 02/25/2022:Lipid ratio - 6.6Increased lipitor from 20mg [...] to PTSD Per preenrollment re cords. Pt is a smoker since I was 13 years old I have been smoking 1ppd . She smokes marijuana a couple times a week . Educated on trying other alternatives such as marijuana gummies if she plans on smoking. Never used oxygen.Continue proair as needed Related to COPD Per preenrollment re cords. Pt reports being on prolia injections in the past. She reports having bone density scans though the last one was a long time ago . Hx of multiple fractures. Plan: Order in place for bone density. Vit D level ordered; may consider vit D/calcium combo Related to Osteoporosis, unspecified osteoporosis type, unspecified pathological fracture presence Per patient, she rep orts a pulmonary [...] [facility] [place] [...]
[2025-02-13 09:15] VITALS: BMI 29.3
--- NOTE | 2025-02-13 09:15 | A.OFFVIS_ITS ---
Vital Signs 02/13/25 09:15 Height 5 ft 11 in Weight 210 lb BMI 29.3 Intake Visit Reasons: follow up s/p Arterial US 01/25/25 Intake Note: follow up arterial US 01/25/25 for Bilateral LE heaviness Right LE wors espinoza the Left LE started 4 months ago and getting worse, states she is unable to go up stairs now. Pt states heaviness in bilateral LE all the time. 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 She reports leg pain for the last three years, particularly affecting her right leg and hip, which impairs her ability to walk and climb stairs. She was referred to a vascular specialist by [facility]. The patient has been diagnosed with diabetes mellitus for approximately one year, with a hemoglobin A1c of 7.5%. She smokes half a pack of tobacco daily, contributing to her vascular risk profile. The patient also suffers from lower back pain, which limits her ability to stand for extended periods. The pain radiates down her thigh, indicating a potential nerve involvement. [facility] Medical History Nicotine dependence, cigarettes, uncomplicated Bilateral lower extremity pain Hx of gastritis Hx of allergic rhinitis Migraines Tubular adenoma of colon Pulmonary nodule Osteoporosis Right humeral fracture Hip fracture, right Bipolar disorder Fibromyalgia Thyroid cyst Vitamin D deficiency Obesity (BMI 30-39.9) Hypercholesterolemia Hypertension COPD (chronic obstructive pulmonary disease) Anxiety and depression Type 2 diabetes mellitus with hyperglycemia Surgical History History of cholecystectomy History of total abdominal hysterectomy and bilateral salpingo-oophorectomy History of colonoscopy Deficient knowledge of leg surgery History of shoulder surgery History of hip surgery History of esophagogastroduodenoscopy (EGD) H/O right knee surgery Herniated nucleus pulposus Family History Father Hypertension Cancer Esophageal cancer Mother Hypertension Maternal Aunt Stomach cancer Son Substance abuse Social History Housing: House Alcohol intake: current Alcohol intake frequency: a few times a month Patient Tobacco Use Status: Current everyday Tobacco user Tobacco use type: Cigarette Cigarette Packs Per Day: 0.5 Cigarettes Per Day: 10 Years Smoked: (onset 15yo, 1/2-1ppd x 53yrs, 35+PYH); Quit- 10/2024 e-Cigarette/Vaping Use: Never Used Second Hand Smoke Exposure: Yes service: No Current occupational status: employed Cognitive needs: No Hearing needs: No Vision needs: Yes Review of Systems Const All systems reviewed & are unremarkable except as noted in HPI and below Reports no additional complaints ENT Reports Normal hearing present Card Denies chest pain, Denies chest pain at rest, Denies chest pain with activity and Denies pedal edema Resp Denies cough GI Denies abdominal pain Musc Denies abnormal gait, Denies muscle cramps and Denies radiating pain into limb Skin/Breast Denies skin ulcer and Denies wounds Neuro Reports Normal hearing present and Denies abnormal gait Psych Reports no additional complaints Physical Exam Vital Signs: BMI result Body Mass Index 29.3 Const General: cooperative, healthy appearing and comfortable Orientation/consciousness: oriented to person, oriented to place and oriented to time HEENT Head: Yes normal to inspection Neck Neck: Yes normal visual inspection Carotids: no bruits Chest Chest palpation & inspection: normal inspection of the chest Resp Effort & Inspection: normal respiratory effort and able to speak in complete sentences Auscultation: clear to auscultation bilaterally, no crackles, no rales, no rhonchi and no wheezes Cardio Other: Palpable right dorsalis pedis pulse Rate: regular rate Rhythm: regular rhythm Heart sounds: S1 normal heart sound present and S2 normal heart sound present Bruits: no carotid bruits Peripheral pulses: Peripheral pulses 2+ throughout GI Inspection: Yes normal to inspection Skin Wounds: no wounds Hair: normal Neuro General: oriented to person, oriented to place and oriented to time Cranial nerves: Yes CN's II-XII intact bilaterally and Yes Normal hearing present Cognition (Neuro): normal cognition Motor exam (neuro): 5/5 motor strength present throughout Extrem Other: venous exam: No significant superficial varicosities or spider telangiectasias, minimal edema General: No clubbing, No cyanosis and No edema Psych Appearance: grossly normal Mental Status: mental status grossly normal Speech and movement: Normal speech and movement present Results Reviewed Results Reviewed: Noninvasive arterial testing dated 01/25/2025 demonstrates LORIN on the right of 0.99 and on the left of 0.82. Written report and images were reviewed. Assessment & Plan Assessment & Plan (1) Peripheral artery disease: Code(s): I73.9 - Peripheral vascular disease, unspecified Category: Medical Plan: In short patient has stable claudication. I did review the pathophysiology of peripheral vascular disease with the patient. In addition we did discuss routine conservative measures including a healthy diet and the importance of exercise and ambulation. We did discuss risk factor modification. The patient will continue to to follow-up with surveillance follow-up in approximately []. Thank you for allowing us to participate in this patient's care. If there are any questions or concerns please do not hesitate to contact us. (2) Back pain: Code(s): M54.9 - Dorsalgia, unspecified Category: Medical Qualifiers: Back pain location: low back pain Chronicity: chronic Back pain laterality: bilateral Sciatica presence: unspecified whether sciatica present Qualified Code(s): M54.50 - Low back pain, unspecified; G89.29 - Other chronic pain Plan: I discussed with the patient the importance of monitoring her vascular health due to her smoking and diabetes, recommending a follow-up ultrasound in six months. I also explained the referral to pain management to address her lower back pain, which may be nerve-related, and the need for further investigation to provide appropriate treatment options. Of note she did see [facility] approximately 7 years ago and at that time decided against a procedure. It may be beneficial for re-evaluation. She will be referred to pain management. Orders: Orders US arterial duplex LE BI 6 Months I73.9 - Peripheral vascular disease, unspecified Referrals Pain Management Referral G89.29 - Other chronic pain, M54.50 - Low back pain, unspecified Coding Level of Care Code Est Pt Level 4 (66783) Complex EM visit Add On G2211 Diagnoses Peripheral artery disease I73.9 Chronic bilateral low back pain, unspecified whether sciatica present M54.50; G89.29 Back pain location: low back pain Chronicity: chronic Back pain laterality: bilateral Sciatica presence: unspecified whether sciatica present
== END 2025-02-13 09:33 | disposition home or self-care (01) ==
LOC: HO.HVS 09:09
PROVIDERS: PCP Internal Medicine; Visit Provider Surgery Vascular Surgery
DX: I73.9 Peripheral vascular disease, unspecified (principal); M54.50 Low back pain, unspecified; G89.29 Other chronic pain
CPT/HCPCS: 99214; G2211

== ENCOUNTER → 2025-02-13 09:08 | Outpatient (BNVA) | payer MEDICARE, MEDICAID, SELFPAY | PROVIDERS: PCP Internal Medicine; Visit Provider Surgery Vascular Surgery | DX: E11.9 Type 2 diabetes mellitus without complications (principal); I73.9 Peripheral vascular disease, unspecified; M54.50 Low back pain, unspecified; G89.29 Other chronic pain; R26.89 Other abnormalities of gait and mobility | CPT/HCPCS: 99212 ==

== ENCOUNTER 2025-03-12 06:07 | Outpatient (REF) | payer MEDICARE, MEDICAID, SELFPAY ==
[2025-03-12 06:21] LABS: MANUAL DIFF FLAG NO
[2025-03-12 07:32] LABS: Hematocrit 48.4 % (37.0-47.0); Hemoglobin 15.8 g/dl (12.0-16.0); Imm Gran Abs Auto 0.03 X10*3/uL (0.00-0.03); Imm Gran Pct Auto 0.5 % (0.0-0.4); Lymphocytes Absolute Auto 2.2 X10*3/uL (1.2-4.9); Mean Corpuscular HGB Conc 32.6 g/dl (31.0-35.0); Mean Corpuscular Hemoglobin 29.2 pg (27.0-33.0); Mean Corpuscular Volume 89.3 fL (80.0-98.0); NRBC Abs Auto 0.000 X10*3/uL (0.0-0.012); NRBC Pct Auto 0.0 /100WBC (0.0-0.2); Platelet Count 245 X10*3/uL (160-400); Red Blood Count 5.42 X10*6/uL (4.20-5.50); White Blood Count 6.1 X10*3/uL (4.8-10.8)
[2025-03-12 08:15] LABS: Hemoglobin A1C 205.2458 umol/L; Total Hemoglobin (HGBA1C) 4021.5847 umol/L
[2025-03-12 08:29] LABS: Alanine Aminotransferase 25 U/L (0-31); Albumin Level 4.5 g/dL (3.5-5.0); Alkaline Phosphatase 100 U/L (39-117); Anion Gap 13 (12-20); Aspartate Amino Transferase 24 U/L (5-31); Blood Urea Nitrogen 16 mg/dL (9-16); Calcium 9.3 mg/dL (8.4-10.2); Carbon Dioxide 26 mmol/L (22-29); Chloride 107 mmol/L (96-108); Cholesterol 183 mg/dL (<200); Estimated Glomerular Filt Rate 46; HDL Cholesterol 30 mg/dL (>40); Potassium 4.2 mmol/L (3.3-5.1); Sodium 142 mmol/L (135-145); Total Protein 7.2 g/dL (6.5-8.0); Triglycerides 242 mg/dL (<150)
== END 2025-03-12 06:08 | disposition home or self-care (01) ==
LOC: HO.LAB 06:07
PROVIDERS: PCP Internal Medicine; Referring Provider Internal Medicine
DX: M47.817 Spondylosis without myelopathy or radiculopathy, lumbosacral region (principal); M54.50 Low back pain, unspecified; G89.29 Other chronic pain; M81.0 Age-related osteoporosis without current pathological fracture; I10 Essential (primary) hypertension; E11.65 Type 2 diabetes mellitus with hyperglycemia; J43.9 Emphysema, unspecified; F31.12 Bipolar disorder, current episode manic without psychotic features, moderate; E55.9 Vitamin D deficiency, unspecified; E78.00 Pure hypercholesterolemia, unspecified; K59.00 Constipation, unspecified; F41.9 Anxiety disorder, unspecified; M19.90 Unspecified osteoarthritis, unspecified site; F17.210 Nicotine dependence, cigarettes, uncomplicated; E66.9 Obesity, unspecified; Z68.29 Body mass index [BMI] 29.0-29.9, adult
CPT/HCPCS: 36415; 80053; 80061; 82306; 83036; 85025; 99202

== ENCOUNTER 2025-03-12 13:26 | Outpatient (AMB) | payer MEDICARE, MEDICAID, SELFPAY ==
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
[2025-03-12 13:32] VITALS: BP 140/85; PULSE 91; O2SAT 96; BMI 29.3
== END 2025-03-12 13:55 | disposition home or self-care (01) ==
LOC: HO.PMC 13:27
PROVIDERS: PCP Internal Medicine; Visit Provider Nurse Practitioner Family
DX: M47.817 Spondylosis without myelopathy or radiculopathy, lumbosacral region (principal); M54.50 Low back pain, unspecified; G89.29 Other chronic pain; M81.0 Age-related osteoporosis without current pathological fracture
CPT/HCPCS: 99204

== ENCOUNTER 2025-03-23 11:48 | Outpatient (AMB) | payer MEDICARE, MEDICAID, SELFPAY ==
[2025-03-23 12:32] VITALS: BP 122/68; PULSE 69; O2SAT 95; BMI 29.3
--- NOTE | 2025-03-23 12:32 | A.OFFPC_ITS ---
Vital Signs 03/23/25 12:32 Height 5 ft 11 in Weight 210 lb 2 oz BMI 29.3 BP 122/68 Blood Pressure Location Lt brachial Position Sitting Pulse 69 Pulse Source Pulse Oximeter Pulse Oximetry (%) 95 Oxygen Delivery Method Room Air Intake Visit Reasons: 3 month follow up htn/DM2/copd WITH dr. 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 Required: No Accompanied by: Self / Same As Patient Allergies azithromycin Allergy (Unknown, Verified 03/23/25 12:32) unknown denosumab (Prolia) Allergy (Unknown, Verified 03/23/25 12:32) vomiting lamotrigine Allergy (Unknown, Verified 03/23/25 12:32) rash lisinopril Allergy (Unknown, Verified 03/23/25 12:32) nausea and vomiting naproxen (Aleve) Allergy (Unknown, Verified 03/23/25 12:32) dizziness Tobacco use date assessed: 03/23/25 Fall risk assessment: No Falls in past year Last assessed Fall Risk: 03/23/25 Dental Screening Dental Screen Date: 03/23/25 Did you have a dental visit in the last 12 months?: Yes Did you have a dental problem in the last 6 months where you did not have access to dental care?: No Was dental information given to patient?: Patient has dentist [facility] Medical History Nicotine dependence, cigarettes, uncomplicated Bilateral lower extremity pain Hx of gastritis Hx of allergic rhinitis Migraines Tubular adenoma of colon Pulmonary nodule Osteoporosis Right humeral fracture Hip fracture, right Bipolar disorder Fibromyalgia Thyroid cyst Vitamin D deficiency Obesity (BMI 30-39.9) Hypercholesterolemia Hypertension COPD (chronic obstructive pulmonary disease) Anxiety and depression Type 2 diabetes mellitus with hyperglycemia Surgical History History of cholecystectomy History of total abdominal hysterectomy and bilateral salpingo-oophorectomy History of colonoscopy Deficient knowledge of leg surgery History of shoulder surgery History of hip surgery History of esophagogastroduodenoscopy (EGD) H/O right knee surgery Herniated nucleus pulposus Family History Father Hypertension Cancer Esophageal cancer Mother Hypertension Maternal Aunt Stomach cancer Son Substance abuse Social History (Reviewed 03/23/25 @ 12:34 by [facility] Strong Housing: House Alcohol intake: current Alcohol intake frequency: a few times a month Patient Tobacco Use Status: Current everyday Tobacco user Tobacco use type: Cigarette Cigarette Packs Per Day: 0.5 Cigarettes Per Day: 10 Years Smoked: (onset 15yo, 1/2-1ppd x 53yrs, 35+PYH); Quit- 10/2024 e-Cigarette/Vaping Use: Never Used Second Hand Smoke Exposure: Yes service: No Current occupational status: employed Cognitive needs: No Hearing needs: No Vision needs: Yes Questionnaire PHQ-9 Over the last 2 weeks, how often have you been bothered by any of the following problems? 1. Little interest or pleasure in doing things: nearly every day 2. Feeling down, depressed, or hopeless: nearly every day 3. Trouble falling or staying asleep, or sleeping too much: not at all 4. Feeling tired or having little energy: not at all 5. Poor appetite or overeating: not at all 6. Feeling bad about yourself - or that you are a failure or have let yourself or your family down: not at all 7. Trouble concentrating on things, such as reading the newspaper or watching television: not at all 8. Moving or speaking so slowly that other people could have noticed. Or the opposite - being so fidgety or restless that you have been moving around a lot more than usual: not at all 9. Thoughts that you would be better off or of hurting yourself in some way: not at all Total score: 6 Depression Screening Interpretation: Positive Depression Screening Done: Yes Source: Developed by Drs. Tan Galan, Kizzy Colmenares, Kwadwo Lim and colleagues, with an educational ravindra from [employer]. Thrive Questionnaire Date Thrive assessed: 03/23/25 I am a: Patient What is your living situation today?: I have a steady place to live Within the past 12 months, did the food you bought not last and you didn't have the money to get more?: Never true Within the past 12 months, did you worry whether your food would run out before you got money to buy more?: Never true Do you have trouble paying for medicines?: No Do you have trouble getting transportation to medical appointments?: No Do you have trouble paying your heating and electricity bill?: No Do you have trouble taking care of your child, family member or friend?: No Do you have trouble with day-to-day activities such as bathing, preparing meals, shopping, managing finances, etc.?: No Are you currently unemployed and looking for a job?: No Are you interested in more education?: No Please select the resources that you would like help with: None Currently or been in a relationship where the following occur: No concerns reported THRIVE Score: 0 AUDIT C Alcohol Use Questionnaire (AUDIT-C) 1. How often do you have a drink containing alcohol?: 2-3 times a week 2. How many drinks containing alcohol do you have on a typical day when you are drinking?: 1 or 2 3. How often do you have six or more drinks on one occasion?: Never Total Score: 3 DINORAH-7 AMB Questionnaire DINORAH-7 Date DINORAH - 7 assessed: 03/23/25 Feeling nervous, anxious, or on edge: 3 = Nearly every day Not being able to stop or control worryin = Nearly every day Worrying too much about different things: 3 = Nearly every day Trouble relaxin = Nearly every day Being so restless that it is hard to sit still: 0 = Not at all Becoming easily annoyed or irritable: 0 = Not at all Feeling afraid as if something awful might happen: 0 = Not at all Total DINORAH-7 score (0-4 normal; 5-9 mild; 10-14 moderate; 15-21 severe): 12 Source: Developed by Drs. Tan Galan, Kizzy Colmenares, Kwadwo Lim and colleagues, with an educational ravindra from [employer]. Physical exam (Primary Care) Vital Signs: Last Vital Signs Pulse 69 03/23/25 12:32 BP 122/68 03/23/25 12:32 Pulse Ox 95 03/23/25 12:32 Oxygen Delivery Method Room Air 03/23/25 12:32 BMI result Body Mass Index 29.3 Tobacco/Smoking Status: Tobacco use Status Tobacco use date assessed 03/23/25 03/23/25 12:40 Patient Tobacco Use Status Current everyday Tobacco 03/23/25 12:40 Tobacco use type Cigarette 03/23/25 12:40 e-Cigarette/Vaping Use Never Used 03/23/25 12:40 PHQ-9: PHQ-9 Score PHQ-9: Total score 6 03/23/25 12:44 Depression Screening Interpretation: Positive Thrive Assessment: Date of Thrive Assessment Date Thrive assessed 03/23/25 03/23/25 12:40 Currently or been in a relationship where the following occur: No concerns reported Const General: alert; No acute distress Eyes Conjunctivae: conjunctivae normal Resp Auscultation: clear to auscultation bilaterally Cardio Rate: regular rate Rhythm: regular rhythm GI Inspection: Yes normal to inspection Extrem General: Yes normal to inspection and No edema Coding Level of Care Code Est Pt Level 4 (17208) Complex EM visit Add On G2211 Diagnoses Essential hypertension I10 Hypertension type: essential hypertension Type 2 diabetes mellitus with hyperglycemia, without long-term current use of insulin E11.65 Diabetes mellitus detention insulin use: without detention use Hypercholesterolemia E78.00 Obesity (BMI 30-39.9) E66.9 Peripheral artery disease I73.9 Bipolar affective disorder, currently manic, moderate F31.12 Active/Remission status: currently active Current bipolar episode type: manic Current episode severity: moderate Tubular adenoma of colon D12.6 Spondylosis without myelopathy or radiculopathy, lumbosacral region M47.817 Pulmonary emphysema, unspecified emphysema type J43.9 COPD type: emphysema Emphysema type: unspecified Nicotine dependence, cigarettes, uncomplicated F17.210 CKD (chronic kidney disease) N18.9 Assessment & Plan Assessment & Plan (1) Hypertension: Code(s): I10 - Essential (primary) hypertension Category: Medical Qualifiers: Hypertension type: essential hypertension Qualified Code(s): I10 - Essential (primary) hypertension Plan: Continue with blood pressure medication. Decrease salt intake and exercise patient is on amlodipine 2.5 mg once a day propranolol 80 mg once a day (2) Type 2 diabetes mellitus with hyperglycemia: Comment: Dr. Garcia Code(s): E11.65 - Type 2 diabetes mellitus with hyperglycemia Category: Medical Qualifiers: Diabetes mellitus ocean transportation intermediary insulin use: without ocean transportation intermediary use Qualified Code(s): E11.65 - Type 2 diabetes mellitus with hyperglycemia Plan: Decrease the amount of carbohydrate intake, pasta, bread, rice and potatoes are all sugar and that is aside from all the sweet stuff, remember that fruits are good but they are Sweet also. Hemoglobin A1c goal of less than 7.0 patient is glipizide. (3) Hypercholesterolemia: Code(s): E78.00 - Pure hypercholesterolemia, unspecified Category: Medical Plan: Avoid fried foods, chicken skin, eggs, butter margarine, pastries and meat. Be it pork or beef they have a lot of cholesterol LDL goal of less than 70 and triglyceride of less than 150 patient is on fenofibrate 160 mg once a day and atorvastatin 80 mg once a day (4) Obesity (BMI 30-39.9): Code(s): E66.9 - Obesity, unspecified Category: Medical Plan: Diet and exercise (5) Peripheral artery disease: Code(s): I73.9 - Peripheral vascular disease, unspecified Category: Medical Plan: Patient follows up with the vascular and under surveillance. Meanwhile Control the cholesterol, weight, blood pressure, diabetes (6) Bipolar disorder: Comment: Santi [place] Code(s): F31.9 - Bipolar disorder, unspecified Category: Medical Qualifiers: Active/Remission status: currently active Current bipolar episode type: manic Current episode severity: moderate Qualified Code(s): F31.12 - Bipolar disorder, current episode manic without psychotic features, moderate Plan: Continue to follow-up with counseling and therapy (7) Tubular adenoma of colon: Comment: (TA on 05/2015 and 06/2020 scopes - repeat 2024) Code(s): D12.6 - Benign neoplasm of colon, unspecified Category: Medical Plan: Patient will be meeting Gastroenterology and read a repeat colonoscopy (8) Spondylosis without myelopathy or radiculopathy, lumbosacral region: Code(s): M47.817 - Spondylosis without myelopathy or radiculopathy, lumbosacral region Category: Medical Plan: Patient is under pain management presently (9) COPD (chronic obstructive pulmonary disease): Code(s): J44.9 - Chronic obstructive pulmonary disease, unspecified Category: Medical Qualifiers: COPD type: emphysema Emphysema type: unspecified Qualified Code(s): J43.9 - Emphysema, unspecified Plan: Stop smoking! Continue with dialysis inhalers as needed on Advair and albuterol (10) Nicotine dependence, cigarettes, uncomplicated: Comment: (onset 15yo, 1/2-1ppd x 53yrs, 35+PYH) Code(s): F17.210 - Nicotine dependence, cigarettes, uncomplicated Category: Medical Plan: Patient is strongly advised to stop smoking! (11) CKD (chronic kidney disease): Code(s): N18.9 - Chronic kidney disease, unspecified Category: Medical Plan History of Present Illness The patient is a 69-year-old female presenting for a follow-up visit. The patient has a history of diabetes mellitus, with a recent hemoglobin A1c of 6.8, indicating suboptimal control. She is currently on Glipizide and has been advised to maintain a hemoglobin A1c goal of less than 7.0. Dietary modifications have been discussed, emphasizing the reduction of high-sugar foods and increasing physical activity. The patient has chronic obstructive pulmonary disease (COPD) and is currently using Advair and albuterol inhalers as needed. She has been strongly advised to stop smoking to prevent further deterioration of her pulmonary function. Hypertension is managed with amlodipine and propranolol, with a focus on maintaining optimal blood pressure control to prevent renal complications. The patient has hypercholesterolemia, with elevated LDL and triglyceride levels. She is on atorvastatin and fenofibrate, and dietary modifications have been recommended to further manage lipid levels. A new prescription for ezetimibe has been provided to assist in lowering cholesterol levels. The patient has a history of osteoporosis, with the last bone density test conducted in September 2024. She is advised to continue with appropriate management and follow-up. The patient has a history of tubular adenoma of the colon and is scheduled for a follow-up with gastroenterology for a repeat colonoscopy. Peripheral arterial disease is being monitored by a vascular surgeon, with emphasis on smoking cessation to improve vascular health. The patient is under pain management for lumbar spondylosis and is advised to maintain physical activity within her limits. Health Maintenance - Colonoscopy scheduled with gastroenterology - Mammogram is up to date - Bone density test conducted in September 2024 - Smoking cessation strongly advised - Dietary modifications recommended for diabetes and hypercholesterolemia - Regular exercise encouraged within physical limits Social History - Smoking: Patient is a smoker, advised to quit. - Exercise: Limited due to leg issues, but encouraged to maintain activity within limits. - Diet: Emphasis on reducing high-sugar foods and increasing vegetable intake. Review of Systems - Cardiovascular: Denies chest pain or palpitations. - Respiratory: Reports use of inhalers as needed for COPD. - Musculoskeletal: Reports back pain, under pain management. - Endocrine: Reports elevated blood sugar levels, managed with medication. Physical Exam Results - Labs: Hemoglobin A1c 6.8, Creatinine 1.17, GFR 48, LDL 105, Triglycerides 242. - Tests: Bone density test conducted in September 2024. Plan The management plan for diabetes mellitus includes maintaining a hemoglobin A1c goal of less than 7.0, with continued use of Glipizide and dietary modifications to reduce high-sugar foods and increase physical activity. For chronic obstructive pulmonary disease, the patient is advised to continue using Advair and albuterol inhalers as needed and is strongly encouraged to stop smoking to prevent further pulmonary decline. Hypertension management involves the use of amlodipine and propranolol, with a focus on maintaining optimal blood pressure to prevent renal complications. Hypercholesterolemia is addressed with atorvastatin and fenofibrate, and a new prescription for ezetimibe has been provided to assist in lowering cholesterol levels. Dietary modifications are recommended to manage lipid levels, emphasizing the reduction of fried foods and increasing vegetable intake. The patient is advised to follow up with gastroenterology for a repeat colonoscopy due to a history of tubular adenoma of the colon. Peripheral arterial disease is being monitored by a vascular surgeon, with emphasis on smoking cessation to improve vascular health. The patient is under pain management for lumbar spondylosis and is encouraged to maintain physical activity within her limits. Patient was informed and verbally consented to the use of an ambient scribe for clinic note documentation during this visit. Discussion Notes During the visit, I discussed the importance of maintaining a hemoglobin A1c goal of less than 7.0 for diabetes management and emphasized dietary modifications to reduce high-sugar foods. For COPD, I strongly advised the patient to stop smoking and continue using inhalers as needed. We reviewed the management of hypertension with amlodipine and propranolol, focusing on preventing renal complications. I addressed hypercholesterolemia by prescribing ezetimibe in addition to atorvastatin and fenofibrate, and recommended dietary changes to manage lipid levels. The patient was advised to follow up with gastroenterology for a repeat colonoscopy and to continue monitoring peripheral arterial disease with a vascular surgeon. I encouraged the patient to maintain physical activity within her limits for lumbar spondylosis management. Patient Instructions - Continue taking Glipizide and aim for a hemoglobin A1c below 7.0. - Use Advair and albuterol inhalers as needed for COPD. - Quit smoking to improve lung and vascular health. - Take amlodipine and propranolol as prescribed for blood pressure control. - Follow dietary recommendations to manage cholesterol and blood sugar levels. - Schedule and attend a follow-up colonoscopy with gastroenterology. - Maintain physical activity within limits to manage lumbar spondylosis. Orders: Orders Comprehensive Met. Panel 3 Months E78.00 - Pure hypercholesterolemia, unspecified Lipid Panel 3 Months E78.00 - Pure hypercholesterolemia, unspecified Hemoglobin A1c 3 Months E78.00 - Pure hypercholesterolemia, unspecified Microalbumin, Random (w Creat) 3 Months E11.65 - Type 2 diabetes mellitus with hyperglycemia, E78.00 - Pure hypercholesterolemia, unspecified Creatinine Urine 3 Months E11.65 - Type 2 diabetes mellitus with hyperglycemia, E78.00 - Pure hypercholesterolemia, unspecified Referrals Nephrology Referral N18.9 - Chronic kidney disease, unspecified Medications: New ezetimibe (Zetia) 10 mg PO DAILY 30 tabs 3RF E78.00 - Pure hypercholesterolemia, unspecified
== END 2025-03-23 13:04 | disposition home or self-care (01) ==
LOC: HO.HMCH 11:49
PROVIDERS: PCP Internal Medicine; Visit Provider Internal Medicine
DX: I12.9 Hypertensive chronic kidney disease with stage 1 through stage 4 chronic kidney disease, or unspecified chronic kidney disease (principal); E11.65 Type 2 diabetes mellitus with hyperglycemia; F31.12 Bipolar disorder, current episode manic without psychotic features, moderate; N18.9 Chronic kidney disease, unspecified; J43.9 Emphysema, unspecified; E78.00 Pure hypercholesterolemia, unspecified; E66.9 Obesity, unspecified; I73.9 Peripheral vascular disease, unspecified; D12.6 Benign neoplasm of colon, unspecified; M47.817 Spondylosis without myelopathy or radiculopathy, lumbosacral region; F17.210 Nicotine dependence, cigarettes, uncomplicated

== ENCOUNTER → 2025-03-23 11:48 | Outpatient (BNVA) | payer MEDICARE, MEDICAID, SELFPAY | PROVIDERS: PCP Internal Medicine; Visit Provider Internal Medicine | DX: I12.9 Hypertensive chronic kidney disease with stage 1 through stage 4 chronic kidney disease, or unspecified chronic kidney disease (principal); E11.22 Type 2 diabetes mellitus with diabetic chronic kidney disease; N18.9 Chronic kidney disease, unspecified; E11.65 Type 2 diabetes mellitus with hyperglycemia; E78.00 Pure hypercholesterolemia, unspecified; E66.9 Obesity, unspecified; Z68.29 Body mass index [BMI] 29.0-29.9, adult; I73.9 Peripheral vascular disease, unspecified; F31.12 Bipolar disorder, current episode manic without psychotic features, moderate; M47.817 Spondylosis without myelopathy or radiculopathy, lumbosacral region; J43.9 Emphysema, unspecified; F17.210 Nicotine dependence, cigarettes, uncomplicated; Z79.899 Other long term (current) drug therapy; Z13.31 Encounter for screening for depression; Z13.39 Encounter for screening examination for other mental health and behavioral disorders | CPT/HCPCS: 96127; 99212 ==

== ENCOUNTER 2025-04-06 11:02 | Outpatient (AMB) | payer BC, MEDICAID, SELFPAY ==
--- OUTSIDE RECORDS SUMMARY | 2025-01-22 05:20 | XMS_ITS | Continuity of Care Document ---
Author Organization [facility] Address [address] [address] Phone Care Team Providers Care Special Services Director Name Role Phone Vinod BUENO, Aqib Unavailable [...] Location Reason(s) For Visit Diagnoses Date Provider [facility], [address] [address], [place], [place], [id number], [place] tel:[phone] [place] No Information Guy-0 2-202 5 Vinod Aqib. [address] [place], [place], [id number], [place]. tel:[phone] [facility], [address], [place], [place], [id number], [place] tel:[phone] [place] No Information - 5 Vinod Aqib. [address] [place], [place], [id number], [place]. tel:[phone] [facility], [address], [place], [place], [id number], [place] tel:[phone] [place] No Information 5 Vinod Aqib. [address] [place], [id number], [place]. tel:[phone] [facility], [address], [place], [place], [id number], [place] tel:[phone] [place] No Information 4 Vinod Aqib. [address] [place], [place], [id number], [place]. tel:[phone] [facility], [address], [place], [place], [id number], [place] tel:[phone] [place] No Information 4 Vinod Aqib. [address] [place], [place], [id number], [place]. tel:[phone] [facility], [address], [place], [place], [id number], [place] tel:[phone] [place] No Information 4 Vinod Aqib. [address] [place], [id number], [place]. tel:[phone] [facility], [address], [place], [place], [id number], [place] tel:[phone] [place] No Information Oct-2 4-202 4 Vinod Aqib. [address] [place], [place], [id number], [place]. tel:[phone] [facility], [address] [facility], [place], [place], [id number], tel:[phone] [place] No Information 4 Omar Proctor. [address] [place], [place], [id number], [place]. tel:[phone] [facility], [address] [facility], [place], [place], [id number], [place] tel:[phone] [place] No Information 4 Omar Proctor. [address] [place], [id number], [place]. tel:[phone] [facility], [address], [id number], tel:[phone] [place] Semi-Annual (chief complaint) Schizophrenia, unspecified typeBipolar affective [...] nodulePsoriasis 4 Omar Proctor. [address] [place], [place], [id number], [place]. tel:[phone] [facility], [address], [place], [place], [id number], [place] tel:[phone] [place] No Information 4 Os Dawna. [address] [place], [place], [id number], [place]. tel:[phone] [facility], [address], [place], [place], [id number], [place] tel:[phone] [place] No Information 4 Omar Esthela. [address] [place], [place], [id number], [place]. tel:[phone] [facility], [address], [place], [place], [id number], [place] tel:[phone] [place] Psoriasis 4 Omar Lingca. [address] [place], [place], [id number], [place]. tel:[phone] [facility], [address], [place], [place], [id number], [place] tel:[phone] [place] Acute Visit (chief complaint) Psoriasis 4 Omar Esthela. [address] [place], [place], [id number], [place]. tel:[phone] [facility], [address] [facility] [address] [facility], [place], [place], [id number], [place] tel:[phone] [place] No Information 4 Pitsiladis . [address] [place], [place], [id number], [place]. tel:[phone] [facility], [address] [facility] [address], [place], [place], [id number], [place] tel:[phone] [place] No Information 4 Os Dawna. [address] [place], [place], [id number], [place]. tel:[phone] [facility], [address], [place], [place], [address], [place] tel:[phone] [place] No Information 4 Os Dawna. [address] [place], [place], [id number], [place]. tel:[phone] [facility], [address] [facility], [place], [place], [id number], [place] tel:[phone] [place] Acute Visit (chief complaint) Psoriasis 4 Os Dawna. [address] [place], [place], [id number], [place]. tel:[phone] [facility], [address] [facility], [place], [place], [id number], [place] tel:[phone] [place] Acute Visit (chief complaint) Fungal dermatitis Guy- 4 Omar Esthela. [address] [place], [place], [id number], [place]. tel:[phone] [facility], [address] [facility], [place], [place], [id number], [place] tel:[phone] [place] FibromyalgiaAge-rela cory osteoporosis without current pathological fractureUnspecified osteoarthritis, unspecified site 4 Os Dawna. [address] [place], [place], [id number], [place]. tel:[phone] [facility], [address] [facility], [place], [place], [id number], [place] tel:[phone] [place] No Information 4 Omar Lingca. [address] [place], [place], [id number], [place]. tel:[phone] [facility], [address] [facility], [place], [place], [id number], [place] tel:[phone] [place] No Information 4 Os Dawna. [address] [place], [place], [id number], [place]. tel:[phone] [facility], [address], [place], [place], [id number], [place] tel:[phone] [place] Age-related osteoporosis without current pathological fracture 4 Os Dawna. [address] [place], [place], [id number], [place]. tel:[phone] [facility], [address] [facility] [address], [place], [place], [id number], [place] tel:[phone] [place] [address] No Information 4 Os Dawna. [address] [place], [place], [id number], [place]. tel:[phone] [facility], [address] [facility] [address], [place], [place], [id number], [place] tel:[phone] [place] [address] No Information 3 0 4 Os Dawna. [address] [place], [place], [id number], [place]. tel:[phone] [facility], [address] [facility], [place], [place], [id number], [place] tel:[phone] [place] [address] No Information 4 Os Dawna. [address] [place], [place], [id number], [place]. tel:[phone] [facility], [address] [facility] [address] [facility], [place], [place], [id number], [place] tel:[phone] [place] [address] No Information 4 Os Dawna. [address] [place], [place], [id number], [place]. tel:[phone] [facility], [address] [facility] [address], [place], [place], [id number], [place] tel:[phone] [place] No Information 4 Os Dawna. [address] [place], [place], [id number], [place]. tel:[phone] [facility], [address] [facility], [place], [place], [id number], [place] tel:[phone] [place] No Information Oct- 4 Os Dawna. [address] [place], [place], [id number], [place]. tel:[phone] [facility], [address] [facility], [place], [place], [id number], [place] tel:[phone] [place] Encounter for rehabilitation evaluationHemiplegia and hemiparesis following unspecified cerebrovascular disease affecting left dominant sidePrimary generalized (osteo)arthritis 0 4 Brian Wallace. [address] [place], [place], [id number], [place]. tel:[phone] [facility], [address] [facility], [place], [place], [id number], [place] tel:[phone] [place] Encounter for rehabilitation evaluation 0 4 Gopi Campos. [address] [place], [place], [id number], [place]. tel:[phone] [facility], [address] [facility], [place], [place], [id number], [place] tel:[phone] [place] Semi-Annual (chief complaint) Encounter for general adult medical examination without abnormal findingsSchizophrenia, unspecified typeBipolar affective disorder, remission status unspecifiedGeneralized anxiety disorderPTSD (post-traumatic stress disorder)Hypercholester olaemiaLong term (current) use of oral hypoglycemic drugsType 2 diabetes mellitus with diabetic chronic kidney disease, unspecified CKD stage, unspecified whether shelter insulin useOsteoporosis, unspecified osteoporosis type, unspecified pathological fracture presenceGastroesophagea l reflux disease without esophagitisStage 2 chronic kidney diseaseHypertensive renal disease, stage 1 through stage 4 or unspecified chronic kidney diseaseChronic obstructive pulmonary disease, unspecified COPD typePulmonary noduleTobacco useObstructive sleep apneaType 2 diabetes mellitus with peripheral vascular disease 0 4 Os Dawna. [address] [place], [place], [id number], [place]. tel:[phone] [facility], [address], [place], [place], [address], [place] tel:[phone] [place] Medication management 3 Omar Esthela. [address] [place], [place], [id number], [place]. tel:[phone] [facility], [address], [place], [place], [id number], [place] tel:[phone] [place] Follow-up (chief complaint) Pulmonary nodule 3 Omar Esthela. [address] [place], [place], [id number], [place]. tel:[phone] [facility], [address], [place], [place], [address], [place] tel:[phone] [place] No Information 3 Omar Esthela. [address] [place], [place], [id number], [place]. tel:[phone] [facility], [address] [facility] [address] [facility], [place], [place], [id number], [place] tel:[phone] [place] No Information 3 Os Dawna. [address] [place], [place], [id number], [place]. tel:[phone] [facility], [address], [place], [place], [id number], [place] tel:[phone] [place] OV (chief complaint) Pulmonary nodule 3 Omar Esthela. [address] [place], [place], [id number], [place]. tel:[phone] [facility], [address], [place], [place], [id number], [place] tel:[phone] [place] No Information 3 Omar Esthela. [address] [place], [place], [id number], [place]. tel:[phone] [facility], [address] [facility], [place], [place], [id number], [place] tel:[phone] [place] Semi-Annual (chief complaint) Schizophrenia, unspecified typeBipolar disorder [...] of insulinChronic kidney disease, stage 2 (mild)terminal system operator (current) use of insulinHypertensive renal disease, stage 1 through stage 4 or unspecified chronic kidney disease 3 Os Dawna. [address] [place], [id number], [place]. tel:[phone] [facility], [address] [address], [place], [place], [id number], [place] tel:[phone] [facility] 3 Os Dawna. [address] [place], [place], [id number], [place]. tel:[phone] [facility], [address] [address], [place], [place], [id number], [place] tel:[phone] [facility] 3 Os Dawna. [address] [place], [place], [id number], [place]. tel:[phone] [facility], [address] [address], [place], [place], [id number], [place] tel:[phone] [place] Encounter for rehabilitation evaluation 3 Isa Adonay. [address], [place], [address]. tel:[phone] [facility], [address] [facility] [address] [facility], [place], [place], [address], [place] tel:[phone] [place] Encounter for rehabilitation evaluationOther chronic painAlteration in performance of activities of daily living 3 Marco A Delcid. [address] [place], [place], [id number]. tel:[phone] [facility], [address] [facility] [address] [facility], [place], [place], [id number], [place] tel:[phone] [place] Osteoarthritis, unspecified osteoarthritis type, unspecified site 3 Os Dawna. [address] [place], [place], [id number], [place]. tel:[phone] [facility], [address] [facility], [place], [place], [address], [place] tel:[phone] [place] Encounter for nutritional assessmentDiabetes education, encounter forClass 1 obesity with serious comorbidity and body mass index (BMI) of 32.0 to 32.9 in adult, unspecified obesity typeBody mass index [BMI] 32.0-32.9, adult 3 Anton Anaya. [address] [place], [place], [id number], [place]. tel:[phone] [facility], [address] [place] [address], [id number], [place] tel:[phone] [place] HUSSEIN (chief complaint) Schizophrenia, unspecified typeBipolar affective disorder, remission status unspecifiedGeneralized anxiety disorderPTSDHypercholes terolaemiaType 2 diabetes mellitus with diabetic chronic kidney disease, unspecified CKD stage, unspecified whether ad terminal makeup operator insulin useOsteoporosis, unspecified osteoporosis type, unspecified pathological fracture presenceChronic kidney disease, stage 2 (mild)Hypertensive chronic kidney disease with stage 1 through stage 4 chronic kidney disease, or unspecified chronic kidney diseaseCOPDPulmonary noduleTobacco useFibromyalgiaGastroes ophageal reflux disease without esophagitis 3 Os Dawna. [address] [place], [place], [address], [place]. tel:[phone] [facility], [address] [facility] [address] [facility], [place], [place], [address], [place] tel:[phone] [place] History of fracture 2 Os Dawna. [address] [place], [place], [id number], [place]. tel:[phone] [facility], [facility] [address] [facility], [place], [place], [address], [place] tel:[phone] [place] Papular eczema 2 Os Dawna. [address] [place], [place], [address], [place]. tel:[phone] [facility], [address] [facility] [address] [facility], [place], [place], [address], [place] tel:[phone] [place] No Information Apr-2 2 Os Dawna. [address] [place], [place], [id number], [place]. tel:[phone] [facility], [address] [facility] [address] [facility], [place], [place], [id number], [place] tel:[phone] [place] Obstructive sleep apnea Sep-2 2 Os Dawna. [address] [place], [place], [id number], [place]. tel:[phone] [facility], [address] [facility] [address] [facility], [place], [place], [id number], [place] tel:[phone] [place] No Information Feb-2 2 Os Dawna. [address] [place], [place], [address], [place]. tel:[phone] [facility], [address] [facility] [address] [facility], [place], [place], [id number], [place] tel:[phone] [place] Semiannual (chief complaint) Hypertension, unspecified typeHypercholesterolaem iaChronic kidney disease due to diabetes mellitusSchizophrenia, unspecified typeBipolar affective disorder, remission status unspecifiedGeneralized anxiety disorderPTSDOsteoporosi s, unspecified osteoporosis type, unspecified pathological fracture presenceCOPDPulmonary nodulePapular eczemaHealthcare maintenanceTobacco useChronic kidney disease, stage 3a 2 Os Dawna. [address], [place], [place], [id number], [place]. tel:[phone] [facility], [address] [facility] [address] [facility], [place], [place], [address], [place] tel:[phone] [place] Encounter for nutritional assessmentDiabetes education, encounter forOther obesity 2 Normile Jaclyn. [address] [facility] [place], [id number], [place]. tel:[phone] [facility], [address] [facility] [address] [facility], [place], [place], [address], [place] tel:[phone] [place] OV (chief complaint) Type 2 diabetesGeneralized anxiety disorderIntractable headache, unspecified chronicity pattern, unspecified headache typeNausea 2 Os Dawna. [address] [facility] [place], [id number], [place]. tel:[phone] [facility], [address] [facility] [address] [facility], [place], [place], [address], [place] tel:[phone] [place] Pulmonary nodule 2 Os Dawna. [address] [place], [place], [address], [place]. tel:[phone] [facility], [address] [facility] [address] [facility], [place], [place], [id number], [place] tel:[phone] [place] No Information 2 Os Dawna. [address] [facility] [place], [id number], [place]. tel:[phone] [facility], [address] [facility], [place], [place], [address], [place] tel:[phone] [place] Encounter for nutritional assessment Sep-2 2 Normile Jaclyn. [address] [place], [place], [id number], [place]. tel:[phone] [facility], [address] [facility] [address] [facility], [place], [place], [address], [place] tel:[phone] [place] PEE (chief complaint) Hypertension, unspecified typeHypercholesterolaem iaCataract of both eyes, unspecified cataract typeBipolar affective disorder, remission status unspecifiedGeneralized anxiety disorderPTSDHistory of fractureOsteoporosis, unspecified osteoporosis type, unspecified pathological fracture presenceCOPDPulmonary noduleHealthcare maintenance 2 Os Dawna. [address] [place], [place], [id number], [place]. tel:[phone] [facility], [address] [facility], [place], [place], [address], [place] tel:[phone] [place] Muscle weakness (generalized)Encounter for rehabilitation evaluation b-0 2 Isa Adonay. [address] [place], [address]. tel:[phone] [facility], [address] [facility], [place], [place], [id number], [place] tel:[phone] [place] Encounter for rehabilitation evaluationAlteration in performance of activities of daily livingOther chronic pain b0 2 Marco A Delcid. [address] [facility], [place], [place], [id number]. tel:[phone] [facility], [address] [facility], [place], [place], [id number], [place] tel:[phone] [place] No Information b0 2 Juan Ramon Leyva. [address] [place], [place], [id number], [place]. tel:[phone] [facility], [address] [facility], [place], [place], [id number], [place] tel:[phone] [place] Intake (chief complaint) No Information Steph Martinez. [address], [place], [place], [address], . tel:[phone] Family History Family Member Type Diagnosis Age [...] type Covered alliance party ID Authoriza dereck(s) [facility] 16 [id number] [facility] 16 [id number] [facility] 16 [id number] [facility] 16 [id number] [facility] 16 [id number] [facility] 16 [id number] [facility] 16 [id number] Social History Type Description Quantity Date Captured Comments Sex Female Smoking Status No Information Chief Complaint And Reason For Visit No Information Plan Of Treatment Date Type Action Status Referral Ordered: Referrals: [facility]er [facility]. Evaluate and treat Appointment date/timeframe: 02/07/2024 ordered Referral Ordered: Referrals: Orthopedic Surgery. Evaluate and treat ordered Referral Ordered: Referrals: Dentistry. Evaluate and treat ordered Referral Ordered: Referrals: Ophthalmology. Evaluate and treat ordered Referral Ordered: Referrals: Rheumatology. Evaluate and treat ordered Referral Ordered: Referrals: [facility]- Dental Location: [facility]. Evaluate and treat ordered Referral Ordered: Referrals: Obstetrics. Location: [facility]. Evaluate and treat ordered Referral Ordered: Referrals: [...] (Diagnostic); Bilateral, incl computer-aided detection when performed (29663), Ordered on: Ordered History Of Present Illness [...] needs follow up-Psychiatrist: Trying to get into [facility]-Therapist: [facility]to[facility]-Ortho: 12/2023- closed fracture [...] lung nodules, COPD, hypotensionEXAM: NAD. mildly hypotensive, [id number]: repeat CT scan, encouraged fluids (she only [...] CT chest in six months, ordered Comments: Aneglina mckay is a 67 year old female [...] has been helping. Working on getting into [facility] (psychiatrist). Diagnoses Reviewed.Consults:-Dental: last seen in September- had cap; 05/05/23 [facility] appt-Vision: 12/25/22-Psychiatrist: Trying to get into [facility]-Therapist: [facility]-Pain management: 09/21/22- did [...] She currently lives in an apartment with Tsefaye. He has worked out of the home [...] seeing a prescriber Tena Reyna APRN in [place] and has followed with her for years. [...] for mail order and [facility] locally on [address] [address]: she states the clonazepam comes from [facility]. She is considering changing to [facility] once she enrolls. 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 Related to Osteoporosis, unspecified osteoporosis type, unspecified pathological fracture presence 03/2023: A1C- 7-Curre ntly on glipizide 2.5mg- increasing to 5mg daily Related to terminal system operator (current) use of oral hypoglycemic drugs 03/2023Lipid [...] monthly. She is working on getting into [facility] for a psychiatrist. Currently- PCP is prescribing and sending medications. -Continue current med regimen- follow up w/ new psychiatrist may need medication adjustment Related to Generalized anxiety disorder Pt reports seeing Reinier ewing (therapist) [facility]. She is working on getting into [facility] for a psychiatrist. Currently- PCP is prescribing [...] monthly. She is working on getting into [facility] for a psychiatrist. Currently- PCP is prescribing [...] 08/2022 GFR 60-Avoid nephrotoxic medications Related to halfway (current) use of insulin 08/2022: A1C- 6.7Continue glipizi de Related to halfway (current) use of oral hypoglycemic drugs Rhem [...] Related to Fibromyalgia Pt is a smoker [employer] [facility] I was 13 years old I [...] kidney disease, unspecified CKD stage, unspecified whether shelter insulin use Identifies good supp ort system including boyfriend [...] adjustment Related to Generalized anxiety disorder Psychiatrist Geraldi ne every 2 months- retired; [...] [facility] [place] referred to one of [...]
--- NOTE | 2025-04-06 11:05 | HO.NEPHOV ---
Vital Signs 04/06/25 11:06 Height 5 ft 11 in Weight 210 lb BMI 29.3 BP 112/88 Blood Pressure Location Lt brachial Position Sitting Pulse 100 Pulse Source Pulse Oximeter Pulse Oximetry (%) 94 Oxygen Delivery Method Room Air Intake Visit Reasons: INP DX- CKD- Conf Director Music Required: No Accompanied by: Sister Allergies azithromycin Allergy (Unknown, Verified 04/06/25 11:09) unknown denosumab (Prolia) Allergy (Unknown, Verified 04/06/25 11:09) vomiting lamotrigine Allergy (Unknown, Verified 04/06/25 11:09) rash lisinopril Allergy (Unknown, Verified 04/06/25 11:09) nausea and vomiting naproxen (Aleve) Allergy (Unknown, Verified 04/06/25 11:09) dizziness Medication List - Last Reconciled 04/06/25 by Stew Anaya MD albuterol sulfate 90 mcg/actuation 2 puffs inhalation Q4-6H PRN amlodipine 2.5 mg PO DAILY atorvastatin 80 mg PO DAILY 30 days cetirizine (Zyrtec) 10 mg PO DAILY cholecalciferol (vitamin D3) 25 mcg PO DAILY clonazepam (Klonopin) 1 mg PO TID ezetimibe (Zetia) 10 mg PO DAILY fenofibrate 160 mg PO DAILY 90 days fluoxetine 20 mg PO BID fluticasone propion-salmeterol 100-50 mcg/dose (Advair Diskus) 1 inh inhalation BID fluticasone propionate 50 mcg/actuation 2 sprays intranasal .QD 30 days furosemide 20 mg PO DAILY gabapentin 300 mg PO BID gabapentin 600 mg PO BEDTIME glipizide 5 mg PO DAILY propranolol ER 80 mg PO DAILY sennosides-docusate sodium 8.6-50 mg (Senna Plus) 1 tab-cap PO BEDTIME ziprasidone HCl 40 mg PO BEDTIME ziprasidone HCl 20 mg PO QAM HPI Comments Details: The patient is a 69-year-old female presenting with decreased kidney function. She was referred after blood tests indicated a decline in kidney function, with a glomerular filtration rate (GFR) of 46% as of March 12. The patient has a history of essential hypertension, which has been present for a long time and is currently managed with amlodipine and propranolol. She also has type 2 diabetes mellitus, diagnosed approximately a year and a half ago, which is under control with medication, as indicated by a recent A1c of 6.8%. The patient has been advised to maintain her blood sugar levels below 6% to prevent further kidney damage. The patient has a psychiatric history significant for bipolar disorder and PTSD, for which she is currently taking Prozac and Ziprasidone. She previously took lithium for just few days about 30 years ago, which was discontinued due to lack of efficacy. The patient reports a history of peripheral vascular disease, with a noted narrowing in the left leg arteries, and has been on atorvastatin for hyperlipidemia management. She was mistakenly prescribed a lower dose of atorvastatin earlier this year but has since resumed the correct dosage of 80 mg. The patient has a significant history of tobacco use, currently smoking half a pack per day, having reduced from a previous one pack per day. [facility] Medical History Nicotine dependence, cigarettes, uncomplicated Bilateral lower extremity pain Hx of gastritis Hx of allergic rhinitis Migraines Tubular adenoma of colon Pulmonary nodule Osteoporosis Right humeral fracture Hip fracture, right Bipolar disorder Fibromyalgia Thyroid cyst Vitamin D deficiency Obesity (BMI 30-39.9) Hypercholesterolemia Hypertension COPD (chronic obstructive pulmonary disease) Anxiety and depression Type 2 diabetes mellitus with hyperglycemia Surgical History History of cholecystectomy History of total abdominal hysterectomy and bilateral salpingo-oophorectomy History of colonoscopy Deficient knowledge of leg surgery History of shoulder surgery History of hip surgery History of esophagogastroduodenoscopy (EGD) H/O right knee surgery Herniated nucleus pulposus Family History Father Hypertension Cancer Esophageal cancer Mother Hypertension Maternal Aunt Stomach cancer Son Substance abuse Social History Housing: House Alcohol intake: current Alcohol intake frequency: a few times a month Patient Tobacco Use Status: Current everyday Tobacco user Tobacco use type: Cigarette Cigarette Packs Per Day: 0.5 Cigarettes Per Day: 10 Years Smoked: (onset 15yo, 1/2-1ppd x 53yrs, 35+PYH); Quit- 10/2024 e-Cigarette/Vaping Use: Never Used Second Hand Smoke Exposure: Yes service: No Current occupational status: employed Cognitive needs: No Hearing needs: No Vision needs: Yes Review of Systems Const Denies anorexia, Denies fever(s) and Denies weakness Eyes Denies blurry vision Card Denies no additional complaints and Denies dyspnea Resp Reports no additional complaints, Reports cough and Denies dyspnea GI Denies melena and Denies diarrhea Denies hematuria Musc Denies tingling Skin/Breast Denies rash Neuro Denies focal weakness, Denies tingling, Denies tremor(s) and Denies weakness Physical Exam Vital Signs: Last Vital Signs Pulse 100 04/06/25 11:06 BP 112/88 04/06/25 11:06 Pulse Ox 94 04/06/25 11:06 Oxygen Delivery Method Room Air 04/06/25 11:06 BMI result Body Mass Index 29.3 Const General: comfortable Nutritional Appearance: well nourished Orientation/consciousness: patient oriented x3 HEENT Head: No normal to inspection Mouth: moist mucous membranes Neck Neck: Yes supple and Yes no JVD Resp Auscultation: clear to auscultation bilaterally and no rales Cardio Jugular venous distension: no JVD Palpation: no palpable S3 and no palpable S4 Heart sounds: no rubs GI Palpation (GI): Soft to palpation and nontender Percussion: No Fluid wave present General: Yes no CVA tenderness Back/Spine/Pelvis Back: no CVA tenderness Skin General skin exam: no rashes or lesions noted Neuro General: patient oriented x3 Extrem General: Yes no pedal edema and No clubbing Results Reviewed Nephrology Results: Hgb, (12.0-16.0) 15.8 g/dl 03/12/25 WBC, (4.8-10.8) 6.1 X10*3/uL 03/12/25 Plt Count, (160-400) 245 X10*3/uL 03/12/25 Sodium, (135-145) 142 mmol/L 03/12/25 Potassium, (3.3-5.1) 4.2 mmol/L 03/12/25 Chloride, (96-108) 107 mmol/L 03/12/25 Carbon Dioxide, (22-29) 26 mmol/L 03/12/25 BUN, (9-16) 16 mg/dL 03/12/25 Creatinine, (0.5-1.4) 1.17 mg/dL 03/12/25 Calcium, (8.4-10.2) 9.3 mg/dL 03/12/25 Assessment & Plan Assessment & Plan (1) Hypertension: Code(s): I10 - Essential (primary) hypertension Category: Medical Qualifiers: Hypertension type: essential hypertension Qualified Code(s): I10 - Essential (primary) hypertension (2) CKD (chronic kidney disease): Code(s): N18.9 - Chronic kidney disease, unspecified Category: Medical Plan Makayla has stage IIIA CKD. In the setting of longstanding hypertension and peripheral as disease Differential diagnosis would include hypertensive nephrosclerosis. She could have a component of hypoperfusion. Other possibilities including glomerular nephritis should be considered. Based on the clinical picture I do not believe she was active glomerular nephritis or interstitial disease nevertheless we will rule that out. Clinically she appears euvolemic at this time. Recommendation Stop furosemide Increase p.o. fluids Continue to stay on low-sodium diet Encouraged to discontinue smoking. Obtain renal ultrasonogram. Basic workup ordered including urinalysis along with a urine protein creatinine ratio. Recheck renal panel in the next 3 weeks. Further workup will depend on the outcome of the baseline investigations. Orders: Orders Basic Metabolic Panel 3 Weeks I10 - Essential (primary) hypertension, N18.9 - Chronic kidney disease, unspecified Complete Blood Count no Diff 3 Weeks I10 - Essential (primary) hypertension, N18.9 - Chronic kidney disease, unspecified UA and rflx microscopic 3 Weeks I10 - Essential (primary) hypertension, N18.9 - Chronic kidney disease, unspecified Creatinine Urine 3 Weeks I10 - Essential (primary) hypertension, N18.9 - Chronic kidney disease, unspecified Total Protein Urine Random 3 Weeks I10 - Essential (primary) hypertension, N18.9 - Chronic kidney disease, unspecified US renal BI Today N18.9 - Chronic kidney disease, unspecified Patient Instructions: - Stop taking furosemide as instructed. - Increase fluid intake to stay hydrated. - Work on reducing smoking, aiming to quit completely. - Maintain blood pressure and blood sugar levels within target ranges. - Return for follow-up in four to five weeks for test results and further evaluation. Coding Level of Care Code New Pt Level 4 (57392) Diagnoses Essential hypertension I10 Hypertension type: essential hypertension CKD (chronic kidney disease) N18.9
[2025-04-06 11:06] VITALS: BP 112/88; PULSE 100; O2SAT 94; BMI 29.3
== END 2025-04-06 11:30 | disposition home or self-care (01) ==
LOC: HO.HKA 11:03
PROVIDERS: PCP Internal Medicine; Visit Provider Internal Medicine Hypertension Specialist
DX: I12.9 Hypertensive chronic kidney disease with stage 1 through stage 4 chronic kidney disease, or unspecified chronic kidney disease (principal); N18.9 Chronic kidney disease, unspecified
CPT/HCPCS: 99204

== ENCOUNTER 2025-04-10 14:23 | Outpatient (AMB) | payer MEDICARE, MEDICAID, SELFPAY ==
--- NOTE | 2025-04-10 14:33 | A.OFFVIS_ITS ---
Vital Signs 04/10/25 14:40 Height 5 ft 11 in Weight 210 lb BMI 29.3 BP 111/73 Blood Pressure Location Lt brachial Position Sitting Pulse 76 Pulse Oximetry (%) 95 Oxygen Delivery Method Room Air Intake Visit Reasons: Full incontinence of feces Intake Note: Patient new consult for Full incontinence of feces. Patient cc: soft stool with incontinence diarrhea, and occasional GERD. Patient 3rd pre Colonoscopy, last 2 was at [facility] [place] with Dr. Dickey. Coil Builder Required: No Accompanied by: Self / Same As Patient Allergies azithromycin Allergy (Unknown, Verified 04/10/25 14:33) unknown denosumab (Prolia) Allergy (Unknown, Verified 04/10/25 14:33) vomiting lamotrigine Allergy (Unknown, Verified 04/10/25 14:33) rash lisinopril Allergy (Unknown, Verified 04/10/25 14:33) nausea and vomiting naproxen (Aleve) Allergy (Unknown, Verified 04/10/25 14:33) dizziness Medication List - Last Reconciled 04/10/25 by Shawanda Trimble CNP albuterol sulfate 90 mcg/actuation 2 puffs inhalation Q4-6H PRN amlodipine 2.5 mg PO DAILY atorvastatin 80 mg PO DAILY 30 days cetirizine (Zyrtec) 10 mg PO DAILY cholecalciferol (vitamin D3) 25 mcg PO DAILY clonazepam (Klonopin) 1 mg PO TID ezetimibe (Zetia) 10 mg PO DAILY fenofibrate 160 mg PO DAILY 90 days fluoxetine 20 mg PO BID fluticasone propion-salmeterol 100-50 mcg/dose (Advair Diskus) 1 inh inhalation BID fluticasone propionate 50 mcg/actuation 2 sprays intranasal .QD 30 days furosemide 20 mg PO DAILY gabapentin 300 mg PO BID gabapentin 600 mg PO BEDTIME glipizide 5 mg PO DAILY propranolol ER 80 mg PO DAILY sennosides-docusate sodium 8.6-50 mg (Senna Plus) 1 tab-cap PO BEDTIME ziprasidone HCl 40 mg PO BEDTIME ziprasidone HCl 20 mg PO QAM HPI HPI Full incontinence of feces: Details: Patient is a 69-year-old female with PMH of obesity, anxeity and depression, hypertension, hyperlipidemia, OA, COPD and diabetes. Referred by PCP for pre colonoscopy screening and further evaluation of fecal incontinence. Makayla presents with fecal incontinence and bowel dysfunction, including chronic constipation and new onset diarrhea. She reports that the fecal incontin ence and diarrhea episodes began five months ago. Initially, her bowel habits mostly involved constipation, with regular bowel movements and some occasional diarrhea. Over the past five months, episodes of diarrhea?which are described as loose, watery stools?have increased alongside fecal incontinence, significantly impacting her quality of life. Despite loose stools, there are days she does not go to the bathroom for up to four or five days. The current medications include Senna daily and MiraLax as needed for constipation management, although she has reduced the Senna due to an increase of Prozac, which is thought to have diarrhea as a side effect. She denies any abdominal pain, nausea, vomiting, or appetite loss. Her weight remains stable, and no unexplained weight loss has been reported. Gastrointestinal symptoms include occasional heartburn and rare regurgitation, linked to diet and occurring approximately at the same frequency. There is no blood present in her stools except occasionally when wiping, assumed to be from hemorrhoids. Lab work, including A1c, thyroid, and liver function, reveal no abnormalities contributing to her symptoms. Diet: Two to three coffees daily, fruit shake (with bananas, strawberries, blueberries, lactaid milk), trail mix (occasionally), dinner with varying protein (spaghetti, steak, chicken, fish) and vegetables. Does not eat fruit except in shakes. - family hx as below -denies personal hx of CA PFSH Medical History (Updated 04/10/25 @ 16:03 by Shawanda Trimble CNP) Acid reflux Decreased rectal sphincter tone Abdominal pain Nicotine dependence, cigarettes, uncomplicated Bilateral lower extremity pain Hx of gastritis Hx of allergic rhinitis Migraines Tubular adenoma of colon Pulmonary nodule Osteoporosis Right humeral fracture Hip fracture, right Bipolar disorder Fibromyalgia Thyroid cyst Vitamin D deficiency Obesity (BMI 30-39.9) Hypercholesterolemia Hypertension COPD (chronic obstructive pulmonary disease) Anxiety and depression Type 2 diabetes mellitus with hyperglycemia Surgical History History of cholecystectomy History of total abdominal hysterectomy and bilateral salpingo-oophorectomy History of colonoscopy Deficient knowledge of leg surgery History of shoulder surgery History of hip surgery History of esophagogastroduodenoscopy (EGD) H/O right knee surgery Herniated nucleus pulposus Family History Father Hypertension Cancer Esophageal cancer Mother Hypertension Maternal Aunt Stomach cancer Son Substance abuse Social History Housing: House Alcohol intake: current Alcohol intake frequency: a few times a month Patient Tobacco Use Status: Current everyday Tobacco user Tobacco use type: Cigarette Cigarette Packs Per Day: 0.5 Cigarettes Per Day: 10 Years Smoked: (onset 15yo, 1/2-1ppd x 53yrs, 35+PYH); Quit- 10/2024 e-Cigarette/Vaping Use: Never Used Second Hand Smoke Exposure: Yes service: No Current occupational status: employed Cognitive needs: No Hearing needs: No Vision needs: Yes Review of Systems Const Reports as per HPI ENT Reports as per HPI Card Reports as per HPI Resp Reports as per HPI GI Reports as per HPI Reports as per HPI Physical Exam Const General: healthy appearing, no acute distress and well developed Nutritional Appearance: average body habitus Orientation/consciousness: patient oriented x3 HEENT Head: Yes normal to inspection, Yes normocephalic and Yes atraumatic Face and sinus: Yes normal facial exam Eyes General: appearance normal, both eyes and all related structures Neck Neck: Yes normal visual inspection Resp Effort & Inspection: normal respiratory effort, able to speak in complete sentences, no tracheal deviation and symmetric chest movement Cardio Jugular venous distension: no JVD GI Inspection: Yes normal to inspection and No distended Palpation (GI): Soft to palpation, not firm, nontender and No hepatosplenomegaly present Auscultation: normal bowel sounds Rectal Exam - Female: deferred, decreased sphincter tone, No Internal hemorrhoid(s) present, No Rectal prolapse, No fecal impaction, No Lesions present (GI), No Anal fissure(s) present, No Laceration(s) present (GI), No Excoriation present (GI), No mass, No tenderness and other (Perianal skin) Neuro General: patient oriented x3 Gait exam (Neuro): Normal gait present Psych Appearance: grossly normal Mental Status: mental status grossly normal Speech and movement: Normal speech and movement present Affect: normal affect Attitude: cooperative Thought process: Normal thought process present Thought content: Normal thought content present Insight: Good insight present (Psych) Judgement: Good judgement present (Psych) Results Reviewed Results Reviewed: Date of Service: 07/04/[address]: Michelle Dickey MD cc: Michelle Dickey MD; Po,Tone Pollard MD~ SURGEON: Michelle Dickey MD PREOPERATIVE DIAGNOSIS: History of tubular adenomas. POSTOPERATIVE DIAGNOSIS: Colonic polyps. PROCEDURE PERFORMED: Colonoscopy with excisional polypectomy x2, resolution clipping x1. ESTIMATED BLOOD LOSS: Less than 10 mL. COMPLICATIONS: No complications. ANESTHESIA: Type of anesthesia, monitored. ASSISTANTS: No cable splicer assistant. SPECIMENS: Removed, descending colon 60 cm polyp, distal transverse colon polyp. LEVI MAKER: Dr. Dickey. CONDITION: Postop, stable. FINDINGS: Digital rectal exam revealed no specific lesion. Video colonoscope was introduced without difficulty. It was navigated into the rectosigmoid, sigmoid. In this area, there was a suggestion on withdrawal of the scope of the rectosigmoid prolapse. Prep was excellent. Good mucosal detail was seen and anorectal verge was clear. PLAN AND CURRENT RECOMMENDATIONS: Repeat asymptomatic screening in this patient continues to be 5 years. GRAFT OR IMPLANTS: No grafts or implants, but there was 1 resolution clip placed. Anything about PATHOLOGY: Collected: 07/04/20 MR #: [id number] Received: 07/04/20 Status: [facility] Location: [facility] Diagnosis A. Colon, descending, polypectomy: Tubular adenoma; no high grade dysplasia or carcinoma seen. B. Colon, distal transverse, polypectomy: Fragments of tubular adenoma; no high grade dysplasia or carcinoma seen. Clinical History Pre-Op Dx: Screening Post-Op Dx: Colonic polyps Assessment & Plan Assessment & Plan (1) Tubular adenoma of colon: Comment: 06/07/2015 colonoscopy complete with good prep- tubular adenoma and hyperplastic polyps; 06/2020 colonoscopy with excellent prep- Tubular adenoma to ascending and descending. Recommendation for repeat in five year ( 2024) Code(s): D12.6 - Benign neoplasm of colon, unspecified Category: Medical Plan: plan as below (2) Bowel incontinence: Code(s): R15.9 - Full incontinence of feces Category: Medical Qualifiers: Fecal incontinence type: unspecified Qualified Code(s): R15.9 - Full incontinence of feces Plan: New-onset fecal incontinence alongside decreased rectal tone, likely multifactorial (possibly senna effects, pelvic floor issues, medication side effects, or stress-related). Additional Testing: -Colonoscopy: Rule out polyps, masses, or malignancy. -Anal rectal manometry: Evaluate sphincter tone and function. She understands this will be completed at [facility] and agreeable to referral. -Stool analysis: Rule out inflammatory conditions such as Crohn?s disease or ulcerative colitis, and celiac disease. Medication Management: Temporary discontinuation of senna for one week (Senna holiday) to determine effects on stool regularity and incontinence. Patient to resume if constipation worsens unless otherwise instructed. Lifestyle Recommendations: Increase fiber and hydration; optimize diet with GI- friendly foods. Avoid senna temporarily. Monitor stress levels and consider stress reduction techniques. Follow-Up: Follow-up scheduled in 10 weeks to assess progress, review test results (labs, colonoscopy, stool sample, CT imaging), and adjust management plan. (3) Constipation: Code(s): K59.00 - Constipation, unspecified Category: Medical Qualifiers: Constipation type: unspecified constipation type Qualified Code(s): K59.00 - Constipation, unspecified Plan: Long-standing constipation managed with senna and occasional diarrhea likely exacerbated by senna dose adjustment. Episodic variability in stool patterns might indicate medication side effects, dietary factors, or other underlying GI conditions. Additional Testing: CT scan with IV and oral contrast to assess for possible structural abnormalities or inflammation. Medication Management: Closely monitor stool patterns during senna discontinuation. Continue Miralax PRN for severe constipation. Lifestyle Recommendations: Reinforce dietary fiber intake; encourage bulk- forming foods. Maintain hydration with water and clear liquids. Follow-Up: Results of imaging, labs, stool sample, and effect of senna holiday to guide further intervention during follow-up in 10 weeks. (4) Acid reflux: Comment: 06/07/2015 EGD distal esophagitis, grade 1; small high hiatal hernia, superficial gastritis, duodenitis Code(s): K21.9 - Gastro-esophageal reflux disease without esophagitis Category: Medical Qualifiers: Esophagitis presence: with esophagitis Esophagitis bleeding: without hemorrhage Qualified Code(s): K21.00 - Gastro-esophageal reflux disease with esophagitis, without bleeding Plan: Occasional episodes of heartburn and regurgitation associated with specific food triggers. Symptoms manageable with dietary modifications and episodic antacid use. Lifestyle Recommendations: Avoid trigger foods, particularly spicy items; consider OTC antacid supplementation PRN. Continue to monitor for onset of new reflux symptoms. Plan Follow-up in 10 weeks or sooner as needed Time: I spent a total of 50 minutes on the date of encounter which includes: Preparing to see the patient (reviewed previous documentation, test results and medical history) Performing a medically appropriate exam and/or evaluation Ordering medications, tests, and procedures Documenting clinical information in the health record Orders: Orders C Reactive Protein Today R15.9 - Full incontinence of feces Calprotectin, Fecal Today R15.9 - Full incontinence of feces CT abdomen pelvis w IV con Today R15.9 - Full incontinence of feces Transglutaminase IgA Today R15.9 - Full incontinence of feces Basic Metabolic Panel Today R10.9 - Unspecified abdominal pain Referrals Gastroenterology Referral K62.89 - Other specified diseases of anus and rectum, R15.9 - Full incontinence of feces Medications: New bisacodyl (Dulcolax (bisacodyl)) Take four tablets pre colonoscopy instructions 20 mg (4 x 5 mg) PO ONCE 4 tabs 0RF 1 day polyethylene glycol 3350 (Miralax) per colonoscopy prep instructions 238 grams PO ONCE 238 grams 0RF On Hold sennosides-docusate sodium 8.6-50 mg (Senna Plus) Hold Comment: Doctor's Order 1 tab-cap PO BEDTIME 90 caps 0RF Coding Level of Care Code New Pt New Pt Level 4 (05607) Patient Type New Diagnoses Tubular adenoma of colon D12.6 Incontinence of feces, unspecified fecal incontinence type R15.9 Fecal incontinence type: unspecified Constipation, unspecified constipation type K59.00 Constipation type: unspecified constipation type Gastroesophageal reflux disease with esophagitis without hemorrhage K21.00 Esophagitis presence: with esophagitis Esophagitis bleeding: without hemorrhage
[2025-04-10 14:40] VITALS: BP 111/73; PULSE 76; O2SAT 95; BMI 29.3
== END 2025-04-10 15:28 | disposition home or self-care (01) ==
LOC: HO.HGI 14:23
PROVIDERS: PCP Internal Medicine; Visit Provider Nurse Practitioner Family
DX: D12.6 Benign neoplasm of colon, unspecified (principal); R15.9 Full incontinence of feces; K59.00 Constipation, unspecified; K21.00 Gastro-esophageal reflux disease with esophagitis, without bleeding
CPT/HCPCS: 99204

== ENCOUNTER → 2025-04-10 14:23 | Outpatient (BNVA) | payer MEDICARE, MEDICAID, SELFPAY | PROVIDERS: PCP Internal Medicine; Visit Provider Nurse Practitioner Family | DX: R15.9 Full incontinence of feces (principal); D12.6 Benign neoplasm of colon, unspecified; K59.00 Constipation, unspecified; K21.9 Gastro-esophageal reflux disease without esophagitis | CPT/HCPCS: 99202 ==

== ENCOUNTER 2025-04-19 09:54 | Outpatient (REF) | payer MEDICARE, MEDICAID, SELFPAY ==
--- OUTSIDE RECORDS SUMMARY | 2025-01-22 05:20 | XMS_ITS | Continuity of Care Document ---
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 [address] [place], [place], [id number], [place]. tel:[phone] [facility], [address], [place], [place], [id number], [place] tel:[phone] [place] No Information - 5 Vinod Aqib. [address] [place], [place], [id number], [place]. tel:[phone] [facility], [address], [place], [place], [id number], [place] tel:[phone] [place] No Information 5 Vinod Aqib. [address] [place], [id number], [place]. tel:[phone] [facility], [address], [place], [place], [id number], [place] tel:[phone] [place] No Information 4 Vinod Aqib. [address] [place], [place], [id number], [place]. tel:[phone] [facility], [address], [place], [place], [id number], [place] tel:[phone] [place] No Information 4 Vinod Aqib. [address] [place], [place], [id number], [place]. tel:[phone] [facility], [address], [place], [place], [id number], [place] tel:[phone] [place] No Information 4 Vinod Aqib. [address] [place], [id number], [place]. tel:[phone] [facility], [address], [place], [place], [id number], [place] tel:[phone] [place] No Information Oct-2 4-202 4 Vinod Aqib. [address] [place], [place], [id number], [place]. tel:[phone] [facility], [address] [facility], [place], [place], [id number], tel:[phone] [place] No Information 4 Omar Proctor. [address] [place], [place], [id number], [place]. tel:[phone] [facility], [address] [facility], [place], [place], [id number], [place] tel:[phone] [place] No Information 4 Omar Proctor. [address] [place], [id number], [place]. tel:[phone] [facility], [address], [id number], tel:[phone] [place] Semi-Annual (chief complaint) Schizophrenia, unspecified typeBipolar affective [...] nodulePsoriasis 4 Omar Proctor. [address] [place], [place], [id number], [place]. tel:[phone] [facility], [address], [place], [place], [id number], [place] tel:[phone] [place] No Information 4 Os Dawna. [address] [place], [place], [id number], [place]. tel:[phone] [facility], [address], [place], [place], [id number], [place] tel:[phone] [place] No Information 4 Omar Esthela. [address] [place], [place], [id number], [place]. tel:[phone] [facility], [address], [place], [place], [id number], [place] tel:[phone] [place] Psoriasis 4 Omar Lingca. [address] [place], [place], [id number], [place]. tel:[phone] [facility], [address], [place], [place], [id number], [place] tel:[phone] [place] Acute Visit (chief complaint) Psoriasis 4 Omar Esthela. [address] [place], [place], [id number], [place]. tel:[phone] [facility], [address] [facility], [place], [place], [id number], [place] tel:[phone] [place] No Information 4 Pitsiladis . [address] [place], [place], [id number], [place]. tel:[phone] [facility], [address], [place], [place], [id number], [place] tel:[phone] [place] No Information 4 Os Dawna. [address] [place], [place], [id number], [place]. tel:[phone] [facility], [address], [place], [place], [id number], [place] tel:[phone] [place] No Information 4 Os Dawna. [address] [place], [place], [id number], [place]. tel:[phone] [facility], [address] [facility], [place], [place], [id number], [place] tel:[phone] [place] Acute Visit (chief complaint) Psoriasis 4 Os Dawna. [address] [place], [place], [id number], [place]. tel:[phone] [facility], [address] [facility], [place], [place], [id number], [place] tel:[phone] [place] Acute Visit (chief complaint) Fungal dermatitis Guy- 4 Omar Esthela. [address] [place], [place], [id number], [place]. tel:[phone] [facility], [address] [facility], [place], [place], [id number], [place] tel:[phone] [place] FibromyalgiaAge-rela cory osteoporosis without current pathological fractureUnspecified osteoarthritis, unspecified site 4 Os Dawna. [address] [place], [place], [id number], [place]. tel:[phone] [facility], [address] [facility], [place], [place], [id number], [place] tel:[phone] [place] No Information 4 Omar Lingca. [address] [place], [place], [id number], [place]. tel:[phone] [facility], [address] [facility], [place], [place], [id number], [place] tel:[phone] [place] No Information 4 Os Dawna. [address] [place], [place], [id number], [place]. tel:[phone] [facility], [address], [place], [place], [id number], [place] tel:[phone] [place] Age-related osteoporosis without current pathological fracture 4 Os Dawna. [address] [place], [place], [id number], [place]. tel:[phone] [facility], [address], [place], [place], [id number], [place] tel:[phone] [place] [phone] No Information 4 Os Dawna. [address] [place], [place], [id number], [place]. tel:[phone] [facility], [address], [place], [place], [id number], [place] tel:[phone] [place] [address] No Information 3 0 4 Os Dawna. [address] [place], [id number], [place]. tel:[phone] [facility], [address] [facility], [place], [place], [id number], [place] tel:[phone] [place] [address] No Information 4 Os Dawna. [address] [place], [place], [id number], [place]. tel:[phone] [facility], [address] [facility], [place], [place], [id number], [place] tel:[phone] [place] [address] No Information 4 Os Dawna. [address] [place], [place], [id number], [place]. tel:[phone] [facility], [address], [place], [place], [id number], [place] tel:[phone] [place] No Information 4 Os Dawna. [address] [place], [place], [id number], [place]. tel:[phone] [facility], [address] [facility], [place], [place], [id number], [place] tel:[phone] [place] No Information Oct- 4 Os Dawna. [address] [place], [place], [id number], [place]. tel:[phone] [facility], [address] [facility], [place], [place], [id number], [place] tel:[phone] [place] Encounter for rehabilitation evaluationHemiplegia and hemiparesis following unspecified cerebrovascular disease affecting left dominant sidePrimary generalized (osteo)arthritis 0 4 Brian Wallace. [address] [place], [place], [id number], [place]. tel:[phone] [facility], [address] [facility], [place], [place], [id number], [place] tel:[phone] [place] Encounter for rehabilitation evaluation 0 4 Gopi Campos. [address] [place], [place], [id number], [place]. tel:[phone] [facility], [address] [facility], [place], [place], [address], [place] tel:[phone] [place] Semi-Annual (chief complaint) Encounter for general adult medical examination without abnormal findingsSchizophrenia, unspecified typeBipolar affective disorder, remission status unspecifiedGeneralized anxiety disorderPTSD (post-traumatic stress disorder)Hypercholester olaemiaLong term (current) use of oral hypoglycemic drugsType 2 diabetes mellitus with diabetic chronic kidney disease, unspecified CKD stage, unspecified whether fci insulin useOsteoporosis, unspecified osteoporosis type, unspecified pathological fracture presenceGastroesophagea l reflux disease without esophagitisStage 2 chronic kidney diseaseHypertensive renal disease, stage 1 through stage 4 or unspecified chronic kidney diseaseChronic obstructive pulmonary disease, unspecified COPD typePulmonary noduleTobacco useObstructive sleep apneaType 2 diabetes mellitus with peripheral vascular disease 0 4 Os Dawna. [address] [place], [place], [id number], [place]. tel:[phone] [facility], [address], [place], [place], [id number], [place] tel:[phone] [place] Medication management 3 Omar Esthela. [address] [place], [place], [id number], [place]. tel:[phone] [facility], [address], [place], [place], [id number], [place] tel:[phone] [place] Follow-up (chief complaint) Pulmonary nodule 3 Omar Esthela. [address] [place], [place], [id number], [place]. tel:[phone] [facility], [address], [place], [place], [id number], [place] tel:[phone] [place] No Information 3 Omar Esthela. [address] [place], [place], [id number], [place]. tel:[phone] [facility], [address] [facility], [place], [place], [id number], [place] tel:[phone] [place] No Information 3 Os Dawna. [address] [place], [place], [id number], [place]. tel:[phone] [facility], [address], [place], [place], [id number], [place] tel:[phone] [place] OV (chief complaint) Pulmonary nodule 3 Omar Esthela. [address] [place], [place], [id number], [place]. tel:[phone] [facility], [address], [place], [place], [id number], [place] tel:[phone] [place] No Information 3 Omar Esthela. [address] [place], [place], [id number], [place]. tel:[phone] [facility], [address] [facility], [place], [place], [id number], [place] tel:[phone] [place] Semi-Annual (chief complaint) Schizophrenia, unspecified typeBipolar disorder [...] use of insulinChronic kidney disease, stage 2 (mild)salvage determiner (current) use of insulinHypertensive renal disease, stage 1 through stage 4 or unspecified chronic kidney disease 3 Os Dawna. [address] [place], [place], [id number], [place]. tel:[phone] [facility], [address] [address], [place], [place], [id number], [place] tel:[phone] [facility] 3 Os Dawna. [address] [place], [place], [id number], [place]. tel:[phone] [facility], [address] [address], [place], [place], [id number], [place] tel:[phone] [facility] 3 Os Dawna. [address] [place], [place], [id number], [place]. tel:[phone] [facility], [address] [address], [place], [place], [id number], [place] tel:[phone] [place] Encounter for rehabilitation evaluation 3 Isa Adonay. [address], [place], [address]. tel:[phone] [facility], [facility], [place], [place], [id number], [place] tel:[phone] [place] Encounter for rehabilitation evaluationOther chronic painAlteration in performance of activities of daily living 3 Marco A Delcid. [address] [place], [place], [id number]. tel:[phone] [facility], [address] [facility] [address] [facility], [place], [place], [id number], [place] tel:[phone] [place] Osteoarthritis, unspecified osteoarthritis type, unspecified site 3 Os Dawna. [address] [place], [place], [id number], [place]. tel:[phone] [facility], [address] [facility], [place], [place], [address], [place] tel:[phone] [place] Encounter for nutritional assessmentDiabetes education, encounter forClass 1 obesity with serious comorbidity and body mass index (BMI) of 32.0 to 32.9 in adult, unspecified obesity typeBody mass index [BMI] 32.0-32.9, adult 3 Anton Anaya. [address] [place], [place], [id number], [place]. tel:[phone] [facility], [address] [facility] [address] [place] [address], [id number], [place] tel:[phone] [place] HUSSEIN (chief complaint) Schizophrenia, unspecified typeBipolar affective disorder, remission status unspecifiedGeneralized anxiety disorderPTSDHypercholes terolaemiaType 2 diabetes mellitus with diabetic chronic kidney disease, unspecified CKD stage, unspecified whether supervisor intermediates insulin useOsteoporosis, unspecified osteoporosis type, unspecified pathological fracture presenceChronic kidney disease, stage 2 (mild)Hypertensive chronic kidney disease with stage 1 through stage 4 chronic kidney disease, or unspecified chronic kidney diseaseCOPDPulmonary noduleTobacco useFibromyalgiaGastroes ophageal reflux disease without esophagitis 3 Os Dawna. [address] [place], [place], [id number], [place]. tel:[phone] [facility], [address] [facility] [address], [place], [place], [address], [place] tel:[phone] [place] History of fracture 2 Os Dawna. [address] [place], [place], [id number], [place]. tel:[phone] [facility], [address] [facility] [address] [facility], [place], [place], [id number], [place] tel:[phone] [place] Papular eczema 2 Os Dawna. [address] [place], [place], [id number], [place]. tel:[phone] [facility], [address] [facility] [address], [place], [place], [id number], [place] tel:[phone] [place] No Information Apr-2 2 Os Dawna. [address] [place], [place], [id number], [place]. tel:[phone] [facility], [address] [facility] [address] [facility], [place], [place], [id number], [place] tel:[phone] [place] Obstructive sleep apnea Sep-2 2 Os Dawna. [address] [place], [place], [id number], [place]. tel:[phone] [facility], [address] [facility] [address] [facility], [place], [place], [id number], [place] tel:[phone] [place] No Information Feb-2 2 Os Dawna. [address] [place], [place], [id number], [place]. tel:[phone] [facility], [address] [facility], [place], [place], [address], [place] tel:[phone] [place] Semiannual (chief complaint) Hypertension, unspecified typeHypercholesterolaem iaChronic kidney disease due to diabetes mellitusSchizophrenia, unspecified typeBipolar affective disorder, remission status unspecifiedGeneralized anxiety disorderPTSDOsteoporosi s, unspecified osteoporosis type, unspecified pathological fracture presenceCOPDPulmonary nodulePapular eczemaHealthcare maintenanceTobacco useChronic kidney disease, stage 3a 2 Os Dawna. [address] [facility], [place], [place], [id number], [place]. tel:[phone] [facility], [address] [facility], [place], [place], [id number], [place] tel:[phone] [place] Encounter for nutritional assessmentDiabetes education, encounter forOther obesity 2 Normile Jaclyn. [address] [facility] [place], [address], [place]. tel:[phone] [facility], [address] [facility] [address] [facility], [place], [place], [id number], [place] tel:[phone] [place] OV (chief complaint) Type 2 diabetesGeneralized anxiety disorderIntractable headache, unspecified chronicity pattern, unspecified headache typeNausea 2 Os Dawna. [address] [facility] [facility] [place], [id number], [place]. tel:[phone] [facility], [address] [facility] [address] [facility], [place], [place], [id number], [place] tel:[phone] [place] Pulmonary nodule 2 Os Dawna. [address] [place], [place], [address], [place]. tel:[phone] [facility], [address] [facility] [address] [facility], [place], [place], [address], [place] tel:[phone] [place] No Information 2 Os Dawna. [address] [facility] [place], [id number], [place]. tel:[phone] [facility], [address] [facility], [place], [place], [address], [place] tel:[phone] [place] Encounter for nutritional assessment Sep-2 2 Normile Jaclyn. [address] [place], [place], [id number], [place]. tel:[phone] [facility], [address] [facility] [address], [place], [place], [id number], [place] tel:[phone] [place] PEE (chief complaint) Hypertension, unspecified typeHypercholesterolaem iaCataract of both eyes, unspecified cataract typeBipolar affective disorder, remission status unspecifiedGeneralized anxiety disorderPTSDHistory of fractureOsteoporosis, unspecified osteoporosis type, unspecified pathological fracture presenceCOPDPulmonary noduleHealthcare maintenance 2 Os Dawna. [address] [place], [place], [id number], [place]. tel:[phone] [facility], [address] [facility], [place], [place], [address], [place] tel:[phone] [place] Muscle weakness (generalized)Encounter for rehabilitation evaluation b-0 2 Isa Adonay. [address] [place], [address]. tel:[phone] [facility], [address] [facility] [facility], [place], [id number], [place] tel:[phone] [place] Encounter for rehabilitation evaluationAlteration in performance of activities of daily livingOther chronic pain b0 2 Marco A Delcid. 101 [facility], [place], [place], [id number]. tel:[phone] [facility], [address] [facility] [facility], [place], [place], [address], [place] tel:[phone] [place] No Information b0 2 Juan Ramon Leyva. [address] [place], [place], [id number], [place]. tel:[phone] [facility], [address] [facility] [facility], [place], [place], [id number], [place] tel:[phone] [place] Intake (chief complaint) No Information Steph Martinez. [address], [place], [place], [id number], . tel:[phone] Family History Family Member Type Diagnosis Age [...] name Insurance type Covered democrat ID Authoriza dereck(s) [facility] 16 [id number] [facility] 16 [id number] [facility] 16 [id number] [facility] 16 [id number] [facility] 16 [id number] [facility] [id number] [facility] 16 [id number] Social History Type Description Quantity Date Captured Comments Sex Female Smoking Status No Information Chief Complaint And Reason For Visit No Information Plan Of Treatment Date Type Action Status Referral Ordered: Referrals: [employer]. Evaluate and treat Appointment date/timeframe: 02/07/2024 ordered Referral Ordered: Referrals: Orthopedic Surgery. Evaluate and treat ordered Referral Ordered: Referrals: Dentistry. Evaluate and treat ordered Referral Ordered: Referrals: Ophthalmology. Evaluate and treat ordered Referral Ordered: Referrals: Rheumatology. Evaluate and treat ordered Referral Ordered: Referrals: [facility]- [facility] Location: [facility]. Evaluate and treat ordered Referral Ordered: Referrals: Obstetrics. Location: [facility]. Evaluate and treat ordered Referral Ordered: Referrals: [...] (Diagnostic); Bilateral, incl computer-aided detection when performed (11406), Ordered on: Ordered History Of Present Illness [...] needs follow up-Psychiatrist: Trying to get into [facility]-Therapist: [facility]tof [facility]-Ortho: 12/2023- closed fracture [...] lung nodules, COPD, hypotensionEXAM: NAD. mildly hypotensive, GSSV2bbgy: repeat CT scan, encouraged fluids (she only [...] has been helping. Working on getting into [facility] (psychiatrist). Diagnoses Reviewed.Consults:-Dental: last seen in September- had cap; 05/05/23 [facility] appt-Vision: 12/25/22-Psychiatrist: Trying to get into [facility]-Therapist: Kr[facility]ztof delarosa [facility]-Pain management: 09/21/22- did [...] the next 1-2 years? where I am [place]- Comments: Jet rees is a 66 year [...] in 1 month-Start pepcid bid PRN OV PEE Comments: Angelina mckay is a 65 [...] seeing a prescriber Tena Reyna APRN in [place] and has followed with her for years. [...] for mail order and [facility] locally on [address]: she states the clonazepam comes from [facility]. She is considering changing to [facility] once she enrolls. Instructions Date Instruction [...] Related to Gastroesophageal reflux disease without esophagitis BMI 30RD consultingd iabetic, encourage improved nutrition Related to Class 1 obesity due to excess calories with serious comorbidity and body mass index (BMI) of 30.0 to 30.9 in adult BMI 30RD consultingd iabetic, encourage improved nutrition Related to Body mass index [BMI] 30.0-30.9, adult 01/2022 Dexa: Impress ion: The patient has osteoporosis as determined by WHO criteria.cont supplements as neededchecking vit d routinely Related to Age-related osteoporosis without current pathological fracture Labs todaycont glipi zidebaseline GFR 60savoid nephrotoxins, [...] elevat edrepeat labs todaycont glipizide Related to salvage 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 She is working on getting into [facility] for a psychiatrist. Currently- PCP is prescribing and sending medications. -Continue current med regimen- follow up w/ new psychiatrist may need medication adjustment Related to Generalized anxiety disorder Pt reports seeing Reinier ewing (therapist) [facility]. She is working on getting into [facility] for a psychiatrist. Currently- PCP is prescribing [...] monthly. She is working on getting into [facility] for a psychiatrist. Currently- PCP is prescribing [...] 08/2022 GFR 60-Avoid nephrotoxic medications Related to [facility] (current) use of insulin 08/2022: A1C- 6.7Continue glipizi de Related to penitentiary (current) use of oral hypoglycemic drugs Rhem [...] kidney disease, unspecified CKD stage, unspecified whether [facility] insulin use 02/25/2022:Lipid ratio - 6.6Increased lipitor [...] month-Start pepcid bid PRN Related to Nausea Headaches for the pa st couple of [...] headache, unspecified chronicity pattern, unspecified headache type Tremors: for about a n hour occasionally 2x/month getting better (recent increase of ziprasidone) will continue to monitor, may recommend having psychiatrist decrease ziprasidone if no improvement or worsening tremors. Pt reports this may also be r/t nerves which is also likely. Related to Generalized anxiety disorder Nausea/dry heaving: over the past couple months. Pt had recently started metformin on 10/22/21. This is likely the cause of her symptoms. Discussed d/c'ing metformin and starting glipizide 2.5mg daily which she was open to. Had also reported having reflux symptoms (long-standing hx of reflux on no current medications) pt was open to starting pepcid bid PRN.-D/c metformin-Start glipizide 2.5mg daily (may increase)-Check A1C in 1 month-Start pepcid bid PRN Related to Type [address] for f/u Related to Pulm onary nodule Referrals in place f or: vision, psych and dentist Related to Healthcare maintenance Per patient, she rep orts a pulmonary nodule that had been discovered on an x-ray . No records. She requested to have this looked into.Plan: order chest CT Related to Pulmonary nodule Pt reports seeing Skip Reyna APRN (psychiatrist) [...] of fracture Per preenrollment re cords. Pt is a [...] pathological fracture presence Per preenrollment re cords. History of cataracts in [place] eyes r[facility] [place] referred to one of [...]
--- NOTE | ~2025-04-19 | US_ITS ---
CLINICAL HISTORY: N18.9 - Chronic kidney disease, unspecified US of kidneys Comparison: None provided Findings: Right kidney is normal in size, echogenicity and morphology, 10.8 cm in length. No calculus or hydronephrosis. 1 cm simple cortical cyst in the lower pole. Small extrarenal pelvis. Left kidney is normal in size, echogenicity and morphology, 12.0 cm in length. No calculus or hydronephrosis. Punctate echogenic focus in the lower pole cortex, likely parenchyma calcification. Small extrarenal pelvis noted. Limited color Doppler demonstrates unremarkable bilateral blood flow. Incidental note of the echogenic liver parenchyma. Impression: 1. Right renal simple cyst. No obstructive uropathy or nephrolithiasis. 2. Suspect hepatic steatosis. This document has been electronically signed by: Lauren Garcia MD on 04/19/2025 15:33:55
== END 2025-04-19 09:55 | disposition home or self-care (01) ==
LOC: HO.US 09:54
PROVIDERS: PCP Internal Medicine; Visit Provider Internal Medicine Hypertension Specialist
DX: N18.9 Chronic kidney disease, unspecified (principal)
CPT/HCPCS: 76775

== ENCOUNTER → 2025-04-19 10:02 | Outpatient (BNV) | payer MEDICARE, MEDICAID, SELFPAY | PROVIDERS: PCP Internal Medicine; Visit Provider Radiology Diagnostic Radiology | DX: N28.1 Cyst of kidney, acquired (principal) | CPT/HCPCS: 76775 ==

== ENCOUNTER 2025-04-25 07:31 | Outpatient (REF) | payer MEDICARE, MEDICAID, SELFPAY ==
[2025-04-25 08:46] LABS: Hematocrit 48.0 % (37.0-47.0); Hemoglobin 15.8 g/dl (12.0-16.0); Mean Corpuscular HGB Conc 32.9 g/dl (31.0-35.0); Mean Corpuscular Hemoglobin 28.9 pg (27.0-33.0); Mean Corpuscular Volume 87.9 fL (80.0-98.0); NRBC Abs Auto 0.000 X10*3/uL (0.0-0.012); NRBC Pct Auto 0.0 /100WBC (0.0-0.2); Platelet Count 260 X10*3/uL (160-400); Red Blood Count 5.46 X10*6/uL (4.20-5.50); White Blood Count 6.7 X10*3/uL (4.8-10.8)
[2025-04-25 09:10] LABS: Appearance Urine Clear; Glucose Urine UA Negative (Negative); PH 6.0 (5.0-9.0); Specific Gravity - Urine <= 1.005 (1.005-1.025); UMIC TRIGGER UA YES
[2025-04-25 09:20] LABS: Anion Gap 11 (12-20); Blood Urea Nitrogen 10 mg/dL (9-16); Calcium 9.6 mg/dL (8.4-10.2); Carbon Dioxide 26 mmol/L (22-29); Chloride 107 mmol/L (96-108); Estimated Glomerular Filt Rate 56; Potassium 4.2 mmol/L (3.3-5.1); Sodium 140 mmol/L (135-145)
[2025-04-25 09:49] LABS: Total Protein Urine Random < 7 mg/dL (<12)
[2025-05-01 17:59] LABS: Calprotectin, Fecal 70 mcg/g
== END 2025-04-25 07:32 | disposition home or self-care (01) ==
LOC: HO.LAB 07:31
PROVIDERS: Absent Provider Internal Medicine Hypertension Specialist; PCP Internal Medicine; Visit Provider Nurse Practitioner Family
DX: I12.9 Hypertensive chronic kidney disease with stage 1 through stage 4 chronic kidney disease, or unspecified chronic kidney disease (principal); N18.9 Chronic kidney disease, unspecified; R15.9 Full incontinence of feces
CPT/HCPCS: 36415; 80048; 81001; 81003; 82570; 83993; 84156; 85027; 86140; 86364

== ENCOUNTER 2025-05-03 10:49 | Outpatient (AMB) | payer BC, MEDICAID, SELFPAY ==
[2025-05-03 10:57] VITALS: BP 124/80; PULSE 82; O2SAT 95; BMI 29.4
--- NOTE | 2025-05-03 10:57 | HO.NEPHOV ---
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 Accompanied by: Sister Allergies azithromycin Allergy (Unknown, Verified 05/03/25 11:01) unknown denosumab (Prolia) Allergy (Unknown, Verified 05/03/25 11:01) vomiting lamotrigine Allergy (Unknown, Verified 05/03/25 11:01) rash lisinopril Allergy (Unknown, Verified 05/03/25 11:01) nausea and vomiting naproxen (Aleve) Allergy (Unknown, Verified 05/03/25 11:01) dizziness Medication List - Last Reconciled 05/03/25 by Stew Anaya MD albuterol sulfate 90 mcg/actuation 2 puffs inhalation Q4-6H PRN amlodipine 2.5 mg PO DAILY atorvastatin 80 mg PO DAILY 30 days bisacodyl (Dulcolax (bisacodyl)) 20 mg (4 x 5 mg) PO ONCE 1 day cetirizine (Zyrtec) 10 mg PO DAILY cholecalciferol (vitamin D3) 25 mcg PO DAILY clonazepam (Klonopin) 1 mg PO TID ezetimibe (Zetia) 10 mg PO DAILY fenofibrate 160 mg PO DAILY 90 days fluoxetine 20 mg PO BID fluticasone propion-salmeterol 100-50 mcg/dose (Advair Diskus) 1 inh inhalation BID fluticasone propionate 50 mcg/actuation 2 sprays intranasal .QD 30 days gabapentin 600 mg PO BEDTIME gabapentin 300 mg PO BID glipizide 5 mg PO DAILY polyethylene glycol 3350 (Miralax) 238 grams PO ONCE propranolol ER 80 mg PO DAILY sennosides-docusate sodium 8.6-50 mg (Senna Plus) 1 tab-cap PO BEDTIME Held on 04/10/25. Instructions: Doctor's Order ziprasidone HCl 40 mg PO BEDTIME ziprasidone HCl 20 mg PO QAM HPI Comments Details: The patient is a 69-year-old female presenting with decreased kidney function. She was referred after blood tests indicated a decline in kidney function, with a glomerular filtration rate (GFR) of 46% as of March 12. The patient has a history of essential hypertension, which has been present for a long time and is currently managed with amlodipine and propranolol. She also has type 2 diabetes mellitus, diagnosed approximately a year and a half ago, which is under control with medication, as indicated by a recent A1c of 6.8%. The patient has been advised to maintain her blood sugar levels below 6% to prevent further kidney damage. The patient has a psychiatric history significant for bipolar disorder and PTSD, for which she is currently taking Prozac and Ziprasidone. She previously took lithium for just few days about 30 years ago, which was discontinued due to lack of efficacy. The patient reports a history of peripheral vascular disease, with a noted narrowing in the left leg arteries, and has been on atorvastatin for hyperlipidemia management. She was mistakenly prescribed a lower dose of atorvastatin earlier this year but has since resumed the correct dosage of 80 mg. The patient has a significant history of tobacco use, currently smoking half a pack per day, having reduced from a previous one pack per day. 05/03/25 The patient is a 69-year-old female presenting with renal function evaluation. Renal function improved after stopping furosemide, with creatinine decreasing from 1.17 to 0.99. Hypertension is managed with amlodipine, and blood pressure is controlled. Diabetes mellitus is under control, with emphasis on maintaining blood sugar, blood pressure, and weight. Preventative care includes a scheduled colonoscopy. Medical History: - Hypertension - Diabetes Mellitus Medications: - Amlodipine for hypertension Social History: - Diet: High salt intake, advised to reduce salt consumption - Exercise: Recommended to walk at least 40 minutes daily - Smoking: Advised to stop smoking Diagnostic Results: - Labs: Creatinine decreased from 1.17 to 0.99 - Urine study: Minimal protein presence [facility] Medical History (Updated 04/10/25 @ 16:03 by Shawanda Trimble CNP) Acid reflux Decreased rectal sphincter tone Abdominal pain Nicotine dependence, cigarettes, uncomplicated Bilateral lower extremity pain Hx of gastritis Hx of allergic rhinitis Migraines Tubular adenoma of colon Pulmonary nodule Osteoporosis Right humeral fracture Hip fracture, right Bipolar disorder Fibromyalgia Thyroid cyst Vitamin D deficiency Obesity (BMI 30-39.9) Hypercholesterolemia Hypertension COPD (chronic obstructive pulmonary disease) Anxiety and depression Type 2 diabetes mellitus with hyperglycemia Surgical History History of cholecystectomy History of total abdominal hysterectomy and bilateral salpingo-oophorectomy History of colonoscopy Deficient knowledge of leg surgery History of shoulder surgery History of hip surgery History of esophagogastroduodenoscopy (EGD) H/O right knee surgery Herniated nucleus pulposus Family History Father Hypertension Cancer Esophageal cancer Mother Hypertension Maternal Aunt Stomach cancer Son Substance abuse Social History Housing: House Alcohol intake: current Alcohol intake frequency: a few times a month Patient Tobacco Use Status: Current everyday Tobacco user Tobacco use type: Cigarette Cigarette Packs Per Day: 0.5 Cigarettes Per Day: 10 Years Smoked: (onset 15yo, 1/2-1ppd x 53yrs, 35+PYH); Quit- 10/2024 e-Cigarette/Vaping Use: Never Used Second Hand Smoke Exposure: Yes service: No Current occupational status: employed Cognitive needs: No Hearing needs: No Vision needs: Yes Physical Exam Vital Signs: Last Vital Signs Pulse 82 05/03/25 10:57 BP 124/80 05/03/25 10:57 Pulse Ox 95 05/03/25 10:57 Oxygen Delivery Method Room Air 05/03/25 10:57 BMI result Body Mass Index 29.4 Const General: comfortable Nutritional Appearance: well nourished Orientation/consciousness: patient oriented x3 HEENT Head: No normal to inspection Mouth: moist mucous membranes Neck Neck: Yes supple and Yes no JVD Resp Auscultation: clear to auscultation bilaterally and no rales Cardio Jugular venous distension: no JVD Palpation: no palpable S3 and no palpable S4 Heart sounds: no rubs GI Palpation (GI): Soft to palpation and nontender Percussion: No Fluid wave present General: Yes no CVA tenderness Back/Spine/Pelvis Back: no CVA tenderness Skin General skin exam: no rashes or lesions noted Neuro General: patient oriented x3 Extrem General: Yes no pedal edema and No clubbing Results Reviewed Results Reviewed: USG Impression: 1. Right renal simple cyst. No obstructive uropathy or nephrolithiasis. 2. Suspect hepatic steatosis. Nephrology Results: Hgb, (12.0-16.0) 15.8 g/dl 04/25/25 WBC, (4.8-10.8) 6.7 X10*3/uL 04/25/25 Plt Count, (160-400) 260 X10*3/uL 04/25/25 Sodium, (135-145) 140 mmol/L 04/25/25 Potassium, (3.3-5.1) 4.2 mmol/L 04/25/25 Chloride, (96-108) 107 mmol/L 04/25/25 Carbon Dioxide, (22-29) 26 mmol/L 04/25/25 BUN, (9-16) 10 mg/dL 04/25/25 Creatinine, (0.5-1.4) 0.99 mg/dL 04/25/25 Calcium, (8.4-10.2) 9.6 mg/dL 04/25/25 Urine Protein, (Neg-Trace) Negative mg/dL 04/25/25 Urine Creatinine 41.88 mg/dL 04/25/25 Renal US 04/19/25 Assessment & Plan Assessment & Plan (1) Hypertension: Code(s): I10 - Essential (primary) hypertension Category: Medical Qualifiers: Hypertension type: essential hypertension Qualified Code(s): I10 - Essential (primary) hypertension (2) CKD (chronic kidney disease): Code(s): N18.9 - Chronic kidney disease, unspecified Category: Medical Plan Makayla has stage IIIA CKD. In the setting of longstanding hypertension and peripheral as disease TODD due to hypoperfusion. Resolved after stopping Lasix Current fluid status acceptable. No evidence of glomerular nephritis or AIN No proteinuria. UA bland No need for furosemide Increase p.o. fluids Continue to stay on low-sodium diet Encouraged to discontinue smoking. Simple renal cyst on renal ultrasonogram -no need for further follow up No hydro BP is acceptable. Orders: Orders Basic Metabolic Panel 1 Year I10 - Essential (primary) hypertension, N18.9 - Chronic kidney disease, unspecified Total Protein Urine Random 1 Year I10 - Essential (primary) hypertension, N18.9 - Chronic kidney disease, unspecified Creatinine Urine 1 Year I10 - Essential (primary) hypertension, N18.9 - Chronic kidney disease, unspecified UA and rflx microscopic 1 Year I10 - Essential (primary) hypertension, N18.9 - Chronic kidney disease, unspecified Coding Level of Care Code Est Pt Level 4 (47503) Diagnoses Essential hypertension I10 Hypertension type: essential hypertension CKD (chronic kidney disease) N18.9
== END 2025-05-03 11:13 | disposition home or self-care (01) ==
LOC: HO.HKA 10:50
PROVIDERS: PCP Internal Medicine; Visit Provider Internal Medicine Hypertension Specialist
DX: I12.9 Hypertensive chronic kidney disease with stage 1 through stage 4 chronic kidney disease, or unspecified chronic kidney disease (principal); N18.9 Chronic kidney disease, unspecified
CPT/HCPCS: 99214

== ENCOUNTER 2025-05-04 11:58 | Day surgery (SDC) | payer BC, MEDICAID, SELFPAY ==
[2025-05-04 13:08] VITALS: BMI 29.1
[2025-05-04 13:23] VITALS: BP 145/95; PULSE 92; RESP 16; TEMP 36.3; O2SAT 95
[2025-05-04] MEDS: Lactated Ringers 1,000 ML 100 ML IVCONT (13:24)
[2025-05-04 13:54] LABS: Glucose, Whole Blood 103 mg/dL (60-115)
--- NOTE | 2025-05-04 14:29 | MHC.SHP ---
Pre-Procedural Eval Section A - 24 Hr Update-Section A only Date of Service: 05/04/25 The patient is an INPATIENT: No Changes since office visit: Yes Patient answered all questions; No Cold of Flu in the past 2 weeks, No New Medical Problems and No Changes in Medication The patient has been examined within 24 hours of the surgical procedure. The History & Physical has been completed within 30 days and I have reviewed it.: Yes Section B - Complete if H&P > 30 days Chief Complaint: gerd,neoplasm of colon, diarrhea, FI Allergies: Allergies Allergy/AdvReac Type Severity Reaction Status Date / Time azithromycin Allergy Unknown unknown Verified 05/03/25 11:01 denosumab (Prolia) Allergy Unknown vomiting Verified 05/03/25 11:01 lamotrigine Allergy Unknown rash Verified 05/03/25 11:01 lisinopril Allergy Unknown nausea and Verified 05/03/25 11:01 vomiting naproxen (Aleve) Allergy Unknown dizziness Verified 05/03/25 11:01 Plan Diagnosis/Plan: Unchanged I have reviewed the history and physical and performed a pertinent physical examination on my patient. No changes have occurred unless specified. Time Spent With Patient Time: Total time managing care of this patient today ____ minutes.
--- NOTE | 2025-05-04 14:37 | HO.ANESPROP2 ---
Documented by User: Katie oJhnson NP 05/02/25 11:45 HPI - Anesthesia Eval Consult details Narrative: 69 yr old female for upper endoscopy, colonoscopy CKD stage IIIA: saw [facility] nephrology 03/2025 for work up including holding furosemide, labs, renal US Type 2 DM: A1C 6.8% 02/2025 COPD: current tobacco user PMF Active Problems Active Problems: All Active Problems (Updated 04/10/25 @ 16:03 by Shawanda Trimble CNP) Acid reflux (Acute) Decreased rectal sphincter tone (Acute) Abdominal pain (Acute) CKD (chronic kidney disease) (Acute) Colon cancer screening (Acute) Chronic low back pain (Acute) Spondylosis without myelopathy or radiculopathy, lumbosacral region (Acute) Back pain (Acute) Bowel incontinence (Acute) Change in stool caliber (Acute) Hair loss (Acute) Peripheral artery disease (Acute) Rhinosinusitis (Acute) Acute viral syndrome (Acute) Nicotine dependence, cigarettes, uncomplicated (Acute) Tubular adenoma of colon (Acute) Bilateral lower extremity pain (Acute) Constipation (Acute) Osteoarthritis (Acute) Osteoporosis (Acute) Bipolar disorder (Acute) Vitamin D deficiency (Acute) Obesity (BMI 30-39.9) (Acute) Hypercholesterolemia (Acute) Hypertension (Acute) COPD (chronic obstructive pulmonary disease) (Acute) Anxiety and depression (Acute) Type 2 diabetes mellitus with hyperglycemia (Acute) Past Medical History Medical History Acid reflux Decreased rectal sphincter tone Abdominal pain Nicotine dependence, cigarettes, uncomplicated Bilateral lower extremity pain Hx of gastritis Hx of allergic rhinitis Migraines Tubular adenoma of colon Pulmonary nodule Osteoporosis Right humeral fracture Hip fracture, right Bipolar disorder Fibromyalgia Thyroid cyst Vitamin D deficiency Obesity (BMI 30-39.9) Hypercholesterolemia Hypertension COPD (chronic obstructive pulmonary disease) Anxiety and depression Type 2 diabetes mellitus with hyperglycemia Family History Family History Father Hypertension Cancer Esophageal cancer Mother Hypertension Maternal Aunt Stomach cancer Son Substance abuse Surgical History Surgical History History of cholecystectomy History of total abdominal hysterectomy and bilateral salpingo-oophorectomy History of colonoscopy Deficient knowledge of leg surgery History of shoulder surgery History of hip surgery History of esophagogastroduodenoscopy (EGD) H/O right knee surgery Herniated nucleus pulposus Social History Social History Housing: House Alcohol intake: current Alcohol intake frequency: a few times a month Patient Tobacco Use Status: Never used Tobacco Tobacco use type: Cigarette Cigarette Packs Per Day: 0.5 Cigarettes Per Day: 10 Years Smoked: (onset 15yo, 1/2-1ppd x 53yrs, 35+PYH); Quit- 10/2024 e-Cigarette/Vaping Use: Never Used Second Hand Smoke Exposure: Yes Use of substances other than those prescribed or required for medical reasons: No Advance Directives: No Advance Directives Information Provided: Yes service: No Current occupational status: employed Cognitive needs: No Hearing needs: No Vision needs: Yes Meds Allergies Allergy/AdvReac Type Severity Reaction Status Date / Time azithromycin Allergy Unknown unknown Verified 05/03/25 11:01 denosumab (Prolia) Allergy Unknown vomiting Verified 05/03/25 11:01 lamotrigine Allergy Unknown rash Verified 05/03/25 11:01 lisinopril Allergy Unknown nausea and Verified 05/03/25 11:01 vomiting naproxen (Aleve) Allergy Unknown dizziness Verified 05/03/25 11:01 Home Medications ?Medication ?Instructions ?Recorded ?Confirmed ?Last Taken ?Type clonazepam 1 mg tablet (Klonopin) 1 mg PO TID 06/12/20 05/04/25 05/04/25 08:00 History fluoxetine 20 mg capsule 20 mg PO BID 07/08/21 05/04/25 05/04/25 08:00 History ziprasidone HCl 20 mg capsule 20 mg PO QAM 04/06/25 05/04/25 05/04/25 08:00 History ziprasidone HCl 40 mg capsule 40 mg PO BEDTIME 04/06/25 05/04/25 05/03/25 20:00 History Exam Pertinent Lab Results Pertinent Lab Results: Laboratory Tests 04/25/25 08:10 WBC 6.7 RBC 5.46 Hgb 15.8 Hct 48.0 H Plt Count 260 Sodium 140 Potassium 4.2 BUN 10 Creatinine 0.99 Documented by User: Jerrica Hooker DO 05/04/25 14:38 PMF Past Medical History Medical History Acid reflux Decreased rectal sphincter tone Abdominal pain Nicotine dependence, cigarettes, uncomplicated Bilateral lower extremity pain Hx of gastritis Hx of allergic rhinitis Migraines Tubular adenoma of colon Pulmonary nodule Osteoporosis Right humeral fracture Hip fracture, right Bipolar disorder Fibromyalgia Thyroid cyst Vitamin D deficiency Obesity (BMI 30-39.9) Hypercholesterolemia Hypertension COPD (chronic obstructive pulmonary disease) Anxiety and depression Type 2 diabetes mellitus with hyperglycemia Family History Family History Father Hypertension Cancer Esophageal cancer Mother Hypertension Maternal Aunt Stomach cancer Son Substance abuse Family history of problems with anesthesia: No Surgical History Surgical History History of cholecystectomy History of total abdominal hysterectomy and bilateral salpingo-oophorectomy History of colonoscopy Deficient knowledge of leg surgery History of shoulder surgery History of hip surgery History of esophagogastroduodenoscopy (EGD) H/O right knee surgery Herniated nucleus pulposus History of Problems with Anesthesia: No Social History Social History Housing: House Alcohol intake: current Alcohol intake frequency: a few times a month Patient Tobacco Use Status: Never used Tobacco Tobacco use type: Cigarette Cigarette Packs Per Day: 0.5 Cigarettes Per Day: 10 Years Smoked: (onset 15yo, 1/2-1ppd x 53yrs, 35+PYH); Quit- 10/2024 e-Cigarette/Vaping Use: Never Used Second Hand Smoke Exposure: Yes Use of substances other than those prescribed or required for medical reasons: No Advance Directives: No Advance Directives Information Provided: Yes service: No Current occupational status: employed Cognitive needs: No Hearing needs: No Vision needs: Yes Meds Allergies Allergy/AdvReac Type Severity Reaction Status Date / Time azithromycin Allergy Unknown unknown Verified 05/03/25 11:01 denosumab (Prolia) Allergy Unknown vomiting Verified 05/03/25 11:01 lamotrigine Allergy Unknown rash Verified 05/03/25 11:01 lisinopril Allergy Unknown nausea and Verified 05/03/25 11:01 vomiting naproxen (Aleve) Allergy Unknown dizziness Verified 05/03/25 11:01 Home Medications ?Medication ?Instructions ?Recorded ?Confirmed ?Last Taken ?Type clonazepam 1 mg tablet (Klonopin) 1 mg PO TID 06/12/20 05/04/25 05/04/25 08:00 History fluoxetine 20 mg capsule 20 mg PO BID 07/08/21 05/04/25 05/04/25 08:00 History ziprasidone HCl 20 mg capsule 20 mg PO QAM 04/06/25 05/04/25 05/04/25 08:00 History ziprasidone HCl 40 mg capsule 40 mg PO BEDTIME 04/06/25 05/04/25 05/03/25 20:00 History Exam Exam Date and Time: 05/04/25 1437 Height,Weight and Vital Signs: Height 5 ft 11 in Weight 94.8 kg Vital Signs Temperature 97.3 F 05/04/25 13:23 Pulse Rate 92 05/04/25 13:23 Respiratory Rate 16 05/04/25 13:23 Blood Pressure 145/95 H 05/04/25 13:23 Pulse Oximetry 95 05/04/25 13:23 Oxygen Delivery Method Room Air 05/04/25 13:23 Temperature 97.3 F 05/04/25 13:23 Pulse Rate 92 05/04/25 13:23 Respiratory Rate 16 05/04/25 13:23 Blood Pressure 145/95 H 05/04/25 13:23 Pulse Oximetry 95 05/04/25 13:23 Oxygen Delivery Method Room Air 05/04/25 13:23 Airway Mallampati Class: II TM Dist: >3cm Neck ROM: Full Loose/Missing/Broken Teeth: Yes (broken molar left upper jaw) Heart: S1S2 Lungs: CTAB Assessment and Plan Assessment Anesthesia Assessment: Anesthesia Plan Discussed and Chart Reviewed Final Anesthetic Review Family History of Problems with Anesthesia: No History of Problems with Anesthesia: No NPO: Yes ASA Class: III Final Preanesthetic Review: No Changes in Pt Med Stat, Meds/Allgs Chart Reviewed, Consent Obtained/Reviewed and Anes Risks/Benef Reviewed Patient Risk: Low Procedure Risk: Low Anesthetic Plan Anesthetic Plan: MAC: and Agree w/ Assess. and Plan Disposition: Standard PACU
--- NOTE | 2025-05-04 15:00 | HO.OPN-COLON ---
Colonoscopy Operative Note Operative Note Date of Service: 05/04/25 Narrative: FLEXIBLE TRANSORAL UPPER GASTROINTESTINAL ENDOSCOPY WITH BIOPSIES AND SNARE POLYPECTOMY AND COLONOSCOPY TILL CECUM WITH SNARE POLYPECTOMY AND HEMOCLIP PLACEMENT Pre-op diagnosis: Surveillance for colon polyps, chronic diarrhea, fecal incontinence, GERD Post-op diagnosis: GERD, Gastritis, gastric polyp, multiple colon polyps, Diverticulosis and hemorrhoids ? Endoscopist:? Kristal Munguia MD Anesthesia:?MAC UPPER ENDOSCOPY Consent: Indications for the procedure and potential complications of bleeding, perforation, reaction to medications and missed diagnosis were discussed with the patient and informed consent was obtained. Instrument: Olympus GIF H 190 mid size upper endoscope Monitoring: Vital signs and clinical assessment, continuous EKG monitoring, Pulse oximetry, Carbon Dioxide monitoring and blood pressure monitoring were done throughout the procedure. Procedure: The patient was placed in the left lateral decubitis position and pre-procedure medications were administered and a bite block was placed. The endoscope was inserted into the mouth and advanced under direct vision to the third part of duodenum. A careful inspection was made as the upper endoscope was withdrawn including a retroflexed examination of the proximal stomach; Findings and interventions are described below. Findings: Larynx: Normal Esophagus: GE junction at 40 cms. No esophagitis or West's. Stomach: A 10 -12 mm benign appearing polyp in the gastric body - removed with a cold snare. Moderate diffuse gastric erythema - biopsies were obtained from the gastric body and antrum. Grade 2 flap valve on retroflexed examination of the cardia. Duodenum: Normal bulb and descending duodenum Biopsies were obtained from descending duodenum to check for celiac sprue Intervention: Biopsies as noted above COLONOSCOPY PROCEDURE NOTE Instrument: Olympus CF H 190 L variable stiffness adult colonoscope Monitoring: Vital signs and clinical assessment, intermittent blood pressure monitoring, continuous EKG monitoring, Pulse oximetry and Carbon Dioxide monitoring were done throughout the procedure. Please see anesthesia flowsheet. Colon withdrawl time was 50 minutes. Procedure: The patient was placed in the left lateral decubitis position and pre-procedure medications were administered. After a digital rectal examination of the ano-rectum, the video colonoscope was inserted into the rectum and advanced through the colon to the cecum. The colonoscope was slowly withdrawn in a retrograde panoramic fashion and the colon mucosa was carefully examined including a retroflexed view of the rectum. Findings and interventions are described below. Procedure Difficulty: without difficulty - there was excessive spasm in the colon Findings: Terminal Ileum: Not evaluated Cecum: Normal Ascending Colon: A 10 mm sessile polyp in the proximal AC - removed with a hot snare. Polypectomy site was closed with 1 hemoclip. A 15 - 18 mm sessile polyp in the mid AC - removed with a hot snare. Polypectomy site was closed with 1 hemoclip. Transverse Colon: Four 10-12 mm sessile polyp - removed with a hot snare Descending Colon: Normal Sigmoid Colon: Two 10 -12 mm sessile polyps - removed with a hot snare. Moderate diverticulosis Rectum: Normal Ano-rectum: Moderate internal hemorrhoids Colon preparation: Good Fair after despite copious irrigation. [place] Bowel Preparation Scale Right colon; 2 Transverse colon: 2 Left colon; 2 (0 = Unprepared colon segment with mucosa not seen due to solid stool that cannot be cleared. 1 = Portion of mucosa of the colon segment seen, but other areas of the colon segment not well seen due to staining, residual stool and/or opaque liquid. 2 = Minor amount of residual staining, small fragments of stool and/or opaque liquid, but mucosa of colon segment seen well. 3 = Entire mucosa of colon segment seen well with no residual staining, small fragments of stool or opaque liquid) Impression and Post Procedure Diagnosis: Endoscopy Findings: ESOPHAGUS: Normal STOMACH: A 10 -12 mm benign appearing polyp in the gastric body - removed with a cold snare. Moderate diffuse gastric erythema - biopsies were obtained from the gastric body and antrum. DUODENUM: Normal - biopsied to check for celiac sprue Colonoscopy Findings: Eight medium sized polyps were removed Random biopsies were obtained from right and left colon to check for microscopic colitis Moderate diverticulosis seen in the left colon Moderate hemorrhoids on retroflexed exam. Plan: Pt has a FU appointment on 06/20/25 with Shawanda Trimble NP Repeat Colonoscopy in 2 years if polyps are adenomatous and due to fair prep (Dulcolax 2 tab daily starting 5 days prior to next colon appointment) A summary of above findings and relevant handouts were given to the patient. BIOPSIES SHOWED: A. Small bowel, biopsy: Duodenal and small bowel mucosa with predominantly preserved villi, and focal reactive changes with few neutrophils, suggesting duodenitis; no evidence of celiac disease. B. Gastric antrum, biopsy: Gastric antral mucosa with reactive changes, ectatic vessels, and focal minimal chronic inactive inflammation; negative for H .pylori, intestinal metaplasia and dysplasia. C. Gastric polyp: Hyperplastic polyp; negative for H. pylori, intestinal metaplasia and dysplasia. D. Gastric body, biopsy: Gastric body mucosa with focal minimal chronic inactive inflammation; negative for H. pylori, intestinal metaplasia and dysplasia. E. Colon, ascending, polyps: Tubular adenomas (multiple pieces); negative for high-grade dysplasia and carcinoma. F. Colon, right, biopsy: Colonic mucosa with no specific change; no evidence of microscopic colitis. G. Colon, transverse, polyps: Tubular adenomas (multiple pieces); negative for high-grade dysplasia and carcinoma. H. Colon, left, biopsy: Colonic mucosa with no specific change; no evidence of microscopic colitis. I. Colon, sigmoid, polyps: Tubular adenomas (2 pieces); negative for high-grade dysplasia and carcinoma Letter sent to the patient with biopsy results. Patient was placed on the procedure recall list for repeat EGD (FU of hyperplastic gastric polyp) and colonoscopy (FU of multiple colon polyps) in 2 years
[2025-05-04 16:00] VITALS: BP 150/91; PULSE 84; RESP 17; TEMP 36.6; O2SAT 98
[2025-05-04 16:15] VITALS: BP 160/94; PULSE 81; RESP 17; TEMP 36.6; O2SAT 96
== END 2025-05-04 16:16 | disposition home or self-care (01) ==
PROVIDERS: PCP Internal Medicine; Visit Provider Internal Medicine Gastroenterology
PROC: (CPT 45385; principal; 2025-05-04 14:10)
DX: R15.9 Full incontinence of feces (principal); D12.2 Benign neoplasm of ascending colon; D12.3 Benign neoplasm of transverse colon; D12.5 Benign neoplasm of sigmoid colon; K57.30 Diverticulosis of large intestine without perforation or abscess without bleeding; K64.8 Other hemorrhoids; K52.9 Noninfective gastroenteritis and colitis, unspecified; Z86.0101 Personal history of adenomatous and serrated colon polyps; K21.9 Gastro-esophageal reflux disease without esophagitis; K31.7 Polyp of stomach and duodenum; K29.60 Other gastritis without bleeding; E11.9 Type 2 diabetes mellitus without complications; I10 Essential (primary) hypertension; E78.5 Hyperlipidemia, unspecified; F41.9 Anxiety disorder, unspecified; E55.9 Vitamin D deficiency, unspecified; J44.9 Chronic obstructive pulmonary disease, unspecified; F31.9 Bipolar disorder, unspecified; K59.00 Constipation, unspecified; F17.210 Nicotine dependence, cigarettes, uncomplicated; Z79.899 Other long term (current) drug therapy; Z79.02 Long term (current) use of antithrombotics/antiplatelets
CPT/HCPCS: 45385; 45380; 43251; 43239; 82947; 88305; 88313; 88342; J1596; J2003; J2704

== ENCOUNTER → 2025-05-04 11:58 | Outpatient (BNV) | payer BC, MEDICAID, SELFPAY | PROVIDERS: PCP Internal Medicine; Visit Provider Internal Medicine Gastroenterology | DX: Z12.11 Encounter for screening for malignant neoplasm of colon (principal); K63.5 Polyp of colon; K57.90 Diverticulosis of intestine, part unspecified, without perforation or abscess without bleeding; K64.8 Other hemorrhoids; K31.7 Polyp of stomach and duodenum; K29.70 Gastritis, unspecified, without bleeding | CPT/HCPCS: 43239; 43251; 45385 ==

== ENCOUNTER 2025-05-16 06:20 | Outpatient (REF) | payer BC, MEDICAID, SELFPAY ==
--- OUTSIDE RECORDS SUMMARY | 2025-04-30 20:59 | XMS_ITS | Continuity of Care Document ---
[facility] Organization 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 [address] [place], [place], [id number], [place]. tel:[phone] [facility], [address], [place], [place], [id number], [place] tel:[phone] [place] No Information 4- 5 Vinod Aqib. [address] [place], [place], [id number], [place]. tel:[phone] [facility], [address], [place], [place], [id number], [place] tel:[phone] [place] No Information 5 Vinod Aqib. [address] [place], [id number], [place]. tel:[phone] [facility], [address], [place], [place], [id number], [place] tel:[phone] [place] No Information 4 Vinod Aqib. [address] [place], [place], [id number], [place]. tel:[phone] [facility], [address], [place], [place], [id number], [place] tel:[phone] [place] No Information 4 Vinod Aqib. [address] [place], [place], [id number], [place]. tel:[phone] [facility], [address], [place], [place], [id number], [place] tel:[phone] [place] No Information 4 Vinod Aqib. [address] [place], [place], [id number], [place]. tel:[phone] [facility], [address], [place], [place], [id number], [place] tel:[phone] [place] No Information Oct-2 4-202 4 Vinod Aqib. [address] [place], [place], [id number], [place]. tel:[phone] [facility], [facility], [place], [place], [id number], tel:[phone] [place] No Information 4 Omar Proctor. [address] [place], [place], [id number], [place]. tel:[phone] [facility], [facility], [place], [place], [id number], [place] tel:[phone] [place] No Information 4 Omar Proctor. [address] [place], [place], [id number], [place]. tel:[phone] [facility], [address], [id number], tel:[phone] [place] Semi-Annual (chief complaint) Schizophrenia, unspecified typeBipolar affective [...] nodulePsoriasis 4 Omar Proctor. [address] [place], [place], [id number], [place]. tel:[phone] [facility], [address], [place], [place], [id number], [place] tel:[phone] [place] No Information 4 Os Dawna. [address] [place], [place], [id number], [place]. tel:[phone] [facility], [address], [place], [place], [id number], [place] tel:[phone] [place] No Information 4 Omar Esthela. [address] [place], [place], [id number], [place]. tel:[phone] [facility], [address], [place], [place], [id number], [place] tel:[phone] [place] Psoriasis 4 Omar Lingca. [address] [place], [place], [id number], [place]. tel:[phone] [facility], [address], [place], [place], [id number], [place] tel:[phone] [place] Acute Visit (chief complaint) Psoriasis 4 Omar Esthela. [address] [place], [place], [id number], [place]. tel:[phone] [facility], [facility], [place], [place], [id number], [place] tel:[phone] [place] No Information 4 Pitsiladis . [address] [place], [place], [id number], [place]. tel:[phone] [facility], [facility], [place], [place], [id number], [place] tel:[phone] [place] No Information 4 Os Dawna. [address] [place], [place], [id number], [place]. tel:[phone] [facility], [address], [place], [place], [id number], [place] tel:[phone] [place] No Information 4 Os Dawna. [address] [place], [place], [id number], [place]. tel:[phone] [facility], [facility], [place], [place], [id number], [place] tel:[phone] [place] Acute Visit (chief complaint) Psoriasis 4 Os Dawna. [address] [place], [place], [id number], [place]. tel:[phone] [facility], [facility], [place], [place], [id number], [place] tel:[phone] [place] Acute Visit (chief complaint) Fungal dermatitis Guy- 4 Omar Esthela. [address] [place], [place], [id number], [place]. tel:[phone] [facility], [facility], [place], [place], [id number], [place] tel:[phone] [place] FibromyalgiaAge-rela cory osteoporosis without current pathological fractureUnspecified osteoarthritis, unspecified site 4 Os Dawna. [address] [place], [place], [id number], [place]. tel:[phone] [facility], [facility], [place], [place], [id number], [place] tel:[phone] [place] No Information 4 Omar Lingca. [address] [place], [place], [id number], [place]. tel:[phone] [facility], [facility], [place], [place], [id number], [place] tel:[phone] [place] No Information 4 Os Dawna. [address] [place], [place], [id number], [place]. tel:[phone] [facility], [address], [place], [place], [id number], [place] tel:[phone] [place] Age-related osteoporosis without current pathological fracture 4 Os Dawna. [address] [place], [place], [id number], [place]. tel:[phone] [facility], [facility] [address], [place], [place], [id number], [place] tel:[phone] [phone] No Information 4 Os Dawna. [address] [place], [place], [id number], [place]. tel:[phone] [facility], [facility], [place], [place], [id number], [place] tel:[phone] [phone] No Information 3 0 4 Os Dawna. [address] [place], [place], [id number], [place]. tel:[phone] [facility], [address] [facility], [place], [place], [id number], [place] tel:[phone] [place] [phone] No Information 4 Os Dawna. [address] [place], [place], [id number], [place]. tel:[phone] [facility], [facility] [address], [place], [place], [id number], [place] tel:[phone] [phone] No Information 4 Os Dawna. [address] [place], [place], [id number], [place]. tel:[phone] [facility], [facility], [place], [place], [id number], [place] tel:[phone] [place] No Information 4 Os Dawna. [address] [place], [place], [id number], [place]. tel:[phone] [facility], [address] [facility], [place], [place], [id number], [place] tel:[phone] [place] No Information Oct- 4 Os Dawna. [address] [place], [place], [id number], [place]. tel:[phone] [facility], [facility], [place], [place], [id number], [place] tel:[phone] [place] Encounter for rehabilitation evaluationHemiplegia and hemiparesis following unspecified cerebrovascular disease affecting left dominant sidePrimary generalized (osteo)arthritis 0 4 Brian Wallace. [address] [place], [place], [id number], [place]. tel:[phone] [facility], [facility], [place], [place], [id number], [place] tel:[phone] [place] Encounter for rehabilitation evaluation 0 4 Gopi Campos. [address] [place], [place], [id number], [place]. tel:[phone] [facility], [facility], [place], [place], [id number], [place] tel:[phone] [place] Semi-Annual (chief complaint) Encounter for general adult medical examination without abnormal findingsSchizophrenia, unspecified typeBipolar affective disorder, remission status unspecifiedGeneralized anxiety disorderPTSD (post-traumatic stress disorder)Hypercholester olaemiaLong term (current) use of oral hypoglycemic drugsType 2 diabetes mellitus with diabetic chronic kidney disease, unspecified CKD stage, unspecified whether termite treater insulin useOsteoporosis, unspecified osteoporosis type, unspecified pathological fracture presenceGastroesophagea l reflux disease without esophagitisStage 2 chronic kidney diseaseHypertensive renal disease, stage 1 through stage 4 or unspecified chronic kidney diseaseChronic obstructive pulmonary disease, unspecified COPD typePulmonary noduleTobacco useObstructive sleep apneaType 2 diabetes mellitus with peripheral vascular disease 0 4 Os Dawna. [address] [place], [place], [id number], [place]. tel:[phone] [facility], [address], [place], [place], [id number], [place] tel:[phone] [place] Medication management 3 Omar Esthela. [address] [place], [place], [address], [place]. tel:[phone] [facility], [address], [place], [place], [id number], [place] tel:[phone] [place] Follow-up (chief complaint) Pulmonary nodule 3 Omar Esthela. [address] [place], [place], [id number], [place]. tel:[phone] [facility], [address], [place], [place], [id number], [place] tel:[phone] [place] No Information 3 Omar Esthela. [address] [place], [place], [id number], [place]. tel:[phone] [facility], [facility] [address], [place], [place], [id number], [place] tel:[phone] [place] No Information 3 Os Dawna. [address] [place], [place], [id number], [place]. tel:[phone] [facility], [address], [place], [place], [id number], [place] tel:[phone] [place] OV (chief complaint) Pulmonary nodule 3 Omar Esthela. [address] [place], [place], [id number], [place]. tel:[phone] [facility], [address], [place], [place], [id number], [place] tel:[phone] [place] No Information 3 Omar Esthela. [address] [place], [place], [id number], [place]. tel:[phone] [facility], [facility], [place], [place], [id number], [place] tel:[phone] [place] Semi-Annual (chief complaint) Schizophrenia, unspecified typeBipolar disorder [...] use of insulinChronic kidney disease, stage 2 (mild)half-way (current) use of insulinHypertensive renal disease, stage 1 through stage 4 or unspecified chronic kidney disease 3 Os Dawna. [address] [place], [place], [id number], [place]. tel:[phone] [facility], [address] [address], [place], [place], [id number], [place] tel:[phone] [facility] 3 Os Dawna. [address] [place], [place], [id number], [place]. tel:[phone] [facility], [address] [address], [place], [place], [id number], [place] tel:[phone] [facility] 3 Os Dawna. [address] [place], [place], [id number], [place]. tel:[phone] [facility], [address] [address], [place], [place], [id number], [place] tel:[phone] [place] Encounter for rehabilitation evaluation 3 Isa Adonay. [address], [place], [address]. tel:[phone] [facility], 1 [facility] [address] [facility], [place], [place], [id number], [place] tel:[phone] [place] Encounter for rehabilitation evaluationOther chronic painAlteration in performance of activities of daily living 3 Marco A Delcid. [address] [facility] [address] [place], [place], [id number]. tel:[phone] [facility], 1 [facility] [address] [facility], [place], [place], [id number], [place] tel:[phone] [place] Osteoarthritis, unspecified osteoarthritis type, unspecified site 3 Os Dawna. [address], [place], [id number], [place]. tel:[phone] [facility], [facility], [place], [place], [id number], [place] tel:[phone] [place] Encounter for nutritional assessmentDiabetes education, encounter forClass 1 obesity with serious comorbidity and body mass index (BMI) of 32.0 to 32.9 in adult, unspecified obesity typeBody mass index [BMI] 32.0-32.9, adult 3 Anton Anaya. [address], [place], [id number], [place]. tel:[phone] [facility], [address] [facility] [address] [place] [address], [id number], [place] tel:[phone] [place] HUSSEIN (chief complaint) Schizophrenia, unspecified typeBipolar affective disorder, remission status unspecifiedGeneralized anxiety disorderPTSDHypercholes terolaemiaType 2 diabetes mellitus with diabetic chronic kidney disease, unspecified CKD stage, unspecified whether termite treater insulin useOsteoporosis, unspecified osteoporosis type, unspecified pathological fracture presenceChronic kidney disease, stage 2 (mild)Hypertensive chronic kidney disease with stage 1 through stage 4 chronic kidney disease, or unspecified chronic kidney diseaseCOPDPulmonary noduleTobacco useFibromyalgiaGastroes ophageal reflux disease without esophagitis 3 Os Dawna. [address] [place], [place], [id number], [place]. tel:[phone] [facility], 1 [facility] [address] [facility], [place], [place], [id number], [place] tel:[phone] [place] History of fracture 2 Os Dawna. [address] [place], [place], [id number], [place]. tel:[phone] [facility], [address] [facility] [address], [place], [place], [id number], [place] tel:[phone] [place] Papular eczema 2 Os Dawna. [address] [place], [place], [id number], [place]. tel:[phone] [facility], 1 [facility] [address] [facility], [place], [place], [id number], [place] tel:[phone] [place] No Information Apr-2 2 Os Dawna. [address] [place], [place], [id number], [place]. tel:[phone] [facility], 1 [facility] [address] [facility], [place], [place], [address], [place] tel:[phone] [place] Obstructive sleep apnea Sep-2 2 Os Dawna. [address] [place], [place], [id number], [place]. tel:[phone] [facility], 1 [facility] [address] [facility], [place], [place], [id number], [place] tel:[phone] [place] No Information Feb-2 2 Os Dawna. [address] [place], [place], [id number], [place]. tel:[phone] [facility], [facility] [address], [place], [place], [address], [place] tel:[phone] [place] Semiannual (chief complaint) Hypertension, unspecified typeHypercholesterolaem iaChronic kidney disease due to diabetes mellitusSchizophrenia, unspecified typeBipolar affective disorder, remission status unspecifiedGeneralized anxiety disorderPTSDOsteoporosi s, unspecified osteoporosis type, unspecified pathological fracture presenceCOPDPulmonary nodulePapular eczemaHealthcare maintenanceTobacco useChronic kidney disease, stage 3a 2 Os Dawna. [address] [facility] [address], [place], [place], [id number], [place]. tel:[phone] [facility], [facility] [address], [place], [place], [id number], [place] tel:[phone] [place] Encounter for nutritional assessmentDiabetes education, encounter forOther obesity 2 Normile Jaclyn. [address] [facility] [place], [id number], [place]. tel:[phone] [facility], 1 [facility] [address] [facility], [place], [place], [id number], [place] tel:[phone] [place] OV (chief complaint) Type 2 diabetesGeneralized anxiety disorderIntractable headache, unspecified chronicity pattern, unspecified headache typeNausea 2 Os Dawna. [address] [facility] [place], [id number], [place]. tel:[phone] [facility], 1 [facility] [address] [facility], [place], [place], [id number], [place] tel:[phone] [place] Pulmonary nodule 2 Os Dawna. [address] [place], [place], [address], [place]. tel:[phone] [facility], 1 [facility] [address] [facility], [place], [place], [id number], [place] tel:[phone] [place] No Information 2 Os Dawna. [address] [facility] [place], [id number], [place]. tel:[phone] [facility], [facility], [place], [place], [id number], [place] tel:[phone] [place] Encounter for nutritional assessment Sep-2 2 Normile Jaclyn. [address] [place], [place], [id number], [place]. tel:[phone] [facility], 1 [facility] [address] [facility], [place], [place], [id number], [place] tel:[phone] [place] PEE (chief complaint) Hypertension, unspecified typeHypercholesterolaem iaCataract of both eyes, unspecified cataract typeBipolar affective disorder, remission status unspecifiedGeneralized anxiety disorderPTSDHistory of fractureOsteoporosis, unspecified osteoporosis type, unspecified pathological fracture presenceCOPDPulmonary noduleHealthcare maintenance 2 Os Dawna. [address] [place], [place], [id number], [place]. tel:[phone] [facility], [facility], [place], [place], [address], [place] tel:[phone] [place] Muscle weakness (generalized)Encounter for rehabilitation evaluation b-0 2 Isa Adonay. [address] [place], [address]. tel:[phone] [facility], [facility], [place], [place], [address], [place] tel:[phone] [place] Encounter for rehabilitation evaluationAlteration in performance of activities of daily livingOther chronic pain b0 2 Marco A Delcid. 101 [facility], [place], [place], [id number]. tel:[phone] [facility], [facility], [place], [place], [address], [place] tel:[phone] [place] No Information b0 2 Juan Ramon Leyva. [address] [place], [place], [id number], [place]. tel:[phone] [facility], [facility], [place], [place], [address], [place] tel:[phone] [place] Intake (chief complaint) No Information Steph Martinez. [address], [place], [place], [id number], . tel:[phone] Family History Family Member Type Diagnosis Age [...] Payer name Insurance type Covered republican ID Authoriza dereck(s) [employer] 16 [id number] [employer] 16 [id number] [employer] 16 [id number] [employer] 16 [id number] [employer] 16 [id number] [facility] 16 [id number] [employer] [facility] 16 [id number] Social History Type Description Quantity Date Captured Comments Sex Female Smoking Status No Information Chief Complaint And Reason For Visit No Information Plan Of Treatment Date Type Action Status Referral Ordered: Referrals: Clerical Associate. Evaluate and treat Appointment date/timeframe: 02/07/2024 ordered Referral Ordered: Referrals: Orthopedic Surgery. Evaluate and treat ordered Referral Ordered: Referrals: Dentistry. Evaluate and treat ordered Referral Ordered: Referrals: Ophthalmology. Evaluate and treat ordered Referral Ordered: Referrals: Rheumatology. Evaluate and treat ordered Referral Ordered: Referrals: Obstetrics. Location: [facility]. Evaluate and treat ordered Referral Ordered: Referrals: [facility]- Dental Location: [facility]. Evaluate and treat ordered Referral [...] (Diagnostic); Bilateral, incl computer-aided detection when performed (51273), Ordered on: Ordered History Of Present Illness [...] needs follow up-Psychiatrist: Trying to get into [facility]-Therapist: [facility]-Ortho: 12/2023- closed [...] lung nodules, COPD, hypotensionEXAM: NAD. mildly hypotensive, SDSI0hevp: repeat CT scan, encouraged fluids (she only [...] has been helping. Working on getting into [facility] (psychiatrist). Diagnoses Reviewed.Consults:-Dental: last seen in September- had cap; 05/05/23 [facility] appt-Vision: 12/25/22-Psychiatrist: Trying to get into [facility]-Therapist: [facility]tof [facility]-Pain management: 09/21/22- [...] seeing a prescriber Tena Reyna APRN in [place] and has followed with her for years. [...] for mail order and [facility] locally on [address]: she states the clonazepam comes from [employer]. She is considering changing to [facility] once she enrolls. 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 Related to Osteoporosis, unspecified osteoporosis type, unspecified pathological fracture presence 03/2023: A1C- 7-Curre ntly on glipizide 2.5mg- increasing to 5mg daily Related to half-way (current) use of oral hypoglycemic drugs 03/2023Lipid [...] monthly. She is working on getting into [facility] for a psychiatrist. Currently- PCP is prescribing and sending medications. -Continue current med regimen- follow up w/ new psychiatrist may need medication adjustment Related to Generalized anxiety disorder Pt reports seeing Reinier ewing (therapist) [facility]. She is working on getting into [facility] for a psychiatrist. Currently- PCP is [...] monthly. She is working on getting into [facility] for a psychiatrist. 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
--- NOTE | ~2025-05-16 | CT_ITS ---
CLINICAL HISTORY: R15.9 - Full incontinence of feces --- Additional Notes or Special Instructions: r o mass, inflammatory process or other etiology CT abdomen and pelvis with contrast Comparison: None provided Findings: The lung bases are clear. The liver is mildly low in attenuation. The gallbladder is absent. The spleen, adrenal glands and pancreas are unremarkable. Kidneys, ureters and bladder are normal. There is diverticulosis along the colon, without current evidence of diverticulitis. No bowel obstruction or free air. No pneumatosis, free fluid or abscess. Moderate atherosclerotic disease. Degenerative changes seen throughout the spine, with moderately severe central canal stenosis at L4-L5. Impression: No definite acute process. Incidental findings including moderately severe central canal stenosis at L4-L5. This document has been electronically signed by: Everett Pearce MD on 05/16/2025 12:11:10
[2025-05-16] MEDS: iohexoL 350 MG/ML 100 ML INFUS..BTL IV (09:17)
[2025-05-16] MEDS: Barium Sulfate Oral (Vanilla) 450 ML ORAL.SUSP 900 ML PO (09:18)
== END 2025-05-16 06:21 | disposition home or self-care (01) ==
LOC: HO.CT 06:20
PROVIDERS: PCP Internal Medicine; Visit Provider Nurse Practitioner Family
DX: R15.9 Full incontinence of feces (principal)
CPT/HCPCS: 74177; Q9967

== ENCOUNTER → 2025-05-16 06:23 | Outpatient (BNV) | payer BC, MEDICAID, SELFPAY | PROVIDERS: PCP Internal Medicine; Visit Provider Radiology Vascular & Interventional Radiology | DX: K57.30 Diverticulosis of large intestine without perforation or abscess without bleeding (principal); R15.9 Full incontinence of feces | CPT/HCPCS: 74177 ==

== ENCOUNTER 2025-05-20 22:13 | Inpatient (IN) | payer MEDICARE, OTHER, SELFPAY ==
--- OUTSIDE RECORDS SUMMARY | 2025-04-30 20:59 | XMS_ITS | Continuity of Care Document ---
Author Organization [facility] Address [address] [address] Phone Care Team Providers Care Tailercpa Name Role Phone Vinod BUENO, Aqib Unavailable [...] Diagnoses Date Provider [facility], [address] [address], [place], [place], [id number], [place] tel:[phone] [place] No Information Sep-0 9-202 5 Vinod Aqib. [address] [place], [place], [id number], [place]. tel:[phone] [facility], [address], [place], [place], [id number], [place] tel:[phone] [place] No Information 4- 5 Vinod Aqib. [address] [place], [place], [id number], [place]. tel:[phone] [facility], [address], [place], [place], [id number], [place] tel:[phone] [place] No Information 5 Vinod Aqib. [address] [place], [id number], [place]. tel:[phone] [facility], [address], [place], [place], [id number], [place] tel:[phone] [place] No Information 4 Vinod Aqib. [address] [place], [place], [id number], [place]. tel:[phone] [facility], [address], [place], [place], [id number], [place] tel:[phone] [place] No Information 4 Vinod Aqib. [address] [place], [place], [id number], [place]. tel:[phone] [facility], [address], [place], [place], [id number], [place] tel:[phone] [place] No Information 4 Vinod Aqib. [address] [place], [place], [id number], [place]. tel:[phone] [facility], [address], [place], [place], [id number], [place] tel:[phone] [place] No Information Oct-2 4-202 4 Vinod Aqib. [address] [place], [place], [id number], [place]. tel:[phone] [facility], [facility], [place], [place], [id number], tel:[phone] [place] No Information 4 Omar Proctor. [address] [place], [place], [id number], [place]. tel:[phone] [facility], [facility], [place], [place], [id number], [place] tel:[phone] [place] No Information 4 Omar Proctor. [address], [place], [id number], [place]. tel:[phone] [facility], [address], [id number], tel:[phone] [place] Semi-Annual (chief complaint) Schizophrenia, unspecified typeBipolar affective [...] nodulePsoriasis 4 Omar Proctor. [address] [place], [place], [id number], [place]. tel:[phone] [facility], [address], [place], [place], [id number], [place] tel:[phone] [place] No Information 4 Os Dawna. [address] [place], [place], [id number], [place]. tel:[phone] [facility], [address], [place], [place], [id number], [place] tel:[phone] [place] No Information 4 Omar Esthela. [address] [place], [place], [id number], [place]. tel:[phone] [facility], [address], [place], [place], [id number], [place] tel:[phone] [place] Psoriasis 4 Omar Lingca. [address] [place], [place], [id number], [place]. tel:[phone] [facility], [address], [place], [place], [id number], [place] tel:[phone] [place] Acute Visit (chief complaint) Psoriasis 4 Omar Esthela. [address] [place], [place], [id number], [place]. tel:[phone] [facility], [address] [facility], [place], [place], [id number], [place] tel:[phone] [place] No Information 4 Pitsiladis . [address] [place], [place], [id number], [place]. tel:[phone] [facility], [address] [facility] [address] [address], [place], [place], [id number], [place] tel:[phone] [place] No Information 4 Os Dawna. [address] [place], [place], [id number], [place]. tel:[phone] [facility], [address], [place], [place], [id number], [place] tel:[phone] [place] No Information 4 Os Dawna. [address] [place], [place], [id number], [place]. tel:[phone] [facility], [facility], [place], [place], [id number], [place] tel:[phone] [place] Acute Visit (chief complaint) Psoriasis 4 Os Dawna. [address] [place], [place], [id number], [place]. tel:[phone] [facility], [facility], [place], [place], [id number], [place] tel:[phone] [place] Acute Visit (chief complaint) Fungal dermatitis Guy- 4 Omar Esthela. [address] [place], [place], [id number], [place]. tel:[phone] [facility], [facility], [place], [place], [id number], [place] tel:[phone] [place] FibromyalgiaAge-rela cory osteoporosis without current pathological fractureUnspecified osteoarthritis, unspecified site 4 Os Dawna. [address] [place], [place], [id number], [place]. tel:[phone] [facility], [facility], [place], [place], [id number], [place] tel:[phone] [place] No Information 4 Omar Lingca. [address] [place], [place], [id number], [place]. tel:[phone] [facility], [facility], [place], [place], [id number], [place] tel:[phone] [place] No Information 4 Os Dawna. [address] [place], [place], [id number], [place]. tel:[phone] [facility], [address], [place], [place], [id number], [place] tel:[phone] [place] Age-related osteoporosis without current pathological fracture 4 Os Dawna. [address] [place], [place], [id number], [place]. tel:[phone] [facility], [address] [facility] [address], [place], [place], [id number], [place] tel:[phone] [phone] No Information 4 Os Dawna. [address] [place], [place], [address], [place]. tel:[phone] [facility], [address] [facility], [place], [place], [id number], [place] tel:[phone] [place] [address] No Information 3 0 4 Os Dawna. [address] [place], [place], [id number], [place]. tel:[phone] [facility], [address] [facility], [place], [place], [id number], [place] tel:[phone] [place] [address] No Information 4 Os Dawna. [address] [place], [place], [id number], [place]. tel:[phone] [facility], [address] [facility], [place], [place], [id number], [place] tel:[phone] [place] [phone] No Information 4 Os Dawna. [address] [place], [place], [id number], [place]. tel:[phone] [facility], [address] [facility], [place], [place], [id number], [place] tel:[phone] [place] No Information 4 Os Dawna. [address] [place], [place], [id number], [place]. tel:[phone] [facility], [address] [facility], [place], [place], [id number], [place] tel:[phone] [place] No Information Oct- 4 Os Dawna. [address] [place], [place], [id number], [place]. tel:[phone] [facility], [facility], [place], [place], [id number], [place] tel:[phone] [place] Encounter for rehabilitation evaluationHemiplegia and hemiparesis following unspecified cerebrovascular disease affecting left dominant sidePrimary generalized (osteo)arthritis 0 4 Brian Wallace. [address] [place], [place], [id number], [place]. tel:[phone] [facility], [facility], [place], [place], [id number], [place] tel:[phone] [place] Encounter for rehabilitation evaluation 0 4 Gopi Campos. [address] [place], [place], [id number], [place]. tel:[phone] [facility], [facility], [place], [place], [id number], [place] tel:[phone] [place] Semi-Annual (chief complaint) Encounter for general adult medical examination without abnormal findingsSchizophrenia, unspecified typeBipolar affective disorder, remission status unspecifiedGeneralized anxiety disorderPTSD (post-traumatic stress disorder)Hypercholester olaemiaLong term (current) use of oral hypoglycemic drugsType 2 diabetes mellitus with diabetic chronic kidney disease, unspecified CKD stage, unspecified whether terminal superintendent insulin useOsteoporosis, unspecified osteoporosis type, unspecified pathological fracture presenceGastroesophagea l reflux disease without esophagitisStage 2 chronic kidney diseaseHypertensive renal disease, stage 1 through stage 4 or unspecified chronic kidney diseaseChronic obstructive pulmonary disease, unspecified COPD typePulmonary noduleTobacco useObstructive sleep apneaType 2 diabetes mellitus with peripheral vascular disease 0 4 Os Dawna. [address] [place], [place], [id number], [place]. tel:[phone] [facility], [address], [place], [place], [id number], [place] tel:[phone] [place] Medication management 3 Omar Esthela. [address] [place], [place], [id number], [place]. tel:[phone] [facility], [address], [place], [place], [id number], [place] tel:[phone] [place] Follow-up (chief complaint) Pulmonary nodule 3 Omar Esthela. [address] [place], [place], [id number], [place]. tel:[phone] [facility], [address], [place], [place], [id number], [place] tel:[phone] [place] No Information 3 Omar Esthela. [address] [place], [place], [id number], [place]. tel:[phone] [facility], [address] [facility], [place], [place], [id number], [place] tel:[phone] [place] No Information 3 Os Dawna. [address] [place], [place], [id number], [place]. tel:[phone] [facility], [address], [place], [place], [id number], [place] tel:[phone] [place] OV (chief complaint) Pulmonary nodule 3 Omar Esthela. [address] [place], [place], [id number], [place]. tel:[phone] [facility], [address], [place], [place], [id number], [place] tel:[phone] [place] No Information 3 Omar Esthela. [address] [place], [place], [id number], [place]. tel:[phone] [facility], [facility], [place], [place], [id number], [place] tel:[phone] [place] Semi-Annual (chief complaint) Schizophrenia, unspecified typeBipolar disorder [...] use of insulinChronic kidney disease, stage 2 (mild)snf (current) use of insulinHypertensive renal disease, stage 1 through stage 4 or unspecified chronic kidney disease 3 Os Dawna. [address], [id number], [place]. tel:[phone] [facility], [address] [address], [place], [place], [id number], [place] tel:[phone] [facility] 3 Os Dawna. [address] [place], [place], [id number], [place]. tel:[phone] [facility], [address] [address], [place], [place], [id number], [place] tel:[phone] [facility] 3 Os Dawna. [address] [place], [place], [id number], [place]. tel:[phone] [facility], [address] [address], [place], [place], [id number], [place] tel:[phone] [place] Encounter for rehabilitation evaluation 3 Isa Adonay. [address], [place], [address]. tel:[phone] [facility], [facility], [place], [place], [id number], [place] tel:[phone] [place] Encounter for rehabilitation evaluationOther chronic painAlteration in performance of activities of daily living 3 Marco A Delcid. [address] [place], [place], [id number]. tel:[phone] [facility], [facility], [place], [place], [id number], [place] tel:[phone] [place] Osteoarthritis, unspecified osteoarthritis type, unspecified site 3 Os Dawna. [address], [place], [id number], [place]. tel:[phone] [facility], [facility], [place], [place], [id number], [place] tel:[phone] [place] Encounter for nutritional assessmentDiabetes education, encounter forClass 1 obesity with serious comorbidity and body mass index (BMI) of 32.0 to 32.9 in adult, unspecified obesity typeBody mass index [BMI] 32.0-32.9, adult 3 Anton Anaya. [address], [place], [id number], [place]. tel:[phone] [facility], [address] [facility] [address] [place] [address], [id number], [place] tel:[phone] [place] HUSSEIN (chief complaint) Schizophrenia, unspecified typeBipolar affective disorder, remission status unspecifiedGeneralized anxiety disorderPTSDHypercholes terolaemiaType 2 diabetes mellitus with diabetic chronic kidney disease, unspecified CKD stage, unspecified whether terminal superintendent insulin useOsteoporosis, unspecified osteoporosis type, unspecified pathological fracture presenceChronic kidney disease, stage 2 (mild)Hypertensive chronic kidney disease with stage 1 through stage 4 chronic kidney disease, or unspecified chronic kidney diseaseCOPDPulmonary noduleTobacco useFibromyalgiaGastroes ophageal reflux disease without esophagitis 3 Os Dawna. [address] [place], [place], [id number], [place]. tel:[phone] [facility], [facility], [place], [place], [id number], [place] tel:[phone] [place] History of fracture 2 Os Dawna. [address] [place], [place], [id number], [place]. tel:[phone] [facility], [address] [facility] [address], [place], [place], [id number], [place] tel:[phone] [place] Papular eczema 2 Os Dawna. [address] [place], [place], [address], [place]. tel:[phone] [facility], [facility], [place], [place], [id number], [place] tel:[phone] [place] No Information Apr-2 2 Os Dawna. [address] [place], [place], [id number], [place]. tel:[phone] [facility], [facility], [place], [place], [id number], [place] tel:[phone] [place] Obstructive sleep apnea Sep-2 2 Os Dawna. [address] [place], [place], [id number], [place]. tel:[phone] [facility], [facility], [place], [place], [id number], [place] tel:[phone] [place] No Information Feb-2 2 Os Dawna. [address] [place], [place], [id number], [place]. tel:[phone] [facility], [address] [facility] [address], [place], [place], [id number], [place] tel:[phone] [place] Semiannual (chief complaint) Hypertension, unspecified typeHypercholesterolaem iaChronic kidney disease due to diabetes mellitusSchizophrenia, unspecified typeBipolar affective disorder, remission status unspecifiedGeneralized anxiety disorderPTSDOsteoporosi s, unspecified osteoporosis type, unspecified pathological fracture presenceCOPDPulmonary nodulePapular eczemaHealthcare maintenanceTobacco useChronic kidney disease, stage 3a 2 Os Dawna. [address], [place], [place], [id number], [place]. tel:[phone] [facility], [address] [facility], [place], [place], [address], [place] tel:[phone] [place] Encounter for nutritional assessmentDiabetes education, encounter forOther obesity 2 Normile Jaclyn. [address] [place]yn[place], [place], [address], [place]. tel:[phone] [facility], [facility], [place], [place], [id number], [place] tel:[phone] [place] OV (chief complaint) Type 2 diabetesGeneralized anxiety disorderIntractable headache, unspecified chronicity pattern, unspecified headache typeNausea 2 Os Dawna. [address] [place], [id number], [place]. tel:[phone] [facility], [facility], [place], [place], [id number], [place] tel:[phone] [place] Pulmonary nodule 2 Os Dawna. [address] [place], [place], [id number], [place]. tel:[phone] [facility], [facility], [place], [place], [id number], [place] tel:[phone] [place] No Information 2 Os Dawna. [address] [place], [id number], [place]. tel:[phone] [facility], [facility], [place], [place], [address], [place] tel:[phone] [place] Encounter for nutritional assessment Sep-2 2 Normile Jaclyn. [address] [place], [place], [id number], [place]. tel:[phone] [facility], [facility], [place], [place], [id number], [place] tel:[phone] [place] PEE (chief complaint) Hypertension, unspecified typeHypercholesterolaem iaCataract of both eyes, unspecified cataract typeBipolar affective disorder, remission status unspecifiedGeneralized anxiety disorderPTSDHistory of fractureOsteoporosis, unspecified osteoporosis type, unspecified pathological fracture presenceCOPDPulmonary noduleHealthcare maintenance 2 Os Dawna. [address] [place], [place], [id number], [place]. tel:[phone] [facility], [facility], [place], [place], [address], [place] tel:[phone] [place] Muscle weakness (generalized)Encounter for rehabilitation evaluation b-0 2 Isa Adonay. [address] [place], [address]. tel:[phone] [facility], [facility], [place], [place], [id number], [place] tel:[phone] [place] Encounter for rehabilitation evaluationAlteration in performance of activities of daily livingOther chronic pain b0 2 Marco A Delcid. 101 [facility], [place], [place], [address]. tel:[phone] [facility], [facility], [place], [place], [id number], [place] tel:[phone] [place] No Information b0 2 Juan Ramon Leyva. [address] [place], [place], [id number], [place]. tel:[phone] [facility], [facility], [place], [place], [id number], [place] tel:[phone] [place] Intake (chief complaint) No Information Steph Martinez. [address], [place], [place], [id number], . tel:[phone] Family History Family Member Type Diagnosis Age [...] Insurance type Covered constitution party ID Authoriza dereck(s) [facility] 16 [id number] [facility] 16 [id number] [facility] 16 [id number] [facility] 16 [id number] [facility] 16 [id number] [facility] 16 [id number] [facility] 16 [id number] Social History Type Description Quantity Date Captured Comments Sex Female Smoking Status No Information Chief Complaint And Reason For Visit No Information Plan Of Treatment Date Type Action Status Referral Ordered: Referrals: [facility]. Evaluate and treat Appointment date/timeframe: 02/07/2024 ordered Referral Ordered: Referrals: Orthopedic Surgery. Evaluate and treat ordered Referral Ordered: Referrals: Dentistry. Evaluate and treat ordered Referral Ordered: Referrals: Ophthalmology. Evaluate and treat ordered Referral Ordered: Referrals: Rheumatology. Evaluate and treat ordered Referral Ordered: Referrals: [facility]- Dental Location: [facility]. Evaluate and treat ordered Referral Ordered: Referrals: Obstetrics. Location: [facility]. Evaluate and treat ordered Referral Ordered: Referrals: Pain Medicine. Evaluate and treat Appointment date/timeframe: 09/21/2022 ordered Referral Ordered: Referrals: Orthopedic Surgery Appointment date/timeframe: 09/03/2022 ordered Referral Ordered: Referrals: Dermatology Appointment date/timeframe: 03/08/2023 ordered Referral Ordered: Referrals: Sleep Study Appointment date/timeframe: 03/29/2023 ordered Referral Ordered: CT CHEST W/O DYE Appointment date/timeframe: 12/03/2021 ordered Referral Ordered: Referrals: Dentistry Appointment date/timeframe: 11/04/2022 ordered Referral Ordered: Referrals: Psychiatry Appointment date/timeframe: 10/23/2021 ordered Referral Ordered: CT CHEST W/O & W/DYE Appointment date/timeframe: 12/03/2021 ordered Referral Ordered: Referrals: Ophthalmology Appointment date/timeframe: 01/14/2023 ordered Referral Ordered: BONE SCAN MULTIPLE AREAS Appointment date/timeframe: 01/26/2022 ordered Future Order: Radiology Order [place] mmogram (Diagnostic); Bilateral, incl computer-aided detection when performed (81214), Ordered on: Ordered History Of Present Illness [...] to get into [facility]-Therapist: [facility]-Ortho: 12/2023- closed fracture [...] lung nodules, COPD, hypotensionEXAM: NAD. mildly hypotensive, [id number]: repeat CT scan, encouraged fluids (she only [...] on getting into [facility] (psychiatrist). Diagnoses Reviewed.Consults:-Dental: last seen in September- had cap; 05/05/23 [facility] appt-Vision: 12/25/22-Psychiatrist: Trying to get into [facility]-Therapist: Krz[facility]ztof [facility] monthly-Pain management: 09/21/22- did [...] seeing a prescriber Tena Reyna APRN in [place] and has followed with her for years. [...] for mail order and [facility] locally on [address]: she states the clonazepam comes from [employer]. She is considering changing to [facility] once she enrolls. 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 She smokes marijuana 1-2x/day. Related to Tobacco use CT 03/2023: stable 4m m nodule in [facility]. Approximately 7 new pulm nodules. Consider f/u CT in [address] year.[address] in place Related to Pulmonary nodule Pt is a smoker [place] e I was 13 years old I [...] kidney disease, unspecified CKD stage, unspecified whether usp insulin use 01/2022 Dexa: Impress ion: The patient has osteoporosis as determined by WHO criteria. Related to Osteoporosis, unspecified osteoporosis type, unspecified pathological fracture presence 03/2023: A1C- 7-Curre ntly on glipizide 2.5mg- increasing to 5mg daily Related to snf (current) use of oral hypoglycemic drugs 03/2023Lipid [...] on getting into [facility] for a psychiatrist. Currently- PCP is prescribing and sending medications. -Continue current med regimen- follow up w/ new psychiatrist may need medication adjustment Related to Generalized anxiety disorder Pt reports seeing Reinier ewing (therapist) [facility]. She is working on getting into [facility] for a psychiatrist. Currently- PCP is prescribing [...] on getting into [facility] for a psychiatrist. Currently- PCP is prescribing [...] 08/2022 GFR 60-Avoid nephrotoxic medications Related to intermediate designer (current) use of insulin 08/2022: A1C- 6.7Continue glipizi de Related to intermediate designer (current) use of oral hypoglycemic drugs Rhem [...] Related to Fibromyalgia Pt is a smoker [employer] I was 13 years old I [...] kidney disease, unspecified CKD stage, unspecified whether usp insulin use 01/2022 Dexa: Impress ion: The patient has osteoporosis as determined by WHO criteria. Related to Osteoporosis, unspecified osteoporosis type, unspecified pathological fracture presence 02/2022: GFR 64Avoid nephrotoxic medications Related to Chronic kidney disease, stage 2 (mild) 02/25/2022:Lipid ratio - 6.6Increased lipitor from 20mg [...] oxygen.Continue proair as needed Related to COPD 02/19/2017 hospital r ecords: pt sustained a [...] Related to PTSD Per preenrollment re cords. No psychiatric notes [...] to Bipolar affective disorder, remission status unspecified Per preenrollment re cords. History of cataracts in [place] eyes r[facility] [place] to one of our contracted ophthalmologists for maintenance. Plan: optho referral in place Related to Cataract of both eyes, unspecified cataract type Lipid panel orderedC urrently taking lipitor [...]
--- NOTE | ~2025-05-20 | XR_ITS ---
CLINICAL HISTORY: dyspnea, cough 1 view chest x-ray Comparison: CT/SR - CT LUNG SCREENING - 10/27/24 10:14 EST Findings: No consolidation or effusion. Normal size heart. No acute fracture. IMPRESSION: 1. No acute findings. This document has been electronically signed by: Marina Rangel MD on 05/20/2025 23:58:29
[2025-05-20 22:20] VITALS: BP 165/105; PULSE 95; RESP 24; TEMP 36.9; O2SAT 85; BMI 29.4
--- NOTE | 2025-05-20 22:30 | ECG_ITS ---
Test Reason : dyspnea Blood Pressure : */* mmHG Vent. Rate : 77 BPM Atrial Rate : 77 BPM P-R Int : 162 ms QRS Dur : 84 ms QT Int : 422 ms P-R-T Axes : 56 58 74 degrees QTcB Int : 477 ms Normal sinus rhythm Normal ECG When compared with ECG of 30-Dec-2015 11:13, No significant change was found Referred By: Generic ED Physician Electronically Signed By: SONIA HARGROVE
[2025-05-20 22:36] VITALS: PULSE 98; RESP 22; O2SAT 95
[2025-05-20] MEDS: Albuterol Sulfate 5 MG, Albuterol/Iprat 2.5/0.5MG 3 ML 3 ML INHALE (22:36)
--- NOTE | 2025-05-20 22:36 | ED.SOB ---
HPI - SOB/Dyspnea General Chief Complaint: Dyspnea Stated Complaint: difficulty breathing Time Seen by Provider: 05/20/25 22:30 Source: patient and family () Mode of arrival: ambulatory Limitations: no limitations History of Present Illness ED Provider: GM CLEMENT PA-C HPI Narrative: 69 year old female with pmhx significant for COPD not on supplemental O2, nicotine dependence, PAD, type 2 diabetes, anxiety, depression, HTN, hypercholesterolemia, bipolar disorder, CKD presents to the ED today for evaluation of shortness of breath and productive cough progressively worsening x4 hours. Using her inhalers at home without relief. Reports cough is productive of yellow/green sputum, difficulty expelling. Reports a few friends are ill with URI. Denies fever, chills, chest pain, palpitations, LE pain/swelling. Denies recent travel/long car rides. Related Data Home Medications ?Medication ?Instructions ?Recorded ?Confirmed clonazepam 1 mg tablet (Klonopin) 1 mg PO TID 06/12/20 05/04/25 fluoxetine 20 mg capsule 20 mg PO BID 07/08/21 05/04/25 ziprasidone HCl 20 mg capsule 20 mg PO QAM 04/06/25 05/04/25 ziprasidone HCl 40 mg capsule 40 mg PO BEDTIME 04/06/25 05/04/25 Previous Rx's ?Medication ?Instructions ?Recorded fenofibrate 160 mg tablet 160 mg PO DAILY 90 days #90 tabs 11/10/24 amlodipine 2.5 mg tablet 2.5 mg PO DAILY #90 tabs 11/21/24 cholecalciferol (vitamin D3) 25 25 mcg PO DAILY #90 caps 11/21/24 mcg (1,000 unit) capsule cetirizine 10 mg tablet (Zyrtec) 10 mg PO DAILY #30 tabs 12/19/24 gabapentin 600 mg tablet 600 mg PO BEDTIME #90 tabs 01/02/25 glipizide 5 mg tablet 5 mg PO DAILY #90 tabs 01/31/25 albuterol sulfate 90 mcg/actuation 2 puff inhalation Q4-6H PRN 02/07/25 aerosol inhaler shortness of breath or wheezing #8.5 grams sennosides 8.6 mg-docusate sodium 1 tab-cap PO BEDTIME #90 caps 02/12/25 50 mg capsule (Senna Plus) ezetimibe 10 mg tablet (Zetia) 10 mg PO DAILY #30 tabs 03/23/25 atorvastatin 80 mg tablet 80 mg PO DAILY 30 days #30 tabs 03/26/25 propranolol 80 mg capsule,24 80 mg PO DAILY #90 caps 04/02/25 hr,extended release fluticasone 100 mcg-salmeterol 50 1 inh inhalation BID #60 ea 04/19/25 mcg/dose blistr powdr for inhalation (Advair Diskus) gabapentin 300 mg capsule 300 mg PO BID #60 caps 04/30/25 fluticasone propionate 50 2 spray intranasal .QD 30 days #16 05/14/25 mcg/actuation nasal grams spray,suspension Allergies Allergy/AdvReac Type Severity Reaction Status Date / Time azithromycin Allergy Unknown unknown Verified 05/20/25 22:23 denosumab (Prolia) Allergy Unknown vomiting Verified 05/20/25 22:23 lamotrigine Allergy Unknown rash Verified 05/20/25 22:23 lisinopril Allergy Unknown nausea and Verified 05/20/25 22:23 vomiting naproxen (Aleve) Allergy Unknown dizziness Verified 05/20/25 22:23 Review of Systems Review of Systems: Yes all other systems are reviewed and are negative PMFSH Past Medical History Attestation statement: The following information was validated with the patient. Source: old records reviewed and nursing notes reviewed Medical History Acid reflux Decreased rectal sphincter tone Abdominal pain Nicotine dependence, cigarettes, uncomplicated Bilateral lower extremity pain Hx of gastritis Hx of allergic rhinitis Migraines Tubular adenoma of colon Pulmonary nodule Osteoporosis Right humeral fracture Hip fracture, right Bipolar disorder Fibromyalgia Thyroid cyst Vitamin D deficiency Obesity (BMI 30-39.9) Hypercholesterolemia Hypertension COPD (chronic obstructive pulmonary disease) Anxiety and depression Type 2 diabetes mellitus with hyperglycemia Surgical History History of cholecystectomy History of total abdominal hysterectomy and bilateral salpingo-oophorectomy History of colonoscopy Deficient knowledge of leg surgery History of shoulder surgery History of hip surgery History of esophagogastroduodenoscopy (EGD) H/O right knee surgery Herniated nucleus pulposus Family History Family History Father Hypertension Cancer Esophageal cancer Mother Hypertension Maternal Aunt Stomach cancer Son Substance abuse Social History Social History Housing: House Alcohol intake: current Alcohol intake frequency: 0-2 drinks per day Alcohol type: hard liquor Patient Tobacco Use Status: Never used Tobacco Tobacco use type: Cigarette Cigarette Packs Per Day: 0.5 Cigarettes Per Day: 10 Years Smoked: (onset 15yo, 1/2-1ppd x 53yrs, 35+PYH); Quit- 10/2024 Smoked in Last 30 Days: Yes e-Cigarette/Vaping Use: Never Used Second Hand Smoke Exposure: Yes Use of substances other than those prescribed or required for medical reasons: Yes Substance Use Type: Marijuana Advance Directives: No Advance Directives Information Provided: Yes service: No Current occupational status: employed Cognitive needs: No Hearing needs: No Vision needs: Yes Physical Exam Vital Signs: Vital Signs: Last Vital Signs Temp 97.8 F 05/21/25 00:30 Pulse 70 05/21/25 00:30 Resp 24 H 05/21/25 00:30 BP 111/61 05/21/25 00:30 Pulse Ox 88 L 05/21/25 01:00 O2 Del Method Room Air 05/21/25 01:00 O2 Flow Rate 3 05/21/25 00:30 BMI result Body Mass Index 29.4 hypertensive, tachypneic, hypoxic General: ill appearing Skin: Warm, dry, intact. No rashes or lesions. Head: Normocephalic, atraumatic. EENT: Hearing is intact b/l. Conjunctiva clear.PERRLA. EOM intact. Moist mucous membranes.? Neck: Supple without LAD Cardiac: Chest wall symmetric. RRR Lungs: increased effort of breathing, speaking in 2-3 word sentences, no tripoding, diffuse expiratory rhonchi throughout with diminished lung sounds, congested cough Abdomen: Soft, non-tender, non-distended. No rebound tenderness or guarding Ext: No pitting edema, no calf tenderness bilaterally Neuro: AOx3. Normal speech. Ambulating with steady gait Course Course Course Narrative: 2234 -- Patient is satting 82% on RA on arrival to ED, speaking in 2-3 word sentences. Placed on 5 L nasal cannula with improvement to 97%. Expiratory rhonchi throughout. receiving neb at bedside via RT. 0100 -- CBC without leukocytosis or left shift. No thrombocytosis. Chemistry without acute electrolyte abnormality requiring intervention. No TODD. Random glucose 145, no anion gap. Lactic WNL at 0.9. Troponin undetectable. EKG showing normal sinus rhythm without acute ischemic changes or ST elevations. Negative COVID, flu. Chest x-ray does not demonstrate pneumonia or effusion. > patient desatted to 88% on room air during ambulatory O2 trial. She still has diffuse expiratory rhonchi despite treatment with IV Solu-Medrol, magnesium and albuterol. > discussed disposition with patient. She is agreeable to admission for further management. Will reach out to hospitalist. 0144 -- spoke with hospitalist dr. davila. He is requesting ddimer which has been added on. dr. davila to place admission orders. Medications Administered Discontinued Medications Generic Name Dose Route Start Last Admin Trade Name Freq PRN Reason Stop Dose Admin Ceftriaxone Sodium 1 gm 05/20/25 23:36 05/21/25 00:24 Ceftriaxone Sodium 1 Gm Vial IVPUSH 05/20/25 23:37 1 gm ONCE ONE Administration Albuterol Sulfate 5 mg/ 0 mg 05/20/25 22:34 05/20/25 22:36 Albuterol/Ipratropium 3 ml INHALE 05/20/25 22:35 1 each ONCE ONE Administration Magnesium Sulfate 2 gm in 50 mls @ 150 mls/hr 05/20/25 22:36 05/20/25 23:15 Magnesium Sulfate/H2o IV 05/20/25 22:55 Infused ONCE ONE Infusion Acetaminophen 1,000 mg in 100 mls @ 400 mls/hr 05/20/25 23:07 05/21/25 00:32 Ofirmev IV 05/20/25 23:21 Infused ONCE ONE Infusion Methylprednisolone Sodium Succinate 125 mg 05/20/25 22:36 05/20/25 22:45 Methylprednisolone Sod Succ 125 Mg/2 Ml Vial IVPUSH 05/20/25 22:37 125 mg ONCE ONE Administration Medical Decision Making Medical Decision Making MDM Narrative: 69 year old female with pmhx significant for COPD not on supplemental O2, nicotine dependence, PAD, type 2 diabetes, anxiety, depression, HTN, hypercholesterolemia, bipolar disorder, CKD presents to the ED today for evaluation of shortness of breath and productive cough progressively worsening x4 hours. On arrival, patient and noted respiratory distress, increased effort of breathing, speaking in 2-3 word sentences, congested cough, lungs with diffuse expiratory rhonchi, lung sounds diminished. satting 82% on RA, placed on 4L NC. Differential diagnosis includes viral syndrome, bronchitis, pneumonia, COPD exacerbation, anemia, electrolyte abnormality. Lower suspicion for cardiac arrhythmia, ACS. Unlikely PE. Plan for labs, EKG, chest x-ray, viral swabs, ambulatory O2, oxygen supplementation, ED bronch protocol, re-evaluation. Differential Diagnosis Differential Diagnoses: The differential diagnosis associated with the presentation includes as above. Admission/Observation Consideration of admission/observation: Escalation of care including admission/observation considered Patient to be admitting to medicine for acute exacerbation of copd Consult Healthcare Provider Management of the patient was discussed with: Hospitalist (dr. davila) Lab Data MDM Lab Attestation statement: I reviewed the patient's lab results. as above. 05/20/25 22:35 05/20/25 22:35 Labs: Lab Results 05/20/25 05/20/25 05/21/25 Range/Units 22:35 22:51 00:10 WBC 9.7 (4.8-10.8) X10*3/uL RBC 5.64 H (4.20-5.50) X10*6/uL Hgb 16.5 H (12.0-16.0) g/dl Hct 49.6 H (37.0-47.0) % MCV 87.9 (80.0-98.0) fL MCH 29.3 (27.0-33.0) pg MCHC 33.3 (31.0-35.0) g/dl RDW 13.9 (11.0-16.0) % Plt Count 257 (160-400) X10*3/uL MPV 10.4 (9.4-12.3) fL Immature Gran % (Auto) 0.3 (0.0-0.4) % Neut % (Auto) 74.3 H (45-73) % Lymph % (Auto) 14.9 L (20-40) % [place] % (Auto) 7.1 (2-11) % Eos % (Auto) 2.9 (0-4) % Baso % (Auto) 0.5 (0-2) % Lymph # (Auto) 1.5 (1.2-4.9) X10*3/uL [place] # (Auto) 0.7 (0.1-1.2) X10*3/uL Eos # (Auto) 0.3 (0.0-0.4) X10*3/uL Baso # (Auto) 0.1 (0.0-0.2) X10*3/uL Abs Immat Gran (auto) 0.03 (0.00-0.03) X10*3/uL Absolute Neuts (auto) 7.2 (2.0-8.3) x10*3/uL Absolute Nucleated RBC 0.000 (0.0-0.012) X10*3/uL Nucleated RBC % (auto) 0.0 (0.0-0.2) /100WBC VBG pH 7.40 (7.32-7.43) VBG pCO2 28 mmHg VBG pO2 118 mmHg VBG HCO3 17 L (22-26) mmol/L VBG O2 Saturation 100.0 % VBG Base Excess -5.2 mmol/L Sodium 141 (135-145) mmol/L Potassium 4.1 (3.3-5.1) mmol/L Chloride 108 (96-108) mmol/L Carbon Dioxide 25 (22-29) mmol/L Anion Gap 12 (12-20) BUN 11 (9-16) mg/dL Creatinine 1.04 (0.5-1.4) mg/dL Estim Creat Clear Calc 66.0 Estimated GFR 53 Random Glucose 145 H (60-115) mg/dL Lactic Acid 0.9 (0.5-2.0) mmol/L Calcium 9.5 (8.4-10.2) mg/dL Troponin I High Sens < 2.7 (<3.5-17.0) ng/L COVID-19 ([facility]) Negative (Negative) COVID-19 Clin Com See Note Influenza Type A ([facility]) Negative (Negative) Influenza Type B ([facility]) Negative (Negative) Influenza A & B Note See Note Independent Interpretation I performed an independent interpretation of an: EKG and Plain X-Ray Interpretation: cxr without infiltrate or consolidation ekg showing NSR with rate of 77 bpm no acute ischemic changes or st elevations Radiology Impression Discussion of test interpretation with radiology: I have reviewed the radiologist's reading. Radiologist Impression: Procedure(s): XR chest 1V Accession Number(s): [id number] cc: Neida Tubbs DO; Tone Villanueva MD~ Reason for Exam: dyspnea, cough CLINICAL HISTORY: dyspnea, cough 1 view chest x-ray Comparison: CT/SR - CT LUNG SCREENING - 10/27/24 10:14 EST Findings: No consolidation or effusion. Normal size heart. No acute fracture. IMPRESSION: 1. No acute findings. This document has been electronically signed by: Marina Rangel MD on 05/20/2025 23:58:29 Independent Historian Clinical information obtained from an independent historian. History obtained from or confirmed by: Spouse External Record Review External record reviewed: Inpatient record Prescription Management I considered prescription management with: Antibiotic Chronic Conditions Patient?s care impacted by: Other (COPD) Social Determinants Patient?s care significantly limited by Social Determinants of Health including: Other Social Determinant of Health Critical Care Time Critical Care Time Critical Care Time: Yes Total Critical Care Time: 43 Attestation: Critical care time in the amount of 43 minutes has been provided to the patient in terms of direct patient care, frequent reevaluation, consultation with hospitalist, review and interpretation of medical data and results, and management of potentially life-threatening conditions. This is all outside of any medical procedures. Discharge Plan Discharge Clinical Impression: COPD exacerbation Patient Disposition: Admitted As Inpatient Print Language: Nepali
[2025-05-20 22:40] LABS: MANUAL DIFF FLAG NO
[2025-05-20 22:42] LABS: Hematocrit 49.6 % (37.0-47.0); Hemoglobin 16.5 g/dl (12.0-16.0); Imm Gran Abs Auto 0.03 X10*3/uL (0.00-0.03); Imm Gran Pct Auto 0.3 % (0.0-0.4); Lymphocytes Absolute Auto 1.5 X10*3/uL (1.2-4.9); Mean Corpuscular HGB Conc 33.3 g/dl (31.0-35.0); Mean Corpuscular Hemoglobin 29.3 pg (27.0-33.0); Mean Corpuscular Volume 87.9 fL (80.0-98.0); NRBC Abs Auto 0.000 X10*3/uL (0.0-0.012); NRBC Pct Auto 0.0 /100WBC (0.0-0.2); Platelet Count 257 X10*3/uL (160-400); Red Blood Count 5.64 X10*6/uL (4.20-5.50); White Blood Count 9.7 X10*3/uL (4.8-10.8)
[2025-05-20 22:45] VITALS: RESP 30
[2025-05-20] MEDS: Magnesium Sulfate/H2O 2 GM/50 ML PIGGYBACK IV (22:45)
[2025-05-20 22:55] LABS: Anion Gap 12 (12-20); Blood Urea Nitrogen 11 mg/dL (9-16); Calcium 9.5 mg/dL (8.4-10.2); Carbon Dioxide 25 mmol/L (22-29); Chloride 108 mmol/L (96-108); Creatinine Clr Calc Pharmacy 66.0; Estimated Glomerular Filt Rate 53; Potassium 4.1 mmol/L (3.3-5.1); Sodium 141 mmol/L (135-145)
[2025-05-20 22:59] LABS: COVID-19 Test Negative (Negative); IDNOW Serial# 55D5AD1C; IDNOW Serial# 58CA691E; Influenza B2 Negative (Negative)
--- NOTE | 2025-05-20 23:01 | PC.NURSE ---
Patient brought from triage to room 23. Skin flush, warm, moist. resp even and labored. reports cough and dyspnea starting this morning but worse over the past 4 hours. lungs dim with exp rhonchi through. non productive cough. O2 sat 82% on room air, (physician made aware by second RN) supplemental O2 initiated, physical therapy assistant instructor applied, and IV started. RT to bedside for breathing treatment. medicated per OCT.
[2025-05-20 23:03] LABS: Troponin-I High Sensitivity < 2.7 ng/L (<3.5-17.0)
[2025-05-20 23:04] LABS: VBG HCO3 17 mmol/L (22-26); VBG O2 % Saturation 100.0 %
[2025-05-20 23:10] VITALS: BP 130/67; PULSE 73; RESP 18; TEMP 36.4; O2SAT 97
[2025-05-20 23:11] LABS: Venous Blood Gas Refer to POC result
[2025-05-21] VITALS (9 sets, daily range): BP systolic 111–164; BP diastolic 61–90; PULSE 66–82; RESP 17–24; TEMP 35.7–36.6; O2SAT 88–96; BMI 29.5
--- NOTE | 2025-05-21 01:00 | PC.NURSE ---
room air ambulation trial completed by Felicity LAGUNA, oxygen level decreased to 88%
[2025-05-21 02:29] LABS: D Dimer High Sensitivity < 150 NG/ML
--- NOTE | 2025-05-21 02:36 | PC.NURSE ---
Patient sleeping. skin pwd, resp even and non labored. NSR via tele, VSS. appears comfortable at this time. message sent to hospital r/t order for azithromycin, allergy to this med is listed in the chart.
--- NOTE | 2025-05-21 03:17 | PC.NURSE ---
Pt reports allergy to Azithromycin, per Rajeev stein at this time.
--- NOTE | 2025-05-21 04:41 | PM.IMHP ---
History of Present Illness Date of Service: 05/21/25 Chief Complaint: SOB 69-year-old female past medical history of CKD COPD, HLD, anxiety, depression, fibromyalgia, pulmonary nodules, migraine headaches, GERD, obesity; hypertension; presented to the hospital with a chief complaint of shortness of breath. Patient shortness of breath associated with cough and sputum production which has been gradually worsening. Yellowish colored. Reports sick contacts with the [place] were having upper respiratory symptoms. Denies any recent travel. Denies any chest pain or palpitations. Denies any nausea vomiting or diarrhea. Review of all other systems is negative except mentioned above ER course: Per ER team, patient on presentation noted to have bilateral wheezing; able to speak in full sentences. Patient on ambulation desaturated to 88%. EKG nonischemic. X-ray showed no acute cardiopulmonary process. Given nebulizations and steroids. [facility] Medical History Acid reflux Decreased rectal sphincter tone Abdominal pain Nicotine dependence, cigarettes, uncomplicated Bilateral lower extremity pain Hx of gastritis Hx of allergic rhinitis Migraines Tubular adenoma of colon Pulmonary nodule Osteoporosis Right humeral fracture Hip fracture, right Bipolar disorder Fibromyalgia Thyroid cyst Vitamin D deficiency Obesity (BMI 30-39.9) Hypercholesterolemia Hypertension COPD (chronic obstructive pulmonary disease) Anxiety and depression Type 2 diabetes mellitus with hyperglycemia Family History Father Hypertension Cancer Esophageal cancer Mother Hypertension Maternal Aunt Stomach cancer Son Substance abuse Surgical History History of cholecystectomy History of total abdominal hysterectomy and bilateral salpingo-oophorectomy History of colonoscopy Deficient knowledge of leg surgery History of shoulder surgery History of hip surgery History of esophagogastroduodenoscopy (EGD) H/O right knee surgery Herniated nucleus pulposus Social History Housing: House Alcohol intake: current Alcohol intake frequency: 0-2 drinks per day Alcohol type: hard liquor Patient Tobacco Use Status: Never used Tobacco Tobacco use type: Cigarette Cigarette Packs Per Day: 0.5 Cigarettes Per Day: 10 Years Smoked: (onset 15yo, 1/2-1ppd x 53yrs, 35+PYH); Quit- 10/2024 Smoked in Last 30 Days: Yes e-Cigarette/Vaping Use: Never Used Second Hand Smoke Exposure: Yes Use of substances other than those prescribed or required for medical reasons: Yes Substance Use Type: Marijuana Advance Directives: No Advance Directives Information Provided: Yes service: No Current occupational status: employed Cognitive needs: No Hearing needs: No Vision needs: Yes Meds Allergies Allergy/AdvReac Type Severity Reaction Status Date / Time azithromycin Allergy Unknown unknown Verified 05/20/25 22:23 denosumab (Prolia) Allergy Unknown vomiting Verified 05/20/25 22:23 lamotrigine Allergy Unknown rash Verified 05/20/25 22:23 lisinopril Allergy Unknown nausea and Verified 05/20/25 22:23 vomiting naproxen (Aleve) Allergy Unknown dizziness Verified 05/20/25 22:23 Active Medications: Current Medications Acetaminophen (Acetaminophen 325 Mg Tablet) 650 mg PO Q6H PRN PRN Reason: Pain, Mild 1-3,fever,headache Albuterol/Ipratropium (Albuterol/Iprat 2.5/0.5mg 3 Ml Ampul.Neb) 3 ml INHALE Q4H PRN PRN Reason: Shortness of Breath/Wheezing Albuterol/Ipratropium (Albuterol/Iprat 2.5/0.5mg 3 Ml Ampul.Neb) 3 ml INHALE RQ6H WHILE AWAKE [facility] Azithromycin (Azithromycin 500 Mg Tablet) 500 mg PO Q24H [facility] Last Admin: 05/21/25 03:17 Dose: Not Given Benzonatate (Benzonatate 100 Mg Capsule) 100 mg PO TID PRN PRN Reason: Cough Calcium Carbonate (Calcium Carbonate 750 Mg Tab.Chew) 750 mg PO Q4H PRN PRN Reason: Heartburn Enoxaparin Sodium (Enoxaparin Sodium 40 Mg/0.4 Ml Syringe) 40 mg SUBCUT DAILY [facility] Last Admin: 05/21/25 02:57 Dose: 40 mg Magnesium Hydroxide (Milk Of Magnesia 30 Ml Oral.Susp) 30 ml PO DAILY PRN PRN Reason: Constipation Melatonin (Melatonin 3 Mg Tablet) 6 mg PO BEDTIME PRN PRN Reason: Insomnia Methylprednisolone Sodium Succinate (Methylprednisolone Sod Succ 40 Mg/Ml Vial) 40 mg IVPUSH Q6H [facility] Sodium Chloride (0.9 % Sodium Chloride Flush 3 Ml Syringe) 3 ml IVFLUSH QSHIFT [facility] Home Medications ?Medication ?Instructions ?Recorded ?Confirmed ?Last Taken ?Type clonazepam 1 mg tablet (Klonopin) 1 mg PO TID 06/12/20 05/04/25 05/04/25 08:00 History fluoxetine 20 mg capsule 20 mg PO BID 07/08/21 05/04/25 05/04/25 08:00 History ziprasidone HCl 20 mg capsule 20 mg PO QAM 04/06/25 05/04/25 05/04/25 08:00 History ziprasidone HCl 40 mg capsule 40 mg PO BEDTIME 04/06/25 05/04/25 05/03/25 20:00 History Physical Exam Vital Signs and Narrative: Vital Signs: Last Vital Signs Temp 97.8 F 05/21/25 00:30 Pulse 66 05/21/25 02:38 Resp 20 05/21/25 02:38 BP 113/69 05/21/25 02:38 Pulse Ox 95 05/21/25 02:38 O2 Del Method Nasal Cannula 05/21/25 02:38 O2 Flow Rate 1.5 05/21/25 02:38 BMI result Body Mass Index 29.4 Gen: Appears be in no acute distress HEENT: NCAT, Moist mucosa. Pulmonary: Bilateral wheezing present CVS: Normal S1-S2 Abdomen: BS+, Soft, Nontender Extremities: Warm well perfused Neuro: Alert and awake. Results Labs 05/20/25 22:35 05/20/25 22:35 Labs: Laboratory Results - last 24 hr 05/20/25 05/20/25 05/21/25 22:35 22:51 00:10 MCV 87.9 MCH 29.3 MCHC 33.3 RDW 13.9 Plt Count 257 MPV 10.4 Immature Gran % (Auto) 0.3 Neut % (Auto) 74.3 H Lymph % (Auto) 14.9 L [place] % (Auto) 7.1 Eos % (Auto) 2.9 Baso % (Auto) 0.5 Lymph # (Auto) 1.5 [place] # (Auto) 0.7 Eos # (Auto) 0.3 Baso # (Auto) 0.1 Abs Immat Gran (auto) 0.03 Absolute Neuts (auto) 7.2 Absolute Nucleated RBC 0.000 Nucleated RBC % (auto) 0.0 D-Dimer High Sensitivty VBG pH 7.40 VBG pCO2 28 VBG pO2 118 VBG HCO3 17 L VBG O2 Saturation 100.0 VBG Base Excess -5.2 Anion Gap 12 Estim Creat Clear Calc 66.0 Estimated GFR 53 Random Glucose 145 H Lactic Acid 0.9 Calcium 9.5 Troponin I High Sens < 2.7 COVID-19 ([facility]) Negative COVID-19 Clin Com See Note Influenza Type A ([facility]) Negative Influenza Type B ([facility]) Negative Influenza A & B Note See Note 05/21/25 02:06 MCV MCH MCHC RDW Plt Count MPV Immature Gran % (Auto) Neut % (Auto) Lymph % (Auto) [place] % (Auto) Eos % (Auto) Baso % (Auto) Lymph # (Auto) [place] # (Auto) Eos # (Auto) Baso # (Auto) Abs Immat Gran (auto) Absolute Neuts (auto) Absolute Nucleated RBC Nucleated RBC % (auto) D-Dimer High Sensitivty < 150 VBG pH VBG pCO2 VBG pO2 VBG HCO3 VBG O2 Saturation VBG Base Excess Anion Gap Estim Creat Clear Calc Estimated GFR Random Glucose Lactic Acid Calcium Troponin I High Sens COVID-19 ([facility]) COVID-19 Clin Com Influenza Type A ([facility]) Influenza Type B ([facility]) Influenza A & B Note Assessment and Plan (1) COPD exacerbation: Status: Acute Plan 69-year-old female past medical history of CKD COPD, HLD, anxiety, depression, fibromyalgia, pulmonary nodules, migraine headaches, GERD, obesity; hypertension; presented to the hospital with a chief complaint of shortness of breath. Admitted for following Acute COPD exacerbation: Acute hypoxic respiratory failure: Blood gas compensated. D-dimer negative Continue supplemental oxygen p.r.n. Nebulizations standing and p.r.n. Solu-Medrol IV Doxycycline Trending pulse oximetry and ready for discharge Hypertension: Blood pressure normal side. Hold home amlodipine for now Bipolar: Continue home medications Diabetes: Insulin sliding scale DVT prophylaxis: Lovenox Code status: Full code Quality Stroke Does the patient have a stroke diagnosis?: No VTE Prior VTE?: No VTE Risk Level:: Medical - moderate - high VTE Device Contraindication: Treatment Not Indicated VTE Drug Contraindication: N/A - Med Ordered
[2025-05-21 07:08] LABS: Glucose, Whole Blood 252 mg/dL (60-115)
[2025-05-21 07:10] LABS: MANUAL DIFF FLAG NO
[2025-05-21 07:13] LABS: Hematocrit 48.8 % (37.0-47.0); Hemoglobin 15.9 g/dl (12.0-16.0); Imm Gran Abs Auto 0.02 X10*3/uL (0.00-0.03); Imm Gran Pct Auto 0.3 % (0.0-0.4); Lymphocytes Absolute Auto 0.9 X10*3/uL (1.2-4.9); Mean Corpuscular HGB Conc 32.6 g/dl (31.0-35.0); Mean Corpuscular Hemoglobin 29.0 pg (27.0-33.0); Mean Corpuscular Volume 89.1 fL (80.0-98.0); NRBC Abs Auto 0.000 X10*3/uL (0.0-0.012); NRBC Pct Auto 0.0 /100WBC (0.0-0.2); Platelet Count 216 X10*3/uL (160-400); Red Blood Count 5.48 X10*6/uL (4.20-5.50); White Blood Count 6.2 X10*3/uL (4.8-10.8)
[2025-05-21 07:31] LABS: Alanine Aminotransferase 30 U/L (0-31); Albumin Level 4.5 g/dL (3.5-5.0); Alkaline Phosphatase 110 U/L (39-117); Anion Gap 13 (12-20); Aspartate Amino Transferase 24 U/L (5-31); Blood Urea Nitrogen 12 mg/dL (9-16); Calcium 9.2 mg/dL (8.4-10.2); Carbon Dioxide 24 mmol/L (22-29); Chloride 108 mmol/L (96-108); Creatinine Clr Calc Pharmacy 74.6; Estimated Glomerular Filt Rate > 60; Potassium 4.5 mmol/L (3.3-5.1); Sodium 140 mmol/L (135-145); Total Protein 7.1 g/dL (6.5-8.0)
[2025-05-21] MEDS: Albuterol/Iprat 2.5/0.5MG 3 ML AMPUL.NEB INHALE (07:33)
--- NOTE | 2025-05-21 07:47 | PHA.MEDREC ---
Pharmacy Consult ? Medication Reconciliation Pharmacy has completed the medication reconciliation.Med rec complete, spoke with patient and compared with pharmacy claim history.
[2025-05-21] MEDS: 0.9 % Sodium Chloride Flush 3 ML SYRINGE IVFLUSH (08:08)
--- NOTE | 2025-05-21 08:59 | MHC.CM.PN ---
CM met with Patient and her Boyfriend/HCP/Nico at bedside; Nico will transport to home at dc. Patient lives in a house with her Boyfrind and she required no services nor DME [employer].Home/self care is the goal and CM has initiated and will follow for dc planning. PCP is Dr. ALMONTE.
--- NOTE | 2025-05-21 09:16 | PM.DS ---
DS: Providers Provider Date of Service: 05/21/25 Date of admission: 05/21/25 01:40 Date of discharge: 05/21/25 Primary care physician: Tone Villanueva MD DS: Diagnosis Discharge Diagnosis (1) COPD exacerbation: Status: Acute DS: Summary Hospital Course Hospital Course: from initial hpi: 69-year-old female past medical history of CKD COPD, HLD, anxiety, depression, fibromyalgia, pulmonary nodules, migraine headaches, GERD, obesity; hypertension; presented to the hospital with a chief complaint of shortness of breath. Patient shortness of breath associated with cough and sputum production which has been gradually worsening. Yellowish colored. Reports sick contacts with the [place] were having upper respiratory symptoms. Denies any recent travel. Denies any chest pain or palpitations. Denies any nausea vomiting or diarrhea. Review of all other systems is negative except mentioned above ER course: Per ER team, patient on presentation noted to have bilateral wheezing; able to speak in full sentences. Patient on ambulation desaturated to 88%. EKG nonischemic. X-ray showed no acute cardiopulmonary process. Given nebulizations and steroids. hospital course: Respiratory failure due to COPD with acute decompensation. Her symptoms improved faster than expected. She is able to be weaned to room air and was saturating 95% by the next day. She is still wheezing somewhat but is feeling much better and would like to continue rest of treatment at home. We will be discharged on 5 more days of prednisone and doxycycline. She is advised to quit smoking. For hypertension we will continue on amlodipine, propranolol. For bipolar disorder was continued on ziprasidone. For diabetes was treated with insulin sliding scale. Time Attestation Discharge Coordination Time (in mins): 33 Quality: Safe Use of Opioids Does Pt have an Active Cancer Diagnosis on the Problem List?: No Quality: Stroke Does the patient have a stroke diagnosis?: No Physical Exam Exam: Exam: General: AO X 3, no acute distress Resp: some wheezing bilateral, no accessory muscles used CVS: S1,S2,RRR GI: soft, non tender, non distended Neuro: motor grossly intact, alert Psych: appropriate affect, appropriate insight Vital Signs: Vital Signs: Last Vital Signs Temp 96.8 F 05/21/25 07:23 Pulse 74 05/21/25 08:08 Resp 18 05/21/25 07:37 BP 164/90 H 05/21/25 08:08 Pulse Ox 96 05/21/25 08:57 O2 Del Method Room Air 05/21/25 08:57 O2 Flow Rate 2 05/21/25 07:23 BMI result Body Mass Index 29.5 DS: Data Data Completed and Pending Labs on day of discharge: Laboratory Results - last 24 hr 05/20/25 05/20/25 05/21/25 22:35 22:51 00:10 WBC 9.7 RBC 5.64 H Hgb 16.5 H Hct 49.6 H MCV 87.9 MCH 29.3 MCHC 33.3 RDW 13.9 Plt Count 257 MPV 10.4 Immature Gran % (Auto) 0.3 Neut % (Auto) 74.3 H Lymph % (Auto) 14.9 L [place] % (Auto) 7.1 Eos % (Auto) 2.9 Baso % (Auto) 0.5 Lymph # (Auto) 1.5 [place] # (Auto) 0.7 Eos # (Auto) 0.3 Baso # (Auto) 0.1 Abs Immat Gran (auto) 0.03 Absolute Neuts (auto) 7.2 Absolute Nucleated RBC 0.000 Nucleated RBC % (auto) 0.0 D-Dimer High Sensitivty VBG pH 7.40 VBG pCO2 28 VBG pO2 118 VBG HCO3 17 L VBG O2 Saturation 100.0 VBG Base Excess -5.2 Sodium 141 Potassium 4.1 Chloride 108 Carbon Dioxide 25 Anion Gap 12 BUN 11 Creatinine 1.04 Estim Creat Clear Calc 66.0 Estimated GFR 53 POC Glucose Random Glucose 145 H Lactic Acid 0.9 Calcium 9.5 Total Bilirubin AST ALT Alkaline Phosphatase Troponin I High Sens < 2.7 Total Protein Albumin COVID-19 ([facility]) Negative COVID-19 Clin Com See Note Influenza Type A ([facility]) Negative Influenza Type B ([facility]) Negative Influenza A & B Note See Note 05/21/25 05/21/25 02:06 07:01 WBC 6.2 RBC 5.48 Hgb 15.9 Hct 48.8 H MCV 89.1 MCH 29.0 MCHC 32.6 RDW 14.0 Plt Count 216 MPV 10.7 Immature Gran % (Auto) 0.3 Neut % (Auto) 83.0 H Lymph % (Auto) 15.2 L [place] % (Auto) 1.3 L Eos % (Auto) 0.0 Baso % (Auto) 0.2 Lymph # (Auto) 0.9 L [place] # (Auto) 0.1 Eos # (Auto) 0.0 Baso # (Auto) 0.0 Abs Immat Gran (auto) 0.02 Absolute Neuts (auto) 5.2 Absolute Nucleated RBC 0.000 Nucleated RBC % (auto) 0.0 D-Dimer High Sensitivty < 150 VBG pH VBG pCO2 VBG pO2 VBG HCO3 VBG O2 Saturation VBG Base Excess Sodium 140 Potassium 4.5 Chloride 108 Carbon Dioxide 24 Anion Gap 13 BUN 12 Creatinine 0.92 Estim Creat Clear Calc 74.6 Estimated GFR > 60 POC Glucose 252 H Random Glucose 261 H Lactic Acid Calcium 9.2 Total Bilirubin 0.4 AST 24 ALT 30 Alkaline Phosphatase 110 Troponin I High Sens Total Protein 7.1 Albumin 4.5 COVID-19 ([facility]) COVID-19 Clin Com Influenza Type A ([facility]) Influenza Type B ([facility]) Influenza A & B Note Discharge Plan Discharge Anticipated Discharge Date/Time: 05/21/25 09:12 Patient Disposition: Home, Self-Care Discharge Diagnosis: copd Referrals: Po,Tone Pollard MD [Primary Care Provider, Internal Medicine] - 1 Week Discharge Medications: New doxycycline monohydrate 100 mg Capsule 100 mg PO Q12H 5 Days Qty: 10 0RF prednisone 20 mg tablet 40 mg PO DAILY Qty: 10 0RF Continued fenofibrate 160 mg tablet 160 mg PO DAILY 90 Days Qty: 90 2RF cetirizine [Zyrtec] 10 mg tablet 10 mg PO DAILY Qty: 30 9RF gabapentin 600 mg tablet 600 mg PO BEDTIME Qty: 90 1RF glipizide 5 mg tablet 5 mg PO DAILY Qty: 90 4RF propranolol 80 mg capsule,extended release 24 hr 80 mg PO DAILY Qty: 90 2RF fluticasone propion-salmeterol [Advair Diskus] 100-50 mcg/dose blister with device 1 inh inhalation BID Qty: 60 0RF fluticasone propionate 50 mcg/actuation spray,suspension 2 spray intranasal BID gabapentin 300 mg capsule 300 mg PO BID@0800,1300 albuterol sulfate 90 mcg/actuation Hfa Aerosol Inhaler 1 inh INHALATION BID atorvastatin 80 mg tablet 80 mg PO BEDTIME clonazepam [Klonopin] 1 mg tablet 1 mg PO TID fluoxetine 20 mg capsule 20 mg PO BID ziprasidone HCl 40 mg capsule 40 mg PO BEDTIME Rx Instructions: give with food (meal/snack) 20 mg in am and 40 mg Q pm ziprasidone HCl 20 mg capsule 20 mg PO DAILY Rx Instructions: give with food (meal/snack) amlodipine 2.5 mg tablet 2.5 mg PO DAILY Qty: 90 3RF cholecalciferol (vitamin D3) 25 mcg (1,000 unit) capsule 25 mcg PO DAILY Qty: 90 3RF albuterol sulfate 90 mcg/actuation HFA aerosol inhaler 2 puff inhalation Q4-6H PRN (Reason: shortness of breath or wheezing) Qty: 8.5 4RF Discharge Orders: Discharge Order (Routine); Ordered 05/21/25 Ordered By: Haim Badillo Diet: Advance to usual diet Activity on Discharge: As tolerated Stand Alone Forms: Patient Portal Discharge page Print Language: Yi Care Plan Goals: recovery Health Concerns: copd Plan of Treatment: stop smoking 5 days prednisone and doxy Assessment: see above
--- NOTE | 2025-05-21 09:44 | MHC.CM.PN ---
Patient has been medically cleared for dc to home today, self care.
== END 2025-05-21 13:04 | disposition home or self-care (01) | DRG 190 ==
LOC: HO.ED 05-21 00:54 → HO.EDOVER 05-21 01:46 → HO.IMC 05-21 02:44
PROVIDERS: Physician Assistant Medical; Admitting Provider Hospitalist; Emergency Provider Emergency Medicine; PCP Internal Medicine; Visit Provider Internal Medicine
DX: J44.1 Chronic obstructive pulmonary disease with (acute) exacerbation (principal); J96.01 Acute respiratory failure with hypoxia; I12.9 Hypertensive chronic kidney disease with stage 1 through stage 4 chronic kidney disease, or unspecified chronic kidney disease; N18.9 Chronic kidney disease, unspecified; E11.22 Type 2 diabetes mellitus with diabetic chronic kidney disease; Z20.822 Contact with and (suspected) exposure to COVID-19; Z87.891 Personal history of nicotine dependence; Z79.51 Long term (current) use of inhaled steroids; Z79.84 Long term (current) use of oral hypoglycemic drugs; Z79.899 Other long term (current) drug therapy
CPT/HCPCS: 36415; 71045; 80048; 80053; 82803; 82947; 83605; 84484; 85025; 85379; 87040; 87502; 87635; 93005; 94640; 99285; J0131; J0696; J1650; J2919; J3475

== ENCOUNTER → 2025-05-20 22:30 | Outpatient (BNV) | payer BC, MEDICAID, SELFPAY | PROVIDERS: Emergency Provider Emergency Medicine; PCP Internal Medicine; Visit Provider Student in an Organized Health Care Education/Training Program | DX: R06.02 Shortness of breath (principal) | CPT/HCPCS: 71045 ==

== ENCOUNTER → 2025-05-20 22:30 | Outpatient (BNV) | payer BC, MEDICAID, SELFPAY | PROVIDERS: Admitting Provider Hospitalist; Emergency Provider Emergency Medicine; PCP Internal Medicine; Visit Provider Internal Medicine | DX: R06.00 Dyspnea, unspecified (principal) | CPT/HCPCS: 93010 ==

== ENCOUNTER → 2025-05-21 01:40 | Outpatient (BNV) | payer BC, MEDICAID, SELFPAY | PROVIDERS: Admitting Provider Hospitalist; Emergency Provider Emergency Medicine; PCP Internal Medicine; Visit Provider Internal Medicine | DX: J44.1 Chronic obstructive pulmonary disease with (acute) exacerbation (principal) | CPT/HCPCS: 99223 ==

== ENCOUNTER 2025-05-25 10:08 | Outpatient (AMB) | payer BC, MEDICAID, SELFPAY ==
[2025-05-25 10:10] VITALS: BP 142/60; PULSE 68; RESP 18; TEMP 36.2; O2SAT 94; BMI 28.9
--- NOTE | 2025-05-25 10:10 | MHC.PC.OV ---
Vital Signs 05/25/25 10:10 Height 5 ft 11 in Weight 207 lb 6 oz BMI 28.9 BP 142/60 H Blood Pressure Location Lt brachial Position Sitting Respiration 18 Pulse 68 Pulse Source Pulse Oximeter Temp 97.1 F Temp Source Temporal Artery Scan Pulse Oximetry (%) 94 Oxygen Delivery Method Room Air Intake [place] [facility] [place] breathing due to bronchitis Applications Coordinator Required: No Accompanied by: Self / Same As Patient Allergies azithromycin Allergy (Unknown, Verified 05/25/25 10:21) unknown denosumab (Prolia) Allergy (Unknown, Verified 05/25/25 10:21) vomiting lamotrigine Allergy (Unknown, Verified 05/25/25 10:21) rash lisinopril Allergy (Unknown, Verified 05/25/25 10:21) nausea and vomiting naproxen (Aleve) Allergy (Unknown, Verified 05/25/25 10:21) dizziness Medication List - Last Reconciled 05/25/25 by Christian Irvin MD albuterol sulfate 90 mcg/actuation 1 inh inhalation BID albuterol sulfate 90 mcg/actuation 2 puffs inhalation Q4-6H PRN amlodipine 2.5 mg PO DAILY atorvastatin 80 mg PO BEDTIME cetirizine (Zyrtec) 10 mg PO DAILY cholecalciferol (vitamin D3) 25 mcg PO DAILY clonazepam (Klonopin) 1 mg PO TID doxycycline monohydrate 100 mg PO Q12H 5 days fenofibrate 160 mg PO DAILY 90 days fluoxetine 20 mg PO BID fluticasone propion-salmeterol 100-50 mcg/dose (Advair Diskus) 1 inh inhalation BID fluticasone propionate 50 mcg/actuation 2 sprays intranasal BID gabapentin 300 mg PO BID@0800,1300 gabapentin 600 mg PO BEDTIME glipizide 5 mg PO DAILY prednisone 40 mg (2 x 20 mg) PO DAILY propranolol ER 80 mg PO DAILY ziprasidone HCl 40 mg PO BEDTIME ziprasidone HCl 20 mg PO DAILY Tobacco use date assessed: 05/25/25 Fall risk assessment: No Falls in past year Last assessed Fall Risk: 05/25/25 Dental Screening Dental Screen Date: 05/25/25 Did you have a dental visit in the last 12 months?: Yes Did you have a dental problem in the last 6 months where you did not have access to dental care?: No Was dental information given to patient?: No HPI TCM TCM Information Date of Discharge 05/21/25 Discharged From [facility] Interactive Contact Date (Reference documentation from this date) 05/22/25 HPI Comments History of Present Illness Details The patient is a 69-year-old female presenting with chest congestion. She was hospitalized on 05/21 due to severe respiratory distress and was discharged the following day against medical advice to stay longer. During hospitalization, she was prescribed prednisone and doxycycline, which she completed, but reports persistent chest congestion. The patient has a history of irritable bowel syndrome (IBS) for over 30 years, which has worsened over time. She has attempted dietary modifications, including eliminating dairy, gluten, red meat, and sugar, without significant improvement. During a recent colonoscopy, eight polyps were found in her colon and one in her stomach, along with hemorrhoids. She also underwent a CT scan of the abdomen and pelvis, which revealed findings consistent with her IBS diagnosis. Date of admission 05/21 Date of Discharge 05/21 Diagnosis: COPD exacerbation 2/2 bronchitis. [facility] Medical History Acid reflux Decreased rectal sphincter tone Abdominal pain Nicotine dependence, cigarettes, uncomplicated Bilateral lower extremity pain Hx of gastritis Hx of allergic rhinitis Migraines Tubular adenoma of colon Pulmonary nodule Osteoporosis Right humeral fracture Hip fracture, right Bipolar disorder Fibromyalgia Thyroid cyst Vitamin D deficiency Obesity (BMI 30-39.9) Hypercholesterolemia Hypertension COPD (chronic obstructive pulmonary disease) Anxiety and depression Type 2 diabetes mellitus with hyperglycemia Surgical History History of cholecystectomy History of total abdominal hysterectomy and bilateral salpingo-oophorectomy History of colonoscopy Deficient knowledge of leg surgery History of shoulder surgery History of hip surgery History of esophagogastroduodenoscopy (EGD) H/O right knee surgery Herniated nucleus pulposus Family History Father Hypertension Cancer Esophageal cancer Mother Hypertension Maternal Aunt Stomach cancer Son Substance abuse Social History Household Members: Significant Other Housing: Apartment Do you presently have visiting nurse or other home services: No Alcohol intake: current Alcohol intake frequency: 0-2 drinks per day Alcohol type: hard liquor Patient Tobacco Use Status: Former Tobacco user Tobacco use type: Cigarette Cigarette Packs Per Day: 0.5 Cigarettes Per Day: 10 Years Smoked: (onset 15yo, 1/2-1ppd x 53yrs, 35+PYH); Quit- 10/2024 e-Cigarette/Vaping Use: Never Used Second Hand Smoke Exposure: Yes Substance Use Type: Marijuana service: No Current occupational status: employed Cognitive needs: No Hearing needs: No Vision needs: Yes Questionnaire Thrive Questionnaire Date Thrive assessed: 02/07/25 I am a: Patient What is your living situation today?: I have a steady place to live Within the past 12 months, did the food you bought not last and you didn't have the money to get more?: Never true Within the past 12 months, did you worry whether your food would run out before you got money to buy more?: Never true Do you have trouble paying for medicines?: No Do you have trouble getting transportation to medical appointments?: No Do you have trouble paying your heating and electricity bill?: No Do you have trouble taking care of your child, family member or friend?: No Do you have trouble with day-to-day activities such as bathing, preparing meals, shopping, managing finances, etc.?: No Are you currently unemployed and looking for a job?: No Are you interested in more education?: No Please select the resources that you would like help with: None Currently or been in a relationship where the following occur: No concerns reported THRIVE Score: 0 AUDIT C Alcohol Use Questionnaire (AUDIT-C) 1. How often do you have a drink containing alcohol?: 2-3 times a week 2. How many drinks containing alcohol do you have on a typical day when you are drinking?: 1 or 2 3. How often do you have six or more drinks on one occasion?: Never Total Score: 3 DINORAH-7 AMB Questionnaire DINORAH-7 Date DINORAH - 7 assessed: 03/23/25 Source: Developed by Drs. Tan Galan, Kizzy Colmenares, Kwadwo Lim and colleagues, with an educational ravindra from [employer] Review of Systems Const Details: Positives besides what was mentioned in HPI are in BOLD Constitutional: No Weight Change, No Fever, No Chills, No Night Sweats, No Fatigue, No Malaise ENT/Mouth: No Hearing Changes, No Ear Pain, No Nasal Congestion, No Sinus Pain, No Hoarseness, No sore throat, No Rhinorrhea, No Swallowing Difficulty Eyes: No Eye Pain, No Swelling, No Redness, No Foreign Body, No Discharge, No Vision Changes Cardiovascular: No Chest Pain, No SOB, No PND, No Dyspnea on Exertion, No Orthopnea, No Claudication, No Edema, No Palpitations Respiratory: No Cough, No Sputum, No Wheezing, No Smoke Exposure, No Dyspnea Gastrointestinal: No Nausea, No Vomiting, No Diarrhea, No Constipation, No Pain, No Heartburn, No Anorexia, No Dysphagia, No Hematochezia, No Melena, No Flatulence, No Jaundice Genitourinary: No Dysmenorrhea, No DUB, No Dyspareunia, No Dysuria, No Urinary Frequency, No Hematuria, No Urinary Incontinence, No Urgency, No Flank Pain, No Urinary Flow Changes, No Hesitancy Musculoskeletal: No Arthralgias, No Myalgias, No Joint Swelling, No Joint Stiffness, No Back Pain, No Neck Pain, No Injury History Skin: No Skin Lesions, No Pruritis, No Hair Changes, No Breast/Skin Changes, No Nipple Discharge Neuro: No Weakness, No Numbness, No Paresthesias, No Loss of Consciousness, No Syncope, No Dizziness, No Headache, No Coordination Changes, No Recent Falls Psych: No Anxiety/Panic, No Depression, No Insomnia, No Personality Changes, No Delusions, No Rumination, No SI/HI/AH/VH, No Social Issues, No Memory Changes, No Violence/Abuse Hx., No Eating Concerns Heme/Lymph: No Bruising, No Bleeding, No Transfusions History, No Lymphadenopathy Endocrine: No Polyuria, No Polydipsia, No Temperature Intolerance Physical exam (Primary Care) Vital Signs: Last Vital Signs Temp 97.1 F 05/25/25 10:10 Pulse 68 05/25/25 10:10 Resp 18 05/25/25 10:10 BP 142/60 H 05/25/25 10:10 Pulse Ox 94 05/25/25 10:10 Oxygen Delivery Method Room Air 05/25/25 10:10 BMI result Body Mass Index 28.9 Tobacco/Smoking Status: Tobacco use Status Tobacco use date assessed 05/25/25 05/25/25 10:13 Patient Tobacco Use Status Former Tobacco user 05/25/25 10:13 Tobacco use type Cigarette 05/25/25 10:13 e-Cigarette/Vaping Use Never Used 05/25/25 10:13 Thrive Assessment: Date of Thrive Assessment Date Thrive assessed 02/07/25 05/25/25 10:13 Currently or been in a relationship where the following occur: No concerns reported Const Other: Pertinent findings are in BOLD GENERAL APPEARANCE NAD, activity normal for age, well developed/ well nourished, no cyanosis, pallor, or diaphoresis. EYES lids/conjunctiva normal. EARS/NOSE/THROAT Mucous membranes moist, nares normal, lips/teeth normal uvula midline without oral pharyngeal erythema, exudate or swelling TMs normal bilaterally. No lymphangitis/lymphedema. HEAD/NECK normocephalic atraumatic, no facial trauma, neck is supple. RESPIRATORY respiratory effort normal, speaks in full sentences, no tripod position, no accessory muscle use. Lungs clear to auscultation without wheezes, rales, rhonchi present. CARDIAC Regular rate and rhythm, no edema. ABDOMINAL Soft, ND/NT. No evidence of fluid wave. No pulsatile masses on exam, rebound tenderness, Montague sign or pain over Mcburney's point. MUSCLES/EXTREMITIES No abnormal range of motion, no swelling. SKIN Warm, pink and dry. No rashes, dermatoses, petechiae or lesions. NEUROLOGICAL Speech is clear and appropriate. Normal level of consciousness. Gait and coordination are normal. 5/5 strength in all extremities. PSYCH Normal mood and affect. Judgement/competence is appropriate Coding Level of Care Code TCM High MDM <= 7 Days Diagnoses Bronchitis J40 IBS (irritable bowel syndrome) K58.9 Assessment & Plan Assessment & Plan (1) Bronchitis: Code(s): J40 - Bronchitis, not specified as acute or chronic Category: Medical Plan: - Patient still having ronchi on PE and feeling congested. - Continue with Robitussin as it has been effective in alleviating symptoms. - Extend doxycycline for an additional five days to address persistent symptoms. (2) IBS (irritable bowel syndrome): Code(s): K58.9 - Irritable bowel syndrome, unspecified Category: Medical Plan: - Continue dietary modifications, although previous attempts have not yielded significant improvement. Plan I discussed with the patient the continuation of Robitussin for congestion relief, as it has been effective. We agreed to extend the doxycycline course for an additional five days due to persistent symptoms. Dietary modifications for IBS were reviewed, although previous attempts have not been successful. Medications: New doxycycline hyclate 100 mg PO BID 10 caps 0RF doxycycline hyclate 100 mg PO BID 10 caps 0RF Refilled fluticasone propion-salmeterol 100-50 mcg/dose (Advair Diskus) 1 inh inhalation BID 60 ea 0RF
== END 2025-05-25 10:46 | disposition home or self-care (01) ==
LOC: HO.HMCH 10:09
PROVIDERS: PCP Internal Medicine; Visit Provider Internal Medicine
DX: J40 Bronchitis, not specified as acute or chronic (principal); K58.9 Irritable bowel syndrome, unspecified

== ENCOUNTER 2025-06-20 10:01 | Outpatient (AMB) | payer MEDICARE, MEDICAID, SELFPAY ==
--- NOTE | 2025-06-20 10:07 | MHC.OFFVIS ---
Vital Signs 06/20/25 10:08 Height 5 ft 11 in Blood Pressure Location Lt brachial Position Sitting Oxygen Delivery Method Room Air Intake Visit Reasons: follow up constipation/fecal incontinence Intake Note: Patient follow up acid reflux, constipation, lab/fecal, EGD/Colonoscopy and CT scan results. Patient denies any GI issues for today visit. Project Asst Required: No Accompanied by: Family/Other Allergies azithromycin Allergy (Unknown, Verified 06/20/25 10:06) unknown denosumab (Prolia) Allergy (Unknown, Verified 06/20/25 10:06) vomiting lamotrigine Allergy (Unknown, Verified 06/20/25 10:06) rash lisinopril Allergy (Unknown, Verified 06/20/25 10:06) nausea and vomiting naproxen (Aleve) Allergy (Unknown, Verified 06/20/25 10:06) dizziness HPI HPI follow up constipation/fecal incontinence: Details: Patient is a 69-year-old female with PMH of obesity, anxeity and depression, hypertension, hyperlipidemia, OA, COPD and diabetes F/U for abdominal pain, fecal incontinence and to review of 05/04/25 EGD, colonoscopy, and 05/16/25 CT results. Patient is accompanied by her sister. Since last visit, pt reports significant improvement: fecal incontinence resolved post-colonoscopy; no longer requires stool softener. Upper abdominal/epigastric pain remains persistent, described as tenderness, present most/all the time. Reflux symptoms persist intermittently, occurring several times per week. Denies current constipation, regular BMs, and feels complete evacuation. Appetite stable, no weight loss noted. Single episode of NV attributed to panic attack/anxiety, consistent with prior episodes. No interval hospitalizations or urgent care visits. No new GI symptoms or rectal bleeding. [facility] Medical History (Updated 06/20/25 @ 11:16 by Shawanda Trimble CNP) Anxiety Spinal stenosis Diverticulosis Acid reflux Decreased rectal sphincter tone Abdominal pain Nicotine dependence, cigarettes, uncomplicated Bilateral lower extremity pain Hx of gastritis Hx of allergic rhinitis Migraines Tubular adenoma of colon Pulmonary nodule Osteoporosis Right humeral fracture Hip fracture, right Bipolar disorder Fibromyalgia Thyroid cyst Vitamin D deficiency Obesity (BMI 30-39.9) Hypercholesterolemia Hypertension COPD (chronic obstructive pulmonary disease) Anxiety and depression Type 2 diabetes mellitus with hyperglycemia Surgical History History of cholecystectomy History of total abdominal hysterectomy and bilateral salpingo-oophorectomy History of colonoscopy Deficient knowledge of leg surgery History of shoulder surgery History of hip surgery History of esophagogastroduodenoscopy (EGD) H/O right knee surgery Herniated nucleus pulposus Family History Father Hypertension Cancer Esophageal cancer Mother Hypertension Maternal Aunt Stomach cancer Son Substance abuse Social History Household Members: Significant Other Housing: Apartment Do you presently have visiting nurse or other home services: No Alcohol intake: current Alcohol intake frequency: 0-2 drinks per day Alcohol type: hard liquor Patient Tobacco Use Status: Former Tobacco user Tobacco use type: Cigarette Cigarette Packs Per Day: 0.5 Cigarettes Per Day: 10 Years Smoked: (onset 15yo, 1/2-1ppd x 53yrs, 35+PYH); Quit- 10/2024 e-Cigarette/Vaping Use: Never Used Second Hand Smoke Exposure: Yes Substance Use Type: Marijuana service: No Current occupational status: employed Cognitive needs: No Hearing needs: No Vision needs: Yes Review of Systems Const Reports as per HPI ENT Reports as per HPI Card Reports as per HPI Resp Reports as per HPI GI Reports as per HPI Reports as per HPI Physical Exam Vital Signs: Oxygen Delivery Method Room Air 06/20/25 10:08 Const General: healthy appearing, no acute distress and well developed Nutritional Appearance: average body habitus Orientation/consciousness: patient oriented x3 HEENT Head: Yes normal to inspection, Yes normocephalic and Yes atraumatic Face and sinus: Yes normal facial exam Eyes General: appearance normal, both eyes and all related structures Neck Neck: Yes normal visual inspection Resp Effort & Inspection: normal respiratory effort, able to speak in complete sentences, no tracheal deviation and symmetric chest movement Cardio Jugular venous distension: no JVD GI Inspection: Yes normal to inspection and No distended Palpation (GI): Soft to palpation, not firm, Tenderness to palpation present (GI) in the epigastrum, in the LUQ and in the RUQ and No hepatosplenomegaly present Auscultation: normal bowel sounds Neuro General: patient oriented x3 Gait exam (Neuro): Normal gait present Psych Appearance: grossly normal Mental Status: mental status grossly normal Speech and movement: Normal speech and movement present Affect: normal affect Attitude: cooperative Thought process: Normal thought process present Thought content: Normal thought content present Insight: Good insight present (Psych) Judgement: Good judgement present (Psych) Results Reviewed Results Reviewed: Date of Service: 05/16/25 Procedure(s): CT abdomen pelvis w IV con Accession Number(s): [id number] cc: Tone Villanueva MD; AtilioShawanda [facility]~ Report Number: [id number]: Total DLP = 586.00 mGy-cm Reason for Exam: R15.9 - Full incontinence of feces CLINICAL HISTORY: R15.9 - Full incontinence of feces --- Additional Notes or Special Instructions: r o mass, inflammatory process or other etiology CT abdomen and pelvis with contrast Comparison: None provided Findings: The lung bases are clear. The liver is mildly low in attenuation. The gallbladder is absent. The spleen, adrenal glands and pancreas are unremarkable. Kidneys, ureters and bladder are normal. There is diverticulosis along the colon, without current evidence of diverticulitis. No bowel obstruction or free air. No pneumatosis, free fluid or abscess. Moderate atherosclerotic disease. Degenerative changes seen throughout the spine, with moderately severe central canal stenosis at L4-L5. Impression: No definite acute process. Incidental findings including moderately severe central canal stenosis at L4-L5. Operative Note Date of Service: 05/04/25 Narrative: FLEXIBLE TRANSORAL UPPER GASTROINTESTINAL ENDOSCOPY WITH BIOPSIES AND SNARE POLYPECTOMY AND COLONOSCOPY TILL CECUM WITH SNARE POLYPECTOMY AND HEMOCLIP PLACEMENT Pre-op diagnosis: Surveillance for colon polyps, chronic diarrhea, fecal incontinence, GERD Post-op diagnosis: GERD, Gastritis, gastric polyp, multiple colon polyps, Diverticulosis and hemorrhoids Endoscopist: Kristal Munguia MD UPPER ENDOSCOPY Procedure: The patient was placed in the left lateral decubitis position and pre-procedure medications were administered and a bite block was placed. The endoscope was inserted into the mouth and advanced under direct vision to the third part of duodenum. A careful inspection was made as the upper endoscope was withdrawn including a retroflexed examination of the proximal stomach; Findings and interventions are described below. Findings: Larynx: Normal Esophagus: GE junction at 40 cms. No esophagitis or West's. Stomach: A 10 -12 mm benign appearing polyp in the gastric body - removed with a cold snare. Moderate diffuse gastric erythema - biopsies were obtained from the gastric body and antrum. Grade 2 flap valve on retroflexed examination of the cardia. Duodenum: Normal bulb and descending duodenum Biopsies were obtained from descending duodenum to check for celiac sprue Intervention: Biopsies as noted above COLONOSCOPY PROCEDURE NOTE Procedure: The patient was placed in the left lateral decubitis position and pre-procedure medications were administered. After a digital rectal examination of the ano-rectum, the video colonoscope was inserted into the rectum and advanced through the colon to the cecum. The colonoscope was slowly withdrawn in a retrograde panoramic fashion and the colon mucosa was carefully examined including a retroflexed view of the rectum. Findings and interventions are described below. Procedure Difficulty: without difficulty - there was excessive spasm in the colon Findings: Terminal Ileum: Not evaluated Cecum: Normal Ascending Colon: A 10 mm sessile polyp in the proximal AC - removed with a hot snare. Polypectomy site was closed with 1 hemoclip. A 15 - 18 mm sessile polyp in the mid AC - removed with a hot snare. Polypectomy site was closed with 1 hemoclip. Transverse Colon: Four 10-12 mm sessile polyp - removed with a hot snare Descending Colon: Normal Sigmoid Colon: Two 10 -12 mm sessile polyps - removed with a hot snare. Moderate diverticulosis Rectum: Normal Ano-rectum: Moderate internal hemorrhoids Colon preparation: Good Fair after despite copious irrigation. King Bowel Preparation Scale Right colon; 2 Transverse colon: 2 Left colon; 2 Impression and Post Procedure Diagnosis: Endoscopy Findings: ESOPHAGUS: Normal STOMACH: A 10 -12 mm benign appearing polyp in the gastric body - removed with a cold snare. Moderate diffuse gastric erythema - biopsies were obtained from the gastric body and antrum. DUODENUM: Normal - biopsied to check for celiac sprue Colonoscopy Findings: Eight medium sized polyps were removed Random biopsies were obtained from right and left colon to check for microscopic colitis Moderate diverticulosis seen in the left colon Moderate hemorrhoids on retroflexed exam. Plan: Pt has a FU appointment on 06/20/25 with Shawanda Trimble NP Repeat Colonoscopy in 2 years if polyps are adenomatous and due to fair prep (Dulcolax 2 tab daily starting 5 days prior to next colon appointment) PATHOLOGY: Collected: 05/04/25 Location: .[facility] Received: 05/07/25 Diagnosis A. Small bowel, biopsy: Duodenal and small bowel mucosa with predominantly preserved villi, and focal reactive changes with few neutrophils, suggesting duodenitis; no evidence of celiac disease. B. Gastric antrum, biopsy: Gastric antral mucosa with reactive changes, ectatic vessels, and focal minimal chronic inactive inflammation; negative for H .pylori, intestinal metaplasia and dysplasia. C. Gastric polyp: Hyperplastic polyp; negative for H. pylori, intestinal metaplasia and dysplasia. D. Gastric body, biopsy: Gastric body mucosa with focal minimal chronic inactive inflammation; negative for H. pylori, intestinal metaplasia and dysplasia. E. Colon, ascending, polyps: Tubular adenomas (multiple pieces); negative for high-grade dysplasia and carcinoma. F. Colon, right, biopsy: Colonic mucosa with no specific change; no evidence of microscopic colitis. G. Colon, transverse, polyps: Tubular adenomas (multiple pieces); negative for high-grade dysplasia and carcinoma. H. Colon, left, biopsy: Colonic mucosa with no specific change; no evidence of microscopic colitis. I. Colon, sigmoid, polyps: Tubular adenomas (2 pieces); negative for high-grade dysplasia and carcinoma. Clinical History Pre-Op Dx: GERD, neoplasm of colon, full incontinence of feces Post-Op Dx: Gastric polyps, GERD, gastritis, diverticulosis, colon polyps, hemorrhoids Assessment & Plan Assessment & Plan (1) Acid reflux: Comment: -05/04/25 EGD-HP gastric polyps, GERD, gastritis. -06/07/2015 EGD distal esophagitis, grade 1; small high hiatal hernia, superficial gastritis, duodenitis Code(s): K21.9 - Gastro-esophageal reflux disease without esophagitis Category: Medical Qualifiers: Esophagitis presence: with esophagitis Esophagitis bleeding: without hemorrhage Qualified Code(s): K21.00 - Gastro-esophageal reflux disease with esophagitis, without bleeding Plan: Current Status: Persistent upper abdominal tenderness; reflux sx several times/wk; no alarming sx. Biopsy-confirmed gastritis and objective reflux on EGD; suboptimal control with PRN Pepcid. CT A/P: 05-04-2025 unremarkable; no masses, no inflammatory changes; diverticulosis confirmed; no explanation for incontinence; chronic L4-5 spinal narrowing noted. Additional Testing: None at this time; consider repeat EGD if refractory sx or new concerning features emerge. Medications: - Initiate omeprazole 20 mg PO QAM x8-12 wks, reassess. - Continue Pepcid PRN for breakthrough sx. - Monitor for SEs (tab. bone health on LT use if continued beyond initial course). Lifestyle Recommendations: - Reinforce small, frequent meals; avoid late meals, caffeine, carbonation, spicy/fatty/acidic foods. - Emphasize wt management. - Avoid eating <2h before lying down. - Educational handouts on GERD/diet provided. Referrals / Coordination: None at present. F/U Plan: Recheck in 6 weeks; assess pain, reflux control, med tolerance. (2) Tubular adenoma of colon: Comment: -05/04/25 colonoscopy complete with fair prep- TA to Ascending Colon (10 mm sessile polyp + 15 - 18 mm), Transverse Colon (10-12 mm) and to Sigmoid Colon (Two 10 -12 mm); diverticulosis, hemorrhoids. Repeat due in two years (2026). -06/2020 colonoscopy with excellent prep- Tubular adenoma to ascending and descending. Recommendation for repeat in five year ( 2024) -06/07/2015 colonoscopy complete with good prep- tubular adenoma and hyperplastic polyps; Code(s): D12.6 - Benign neoplasm of colon, unspecified Category: Medical Plan: All identified polyps removed; no interval sx; colonoscopy completed to cecum but with fair prep. Additional Testing: Repeat colonoscopy recommended in 2 yrs (2026) per guidelines and prep quality. Medications: N/A. Lifestyle Recommendations: Continue fiber-rich diet for colon health. Referrals / Coordination: Endoscopy scheduling & reminder set for ; instructions for improved prep next time (consider pre-prep with stimulant laxative 5 nights pre-colonoscopy). F/U Plan: Advise to monitor for red flag sx (GI bleeding, anemia, unintentional wt loss); earlier evaluation if such arise. (3) Diverticulosis: Code(s): K57.90 - Diverticulosis of intestine, part unspecified, without perforation or abscess without bleeding Category: Medical Plan: Asymptomatic; identified incidentally on colonoscopy/CT. Educate re: prevention of diverticulitis via dietary/lifestyle modification. Additional Testing: None needed. Medications: N/A. Lifestyle Recommendations: Maintain high fiber intake (fruits, vegetables); ensure hydration; avoid unnecessary constipation; fiber supplementation as warranted. Referrals / Coordination: N/A. F/U Plan: As above; readdress if symptoms (pain, fever, GI bleeding) suggest diverticulitis. (4) Bowel incontinence: Code(s): R15.9 - Full incontinence of feces Category: Medical Qualifiers: Fecal incontinence type: unspecified Qualified Code(s): R15.9 - Full incontinence of feces Plan: Resolved since colonoscopy; no current intervention required. Likely multifactorial/possible pre-procedure retention; no investigation indicated while asymptomatic. Additional Testing: None needed. Medications: N/A. Lifestyle Recommendations: Maintain regular bowel habits. Referrals / Coordination: N/A. F/U Plan: PRN if symptoms recur. (5) Spinal stenosis: Code(s): M48.00 - Spinal stenosis, site unspecified Category: Medical Qualifiers: Spinal region: lumbar Neurogenic claudication status: without neurogenic claudication Qualified Code(s): M48.061 - Spinal stenosis, lumbar region without neurogenic claudication Plan: Incidental CT finding. Not currently symptomatic Additional Testing: None planned from GI perspective. Medications: N/A. Lifestyle Recommendations: F/U with PCP if musculoskeletal/back sx develop. Referrals / Coordination: PCP for back issues as appropriate. F/U Plan: N/A in GI clinic unless affects bowel function. (6) Anxiety: Code(s): F41.9 - Anxiety disorder, unspecified Category: Medical Plan: Well-controlled; baseline pattern of NV with severe anxiety/panic attack. Additional Testing: None from GI. Medications: No GI-directed meds. Lifestyle Recommendations: Continue current mgmt; consider behavioral/psych follow-up if sx worsen. Referrals / Coordination: N/A. F/U Plan: PRN. Plan Follow-up in 6 weeks or sooner as needed Time: I spent a total of 32 minutes on the date of encounter which includes: Preparing to see the patient (reviewed previous documentation, test results and medical history) Performing a medically appropriate exam and/or evaluation Ordering medications, tests, and procedures Documenting clinical information in the health record Medications: New omeprazole Take one tablet daily. Best taken on an empty, 30 minutes before eating. 20 mg PO DAILY 90 caps 1RF Coding Level of Care Code Established Pt Est Pt Level 3 (28075) Patient Type Established Diagnoses Gastroesophageal reflux disease with esophagitis without hemorrhage K21.00 Esophagitis presence: with esophagitis Esophagitis bleeding: without hemorrhage Tubular adenoma of colon D12.6 Diverticulosis K57.90 Incontinence of feces, unspecified fecal incontinence type R15.9 Fecal incontinence type: unspecified Spinal stenosis of lumbar region without neurogenic claudication M48.061 Spinal region: lumbar Neurogenic claudication status: without neurogenic claudication Anxiety F41.9
== END 2025-06-20 10:58 | disposition home or self-care (01) ==
LOC: HO.HGI 10:02
PROVIDERS: PCP Internal Medicine; Visit Provider Nurse Practitioner Family
DX: K21.00 Gastro-esophageal reflux disease with esophagitis, without bleeding (principal); D12.6 Benign neoplasm of colon, unspecified; K57.90 Diverticulosis of intestine, part unspecified, without perforation or abscess without bleeding; R15.9 Full incontinence of feces; M48.061 Spinal stenosis, lumbar region without neurogenic claudication; F41.9 Anxiety disorder, unspecified
CPT/HCPCS: 99213

== ENCOUNTER → 2025-06-20 10:01 | Outpatient (BNVA) | payer MEDICARE, MEDICAID, SELFPAY | PROVIDERS: PCP Internal Medicine; Visit Provider Nurse Practitioner Family | DX: K21.00 Gastro-esophageal reflux disease with esophagitis, without bleeding (principal); K57.90 Diverticulosis of intestine, part unspecified, without perforation or abscess without bleeding; D12.6 Benign neoplasm of colon, unspecified; R15.9 Full incontinence of feces; M48.061 Spinal stenosis, lumbar region without neurogenic claudication; F41.9 Anxiety disorder, unspecified | CPT/HCPCS: 99212 ==

== ENCOUNTER 2025-08-03 10:01 | Outpatient (AMB) | payer MEDICARE, MEDICAID, SELFPAY ==
[2025-08-03 10:05] VITALS: BP 133/75; RESP 86; BMI 29.6
--- NOTE | 2025-08-03 10:05 | MHC.OFFVIS ---
Vital Signs 08/03/25 10:05 Height 5 ft 11 in Weight 212 lb BMI 29.6 BP 133/75 Blood Pressure Location Lt brachial Position Sitting Respiration 86 H Intake Visit Reasons: 6w Intake Note: Patient follow up for Acid reflux Patient cc: acid reflux, patient starting senna back and is helping with constipation. Denies any other GI issues. Powder Room Attendant Required: No Accompanied by: Family/Other Allergies azithromycin Allergy (Unknown, Verified 08/03/25 10:04) unknown denosumab (Prolia) Allergy (Unknown, Verified 08/03/25 10:04) vomiting lamotrigine Allergy (Unknown, Verified 08/03/25 10:04) rash lisinopril Allergy (Unknown, Verified 08/03/25 10:04) nausea and vomiting naproxen (Aleve) Allergy (Unknown, Verified 08/03/25 10:04) dizziness Medication List - Last Reconciled 08/03/25 by Shawanda Trimble CNP albuterol sulfate 90 mcg/actuation 1 inh inhalation BID albuterol sulfate 90 mcg/actuation 2 puffs inhalation Q4-6H PRN amlodipine 2.5 mg PO DAILY atorvastatin 80 mg PO BEDTIME cetirizine (Zyrtec) 10 mg PO DAILY cholecalciferol (vitamin D3) 25 mcg PO DAILY clonazepam (Klonopin) 1 mg PO TID fenofibrate 160 mg PO DAILY 90 days fluoxetine 20 mg PO BID fluticasone propion-salmeterol 100-50 mcg/dose (Advair Diskus) 1 inh inhalation BID fluticasone propionate 50 mcg/actuation 2 sprays intranasal BID gabapentin 300 mg PO BID@0800,1300 gabapentin 600 mg PO BEDTIME glipizide 5 mg PO DAILY omeprazole 20 mg PO DAILY propranolol ER 80 mg PO DAILY sennosides (senna) 8.6 mg PO DAILY ziprasidone HCl 40 mg PO BEDTIME ziprasidone HCl 20 mg PO DAILY HPI HPI 6w: Details: Patient is a 69-year-old female with PMH of obesity, anxeity and depression, hypertension, hyperlipidemia, OA, COPD and diabetes. Follow-up visit for her acid reflux. She was previously seen in May, at which time she was advised to take omeprazole 20 mg daily following an EGD that confirmed gastritis and reflux. She reports her reflux symptoms have improved and are less frequent but still present. She experiences morning nausea and persistent upper abdominal tenderness. The patient also has a history of constipation and has resumed taking Senna, which she finds effective. She titrates the dose, taking one or two tablets on alternating days and skipping doses if her stools become too loose. She reports a feeling of incomplete evacuation at times. She has had a few episodes of fecal incontinence, which had previously resolved after a colonoscopy but has since returned. This is characterized by a sudden urge to defecate without the ability to wait. The patient has known degenerative spine changes with severe narrowing in her lower spine, noted on a prior CAT scan. She reports experiencing back pain and severe leg pain that can sometimes make it difficult to walk. Her kidney function is normal, and she is no longer on a diuretic that was thought to have previously affected her kidney labs. She is up to date with her colonoscopy, which was performed recently, with the next one due in 2026. [facility] Medical History (Updated 08/03/25 @ 10:56 by Shawanda Trimble CNP) Spinal stenosis at L4-L5 level Anxiety Spinal stenosis Diverticulosis Acid reflux Decreased rectal sphincter tone Abdominal pain Nicotine dependence, cigarettes, uncomplicated Bilateral lower extremity pain Hx of gastritis Hx of allergic rhinitis Migraines Tubular adenoma of colon Pulmonary nodule Osteoporosis Right humeral fracture Hip fracture, right Bipolar disorder Fibromyalgia Thyroid cyst Vitamin D deficiency Obesity (BMI 30-39.9) Hypercholesterolemia Hypertension COPD (chronic obstructive pulmonary disease) Anxiety and depression Type 2 diabetes mellitus with hyperglycemia Surgical History History of cholecystectomy History of total abdominal hysterectomy and bilateral salpingo-oophorectomy History of colonoscopy Deficient knowledge of leg surgery History of shoulder surgery History of hip surgery History of esophagogastroduodenoscopy (EGD) H/O right knee surgery Herniated nucleus pulposus Family History Father Hypertension Cancer Esophageal cancer Mother Hypertension Maternal Aunt Stomach cancer Son Substance abuse Social History Household Members: Significant Other Housing: Apartment Do you presently have visiting nurse or other home services: No Alcohol intake: current Alcohol intake frequency: 0-2 drinks per day Alcohol type: hard liquor Patient Tobacco Use Status: Former Tobacco user Tobacco use type: Cigarette Cigarette Packs Per Day: 0.5 Cigarettes Per Day: 10 Years Smoked: (onset 15yo, 1/2-1ppd x 53yrs, 35+PYH); Quit- 10/2024 e-Cigarette/Vaping Use: Never Used Second Hand Smoke Exposure: Yes Substance Use Type: Marijuana service: No Current occupational status: employed Cognitive needs: No Hearing needs: No Vision needs: Yes Review of Systems Const Reports as per HPI ENT Reports as per HPI Card Reports as per HPI Resp Reports as per HPI GI Reports as per HPI Reports as per HPI Physical Exam Vital Signs: Last Vital Signs Resp 86 H 08/03/25 10:05 BP 133/75 08/03/25 10:05 BMI result Body Mass Index 29.6 Const General: healthy appearing, no acute distress and well developed Nutritional Appearance: average body habitus Orientation/consciousness: patient oriented x3 HEENT Head: Yes normal to inspection, Yes normocephalic and Yes atraumatic Face and sinus: Yes normal facial exam Eyes General: appearance normal, both eyes and all related structures Neck Neck: Yes normal visual inspection Resp Effort & Inspection: normal respiratory effort, able to speak in complete sentences, no tracheal deviation and symmetric chest movement Cardio Jugular venous distension: no JVD Neuro General: patient oriented x3 Gait exam (Neuro): Normal gait present Psych Appearance: grossly normal Mental Status: mental status grossly normal Speech and movement: Normal speech and movement present Affect: normal affect Attitude: cooperative Thought process: Normal thought process present Thought content: Normal thought content present Insight: Good insight present (Psych) Judgement: Good judgement present (Psych) Results Reviewed Results Reviewed: Date of Service: 05/16/25 Procedure(s): CT abdomen pelvis w IV con Accession Number(s): [id number] cc: Tone Villanueva MD; Shawanda Trimble CNP~ Report Number: [id number]: Total DLP = 586.00 mGy-cm Reason for Exam: R15.9 - Full incontinence of feces CLINICAL HISTORY: R15.9 - Full incontinence of feces --- Additional Notes or Special Instructions: r o mass, inflammatory process or other etiology CT abdomen and pelvis with contrast Comparison: None provided Findings: The lung bases are clear. The liver is mildly low in attenuation. The gallbladder is absent. The spleen, adrenal glands and pancreas are unremarkable. Kidneys, ureters and bladder are normal. There is diverticulosis along the colon, without current evidence of diverticulitis. No bowel obstruction or free air. No pneumatosis, free fluid or abscess. Moderate atherosclerotic disease. Degenerative changes seen throughout the spine, with moderately severe central canal stenosis at L4-L5. Impression: No definite acute process. Incidental findings including moderately severe central canal stenosis at L4-L5. This document has been electronically signed by: Everett Pearce MD on 05/16/2025 12:11:10 Assessment & Plan Assessment & Plan (1) Acid reflux: Comment: -05/04/25 EGD-HP gastric polyps, GERD, gastritis. -06/07/2015 EGD distal esophagitis, grade 1; small high hiatal hernia, superficial gastritis, duodenitis Code(s): K21.9 - Gastro-esophageal reflux disease without esophagitis Category: Medical Qualifiers: Esophagitis presence: with esophagitis Esophagitis bleeding: without hemorrhage Qualified Code(s): K21.00 - Gastro-esophageal reflux disease with esophagitis, without bleeding Plan: Acid reflux has partially improved with omeprazole but that her persistent symptoms, particularly morning nausea, warranted an adjustment. The patient will continue omeprazole 20 mg in the morning. - To address nighttime symptoms and morning nausea, famotidine (Pepcid) will be added at bedtime. A prescription has been sent. - Counseled on lifestyle modifications, including avoiding dietary triggers like spicy foods and chocolate, not overeating, avoiding lying down after meals, and being mindful that smoking can worsen reflux. (2) Constipation: Code(s): K59.00 - Constipation, unspecified Category: Medical Qualifiers: Constipation type: unspecified constipation type Qualified Code(s): K59.00 - Constipation, unspecified Plan: Chronic with recent exacerbation. The patient will continue to use Senna as needed, titrating the dose based on stool consistency. - A new prescription for Senna will be sent to the pharmacy. - Advised to maintain adequate fiber and water intake, as well as regular physical activity, to help manage constipation. (3) Spinal stenosis at L4-L5 level: Code(s): M48.061 - Spinal stenosis, lumbar region without neurogenic claudication Category: Medical Plan: Due to the potential connection between the patient's degenerative spine changes, back pain, severe leg pain, and fecal incontinence, an urgent referral will be [facility] to [facility]. - The patient was advised that this consultation may lead to further diagnostic workup, such as additional imaging. (4) Bowel incontinence: Code(s): R15.9 - Full incontinence of feces Category: Medical Qualifiers: Fecal incontinence type: unspecified Qualified Code(s): R15.9 - Full incontinence of feces Plan: As above Plan Follow-up 3 months or sooner as needed Time: I spent a total of 30 minutes on the date of encounter which includes: Preparing to see the patient (reviewed previous documentation, test results and medical history) Performing a medically appropriate exam and/or evaluation Ordering medications, tests, and procedures Documenting clinical information in the health record Orders: Referrals Neurosurgery Referral M48.061 - Spinal stenosis, lumbar region without neurogenic claudication, R15.9 - Full incontinence of feces Medications: New famotidine Take one tablet daily at bedtime 20 mg PO BEDTIME 90 tabs 1RF GERD sennosides (senna) 17.2 mg (2 x 8.6 mg) PO DAILY 180 caps 0RF Coding Level of Care Code Established Pt Est Pt Level 4 (29556) Patient Type Established Diagnoses Gastroesophageal reflux disease with esophagitis without hemorrhage K21.00 Esophagitis presence: with esophagitis Esophagitis bleeding: without hemorrhage Constipation, unspecified constipation type K59.00 Constipation type: unspecified constipation type Spinal stenosis at L4-L5 level M48.061 Incontinence of feces, unspecified fecal incontinence type R15.9 Fecal incontinence type: unspecified
== END 2025-08-03 11:02 | disposition home or self-care (01) ==
LOC: HO.HGI 10:02
PROVIDERS: PCP Internal Medicine; Visit Provider Nurse Practitioner Family
DX: K21.00 Gastro-esophageal reflux disease with esophagitis, without bleeding (principal); K59.00 Constipation, unspecified; M48.061 Spinal stenosis, lumbar region without neurogenic claudication; R15.9 Full incontinence of feces
CPT/HCPCS: 99214

== ENCOUNTER → 2025-08-03 10:01 | Outpatient (BNVA) | payer MEDICARE, MEDICAID, SELFPAY | PROVIDERS: PCP Internal Medicine; Visit Provider Nurse Practitioner Family | DX: K21.00 Gastro-esophageal reflux disease with esophagitis, without bleeding (principal); K59.00 Constipation, unspecified; M48.061 Spinal stenosis, lumbar region without neurogenic claudication; R15.9 Full incontinence of feces; Z79.899 Other long term (current) drug therapy | CPT/HCPCS: 99212 ==

== ENCOUNTER 2025-08-07 08:33 | Outpatient (REF) | payer MEDICARE, MEDICAID, SELFPAY ==
[2025-08-07 09:26] LABS: Alanine Aminotransferase 31 U/L (0-31); Albumin Level 4.6 g/dL (3.5-5.0); Alkaline Phosphatase 115 U/L (39-117); Anion Gap 11 (12-20); Aspartate Amino Transferase 26 U/L (5-31); Blood Urea Nitrogen 15 mg/dL (9-16); Calcium 9.7 mg/dL (8.4-10.2); Carbon Dioxide 27 mmol/L (22-29); Chloride 107 mmol/L (96-108); Cholesterol 173 mg/dL (<200); Estimated Glomerular Filt Rate 56; HDL Cholesterol 39 mg/dL (>40); Potassium 4.3 mmol/L (3.3-5.1); Sodium 141 mmol/L (135-145); Total Protein 7.0 g/dL (6.5-8.0); Triglycerides 196 mg/dL (<150)
[2025-08-07 09:46] LABS: Microalbum/Creatinine Ratio Ur 14.6 ug/mg cr (<30)
== END 2025-08-07 08:34 | disposition home or self-care (01) ==
LOC: HO.LAB 08:33
PROVIDERS: PCP Internal Medicine; Visit Provider Internal Medicine
DX: E11.65 Type 2 diabetes mellitus with hyperglycemia (principal); E78.00 Pure hypercholesterolemia, unspecified
CPT/HCPCS: 36415; 80053; 80061; 82043; 82570; 83036

== ENCOUNTER 2025-08-09 09:30 | Outpatient (AMB) | payer MEDICARE, MEDICAID, SELFPAY ==
[2025-08-09 09:42] VITALS: BP 110/84; PULSE 106; RESP 18; TEMP 36.5; O2SAT 92; BMI 29.4
--- NOTE | 2025-08-09 09:42 | A.OFFPC_ITS ---
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 Accompanied by: Self / Same As Patient Allergies azithromycin Allergy (Unknown, Verified 08/09/25 09:42) unknown denosumab (Prolia) Allergy (Unknown, Verified 08/09/25 09:42) vomiting lamotrigine Allergy (Unknown, Verified 08/09/25 09:42) rash lisinopril Allergy (Unknown, Verified 08/09/25 09:42) nausea and vomiting naproxen (Aleve) Allergy (Unknown, Verified 08/09/25 09:42) dizziness Medication List - Last Reconciled 08/09/25 by Tone Pollard Po, albuterol sulfate 90 mcg/actuation 1 inh inhalation BID amlodipine 2.5 mg PO DAILY atorvastatin 80 mg PO BEDTIME cetirizine (Zyrtec) 10 mg PO DAILY cholecalciferol (vitamin D3) 25 mcg PO DAILY clonazepam (Klonopin) 1 mg PO TID fenofibrate 160 mg PO DAILY 90 days fluoxetine 20 mg PO BID fluticasone propionate 50 mcg/actuation 2 sprays intranasal BID aqyilyxrumt-imrfkuqac-nezntrqr 200-62.5-25 mcg (Trelegy Ellipta) 1 inh inhalation DAILY gabapentin 300 mg PO BID@0800,1300 gabapentin 600 mg PO BEDTIME glipizide 5 mg PO DAILY omeprazole 20 mg PO DAILY propranolol ER 80 mg PO DAILY sennosides (senna) 17.2 mg (2 x 8.6 mg) PO DAILY ziprasidone HCl 40 mg PO BEDTIME ziprasidone HCl 20 mg PO DAILY Tobacco use date assessed: 05/25/25 Last assessed Fall Risk: 08/09/25 Dental Screening Dental Screen Date: 05/25/25 HPI HPI Comments History of Present Illness Details History of Present Illness The patient is a 69-year-old female presenting for a follow-up visit to manage multiple chronic conditions. Her past medical history is significant for diabetes mellitus, COPD, hypertension, hypercholesterolemia, bipolar disorder, osteoporosis, peripheral vascular disease, chronic kidney disease stage IIIA, GERD, and lumbar spinal stenosis. Regarding her respiratory status, she reports worsening dyspnea, particularly upon waking in the morning. She was hospitalized for a COPD exacerbation in April 2025 and also had a respiratory tract infection in May. She feels her current low-dose Advair inhaler is not helping and has increased her albuterol use to three times a day. Her diabetes management was reviewed; her last hemoglobin A1c in July was 7.0%, with a blood sugar of 171 at that time. She was informed that steroid use during her recent hospitalization could have elevated her glucose levels. Her last lipid panel from July showed an LDL of 95 mg/dL and triglycerides of 196 mg/dL. She had been on atorvastatin 10 mg but switched to 80 mg in March. The patient reports pain in both hips, as well as leg pain and weakness. She carries a diagnosis of lumbar spinal stenosis and has been referred to a neurosurgeon. She has a scheduled ultrasound of her leg vessels to evaluate for peripheral vascular disease. For health maintenance, her last colonoscopy was in April 2025 due to a history of tubular adenoma, with a recommendation for a repeat in two years. Her mammogram is up to date, and her last eye exam in May revealed cataracts without visual significance and no retinopathy. Her last annual lung cancer screening CT was in October. She is an active smoker but reports having cut down her use significantly to about half a pack per day. Health Maintenance Preventative care was reviewed, including continuing annual lung cancer screening (next due after October) and following up for a repeat colonoscopy in 2 years. She was advised to get a pneumonia vaccine and noted that her tetanus is due, though she declines immunizations. She was also advised to stay well- hydrated and avoid NSAIDs to protect her kidneys. Social History - Substance Use: The patient is a curren t smoker, consuming approximately half a pack of cigarettes per day. - She reports having significantly reduc ed her smoking and has received repeated counseling to quit. - Nutritional Intake: The patient states she eats well and avoids potatoes, spaghetti, and bread. - Activity Level: She has been counseled to remain active, with discussions on diet and exercise for health management. Results - Labs (August 07): - Hemoglobin A1c: 7.0%. - Blood sugar: 171 mg/dL. - LDL cholesterol: 95 mg/dL. - Triglycerides: 196 mg/dL. - Electrolytes: Good. - Renal function: Normal. - Urinalysis: No proteinuria. - Labs (May 21): - Complete Blood Count: Normal, with no anemia. - Imaging: - Renal Ultrasound (April 19): Hepatic steatosis noted. - Low-Dose CT Chest (October): Last annual lung cancer screening completed. - Procedures: - Eye Exam (May): Cataracts present without visual significance; no retinopathy. [facility] Medical History (Updated 08/03/25 @ 10:56 by Shawanda Trimble CNP) Spinal stenosis at L4-L5 level Anxiety Spinal stenosis Diverticulosis Acid reflux Decreased rectal sphincter tone Abdominal pain Nicotine dependence, cigarettes, uncomplicated Bilateral lower extremity pain Hx of gastritis Hx of allergic rhinitis Migraines Tubular adenoma of colon Pulmonary nodule Osteoporosis Right humeral fracture Hip fracture, right Bipolar disorder Fibromyalgia Thyroid cyst Vitamin D deficiency Obesity (BMI 30-39.9) Hypercholesterolemia Hypertension COPD (chronic obstructive pulmonary disease) Anxiety and depression Type 2 diabetes mellitus with hyperglycemia Surgical History History of cholecystectomy History of total abdominal hysterectomy and bilateral salpingo-oophorectomy History of colonoscopy Deficient knowledge of leg surgery History of shoulder surgery History of hip surgery History of esophagogastroduodenoscopy (EGD) H/O right knee surgery Herniated nucleus pulposus Family History Father Hypertension Cancer Esophageal cancer Mother Hypertension Maternal Aunt Stomach cancer Son Substance abuse Social History Household Members: Significant Other Housing: Apartment Do you presently have visiting nurse or other home services: No Alcohol intake: current Alcohol intake frequency: 0-2 drinks per day Alcohol type: hard liquor Patient Tobacco Use Status: Former Tobacco user Tobacco use type: Cigarette Cigarette Packs Per Day: 0.5 Cigarettes Per Day: 10 Years Smoked: (onset 15yo, 1/2-1ppd x 53yrs, 35+PYH); Quit- 10/2024 e-Cigarette/Vaping Use: Never Used Second Hand Smoke Exposure: Yes Substance Use Type: Marijuana service: No Current occupational status: employed Cognitive needs: No Hearing needs: No Vision needs: Yes Questionnaire Thrive Questionnaire Date Thrive assessed: 02/07/25 I am a: Patient What is your living situation today?: I have a steady place to live Within the past 12 months, did the food you bought not last and you didn't have the money to get more?: Never true Within the past 12 months, did you worry whether your food would run out before you got money to buy more?: Never true Do you have trouble paying for medicines?: No Do you have trouble getting transportation to medical appointments?: No Do you have trouble paying your heating and electricity bill?: No Do you have trouble taking care of your child, family member or friend?: No Do you have trouble with day-to-day activities such as bathing, preparing meals, shopping, managing finances, etc.?: No Are you currently unemployed and looking for a job?: No Are you interested in more education?: No Please select the resources that you would like help with: None Currently or been in a relationship where the following occur: No concerns reported THRIVE Score: 0 DINORAH-7 AMB Questionnaire DINORAH-7 Date DINORAH - 7 assessed: 03/23/25 Source: Developed by Drs. Tan Galan, Kizzy Colmenares, Kwadwo Lim and colleagues, with an educational ravindra from [employer] Study Course. Review of Systems Narrative Review of Systems - Respiratory: Reports worsening dyspnea, particularly in the morning, and feels her Advair inhaler is ineffective. - Gastrointestinal: Reports constipation and having an inflamed stomach. - Musculoskeletal: Reports pain in both hips. - Neurological: Reports pain and weakness in her legs. - Eyes: Reports having cataracts but denies any significant vision changes. - Psychiatric: Reports her mood is fine. Physical exam (Primary Care) Vital Signs: Last Vital Signs Temp 97.7 F 08/09/25 09:42 Pulse 106 H 08/09/25 09:42 Resp 18 08/09/25 09:42 BP 110/84 08/09/25 09:42 Pulse Ox 92 08/09/25 09:42 Oxygen Delivery Method Room Air 08/09/25 09:42 BMI result Body Mass Index 29.4 Tobacco/Smoking Status: Tobacco use Status Tobacco use date assessed 05/25/25 08/09/25 09:43 Patient Tobacco Use Status Former Tobacco user 08/09/25 09:43 Tobacco use type Cigarette 08/09/25 09:43 e-Cigarette/Vaping Use Never Used 08/09/25 09:43 Thrive Assessment: Date of Thrive Assessment Date Thrive assessed 02/07/25 08/09/25 09:43 Currently or been in a relationship where the following occur: No concerns reported Narrative Physical Exam - Not performed Const General: alert; No acute distress Eyes Conjunctivae: conjunctivae normal Resp Auscultation: clear to auscultation bilaterally Cardio Rate: regular rate Rhythm: regular rhythm GI Inspection: Yes normal to inspection Extrem General: Yes normal to inspection and No edema Coding Level of Care Code Est Pt Level 4 (30247) Add On Problem Visit Only Diagnoses Type 2 diabetes mellitus with hyperglycemia, without long-term current use of insulin E11.65 Diabetes mellitus long-term insulin use: without longitudinal float operator use Essential hypertension I10 Hypertension type: essential hypertension Hypercholesterolemia E78.00 Bipolar affective disorder, currently manic, moderate F31.12 Active/Remission status: currently active Current bipolar episode type: manic Current episode severity: moderate Peripheral artery disease I73.9 Obesity (BMI 30-39.9) E66.9 Tubular adenoma of colon D12.6 CKD (chronic kidney disease) N18.9 Spinal stenosis at L4-L5 level M48.061 Pulmonary emphysema, unspecified emphysema type J43.9 COPD type: emphysema Emphysema type: unspecified Nicotine dependence, cigarettes, uncomplicated F17.210 Assessment & Plan Assessment & Plan (1) Type 2 diabetes mellitus with hyperglycemia: Comment: Dr. Garcia Code(s): E11.65 - Type 2 diabetes mellitus with hyperglycemia Category: Medical Qualifiers: Diabetes mellitus long-term insulin use: without long-term use Qualified Code(s): E11.65 - Type 2 diabetes mellitus with hyperglycemia Plan: Decrease the amount of carbohydrate intake, pasta, bread, rice and potatoes are all sugar and that is aside from all the sweet stuff, remember that fruits are good but they are Sweet also. Hemoglobin A1c goal of less than 7.0. Patient is at goal with glipizide at 5 mg once a day. (2) Hypertension: Code(s): I10 - Essential (primary) hypertension Category: Medical Qualifiers: Hypertension type: essential hypertension Qualified Code(s): I10 - Essential (primary) hypertension Plan: Continue with blood pressure medication. Decrease salt intake and exercise on propranolol 80 mg once a day amlodipine 2.5 mg once a day can not take TANIA inhibitors (3) Hypercholesterolemia: Code(s): E78.00 - Pure hypercholesterolemia, unspecified Category: Medical Plan: Avoid fried foods, chicken skin, eggs, butter margarine, pastries and meat. Be it pork or beef they have a lot of cholesterol LDL goal of less than 100 and tr iglyceride of less than 150 on atorvastatin 80 mg once a day fenofibrate 160 mg once a day (4) Bipolar disorder: Comment: Santi [place] Code(s): F31.9 - Bipolar disorder, unspecified Category: Medical Qualifiers: Active/Remission status: currently active Current bipolar episode type: manic Current episode severity: moderate Qualified Code(s): F31.12 - Bipolar disorder, current episode manic without psychotic features, moderate Plan: Continue with counseling and therapy on fluoxetine clonazepam (5) Peripheral artery disease: Code(s): I73.9 - Peripheral vascular disease, unspecified Category: Medical Plan: When sitting down elevate the legs, exercise, and support stockings keep active (6) Obesity (BMI 30-39.9): Code(s): E66.9 - Obesity, unspecified Category: Medical Plan: Diet and exercise (7) Tubular adenoma of colon: Comment: -05/04/25 colonoscopy complete with fair prep- TA to Ascending Colon (10 mm sessile polyp + 15 - 18 mm), Transverse Colon (10-12 mm) and to Sigmoid Colon (Two 10 -12 mm); diverticulosis, hemorrhoids. Repeat due in two years (2026). -06/2020 colonoscopy with excellent prep- Tubular adenoma to ascending and descending. Recommendation for repeat in five year ( 2024) -06/07/2015 colonoscopy complete with good prep- tubular adenoma and hyperplastic polyps; Code(s): D12.6 - Benign neoplasm of colon, unspecified Category: Medical Plan: Patient just had colonoscopy this year and advised repeat/recall in 2 years (8) CKD (chronic kidney disease): Code(s): N18.9 - Chronic kidney disease, unspecified Category: Medical Plan: Keep well hydrated avoid NSAIDs stop smoking (9) Spinal stenosis at L4-L5 level: Code(s): M48.061 - Spinal stenosis, lumbar region without neurogenic claudication Category: Medical Plan: Patient has been referred to the neurosurgeon (10) COPD (chronic obstructive pulmonary disease): Code(s): J44.9 - Chronic obstructive pulmonary disease, unspecified Category: Medical Qualifiers: COPD type: emphysema Emphysema type: unspecified Qualified Code(s): J43.9 - Emphysema, unspecified Plan: Patient on Advair and albuterol inhaler (11) Nicotine dependence, cigarettes, uncomplicated: Comment: (onset 15yo, 1/2-1ppd x 53yrs, 35+PYH) Code(s): F17.210 - Nicotine dependence, cigarettes, uncomplicated Category: Medical Plan: Patient is strongly advised to stop! Plan Plan Patient was informed and verbally consented to the use of an ambient scribe for clinic note documentation during this visit. 1. Chronic Obstructive Pulmonary Disease The patient reports worsening dyspnea, particularly in the morning, and feels her low-dose Advair is not providing adequate relief, prompting her to increase albuterol use to three times daily. A prescription for Trelegy, a once-daily combination inhaler, was sent to the pharmacy. If insurance denies coverage for Trelegy, the alternative plan is to increase the dose of her Advair inhaler. The patient will follow up regarding insurance coverage. 2. Type 2 Diabetes Mellitus The patient's recent hemoglobin A1c of 7.0% is at the treatment goal. She was encouraged to aim for a level closer to the normal of 5.7% through diet and exercise. She will continue taking glipizide 5 mg once a day. Her next A1c will be checked in the office without a fasting requirement. 3. Hyperlipidemia Her LDL cholesterol is at goal at 95 mg/dL, and her triglycerides have improved to 196 mg/dL but remain above the goal of less than 150 mg/dL. She will continue her regimen of atorvastatin 80 mg and fenofibrate 160 mg once daily. She confirmed she has not started the prescribed Zetia. 4. Essential Hypertension The patient will continue her current regimen of propranolol 80 mg once a day and amlodipine 2.5 mg once a day. It is noted that she cannot take TANIA inhibitors. 5. Lumbar Spinal Stenosis And Peripheral Vascular Disease The patient reports bilateral hip pain and leg weakness. She will proceed with a scheduled ultrasound of her leg vessels to evaluate her peripheral vascular disease and will follow up with her neurosurgery referral for lumbar spinal stenosis. The importance of smoking cessation for her PVD was emphasized. 6. Tobacco Use Disorder The patient continues to smoke approximately half a pack per day, though she reports a reduction in use. She was strongly and repeatedly counseled on the importance of quitting, especially in the context of her COPD and PVD. Discussion Notes I reviewed the patient's multiple chronic conditions with her. We discussed her worsening shortness of breath, and I explained that her current low-dose Advair may be insufficient. I have prescribed Trelegy as an alternative and informed her that if her insurance does not cover it, we will switch to a higher dose of Advair. Regarding her lab results, I noted her HbA1c is at our medication goal of 7.0 but encouraged her to aim for a level closer to normal (5.7) through diet and exercise. I acknowledged that her cholesterol is improving, with LDL at goal and triglycerides trending down on her current medication. I reiterated the critical importance of smoking cessation for her COPD and peripheral vascular disease. We also discussed her referral to a neurosurgeon for lumbar spinal stenosis and mentioned that conservative options are often tried first if symptoms are not severe. Finally, I reviewed her upcoming screenings and recommended she receive the pneumonia and tetanus vaccines, which she declined at this time. Patient Instructions - I have prescribed a new inhaler called Jeyson to help your breathing. - Use it once every day. - Please let my office know if your insurance does not pay for it, and we will switch you to a stronger dose of your Advair inhaler. - Continue taking all your current medications for diabetes, high blood pressure, and cholesterol as prescribed. - Work on improving your diet and increasing your physical activity to help lower your blood sugar further. - Make sure to attend your scheduled ultrasound of the blood vessels in your legs. - Follow up with the spine surgeon (neurosurgeon) as planned to discuss your back and leg pain. - It is very important that you stop smoking. - This will help your breathing, the circulation in your legs, and your overall health. - Drink plenty of water and avoid taking pain medicines like ibuprofen (Advil) or naproxen (Aleve) to protect your kidneys. - You are due for a tetanus shot, and it is highly recommended that you get a pneumonia shot. Medications: New tdsttcrikcb-zckixgyon-ecoyfswf 200-62.5-25 mcg (Trelegy Ellipta) 1 inh inhalation DAILY 60 ea 3RF J43.9 - Emphysema, unspecified Discontinued fluticasone propion-salmeterol 100-50 mcg/dose (Advair Diskus) Discontinued Reason: Doctor's Order 1 inh inhalation BID 60 ea 12RF
== END 2025-08-09 10:25 | disposition home or self-care (01) ==
LOC: HO.HMCH 09:30
PROVIDERS: PCP Internal Medicine; Visit Provider Internal Medicine
DX: I12.9 Hypertensive chronic kidney disease with stage 1 through stage 4 chronic kidney disease, or unspecified chronic kidney disease (principal); E11.65 Type 2 diabetes mellitus with hyperglycemia; F31.12 Bipolar disorder, current episode manic without psychotic features, moderate; J43.9 Emphysema, unspecified; N18.9 Chronic kidney disease, unspecified; E66.9 Obesity, unspecified; E78.00 Pure hypercholesterolemia, unspecified; I73.9 Peripheral vascular disease, unspecified; D12.6 Benign neoplasm of colon, unspecified; M48.061 Spinal stenosis, lumbar region without neurogenic claudication; F17.210 Nicotine dependence, cigarettes, uncomplicated

== ENCOUNTER → 2025-08-09 09:30 | Outpatient (BNVA) | payer MEDICARE, MEDICAID, SELFPAY | PROVIDERS: PCP Internal Medicine; Visit Provider Internal Medicine | DX: E11.22 Type 2 diabetes mellitus with diabetic chronic kidney disease (principal); I12.9 Hypertensive chronic kidney disease with stage 1 through stage 4 chronic kidney disease, or unspecified chronic kidney disease; N18.31 Chronic kidney disease, stage 3a; K21.9 Gastro-esophageal reflux disease without esophagitis; J44.9 Chronic obstructive pulmonary disease, unspecified; M25.551 Pain in right hip; M25.552 Pain in left hip; E11.65 Type 2 diabetes mellitus with hyperglycemia; E78.00 Pure hypercholesterolemia, unspecified; F31.12 Bipolar disorder, current episode manic without psychotic features, moderate; E11.51 Type 2 diabetes mellitus with diabetic peripheral angiopathy without gangrene; E66.9 Obesity, unspecified; D12.6 Benign neoplasm of colon, unspecified; M48.061 Spinal stenosis, lumbar region without neurogenic claudication; J43.9 Emphysema, unspecified; F17.210 Nicotine dependence, cigarettes, uncomplicated; Z68.29 Body mass index [BMI] 29.0-29.9, adult | CPT/HCPCS: 99212 ==

== ENCOUNTER 2025-08-21 09:42 | Outpatient (REF) | payer MEDICARE, MEDICAID, SELFPAY ==
--- NOTE | ~2025-08-21 | US_ITS ---
EXAMINATION: US NONINVASIVE ASSESSMENT OF THE bilateral LOWER EXTREMITY WITH ARTERIAL DUPLEX AND ANKLE BRACHIAL INDICES (ABIS) CLINICAL INFORMATION: Peripheral vascular disease COMPARISON: Previous exam January 2025 TECHNIQUE: Duplex Doppler techniques with waveform analysis and measurement of velocities in the common femoral, profunda femoris, superficial femoral, popliteal and tibial arteries were performed. In addition, ankle pulse volume recordings, ankle pressure measurements and ankle brachial indices were obtained of the bilateral lower extremity arterial system. The study was performed only at rest. FINDINGS: NONINVASIVE ASSESSMENT OF THE ARTERIES OF BILATERAL LOWER EXTREMITIES WITH ABIs: RIGHT LEG: Ankle-brachial index: 0.99 Ankle PVR: Abnormal LEFT LEG: Ankle-brachial index: 0.67 Left ankle PVR: Abnormal LORIN Reference: 0.9 - 1.4 = normal - no significant arterial disease 0.7 - 0.89 = mild peripheral arterial disease 0.51 - 0.69 = moderate peripheral arterial disease 0.50 = severe peripheral arterial disease RIGHT LOWER EXTREMITY DUPLEX ULTRASOUND: Diffuse vessel wall calcification. Mild wall thickening perforation femoral artery. Common femoral artery: 119 cm/s. Diastolic flow reversal: Yes Profunda femoris artery: 60 cm/s. Diastolic flow reversal: Yes Superficial femoral artery (proximal): 136 cm/s. Diastolic flow reversal: Yes Superficial femoral artery (mid): 113 cm/s. Diastolic flow reversal: Yes Superficial femoral artery (distal): 144 cm/s. Diastolic flow reversal: Yes Popliteal artery: 62 cm/s Diastolic flow reversal: Yes Posterior tibial artery: 61 cm/s Diastolic flow reversal: Yes LEFT LOWER EXTREMITY DUPLEX ULTRASOUND: Diffuse vessel wall calcification. There is mild wall thickening of the distal common femoral artery. There is significant wall thickening of the official femoral artery. Common femoral artery: 83 cm/s. Diastolic flow reversal: No Profunda femoris artery: 59 cm/s. Diastolic flow reversal: No Superficial femoral artery (proximal): 253 cm/s. Diastolic flow reversal: No Superficial femoral artery (mid): 43 cm/s. Diastolic flow reversal: No Superficial femoral artery (distal): 66 cm/s. Diastolic flow reversal: No Popliteal artery: 35 cm/s Diastolic flow reversal: No Posterior tibial artery: 28 cm/s Diastolic flow reversal: No US/US arterial duplex BI w/ LORIN IMPRESSION: Right: The right LORIN is normal measuring 1.0. Minimally elevated peak systolic velocity in the SFA suggestive of mild atherosclerotic disease/stenosis. Left: The left LORIN is 0.67 suggestive of moderate atherosclerotic disease. This is decreased from 0.82 on January 2025 exam. Increasing peak systolic velocity proximal superficial femoral artery with velocity shift ratio of 3-4:1 suggestive of moderate to severe SFA stenosis. There is monophasic flow seen throughout the left lower extremity. Electronically signed by: Cathy Brewster MD 08/21/2025 01:04 [facility]
== END 2025-08-21 09:43 | disposition home or self-care (01) ==
LOC: HO.US 09:42
PROVIDERS: PCP Internal Medicine; Visit Provider Surgery Vascular Surgery
DX: I73.9 Peripheral vascular disease, unspecified (principal)
CPT/HCPCS: 76706; 93922; 93925

== ENCOUNTER → 2025-08-21 09:44 | Outpatient (BNV) | payer MEDICARE, MEDICAID, SELFPAY | PROVIDERS: PCP Internal Medicine; Visit Provider Radiology Diagnostic Radiology | DX: I73.9 Peripheral vascular disease, unspecified (principal) | CPT/HCPCS: 93922; 93925 ==